=== PATIENT | male | born 1965 | race Caucasian/White ===

== ENCOUNTER → 2017-07-07 | Outpatient (CLI) | payer BC ==
--- NOTE | 2017-07-07 16:58 | US ---
EXAMINATION TYPE: US carotid duplex BILAT DATE OF EXAM: 07/07/2017 COMPARISON: NONE CLINICAL HISTORY: R42 Postural dizziness. EXAM MEASUREMENTS: RIGHT: Peak Systolic Velocity (PSV) cm/sec ----- Right CCA: 107.0 ----- Right ICA: 97.8 ----- Right ECA: 128.0 ICA/CCA ratio: RIGHT: End Diastole cm/sec ----- Right CCA: 21.7 ----- Right ICA: 27.9 ----- Right ECA: 10.9 LEFT: Peak Systolic Velocity (PSV) cm/sec ----- Left CCA: 126.0 ----- Left ICA: 112.0 ----- Left ECA: 161.0 ICA/CCA ratio: LEFT: End Diastole cm/sec ----- Left CCA: 27.4 ----- Left ICA: 23.4 ----- Left ECA: 17.1 VERTEBRALS (direction of flow): Right Vertebral: Antegrade Left Vertebral: Antegrade No significant stenosis seen IMPRESSION: No evidence for hemodynamically significant stenosis. Criteria for Assigning % of Stenosis / Diameter reduction (Estimation based on the indirect measurements of the internal carotid artery velocities (ICA PSV). 1. Normal (no stenosis)=ICA PSV < 125 cm/s: ratio < 2.0: ICA EDV<40 cm/s. 2. Less than 50% stenosis=ICA PSV < 125 cm/s: ratio < 2.0: ICA EDV<40 cm/s. 3. 50 to 69% stenosis=ICA PSV of 125 to 230 cm/s: ration 2.0 ? 4.0: ICA EDV 40-100 cm/s. 4. Greater than 70% stenosis to near occlusion= ICA PSV > 230 cm/s: ratio > 4.0: ICA EDV > 100 cm/s. 5. Near occlusion= ICA PSV velocities may be low or undetectable: variable ratio and ICA EDV. 6. Total occlusion=unable to detect flow.
== END | disposition home or self-care (01) ==
LOC: RADUSWWP 16:10
PROVIDERS: ATTEND Family Medicine
DX: R42 Dizziness and giddiness (principal); E11.9 Type 2 diabetes mellitus without complications
CPT/HCPCS: 93880

== ENCOUNTER → 2018-03-16 | Outpatient (CLI) | payer BC ==
--- NOTE | 2018-03-17 06:55 | US ---
EXAMINATION TYPE: US scrotum with doppler. Grayscale and color Doppler Duplex imaging performed of t chiqui scrotum. DATE OF EXAM: 03/16/2018 COMPARISON: NONE CLINICAL HISTORY: N50.812 Left Testicular Pain. left side swelling and pain, no injury EXAM MEASUREMENTS: TESTICLES: Right Testicle: 4.3 x 3.3 x 3.4 cm Left Testicle: 4.6 x 3.2 x 3.0 cm EPIDIDYMIS HEAD: Right Epididymis: 0.8 x 0.7 x 0.8 cm Left Epididymis: 1.5 x 1.7 x 1.1 cm Doppler performed to assess for testicular vascularity; good bilateral color flow and waveforms are s een. There is no evidence of testicular torsion. Presence of hydroceles: small left Presence of varicoceles: left, valsalva performed Two cystic appearing lesions seen within left lateral/lower testicle. 1= 0.5 x 0.6 x 0.6 cm. 2= sep tated, 0.4 x 0.6 x 0.5 cm Benign-appearing thin-walled cysts along periphery of left testicle are identified. No suspicious int ratesticular solid mass is present bilaterally. Color images show satisfactory blood flow to both sarah ticles. Comparison view shows symmetric blood flow to both testicles. IMPRESSION: Asymmetric small left-sided hydrocele and asymmetric vascular prominence borderline varic ocele on the left.
== END | disposition home or self-care (01) ==
LOC: RADUSWWP 16:18
PROVIDERS: ATTEND Family Medicine
DX: N43.3 Hydrocele, unspecified (principal)
CPT/HCPCS: 76870; 93975

== ENCOUNTER → 2018-07-11 | Outpatient (CLI) | payer BC ==
--- NOTE | 2018-07-11 10:41 | US ---
EXAMINATION TYPE: US scrotum with doppler. Grayscale and color Doppler Duplex imaging performed of t chiqui scrotum. DATE OF EXAM: 07/11/2018 COMPARISON: NONE CLINICAL HISTORY: N50.812 Left testicular pain. LLQ pain, no testicle swelling today EXAM MEASUREMENTS: TESTICLES: Right Testicle: 4.8 x 3.1 x 2.7 cm Left Testicle: 4.7 x 3.6 x 2.6 cm, 2 intratesticular cystic areas noted 0.6cm and 0.7cm EPIDIDYMIS HEAD: Right Epididymis: 1.2 cm Left Epididymis: 1.2 cm Doppler performed to assess for testicular vascularity; there are bilateral color flow and waveforms seen. There is no evidence of testicular torsion. Presence of hydroceles: mild on the left Presence of varicoceles: No sizable varicocele scanned area of patients concern under panis in LLQ - no abnormality noted IMPRESSION: Cystic foci left testis are indeterminate.
== END | disposition home or self-care (01) ==
LOC: RADUSMAIN 09:13
PROVIDERS: ATTEND Family Medicine
DX: N50.812 Left testicular pain (principal)
CPT/HCPCS: 76870; 93975

== ENCOUNTER → 2018-08-12 | Outpatient (CLI) | payer BC ==
[2018-08-12 19:14] LABS: Blood Urea Nitrogen 15 mg/dL (9-20)
--- NOTE | 2018-08-13 13:10 | CT ---
EXAMINATION TYPE: CT chest w con DATE OF EXAM: 08/12/2018 COMPARISON: CTA chest June 24, 2016 6. HISTORY: lung nodules, recent outside abnormal CT. CT DLP: 981.2 mGycm. Automated Exposure Control for Dose Reduction was Utilized. TECHNIQUE: CT scan of the thorax is performed following with IV Contrast, patient injected with 100 mL of Isovue 300. FINDINGS: LUNGS: In the superior aspect right lower lobe there is a 8 by 7 mm nodule axial image 26 that is inc reased in size from 2016 CT where measured 5 mm . Inferior and medial to this in the right lower lobe there is 10 x 10 mm groundglass nodule axial image 25 not significantly changed from prior CT. There is linear scarring in the inferior lingula near diaphragm axial image 32 that is stable. No pleural effusion or pneumothorax is noted bilaterally. Tracheobronchial tree is patent. MEDIASTINUM: There are no greater than 1 cm hilar or mediastinal lymph nodes. No pericardial effusi on is seen. Interval thyroid surgery suspected as large thyroid with substernal extension is not petrona epifanio seen on current study since. Coronary artery calcification is redemonstrated which is noted kirit er for coronary artery disease. Mild cardiomegaly remains present. OTHER: Liver is diffusely hypodense consistent with diffuse fatty infiltration. Few scattered splenul es are seen. Spleen remains enlarged at 15.6 cm long axis axial image 45 but not significantly change d from prior. There is moderate to severe multilevel spurring in the thoracic spine redemonstrated. IMPRESSION: Right-sided nodules as detailed above, larger groundglass nodule not significant change from 2016 CT favoring benign or postinflammatory. Smaller slightly larger from 2016 CT. Recommend cor relation with recent abnormal CT to help determine appropriate imaging follow-up.
== END | disposition home or self-care (01) ==
LOC: RADCTMAIN 18:26
PROVIDERS: ATTEND Family Medicine
DX: R91.8 Other nonspecific abnormal finding of lung field (principal)
CPT/HCPCS: 82565; 84520; 71260; 36415; Q9967

== ENCOUNTER → 2018-10-08 | Outpatient (CLI) | payer BC ==
--- NOTE | 2018-10-11 16:11 | PE ---
Nuclear medicine PET/CT HISTORY: Solitary pulmonary nodule, initial Patient received 13.9 mCi F-18 FDG intravenously in delayed scanning was performed from the skull bas e to the mid thighs. An attenuation correction CT, localization CT was also performed. Correlation to CT chest 12 August 2018, CT chest 06/24/2016 Neck and chest: There is no evident cervical, axillary, mediastinal, or hilar adenopathy. Pulmonary n odule in the medial aspect of the right lower lobe measures approximately 13 mm in size, no suspiciou s hypermetabolic uptake. 13 mm nodule in the subpleural location is stable compared to prior chest CT , no suspicious hypermetabolic uptake. Liver shows low attenuation likely due to hepatic steatosis. No evident adrenal mass. No retroperiton eal adenopathy. Aorta shows normal caliber. No pelvic adenopathy or free fluid. The urinary bladder s hows a thickened wall which may be due to chronic outlet obstruction, lack of distention or cystitis, correlate. No suspicious hypermetabolic uptake. Osseous structures show no significant abnormality. Facet arthropathy changes, degenerative disc carroll ge in the visualized spine. IMPRESSION: Findings felt likely to be benign.
== END | disposition home or self-care (01) ==
LOC: RADPETMAIN 11:23
PROVIDERS: ATTEND Internal Medicine Pulmonary Disease
DX: R91.1 Solitary pulmonary nodule (principal)
CPT/HCPCS: 78815; A9552

== ENCOUNTER 2021-04-07 07:51 | Day surgery (SDC) | payer BC ==
[2021-04-04 09:21] VITALS: BMI 46.2
[~2021-04-07 07:51] MED LIST: LACTATED RINGERS 1,000 ML IV SCH; LIDOCAINE 1% (10MG/ML) FOR IV START INTRADERMA PRN
[2021-04-07 08:31] VITALS: RESP 16; TEMP 97
[2021-04-07 08:33] LABS: Glucose,Whole Blood 121 mg/dL (75-99)
[2021-04-07] MEDS ORDERED: PROPOFOL 10 MG/ML 20 ML VIAL IV ONE (09:09)
--- NOTE | 2021-04-07 09:44 | P.PCN ---
Date of Procedure: 04/07/21 Description of Procedure: BRIEF HISTORY: Patient is a 55-year-old male presenting for outpatient colonoscopy for change in bowel habits and hemorrhage of the anus and rectum. The patient reports last colonoscopy approximately 5 years ago. He reports a history of hemorrhoids but has had increased rectal bleeding which is been going on for the past few months. No family history of colon cancer or IBD. PROCEDURE PERFORMED: Colonoscopy with polypectomy and biopsy. PREOPERATIVE DIAGNOSIS: Change in bowel habits, hemorrhage of the anus and rectum, patient reports last colonoscopy 5 years ago. ESTIMATED BLOOD LOSS: Minimal. IV sedation per Anesthesia. PROCEDURE: After informed consent was obtained, the patient, was brought into the endoscopy unit. IV sedation was administered by Anesthesia under continuous monitoring. Digital rectal examination was normal. Initially the Olympus CF-190 flexible video colonoscope was then inserted in the rectum, gradually advanced into the cecum without any difficulty. Careful examination was performed as the scope was gradually being withdrawn. Ileocecal valve and the appendiceal orifice were visualized and appeared normal. Prep was excellent. Mucosa of the cecum, ascending colon, transverse colon, descending colon, sigmoid colon, and rectum appeared normal. The patient had 4 diminutive polyps measuring 1-2 mm in size removed with cold forcep polypectomy the cecum, ascending colon, transverse colon and rectum. Random biopsies were taken of the normal-appearing right and left colon. Retroflexion was performed in the rectum and no lesions were seen, low-grade internal hemorrhoids were seen. The patient tolerated the procedure well. IMPRESSION: 4 diminutive polyps removed with cold forcep polypectomy from the cecum, ascending colon, transverse colon and rectum. Random biopsies taken of the normal-appearing right and left colon. Internal hemorrhoids. RECOMMENDATIONS: Findings of this examination were discussed with the patient and his family. Okay to resume diet. Okay to resume medications. Await pathology from biopsies and polypectomy. Recommend repeat colonoscopy in 5 years for colon polyps pending pathology from polypectomy. Extensive discussion with the patient regarding local hemorrhoidal care including dietary modifications, fiber supplementation, Tucks pads, topical hemorrhoidal creams and sitz baths if no improvement would recommend referral to surgical service for further evaluation.
[2021-04-07 10:02] VITALS: BP 111/75; PULSE 71
== END 2021-04-07 10:32 | disposition home or self-care (01) ==
LOC: ORWHC2ENDO 07:51
PROVIDERS: ATTEND Internal Medicine
DX: R19.4 Change in bowel habit (principal); K62.5 Hemorrhage of anus and rectum; K64.8 Other hemorrhoids; Z79.899 Other long term (current) drug therapy; D12.2 Benign neoplasm of ascending colon; D12.3 Benign neoplasm of transverse colon
CPT/HCPCS: 88305; 45380; J2704

== ENCOUNTER → 2022-11-30 | Outpatient (CLI) | payer BC ==
[2022-11-30 10:55] LABS: African American GFR (CKD) >90 (>60 ml/min/1.73 sqM); Blood Urea Nitrogen 15 mg/dL (9-20); Non-African American GFR(CKD) >90 (>60 ml/min/1.73 sqM)
--- NOTE | 2022-11-30 12:31 | CT ---
EXAMINATION TYPE: CT chest w con DATE OF EXAM: 11/30/2022 COMPARISON: Prior chest CT August 12, 2018 and same year PET/CT HISTORY: FOLLOW UP RT LUNG CANCER CT DLP: 1208 mGycm. Automated Exposure Control for Dose Reduction was Utilized. TECHNIQUE: CT scan of the thorax is performed following with IV Contrast, patient injected with 70 m L of Isovue 300. FINDINGS: LUNGS: New small right pleural effusion. Surgical changes right hilar region scarring is present. Lef t lung remains clear. Linear scarring posteriorly and superiorly from the right hilum is noted. MEDIASTINUM: Suboptimal contrast bolus. No greater than 1 cm hilar or mediastinal lymph nodes. Alejandro nary artery calcification is redemonstrated. No cardiomegaly or pericardial effusion is seen. OTHER: Right-sided gynecomastia is noted. Liver remains heterogeneously hypodense consistent with dif fuse fatty infiltration. Multilevel spurring and bridging osteophytes in the thoracic spine are redem onstrated. IMPRESSION: Posttreatment changes to the right lung. No suspicious new nodules or adenopathy identifi ed.
== END | disposition home or self-care (01) ==
LOC: RADCTMAIN 10:04
PROVIDERS: ATTEND Internal Medicine Hematology & Oncology
DX: C34.31 Malignant neoplasm of lower lobe, right bronchus or lung (principal); Z03.89 Encounter for observation for other suspected diseases and conditions ruled out; Z98.890 Other specified postprocedural states
CPT/HCPCS: 82565; 84520; 71260; 36415; Q9967

== ENCOUNTER → 2023-06-09 | Outpatient (CLI) | payer BC ==
--- NOTE | 2023-06-09 16:19 | MR ---
EXAMINATION TYPE: MR brain wo/w con DATE OF EXAM: 06/09/2023 COMPARISON: None HISTORY: Lung cancer. TECHNIQUE: Multiplanar, multisequence images of the brain and brainstem is performed without and with IV contras t, utilizing 15 mL intravenous Gadavist . FINDINGS: Diffusion weighted images demonstrate no evidence of a recent infarct or other diffusion ab normality. There is no extra-axial fluid collection or significant white matter signal abnormality. The ventricular system and cisternal spaces are normal in size and appearance. The brain volume is age appropriate. Midline structures demonstrate normal morphology. The craniocervical junction appears within normal limits. Post contrast images demonstrate no abnormal enhancement. The dural venous sinuses appear pa tent. Arachnoid granulation within the left transverse sinus. The globes are unremarkable. Likely muc ous retention cyst within the left maxillary sinus measuring up to 2.5 cm. This does not enhance. IMPRESSION: No evidence for acute/subacute ischemia or abnormal contrast enhancement to suggest intracranial meta stasis
== END | disposition home or self-care (01) ==
LOC: RADMRIMAIN 15:08
PROVIDERS: ATTEND Internal Medicine Hematology & Oncology
DX: C34.31 Malignant neoplasm of lower lobe, right bronchus or lung (principal)
CPT/HCPCS: 70553; A9585

== ENCOUNTER → 2024-01-27 | Outpatient (CLI) | payer BC ==
--- NOTE | 2024-01-27 14:26 | PE ---
EXAMINATION TYPE: PET CT fusion skull to thigh DATE OF EXAM: 01/27/2024 CLINICAL INDICATION:Male, 58 years old with history of C34.31 MALIGNANT NEOPLASM OF LOWER LOBE, RIGHT BRO; TECHNIQUE: Following the intravenous administration of 9.7 mCi of F-18 FDG, whole body images are p erformed from the skull base to the midthigh. Images are reviewed on the computer in the coronal, ax ial, and sagittal planes. Reconstructed rotating images are created on independent workstation and r eviewed on the computer. A non-contrast CT is performed in conjunction with the PET scan. Glucose l evel 116 mg/dL CT DLP: 1565 mGycm, Automated exposure control for dose reduction was used. COMPARISON: CT None, PET/CT 10/27/2023, FINDINGS: Mediastinal SUV mean is 2.7. Hepatic parenchyma SUV mean is 3.0. SKULL BASE AND NECK: Uptake within the right mandible possibly no metastatic focus versus periodontal disease max SUV 10.7 previously not well appreciated. CHEST, MEDIASTINUM, AND HILAR REGION: Consolidation changes in the left pulmonary hilum max SUV 4.5, previously 4.3. No metabolically activ e lymph nodes identified in the mediastinum. ABDOMEN AND PELVIS: Intense radiotracer uptake within the prostate gland posteriorly on the right max 10.0. Previously no t as well appreciated. MUSCULOSKELETAL STRUCTURES: Scattered sclerotic areas are seen throughout the osseous structures. Include * left rib 5 anteriorly max SUV 3.5, previously 2.6 * Left rib to max SUV 2.5 previously 2.7. * Left rib 7 Max SUV 3.9 previously 3.9. * Left iliac bone max SUV 9.6, previously 5.1. * Left proximal femur max SUV 2.6, previously 5.4. * L3 vertebral body max SUV 14.4 previously 10.6. * L2 spinous process max SUV 10.6, previously 4.2. OTHER CT: Mild mucosal thickening with retention cyst in the left maxillary sinus. Mild to moderate c oronary artery atherosclerosis. Scattered colonic diverticula. Prostate gland is mildly enlarged cole uring up to 47 mm in transverse dimension. Mild atherosclerosis of the arterial vasculature. Trace ri ght pleural effusion. Consolidation changes around the right pulmonary hilum involving the right lowe r lobe. IMPRESSION: 1. Scattered osseous metastatic disease some of which is increase in metabolic activity suggesting p rogression of disease. There is at least one new area in the L2 spinous process also present. 2. Focal uptake within the right posterior prostate gland consider further evaluation of correlation with PSA and MRI prostate gland if PSA is elevated. 3. No cysts abnormal uptake within the right pulmonary hilum or evidence of FDG avid enlarged lymph nodes.
== END | disposition home or self-care (01) ==
LOC: RADPETMAIN 10:01
PROVIDERS: ATTEND Internal Medicine Hematology & Oncology
DX: C79.51 Secondary malignant neoplasm of bone (principal); C34.31 Malignant neoplasm of lower lobe, right bronchus or lung
CPT/HCPCS: 78815; A9552

== ENCOUNTER → 2024-03-14 | Outpatient (CLI) | payer BC ==
[2024-03-14 10:11] LABS: African American GFR (CKD) >90 (>60 ml/min/1.73 sqM); Blood Urea Nitrogen 17 mg/dL (9-20); Non-African American GFR(CKD) >90 (>60 ml/min/1.73 sqM)
--- NOTE | 2024-03-14 12:40 | CT ---
EXAMINATION TYPE: CT ChestAbdPelvis w con DATE OF EXAM: 03/14/2024 COMPARISON: CT chest dated 11/30/2022 and recent PET/CT 01/27/2024. HISTORY: f/u lung ca CT DLP: 1982 mGycm CONTRAST: CT scan of the chest, abdomen and pelvis is performed with Oral Contrast and with IV Contrast, patien t injected with 100 mL of Isovue 300. CT Chest: LUNGS: Right infrahilar consolidative changes are redemonstrated measuring 1.5 cm in greatest dimensi on versus 1.[address] chest. PET CT done recently reveals no abnormal uptake in this region an d the findings are likely related to posttreatment change. No new masses or nodules present. Small ri ght-sided pleural effusion present which is smaller in size on prior study. No pleural effusion or CT evidence of interstitial lung disease. MEDIASTINUM: Thoracic aorta is of normal caliber. The heart is not enlarged. No evidence for media stinal mass or adenopathy. HILAR STRUCTURES: No evidence for mass. No hilar adenopathy is appreciated. OTHER: No significant abnormality. CONTRAST CT ABDOMEN AND PELVIS FINDINGS: LIVER/GB: No calcified gallstones. No space occupying hepatic lesion. Biliary tree is of normal ca liber. PANCREAS: No inflammation. No distinct mass. SPLEEN: No splenic enlargement. No lesion seen. ADRENALS: No nodule. No thickening. KIDNEYS/BLADDER: No hydronephrosis. No nephrolithiasis. No disctinct renal mass. BOWEL: Normal appendix. Normal bowel caliber. No inflammation. GENITAL ORGANS: No gross abnormality. LYMPH NODES: No greater than 1cm abdominal or pelvic lymph nodes are appreciated. AORTA: No significant abnormality. OSSEOUS STRUCTURES: Scattered sclerotic metastatic lesions redemonstrated. There is involvement of th e ribs, thoracic and lumbar spines as well as the pelvis and sacrum in addition to the proximal bilat eral femora. OTHER: No significant additional abnormality is seen. IMPRESSION: 1. Suspect posttreatment changes right hilum. No definite recurrent mass or new mass. 2. Bony metastatic disease
== END | disposition home or self-care (01) ==
LOC: RADCTMAIN 09:17
PROVIDERS: ATTEND Internal Medicine Hematology & Oncology
DX: C79.51 Secondary malignant neoplasm of bone (principal); C34.31 Malignant neoplasm of lower lobe, right bronchus or lung
CPT/HCPCS: 82565; 84520; 71260; 74177; 36415; Q9967

== ENCOUNTER → 2024-03-17 | Outpatient (CLI) | payer BC ==
--- NOTE | 2024-03-18 04:34 | CT ---
EXAMINATION TYPE: CT facial bones wo con CT DLP: 605.9 mGycm, Automated exposure control for dose reduction was used. DATE OF EXAM: 03/17/2024 6:39 AM COMPARISON: PET/CT 01/27/2024. CLINICAL INDICATION:Male, 58 years old with history of D49.2 NEOPLASM OF UNSP BEHAVIOR OF BONE, SOFT TISS; PHH, r/o cancer TECHNIQUE: Multiple unenhanced axial CT images were obtained of the facial bones soft tissue and bone windows. Coronal, axial and sagittal reformatted images were also provided in soft tissue and bone windows and submitted for interpretation. Additional 3-D reformatted images were obtained on a [employer] workstation. FINDINGS: Dental amalgam creates streak artifact which limits evaluation. There is no evidence of subluxation, dislocation, or significant soft tissue swelling. There is focal osseous erosion involving the right mandible surrounding the molar measuring 2.0 x 1.7 cm (series 3, 23). This corresponds to FDG activity on prior PET/CT. There is associated pathologic fracture in th is region along the medial aspect (series 6, image 26). No organized fluid collection demonstrated. Degenerative changes of the visualized cervical spine. The orbital contents are unremarkable. Mild na amrita septal deviation to the left. The temporal-mandibular joints appear symmetric. 2.9 cm polypoid le saima within the inferior left maxillary sinus. There is some associated thinning of the posterior wal l of the maxillary sinus. No corresponding FDG activity on prior PET/CT. The remaining visualized por tion of the paranasal sinuses appear clear. Nonspecific 1.9 cm soft tissue lesion within the left in ferior parotid gland. Not FDG avid on prior PET/CT. No pathologically enlarged lymph nodes identified . IMPRESSION: 1. Focal osseous erosion involving the right mandible surrounding the molar. There is associated path ologic fracture along the medial aspect. Corresponding FDG activity on prior PET/CT. The remaining os seous metastatic lesions in the body are sclerotic and nonerosive. This is favored to represent osteo myelitis from dental infection however metastasis is not entirely excluded. 2. Nonspecific polypoid lesion within the left maxillary sinus without FDG avidity on prior PET/CT. M ay represent a benign benign polyp versus mucocele. 3. Nonspecific 1.9 cm soft tissue lesion within the left parotid gland. No corresponding FDG on prior PET/CT. Further evaluation with ultrasound is recommended.
== END | disposition home or self-care (01) ==
LOC: RADCTMAIN 06:20
PROVIDERS: ATTEND Dentist
DX: K11.8 Other diseases of salivary glands (principal); C79.51 Secondary malignant neoplasm of bone; J34.89 Other specified disorders of nose and nasal sinuses
CPT/HCPCS: 70486

== ENCOUNTER → 2024-04-20 | Outpatient (CLI) | payer BC ==
--- NOTE | 2024-04-23 15:30 | PE ---
EXAMINATION TYPE: PET CT fusion skull to thigh DATE OF EXAM: 04/20/2024 COMPARISON: 03/14/2024 CT chest abdomen pelvis Prior PET/CT: 01/27/2024 HISTORY: Right lower lobe lung cancer TECHNIQUE: Following the intravenous administration of 9.2 mCi of F-18 FDG, whole body images are pe rformed from the skull base to the midthigh. Images are reviewed on the computer in the coronal, axi al, and sagittal planes. Reconstructed rotating images are created on independent workstation and re viewed on the computer. A localization and attenuation correction CT is performed in conjunction wi th the PET scan. DLP: 1296.06 mGycm SCAN: Subsequent Blood glucose: 145 mg/dL Average Mediastinum SUV: 1.75 Average Liver SUV: 1.9 FINDINGS: NECK: There is a focus of radiotracer in the parapharyngeal space on the left, image 24, SUV 4.05. THORAX: No suspicious uptake. Patient's primary not identified with elevated tracer. ABDOMEN: There is a small focus of radiotracer within the superior right lobe liver, image 120, SUV 4 .17 suspicious for metastasis. Couple of additional punctate hyperintensities slightly greater than b ackground are present, example images 131 left lobe liver, image 136 right lobe liver, image 142 medi al liver adjacent to the ligamentum teres there are several punctate areas within the lower right lob e liver. PELVIS: There is a subcutaneous hyperintensity in the right medial buttocks, image 283, SUV 5.76 OSSEOUS STRUCTURES: There is a focus of radiotracer within humeral medullary region, image 24, SUV 3. 84. There is radiotracer within the C4 level with an SUV of 4.25. There is radiotracer within the med ial right wing of the ilium, image 218, SUV 4.61. Uptake is within the lumbar vertebral bodies, examp le image L3, SUV 7.[address]: There is a small right pleural effusion and right infrahilar soft tissue increased d ensity is present without elevated radiotracer COMPARISON: Uptake within the left neck is new. Uptake within the liver is new. There are multiple pr ior osseous metastasis, this may be increasing IMPRESSION: 1. No local recurrence within the chest evident. 2. Osseous metastasis appears increasing in SUV from comparison. 3. New punctate areas of increased radiotracer may be within the liver suggesting early hepatic metas tasis. MRI could be performed with contrast for closer evaluation. 4. There may be a subcutaneous lesion posterior right inferior buttocks, present previously. 5. Stable small right pleural effusion.
== END | disposition home or self-care (01) ==
LOC: RADPETMAIN 06:24
PROVIDERS: ATTEND Internal Medicine Hematology & Oncology
DX: C79.51 Secondary malignant neoplasm of bone (principal); C34.31 Malignant neoplasm of lower lobe, right bronchus or lung; J90 Pleural effusion, not elsewhere classified
CPT/HCPCS: 78815; A9552

== ENCOUNTER → 2024-04-29 | Outpatient (CLI) | payer BC ==
--- NOTE | 2024-05-01 11:12 | MR ---
EXAMINATION TYPE: MR abdomen wo/w con DATE OF EXAM: 04/29/2024 10:44 AM CLINICAL INDICATION:Male, 58 years old with history of C34.31 lung ca; COMPARISON: CT scan abdomen from 03/14/2024. 04/20/2024. TECHNIQUE: Multiplanar multi-sequence imaging was performed without contrast. Post contrast imaging was performed. Post IV contrast subtraction images were also submitted for review. IV Contrast: cc 15 cc Gadavist FINDINGS: LOWER CHEST: Trace right pleural effusion. ABDOMEN Liver: No suspicious lesions identified on postcontrast subtraction postcontrast imaging. Diffusion-w eighted imaging is limited due to patient's body habitus No evidence for hepatic steatosis or cirrhos is. Gallbladder and Bile ducts: No evidence for ductal dilation, or biliary stricture or evidence of chol edocholithiasis. The gallbladder is within normal limits. Pancreas: No ductal dilation. No evidence for solid mass. Spleen: Normal for size. Adrenal glands: Left adrenal nodule measuring 9 mm. unchanged from 2018 likely representing adrenal a denoma. No left adrenal nodules. Kidneys: No evidence for obstructive uropathy. No suspicious renal masses. Stomach and Bowel: No evidence for bowel wall thickening or evidence for obstruction. Retroperitoneum/Peritoneum: No evidence of pneumoperitoneum or free fluid. Vasculature: No aortic aneurysm. Musculoskeletal: The osseous structures appear intact. Lymph Nodes: No gross evidence for lymphadenopathy. Abdominal wall: Unremarkable. IMPRESSION: 1. No enhancing lesions within the liver. Findings on prior PET/CT thought to represent heterogenous FDG metabolism. Attention on follow-up PET imaging recommended. 2. Trace right pleural effusion. 3. Stable suspected left adrenal adenoma.
== END | disposition home or self-care (01) ==
LOC: RADMRIMAIN 09:05
PROVIDERS: ATTEND Internal Medicine Hematology & Oncology
DX: C34.31 Malignant neoplasm of lower lobe, right bronchus or lung (principal); C79.51 Secondary malignant neoplasm of bone; J90 Pleural effusion, not elsewhere classified; I10 Essential (primary) hypertension; Z71.3 Dietary counseling and surveillance
CPT/HCPCS: 74183; A9585

== ENCOUNTER 2024-06-12 12:30 | Day surgery (SDC) | payer BC ==
[~2024-06-12 12:30] MED LIST changes: +ACETAMINOPHEN TAB 500 MG TAB ONE; +HEPARIN SODIUM,PORCINE 5,000 UNIT/ML 1 ML VIAL ONE; -LACTATED RINGERS 1,000 ML IV SCH; -LIDOCAINE 1% (10MG/ML) FOR IV START INTRADERMA PRN; +ONDANSETRON 4 MG/2 ML VIAL ONE
[2024-06-12] MEDS ORDERED: LACTATED RINGERS 1,000 ML BAG ONE (13:00)
[2024-06-12] MEDS ORDERED: SODIUM CHLORIDE 0.9% IRRIG 1,000 ML BTL IRRIGATION ONE (13:00)
[2024-06-12] MEDS ORDERED: LIDOCAINE 1%-EPI 1:100,000 20 ML VIAL ONE (13:00)
[2024-06-12] MEDS ORDERED: MIDAZOLAM 2 MG/2 ML VIAL ONE (13:39)
[2024-06-12] MEDS ORDERED: KETAMINE HCL IN 0.9 % NACL 50 MG/5 ML SYRINGE ONE (13:39)
[2024-06-12] MEDS ORDERED: PROPOFOL 10 MG/ML 20 ML VIAL IV ONE (13:39)
--- NOTE | 2024-07-11 11:44 | XR ---
Patient Bing, Ganga ID [id number] Order # EXAMINATION TYPE: XR chest 2V DATE OF EXAM: 06/12/2024 COMPARISON: No comparisons available with PACS downtime. INDICATION: Port-A-Cath insertion TECHNIQUE: Frontal and lateral views of the chest are obtained. FINDINGS: The heart size is normal. The pulmonary vasculature is normal. No suspicious infiltrates. No pneumothorax is evident. Catheter is placed on the right with the tip in the region of the superior vena cava. IMPRESSION: 1. No acute pulmonary process. 2. No pneumothorax post right-sided catheter placement, tip in the distal superior vena cava region.
--- NOTE | 2024-07-17 10:07 | OP ---
OPERATIVE REPORT DATE OF SERVICE : PREOPERATIVE DIAGNOSIS: Lung cancer. POSTOPERATIVE DIAGNOSIS: Lung cancer. PROCEDURES: Port-A-Cath insertion with ultrasound and fluoroscopic guidance. ANESTHESIA: Local and sedation. COMPLICATIONS: None. DESCRIPTION OF PROCEDURE: The patient was brought and placed on the OR table in the supine position. The patient was sedated per Anesthesia. The chest and neck were prepped and draped sterilely. The right internal jugular vein was identified using ultrasound guidance. Under ultrasound guidance, the Seldinger needle was passed into the lumen of the right IJ. The wire was then advanced under fluoroscopic guidance to the superior vena cava. A port pocket was then created in the right infraclavicular location after localizing with Marcaine and a horizontal incision was made. The subcutaneous tissues and port pocket were made using electrocautery. The catheter was then tunneled from the wire insertion site to the port pocket. The catheter was cut and connected to the low-profile port which was then sutured to the underlying tissues using interrupted 3-0 silk sutures. The dilator introducer was then threaded over the guidewire. The guidewire and dilator were removed. The catheter was advanced through the introducer and the introducer was then removed. The tip of the catheter was noted to be in the SVC and this was monitored during the placement with fluoroscopy. Pressure was held. No bleeding was seen. The port was flushed with both saline and Hep-Lock solution. There was excellent flow in all the port. The subcutaneous tissues were closed using 3-0 Vicryl sutures and the skin using 4-0 Monocryl sutures. Skin glue and sterile dressings were then applied. MMHUSEYIN / IJN: [id number] /
--- NOTE | 2024-08-03 10:35 | FL ---
EXAMINATION TYPE: FL guided central line placemt DATE OF EXAM: 07/07/2024 6:32 AM COMPARISON: Pre Operative Images if available both CT/MRI or plain film CLINICAL INDICATION: Male, 59 years old with history of PORTACATH INSERT; TECHNIQUE: FL guided central line placemt, multiple fluoroscopic images provided for procedure. Total fluoroscopy time: 7 seconds Total submitted images to PACS: 1 DAP: 1.1079 mGym2 Gycm2 uGym2 cGycm2 or equivalent. FINDINGS: Fluoroscopic imaging for Port-A-Cath insertion no evidence for pneumothorax. Multilevel degeneration changes of the spine. IMPRESSION: 1. No evidence for intraoperative complication. 2. Please see the operative/procedural note for further details. [facility], , 08/03/2024 10:33 AM
== END 2024-06-12 16:16 ==
LOC: OR 12:30
PROVIDERS: ATTEND Surgery
DX: C34.90 Malignant neoplasm of unspecified part of unspecified bronchus or lung (principal); G47.33 Obstructive sleep apnea (adult) (pediatric); I10 Essential (primary) hypertension; E11.69 Type 2 diabetes mellitus with other specified complication; E78.5 Hyperlipidemia, unspecified; E11.9 Type 2 diabetes mellitus without complications; M54.50 Low back pain, unspecified; Z79.899 Other long term (current) drug therapy; Z79.84 Long term (current) use of oral hypoglycemic drugs
CPT/HCPCS: 71045; 77001

== ENCOUNTER → 2024-07-27 | Outpatient (CLI) | payer BC ==
--- NOTE | 2024-07-29 12:04 | PE ---
EXAMINATION TYPE: PET CT fusion skull to thigh DATE OF EXAM: 07/27/2024 CLINICAL INDICATION:Male, 59 years old with history of C34.31 LUNG CANCER; TECHNIQUE: Following the intravenous administration of 13.19 mCi of F-18 FDG, whole body images are performed from the skull base to the midthigh. Images are reviewed on the computer in the coronal, axial, and sagittal planes. Reconstructed rotating images are created on independent workstation and reviewed on the computer. A non-contrast CT is performed in conjunction with the PET scan. Glucose level 185 mg/dL CT DLP: 1578 mGycm, Automated exposure control for dose reduction was used. COMPARISON: CT None, PET/CT 04/20/2024, MRI: 04/29/2024 FINDINGS: Mediastinal SUV mean is 2.2. Hepatic parenchyma SUV mean is 3.0. SKULL BASE AND NECK: No suspicious radiotracer activity. CHEST, MEDIASTINUM, AND HILAR REGION: No suspicious radiotracer activity. ABDOMEN AND PELVIS: No abnormal uptake within the liver. Heterogenous uptake throughout the liver at background levels. MUSCULOSKELETAL STRUCTURES: Focus of uptake within the medial aspect of the left first rib max SUV 6.3 sclerotic lesion in this r egion. Increased in size now measuring 13 mm previously poorly visualized without FDG activity. Other scattered areas of abnormal uptake throughout the osseous structures with increasing sclerotic areas, small sample of examples include: * spinous process of L2 max SUV 10.3, previously 9.6 * vertebral body of L5 max SUV 10.4 previously 7.5. * Right sacrum iliac bone max SUV 8.3 previously 7.5. * Right femoral head max SUV 7.[address]: Trace right pleural effusion. The heart is mildly enlarged for size. Mild centrilobular emp hysema changes. IMPRESSION: Progression of disease with scattered osseous metastatic disease with increasing metabolic activity. [facility], , 07/29/2024 12:02 PM
== END | disposition home or self-care (01) ==
LOC: RADPETMAIN 08:06
PROVIDERS: ATTEND Internal Medicine Hematology & Oncology
DX: C34.31 Malignant neoplasm of lower lobe, right bronchus or lung
CPT/HCPCS: 78815

== ENCOUNTER 2024-10-19 11:07 | Inpatient (IN) | payer BC ==
--- NOTE | 2024-10-19 12:25 | ED ---
General Adult HPI - General Chief complaint: Recheck/Abnormal Lab/Rx Stated complaint: Abn Labs Time Seen by Provider: 10/19/24 11:17 Source: patient, family, RN notes reviewed, old records reviewed Mode of arrival: wheelchair Limitations: no limitations - History of Present Illness Initial comments: 59-year-old male history of stage IV lung cancer presenting from the oncologist office for weakness, anemia, fever. Patient states he was noted to have hemoglobin right around 7 and was sent for transfusion. He denies bleeding. He has had low-grade fever as well. Last chemotherapy was approximately 1 week ago. No cough or cold symptoms. No abdominal pain. No dysuria or urinary frequency. - Related Data Home Medications Medication Instructions Recorded Confirmed Gabapentin 600 mg PO QID 01/04/15 10/19/24 Losartan Potassium [Cozaar] 100 mg PO DAILY 01/04/15 10/19/24 Omeprazole 40 mg PO DAILY 01/04/15 10/19/24 metFORMIN HCL [Glucophage] 1,000 mg PO BID 01/04/15 10/19/24 Ascorbic Acid [Vitamin C] 1,000 mg PO DAILY 04/04/21 10/19/24 Cyanocobalamin (Vitamin B-12) 1,000 mcg PO DAILY 04/04/21 10/19/24 [Vitamin B-12] Empagliflozin [Jardiance] 25 mg PO DAILY 04/04/21 10/19/24 Ergocalciferol [Vitamin D2 (1250 1,250 mcg PO CONTI 04/04/21 10/19/24 Mcg = 79021 Iu)] Fenofibrate,Micronized 200 mg PO DAILY 04/04/21 10/19/24 [Fenofibrate] Latanoprost/Pf [Latanoprost 0.005% 1 drop BOTH EYES HS 04/04/21 10/19/24 Eye Drop] Levothyroxine Sodium [Synthroid] 200 mcg PO DAILY 04/04/21 10/19/24 Olmesartan Medoxomil [Benicar] 40 mg PO DAILY 04/04/21 10/19/24 [place]-3 Fatty Acids/Fish Oil [Fish 1 cap PO DAILY 04/04/21 10/19/24 Oil 1,000 mg Softgel] Rosuvastatin [Crestor] 20 mg PO DAILY 04/04/21 10/19/24 Ubidecarenone [Co Q-10] 200 mg PO DAILY 04/04/21 10/19/24 Zinc 50 mg PO DAILY 04/04/21 10/19/24 carvediloL [Coreg] 25 mg PO BID 04/04/21 10/19/24 Aspirin EC [Ecotrin Low Dose] 81 mg PO DIRECTED 10/19/24 10/19/24 Cholecalciferol [Vitamin D3 (25 25 mcg PO DAILY 10/19/24 10/19/24 Mcg = 1000 Iu)] Cyclobenzaprine [Flexeril] 10 mg PO Q8H PRN 10/19/24 10/19/24 EPINEPHrine (Auto Inject) [Epipen] 0.3 mg IM ONCE PRN 10/19/24 10/19/24 Folic Acid 1 mg PO DAILY 10/19/24 10/19/24 Ibuprofen [Motrin] 800 mg PO Q8H PRN 10/19/24 10/19/24 Levothyroxine Sodium [Synthroid] 50 mcg PO DAILY 10/19/24 10/19/24 Magnesium Oxide [Magnesium] 500 mg PO DAILY 10/19/24 10/19/24 Ondansetron Odt [Zofran Odt] 4 mg PO Q4H PRN 10/19/24 10/19/24 Spironolactone [Aldactone] 25 mg PO DAILY 10/19/24 10/19/24 oxyCODONE HCL [Oxycodone HCl] 10 mg PO Q4H 10/19/24 10/19/24 Allergies Allergy/AdvReac Type Severity Reaction Status Date / Time peas Allergy Anaphylaxis Verified 10/19/24 13:51 Review of Systems ROS Statement: Those systems with pertinent positive or pertinent negative responses have been documented in the HPI. ROS Other: All systems not noted in ROS Statement are negative. Past Medical History Past Medical History: Cancer, Diabetes Mellitus, GERD/Reflux, Hyperlipidemia, Hypertension, Sleep Apnea/CPAP/BIPAP, Thyroid Disorder Additional Past Medical History / Comment(s): C PAP MACHINE , RECTAL BLEEDING. neuropathy History of Any Multi-Drug Resistant Organisms: None Reported Past Surgical History: No Surgical Hx Reported Additional Past Surgical History / Comment(s): colonoscopy 2015, THYROIDECTOMY Past Anesthesia/Blood Transfusion Reactions: No Reported Reaction Past Psychological History: No Psychological Hx Reported Smoking Status: Never smoker - Past Family History Father Family Medical History: Cancer General Exam Limitations: no limitations General appearance: alert, in no apparent distress Head exam: Present: atraumatic, normocephalic Eye exam: Present: normal appearance, PERRL ENT exam: Present: mucous membranes dry Neck exam: Present: normal inspection. Absent: tenderness, meningismus Respiratory exam: Present: normal lung sounds bilaterally. Absent: respiratory distress, wheezes Cardiovascular Exam: Present: regular rate, normal rhythm GI/Abdominal exam: Present: soft. Absent: distended, tenderness, guarding Neurological exam: Present: alert, oriented X3 Psychiatric exam: Present: normal affect, normal mood Skin exam: Present: pallor Course Vital Signs 10/19/24 10/19/24 10/19/24 11:12 11:37 12:56 Temperature 100.3 F H 100.5 F H Pulse Rate 90 89 92 Respiratory 20 16 16 Rate Blood Pressure 122/67 117/58 100/54 O2 Sat by Pulse 99 98 96 Oximetry Medical Decision Making - Medical Decision Making Was pt. sent in by a medical professional or institution (Dr. PA, SHOT BLAST EQUIPMENT OPERATOR, urgent care, hospital, or [facility]...) When possible be specific @ -No Did you speak to anyone other than the patient for history (EMS, parent, family, police, friend...)? What history was obtained from this source @ -No Did you review nursing and triage notes (agree or disagree)? Why? @ -I reviewed and agree with nursing and triage notes Were old charts reviewed (outside hosp., previous admission, EMS record, old EKG, old radiological studies, urgent care reports/EKG's, [facility] records)? Report findings @ -No old charts were reviewed Differential Weakness: Hypoglycemia, shock, sepsis, hyponatremia, anemia, infection, LA, ETOH, adverse medicine reaction, overdose, stroke, this is not meant to be an all-inclusive list. EKG interpreted by me (3pts min.). @ -As above X-rays interpreted by me (1pt min.). @ -Chest x-ray negative for consolidated pneumonia CT interpreted by me (1pt min.). @ -None done U/S interpreted by me (1pt. min.). @ -None done What testing was considered but not performed or refused? (CT, X-rays, U/S, labs)? Why? @ -None What meds were considered but not given or refused? Why? @ -None Did you discuss the management of the patient with other professionals (professionals i.e. , PA, SHOT BLAST EQUIPMENT OPERATOR, lab, RT, psych nurse, licensed clinical social worker, president & ceo, teacher, commissioned fire officer, case coordinator)? Give summary @ -Yes, Dr. Francois Was smoking cessation discussed for >3mins.? @ -No Was critical care preformed (if so, how long)? @ -Yes, anemia requiring transfusion, 35 minutes Were there social determinants of health that impacted care today? How? (Homelessness, low income, unemployed, alcoholism, drug addiction, transportation, low edu. Level, literacy, decrease access to med. care, fdc, re hab)? @ -No Was there de-escalation of care discussed even if they declined (Discuss DNR or withdrawal of care, Hospice)? DNR status @ -No What co-morbidities impacted this encounter? (DM, HTN, Smoking, COPD, CAD, Cancer, CVA, ARF, Chemo, Hep., AIDS, mental health diagnosis, sleep apnea, morbid obesity)? @ -Stage IV lung cancer on chemotherapy] Was patient admitted / discharged? Hospital course, mention meds given and route, prescriptions, significant lab abnormalities, going to OR and other pertinent info. @ -59-year-old male presenting with weakness, anemia, sent in by oncology. Patient laboratory studies are obtained, he has a normal white blood cell count, hemoglobin 5.6 requiring 2 units of transfused blood. Patient also has a low- grade fever. Blood culture, urine culture obtained, results pending. Patient has a negative viral swab. Chest x-ray does not show consolidated pneumonia. Patient admitted to Dr. Francois who is aware with oncology on consult. Undiagnosed new problem with uncertain prognosis? @ -No Drug Therapy requiring intensive monitoring for toxicity (Heparin, Nitro, Insulin, Cardizem)? @ -No Were any procedures done? @ -No Diagnosis/symptom? @Anemia, fever, lung CA Acute, or Chronic, or Acute on Chronic? @Acute Uncomplicated (without systemic symptoms) or Complicated (systemic symptoms)? @ -Complicated Side effects of treatment? @ -No Exacerbation, Progression, or Severe Exacerbation? @ -No Poses a threat to life or bodily function? How? (Chest pain, USA, LA, pneumonia, PE, COPD, DKA, ARF, appy, cholecystitis, CVA, Diverticulitis, Homicidal, Suicidal, threat to staff... and all critical care pts) @ -Yes, anemia, sepsis - Lab Data Result diagrams: 10/19/24 12:37 10/19/24 12:37 Lab Results 10/19/24 10/19/24 10/19/24 Range/Units 11:53 12:37 12:37 WBC 4.0 (3.8-10.6) k/uL RBC 1.81 L (4.30-5.90) m/uL Hgb 5.6 L* (13.0-17.5) gm/dL Hct 16.6 L* (39.0-53.0) % MCV 91.7 (80.0-100.0) fL MCH 31.0 (25.0-35.0) pg MCHC 33.8 (31.0-37.0) g/dL RDW 20.4 H (11.5-15.5) % Plt Count 53 L (150-450) k/uL MPV 8.2 Neutrophils % (Manual) 62 % Band Neuts % (Manual) 6 % Lymphocytes % (Manual) 12 % Monocytes % (Manual) 6 % Metamyelocytes % 8 % Myelocytes % 7 % Neutrophils # (Manual) 2.70 (1.3-7.7) k/uL Lymphocytes # (Manual) 0.48 L (1.0-4.8) k/uL Monocytes # (Manual) 0.24 (0-1.0) k/uL Metamyelocytes # (Man) 0.32 H (0) k/uL Myelocytes # (Manual) 0.28 H (0) k/uL Nucleated RBCs 2 H (0-0) /100 WBC Manual Slide Review Performed Polychromasia Present Hypochromasia Slight Poikilocytosis Slight Anisocytosis Moderate Anisocytosis (manual) Present Macrocytosis Slight Sodium 129 L (137-145) mmol/L Potassium 4.2 (3.5-5.1) mmol/L Chloride 98 (98-107) mmol/L Carbon Dioxide 24 (22-30) mmol/L Anion Gap 7 mmol/L BUN 19 (9-20) mg/dL Creatinine 1.20 (0.66-1.25) mg/dL Est GFR (CKD-EPI)AfAm 76 (>60 ml/min/1.73 sqM) Est GFR (CKD-EPI)NonAf 66 (>60 ml/min/1.73 sqM) Glucose 162 H (74-99) mg/dL POC Glucose (mg/dL) (70-110) mg/dL POC Glu Headstart Teacher ID Plasma Lactic Acid David (0.7-2.0) mmol/L Calcium 8.5 (8.4-10.2) mg/dL Total Bilirubin 1.0 (0.2-1.3) mg/dL AST 39 (17-59) U/L ALT 31 (4-49) U/L Alkaline Phosphatase 157 H (38-126) U/L Total Protein 6.2 L (6.3-8.2) g/dL Albumin 3.8 (3.5-5.0) g/dL Influenza Type A (PCR) Not Detected (Not Detectd) Influenza Type B (PCR) Not Detected (Not Detectd) RSV (PCR) Not Detected (Not Detectd) SARS-CoV-2 (PCR) Not Detected (Not Detectd) 10/19/24 10/19/24 Range/Units 12:37 14:12 WBC (3.8-10.6) k/uL RBC (4.30-5.90) m/uL Hgb (13.0-17.5) gm/dL Hct (39.0-53.0) % MCV (80.0-100.0) fL MCH (25.0-35.0) pg MCHC (31.0-37.0) g/dL RDW (11.5-15.5) % Plt Count (150-450) k/uL MPV Neutrophils % (Manual) % Band Neuts % (Manual) % Lymphocytes % (Manual) % Monocytes % (Manual) % Metamyelocytes % % Myelocytes % % Neutrophils # (Manual) (1.3-7.7) k/uL Lymphocytes # (Manual) (1.0-4.8) k/uL Monocytes # (Manual) (0-1.0) k/uL Metamyelocytes # (Man) (0) k/uL Myelocytes # (Manual) (0) k/uL Nucleated RBCs (0-0) /100 WBC Manual Slide Review Polychromasia Hypochromasia Poikilocytosis Anisocytosis Anisocytosis (manual) Macrocytosis Sodium (137-145) mmol/L Potassium (3.5-5.1) mmol/L Chloride (98-107) mmol/L Carbon Dioxide (22-30) mmol/L Anion Gap mmol/L BUN (9-20) mg/dL Creatinine (0.66-1.25) mg/dL Est GFR (CKD-EPI)AfAm (>60 ml/min/1.73 sqM) Est GFR (CKD-EPI)NonAf (>60 ml/min/1.73 sqM) Glucose (74-99) mg/dL POC Glucose (mg/dL) 191 H (70-110) mg/dL POC Glu Head[employer] Teacher ID Paul Pantoja Plasma Lactic Acid David 2.8 H* (0.7-2.0) mmol/L Calcium (8.4-10.2) mg/dL Total Bilirubin (0.2-1.3) mg/dL AST (17-59) U/L ALT (4-49) U/L Alkaline Phosphatase (38-126) U/L Total Protein (6.3-8.2) g/dL Albumin (3.5-5.0) g/dL Influenza Type A (PCR) (Not Detectd) Influenza Type B (PCR) (Not Detectd) RSV (PCR) (Not Detectd) SARS-CoV-2 (PCR) (Not Detectd) Critical Care Time Critical Care Time: Yes Total Critical Care Time: 35 Disposition Clinical Impression: Anemia, Lung cancer, Fever Disposition: ADMITTED IP TO THIS HOSP Condition: Stable Is patient prescribed a controlled substance at d/c from ED?: No Referrals: Jennyfer Garsia MD [Primary Care Provider] - 1-2 days Time of Disposition: 14:29
[2024-10-19 12:50] LABS: Anisocytosis Moderate; Hypochromasia Slight; MCHC 33.8 g/dL (31.0-37.0); MCV 91.7 fL (80.0-100.0); Macrocytosis Slight; Mean Platelet Volume 8.2; Poikilocytosis Slight; RBC 1.81 m/uL (4.30-5.90); RDW 20.4 % (11.5-15.5)
[2024-10-19] MEDS: ACETAMINOPHEN TAB 500 MG TAB PO STA (12:50)
[2024-10-19] MEDS: SODIUM CHLORIDE 0.9% 500 ML 500 ML IV STA (12:54)
[2024-10-19 13:02] LABS: ALT 31 U/L (4-49); AST 39 U/L (17-59); African American GFR (CKD) 76 (>60 ml/min/1.73 sqM); Albumin 3.8 g/dL (3.5-5.0); Alkaline Phosphatase 157 U/L (38-126); Anion Gap 7 mmol/L; Blood Urea Nitrogen 19 mg/dL (9-20); Calcium 8.5 mg/dL (8.4-10.2); Carbon Dioxide 24 mmol/L (22-30); Chloride 98 mmol/L (98-107); Glucose 162 mg/dL (74-99); Non-African American GFR(CKD) 66 (>60 ml/min/1.73 sqM); Potassium 4.2 mmol/L (3.5-5.1); Sodium 129 mmol/L (137-145); Total Protein 6.2 g/dL (6.3-8.2)
[2024-10-19 13:09] LABS: HCT 16.6 % (39.0-53.0); HGB 5.6 gm/dL (13.0-17.5); Platelet Count 53 k/uL (150-450)
[2024-10-19 14:03] LABS: Band Neutrophils % 6 %; Lymphocytes # (M) 0.48 k/uL (1.0-4.8); Metamyelocytes # (M) 0.32 k/uL (0); Metamyelocytes % 8 %; Monocytes # (M) 0.24 k/uL (0-1.0); Myelocytes # (M) 0.28 k/uL (0); Myelocytes % 7 %; Neutrophils % (M) 62 %; Nucleated Red Blood Cells 2 /100 WBC (0-0); Total Cells Counted 200
[2024-10-19 14:04] LABS: Anisocytosis (M) Present; Polychromasia Present
[2024-10-19 14:17] LABS: Glucose,Whole Blood 191 mg/dL (70-110)
[2024-10-19] MEDS ORDERED: NALOXONE 0.4 MG/ML 1 ML VIAL IV PRN (14:24)
--- NOTE | 2024-10-19 14:26 | XR ---
EXAMINATION TYPE: XR chest 2V DATE OF EXAM: 10/19/2024 1:35 PM COMPARISON: Chest radiographs from 06/12/2024 CLINICAL INDICATION: Male, 59 years old with history of fever; TECHNIQUE: XR chest 2V Frontal and lateral views of the chest. FINDINGS: Lungs/Pleura: There is no evidence of pleural effusion, focal consolidation, or pneumothorax. Pulmonary vascularity: Unremarkable. Heart/mediastinum: Cardiomediastinal silhouette is unremarkable. Musculoskeletal: No acute osseous pathology. Right chest wall [id number] tip in the superior vena cava. IMPRESSION: Low lung volumes with a generalized hazy appearance which could represent atelectasis. Findings simil ar to prior. [facility], Workstation: [facility], 10/19/2024 2:24 PM
[2024-10-19] MEDS ORDERED: DEXTROSE 50% SYRINGE 50 ML IVP PRN ×2 (14:36)
--- NOTE | 2024-10-19 14:46 | P.HPIM ---
History of Present Illness H&P Date: 10/19/24 Ganga Smart, is a 59-year-old male patient of Dr. Garsia who presented to the ER after his oncologist discovered his hemoglobin low at 5.9. Patient has a history of metastatic lung cancer and has been receiving chemotherapy last cycle 1 week ago. Patient reports he's been on chemotherapy for approximately 2 years.patient has past medical history of diabetes, GERD, hyperlipidemia, hypertension, sleep apnea, thyroid disorder. Patient denies any nicotine use history.lab work completed showing hemoglobin 5.6. White blood cell 4.0. Sodium 129, creatinine 1.2, bun 19, lactic acid 2.8patient also noted to have a low-grade temp 100.5. Patient denies any recent sick contacts denies cough or shortness of breath. Patient denies nausea vomiting or diarrhea. Patient denies any burning with urination. At this time patient will be admitted oncology and infectious disease service is consulted. 2 units of PRBCs have been ordered. COVID-19 in influenza negative. Blood and urine and sputum cu ltures ordered. At this time patient is resting comfortably in bed. Patient denies any chest pain or shortness of breath. Patient denies nausea vomiting or diarrhea. Patient denies any urinary burning or frequency Review of Systems please refer to HPI otherwise unremarkable Past Medical History Past Medical History: Cancer, Diabetes Mellitus, GERD/Reflux, Hyperlipidemia, Hypertension, Sleep Apnea/CPAP/BIPAP, Thyroid Disorder Additional Past Medical History / Comment(s): C PAP MACHINE , RECTAL BLEEDING. neuropathy History of Any Multi-Drug Resistant Organisms: None Reported Past Surgical History: No Surgical Hx Reported Additional Past Surgical History / Comment(s): colonoscopy 2014, THYROIDECTOMY Past Anesthesia/Blood Transfusion Reactions: No Reported Reaction Past Psychological History: No Psychological Hx Reported Smoking Status: Never smoker - Past Family History Father Family Medical History: Cancer Medications and Allergies Home Medications Medication Instructions Recorded Confirmed Type Gabapentin 600 mg PO QID 01/04/15 10/19/24 History Losartan Potassium [Cozaar] 100 mg PO DAILY 01/04/15 10/19/24 History Omeprazole 40 mg PO DAILY 01/04/15 10/19/24 History metFORMIN HCL [Glucophage] 1,000 mg PO BID 01/04/15 10/19/24 History Ascorbic Acid [Vitamin C] 1,000 mg PO DAILY 04/04/21 10/19/24 History Cyanocobalamin (Vitamin B-12) 1,000 mcg PO DAILY 04/04/21 10/19/24 History [Vitamin B-12] Empagliflozin [Jardiance] 25 mg PO DAILY 04/04/21 10/19/24 History Ergocalciferol [Vitamin D2 (1250 1,250 mcg PO CONTI 04/04/21 10/19/24 History Mcg = 09562 Iu)] Fenofibrate,Micronized 200 mg PO DAILY 04/04/21 10/19/24 History [Fenofibrate] Latanoprost/Pf [Latanoprost 0.005% 1 drop BOTH EYES HS 04/04/21 10/19/24 History Eye Drop] Levothyroxine Sodium [Synthroid] 200 mcg PO DAILY 04/04/21 10/19/24 History Olmesartan Medoxomil [Benicar] 40 mg PO DAILY 04/04/21 10/19/24 History [place]-3 Fatty Acids/Fish Oil [Fish 1 cap PO DAILY 04/04/21 10/19/24 History Oil 1,000 mg Softgel] Rosuvastatin [Crestor] 20 mg PO DAILY 04/04/21 10/19/24 History Ubidecarenone [Co Q-10] 200 mg PO DAILY 04/04/21 10/19/24 History Zinc 50 mg PO DAILY 04/04/21 10/19/24 History carvediloL [Coreg] 25 mg PO BID 04/04/21 10/19/24 History Aspirin EC [Ecotrin Low Dose] 81 mg PO DIRECTED 10/19/24 10/19/24 History Cholecalciferol [Vitamin D3 (25 25 mcg PO DAILY 10/19/24 10/19/24 History Mcg = 1000 Iu)] Cyclobenzaprine [Flexeril] 10 mg PO Q8H PRN 10/19/24 10/19/24 History EPINEPHrine (Auto Inject) [Epipen] 0.3 mg IM ONCE PRN 10/19/24 10/19/24 History Folic Acid 1 mg PO DAILY 10/19/24 10/19/24 History Ibuprofen [Motrin] 800 mg PO Q8H PRN 10/19/24 10/19/24 History Levothyroxine Sodium [Synthroid] 50 mcg PO DAILY 10/19/24 10/19/24 History Magnesium Oxide [Magnesium] 500 mg PO DAILY 10/19/24 10/19/24 History Ondansetron Odt [Zofran Odt] 4 mg PO Q4H PRN 10/19/24 10/19/24 History Spironolactone [Aldactone] 25 mg PO DAILY 10/19/24 10/19/24 History oxyCODONE HCL [Oxycodone HCl] 10 mg PO Q4H 10/19/24 10/19/24 History Allergies Allergy/AdvReac Type Severity Reaction Status Date / Time peas Allergy Anaphylaxis Verified 10/19/24 13:51 Physical Exam Vitals: Vital Signs Temp Pulse Resp BP Pulse Ox 10/19/24 12:56 100.5 F H 92 16 100/54 96 10/19/24 11:37 89 16 117/58 98 10/19/24 11:12 100.3 F H 90 20 122/67 99 Intake and Output 10/18/24 10/19/24 10/19/24 22:59 06:59 14:59 Other: Weight 163.293 kg Head normocephalic Neck supple Lungs clear to auscultation bilaterally no wheezing or crackles Heart regular rate and rhythm S1-S2, no rub or gallop Abdomen is soft nontender nondistended positive bowel sounds no hepatos plenomegaly Extremities no edema Neuro alert and orientated to 3 Results CBC & Chem 7: 10/19/24 12:37 10/19/24 12:37 Labs: Abnormal Lab Results - Last 24 Hours (Table) 10/19/24 10/19/24 10/19/24 Range/Units 12:37 12:37 12:37 RBC 1.81 L (4.30-5.90) m/uL Hgb 5.6 L* (13.0-17.5) gm/dL Hct 16.6 L* (39.0-53.0) % RDW 20.4 H (11.5-15.5) % Plt Count 53 L (150-450) k/uL Lymphocytes # (Manual) 0.48 L (1.0-4.8) k/uL Metamyelocytes # (Man) 0.32 H (0) k/uL Myelocytes # (Manual) 0.28 H (0) k/uL Nucleated RBCs 2 H (0-0) /100 WBC Sodium 129 L (137-145) mmol/L Glucose 162 H (74-99) mg/dL POC Glucose (mg/dL) (70-110) mg/dL Plasma Lactic Acid David 2.8 H* (0.7-2.0) mmol/L Alkaline Phosphatase 157 H (38-126) U/L Total Protein 6.2 L (6.3-8.2) g/dL 10/19/24 Range/Units 14:12 RBC (4.30-5.90) m/uL Hgb (13.0-17.5) gm/dL Hct (39.0-53.0) % RDW (11.5-15.5) % Plt Count (150-450) k/uL Lymphocytes # (Manual) (1.0-4.8) k/uL Metamyelocytes # (Man) (0) k/uL Myelocytes # (Manual) (0) k/uL Nucleated RBCs (0-0) /100 WBC Sodium (137-145) mmol/L Glucose (74-99) mg/dL POC Glucose (mg/dL) 191 H (70-110) mg/dL Plasma Lactic Acid David (0.7-2.0) mmol/L Alkaline Phosphatase (38-126) U/L Total Protein (6.3-8.2) g/dL Assessment and Plan Assessment: 1. Anemia likely secondary from chemotherapy 2. History of metastatic lung cancer patient follows with oncology services last chemotherapy one week ago 3. Febrile. Temp 100.3. 4. hyponatremia 5.history of diabetes mellitus 6. History of hyperlipidemia 7. History of essential hypertension 8. History of hypothyroidism 9. History of sleep apnea DVT prophylaxis SCDs secondary to anemia. GI prophylaxis Protonix Oncology and infectious disease service is consulted 2 units of PRBCs have been ordered Blood urine and sputum cultures ordered Continue gentle hydration 0.9 at 75 Time with Patient: Greater than 30 (Greater than 60% of the total time spent in counseling and coordination of care)
[2024-10-19] MEDS: SODIUM CHLORIDE 0.9% 1,000 ML IV SCH (14:50)
[2024-10-19] MEDS ORDERED: VANCOMYCIN IV PER PHARMACY 1 EACH MISC MISCELLANE PRN (15:11)
--- NOTE | 2024-10-19 15:56 | US ---
EXAMINATION TYPE: US venous doppler duplex LE DATE OF EXAM: 10/19/2024 3:50 PM COMPARISON: NONE CLINICAL INDICATION: Male, 59 years old with history of Swelling; , Pain TECHNIQUE: The lower extremity deep venous system is examined utilizing real time linear array sonog arnol with graded compression, color doppler sonography, and spectral doppler. SIDE PERFORMED: Bilateral FINDINGS: VESSELS IMAGED: Common Femoral Vein Deep Femoral Vein Greater Saphenous Vein * Femoral Vein Popliteal Vein Small Saphenous Vein * Proximal Calf Veins (* superficial vessels) Right Leg: Negative for DVT, Color Doppler imaging shows patency of the vessels. Spectral waveforms are within normal limits. Left Leg: Negative for DVT, Color Doppler imaging shows patency of the vessels. Spectral waveforms a re within normal limits. IMPRESSION: No ultrasound evidence for deep venous thrombosis. [facility], Workstation: [facility], 10/19/2024 3:53 PM
[2024-10-19] MEDS: CEFEPIME 2 GM in SODIUM CHLORIDE 0.9% 100 ML IVPB SCH (16:35)
[2024-10-19] MEDS: VANCOMYCIN 2,500 MG in SODIUM CHLORIDE 0.9% 500 ML 500 ML IVPB STA (16:36)
[2024-10-19 18:59] LABS: Glucose,Whole Blood 161 mg/dL (70-110)
[2024-10-19] MEDS: ACETAMINOPHEN TAB 325 MG TAB PO PRN (19:04)
[2024-10-19] MEDS: carvediloL 12.5 MG TAB PO SCH (19:04)
[2024-10-19] MEDS: INSULIN ASPART (NovoLOG) 100 UNIT/ML VIAL SQ SCH (19:05)
[2024-10-19] MEDS: GABAPENTIN 300 MG CAP PO SCH (19:05)
[2024-10-19 21:08] LABS: Glucose,Whole Blood 174 mg/dL (70-110)
[2024-10-19] MEDS: LATANOPROST 0.005% OPHTH DROPS 2.5 ML BTL BOTH EYES SCH (21:31)
[2024-10-19 22:53] LABS: Appearance,Urine Clear (Clear); Bilirubin,Urine Negative (Negative); Blood,Urine Negative (Negative); Color,Urine Light Yellow; Glucose,Urine (UA) 4+ (Negative); Ketones,Urine Negative (Negative); Leukocyte Esterase,Urine Negative (Negative); Nitrite,Urine Negative (Negative); Protein,Urine Negative (Negative); Specific Gravity,Urine 1.026 (1.001-1.035); Urobilinogen,Urine <2.0 mg/dL (<2.0)
[2024-10-20 06:27] LABS: Glucose,Whole Blood 149 mg/dL (70-110)
[2024-10-20] MEDS: LEVOTHYROXINE 100 MCG TAB PO SCH (06:39)
[2024-10-20] MEDS: LEVOTHYROXINE 50 MCG TAB PO SCH (06:39)
[2024-10-20] MEDS: PANTOPRAZOLE 40 MG TABLET PO SCH (06:39)
[2024-10-20] MEDS: MAGNESIUM OXIDE 400 MG TAB PO SCH (08:01)
[2024-10-20] MEDS: ZINC SULFATE 220 MG CAP PO SCH (08:01)
[2024-10-20] MEDS: FOLIC ACID 1 MG TAB PO SCH (08:02)
[2024-10-20] MEDS: CYANOCOBALAMIN 500 MCG TAB PO SCH (08:02)
[2024-10-20] MEDS: LOSARTAN 50 MG TAB PO SCH (08:02)
[2024-10-20] MEDS: DAPAGLIFLOZIN PROPANEDIOL 10 MG TABLET PO SCH (08:03)
[2024-10-20] MEDS: ATORVASTATIN 40 MG TAB PO SCH (08:03)
[2024-10-20] MEDS: ASCORBIC ACID 500 MG TAB PO SCH (08:03)
[2024-10-20] MEDS: CHOLECALCIFEROL 25 MCG (1000 IU) TABLET PO SCH (08:04)
[2024-10-20 08:37] LABS: ALT 33 U/L (4-49); AST 41 U/L (17-59); African American GFR (CKD) 71 (>60 ml/min/1.73 sqM); Albumin 3.9 g/dL (3.5-5.0); Alkaline Phosphatase 156 U/L (38-126); Anion Gap 8 mmol/L; Blood Urea Nitrogen 19 mg/dL (9-20); Calcium 8.3 mg/dL (8.4-10.2); Carbon Dioxide 26 mmol/L (22-30); Chloride 96 mmol/L (98-107); Glucose 145 mg/dL (74-99); Non-African American GFR(CKD) 61 (>60 ml/min/1.73 sqM); Potassium 4.4 mmol/L (3.5-5.1); Sodium 130 mmol/L (137-145); Total Bilirubin 1.5 mg/dL (0.2-1.3); Total Protein 6.4 g/dL (6.3-8.2)
[2024-10-20 08:40] LABS: Anisocytosis Slight; HCT 25.7 % (39.0-53.0); HGB 8.5 gm/dL (13.0-17.5); Hypochromasia Slight; MCH 30.4 pg (25.0-35.0); MCHC 33.1 g/dL (31.0-37.0); MCV 91.9 fL (80.0-100.0); Macrocytosis Slight; Mean Platelet Volume 8.7; Poikilocytosis Moderate
[2024-10-20] MEDS ORDERED: SPIRONOLACTONE 25 MG TAB PO SCH (09:00)
[2024-10-20] MEDS ORDERED: PANTOPRAZOLE 40 MG TABLET PO SCH (09:00)
[2024-10-20 09:31] LABS: Platelet Count 51 k/uL (150-450)
--- NOTE | 2024-10-20 09:41 | P.CONS ---
History of Present Illness - Reason for Consult Consult date: 10/19/24 Febrile, chemo Requesting physician: Ok Francois - Chief Complaint Fever x few days - History of Present Illness Patient is a 59-year-old male with a past medical history significant for diabetes mellitus hypertension hyperlipidemia reflux sleep apnea, patient p resenting to the hospital from oncology office concerning for weakness anemia and fever apparently patient was noticed to have a hemoglobin of 7 at the patient has been complaining of low-grade fever over the last 2 to 3 days patient last chemotherapy was about a week ago through the right chest wall Mediport patient denies having any headache or URI symptoms patient denies having any chest pain patient did have a mild cough but no sputum production denies having any nausea vomiting abdominal pain diarrhea or constipation no urinary symptoms on presentation to the hospital the patient did have a fever of 100.5 F patient was not tachycardic hypotensive or hypoxic and no need for supplemental oxygen patient did have a white count of 4.0 hemoglobin was 5.8 kidney function was normal liver enzymes are normal patient did have a negative UA influenza RSV COVID testing was negative patient did have a chest x-ray low lung volumes with generalized hazy appearance could represent atelectasis fi ndings similar to the prior patient has been admitted to hospital infectious disease was consulted febrile/chemo Review of Systems Positive point and negatives has been mentioned in the HPI, complete review of systems was performed and all other systems are negative Past Medical History Past Medical History: Cancer, Diabetes Mellitus, GERD/Reflux, Hyperlipidemia, Hypertension, Sleep Apnea/CPAP/BIPAP, Thyroid Disorder Additional Past Medical History / Comment(s): C PAP MACHINE , RECTAL BLEEDING. neuropathy History of Any Multi-Drug Resistant Organisms: None Reported Past Surgical History: No Surgical Hx Reported Additional Past Surgical History / Comment(s): colonoscopy 2014, THYROIDECTOMY Past Anesthesia/Blood Transfusion Reactions: No Reported Reaction Past Psychological History: No Psychological Hx Reported Smoking Status: Never smoker - Past Family History Father Family Medical History: Cancer Medications and Allergies Home Medications Medication Instructions Recorded Confirmed Type Gabapentin 600 mg PO QID 01/04/15 10/19/24 History Losartan Potassium [Cozaar] 100 mg PO DAILY 01/04/15 10/19/24 History Omeprazole 40 mg PO DAILY 01/04/15 10/19/24 History metFORMIN HCL [Glucophage] 1,000 mg PO BID 01/04/15 10/19/24 History Ascorbic Acid [Vitamin C] 1,000 mg PO DAILY 04/04/21 10/19/24 History Cyanocobalamin (Vitamin B-12) 1,000 mcg PO DAILY 04/04/21 10/19/24 History [Vitamin B-12] Empagliflozin [Jardiance] 25 mg PO DAILY 04/04/21 10/19/24 History Ergocalciferol [Vitamin D2 (1250 1,250 mcg PO CONTI 04/04/21 10/19/24 History Mcg = 12695 Iu)] Fenofibrate,Micronized 200 mg PO DAILY 04/04/21 10/19/24 History [Fenofibrate] Latanoprost/Pf [Latanoprost 0.005% 1 drop BOTH EYES HS 04/04/21 10/19/24 History Eye Drop] Levothyroxine Sodium [Synthroid] 200 mcg PO DAILY 04/04/21 10/19/24 History Olmesartan Medoxomil [Benicar] 40 mg PO DAILY 04/04/21 10/19/24 History [place]-3 Fatty Acids/Fish Oil [Fish 1 cap PO DAILY 04/04/21 10/19/24 History Oil 1,000 mg Softgel] Rosuvastatin [Crestor] 20 mg PO DAILY 04/04/21 10/19/24 History Ubidecarenone [Co Q-10] 200 mg PO DAILY 04/04/21 10/19/24 History Zinc 50 mg PO DAILY 04/04/21 10/19/24 History carvediloL [Coreg] 25 mg PO BID 04/04/21 10/19/24 History Aspirin EC [Ecotrin Low Dose] 81 mg PO DIRECTED 10/19/24 10/19/24 History Cholecalciferol [Vitamin D3 (25 25 mcg PO DAILY 10/19/24 10/19/24 History Mcg = 1000 Iu)] Cyclobenzaprine [Flexeril] 10 mg PO Q8H PRN 10/19/24 10/19/24 History EPINEPHrine (Auto Inject) [Epipen] 0.3 mg IM ONCE PRN 10/19/24 10/19/24 History Folic Acid 1 mg PO DAILY 10/19/24 10/19/24 History Ibuprofen [Motrin] 800 mg PO Q8H PRN 10/19/24 10/19/24 History Levothyroxine Sodium [Synthroid] 50 mcg PO DAILY 10/19/24 10/19/24 History Magnesium Oxide [Magnesium] 500 mg PO DAILY 10/19/24 10/19/24 History Ondansetron Odt [Zofran Odt] 4 mg PO Q4H PRN 10/19/24 10/19/24 History Spironolactone [Aldactone] 25 mg PO DAILY 10/19/24 10/19/24 History oxyCODONE HCL [Oxycodone HCl] 10 mg PO Q4H 10/19/24 10/19/24 History Allergies Allergy/AdvReac Type Severity Reaction Status Date / Time peas Allergy Anaphylaxis Verified 10/19/24 13:51 Physical Exam Vitals: Vital Signs Temp Pulse Resp BP Pulse Ox 10/19/24 12:56 100.5 F H 92 16 100/54 96 10/19/24 11:37 89 16 117/58 98 10/19/24 11:12 100.3 F H 90 20 122/67 99 Intake and Output 10/18/24 10/19/24 10/19/24 22:59 06:59 14:59 Other: Weight 163.293 kg GENERAL DESCRIPTION: Middle-aged male lying in bed, no distress. No tachypnea or accessory muscle of respiration use. HEENT: Shows Pallor , no scleral icterus. Oral mucous membrane is dry. No pharyngeal erythema or thrush NECK: Trachea central, no thyromegaly. LUNGS: Unlabored breathing. Decreased breath sound at the base HEART: S1, S2, regular rate and rhythm. No loud murmur ABDOMEN: Soft, no tenderness , guarding or rigidity, no organomegaly EXTREMITIES: Diffuse swelling to bilateral lower extremity SKIN: No rash, no masses palpable. NEUROLOGICAL: The patient is awake, alert, oriented x3, mood and affect normal. Results CBC & Chem 7: 10/20/24 07:38 10/20/24 07:38 Labs: Abnormal Lab Results - Last 24 Hours (Table) 10/19/24 10/19/24 10/19/24 Range/Units 12:37 12:37 12:37 RBC 1.81 L (4.30-5.90) m/uL Hgb 5.6 L* (13.0-17.5) gm/dL Hct 16.6 L* (39.0-53.0) % RDW 20.4 H (11.5-15.5) % Plt Count 53 L (150-450) k/uL Lymphocytes # (Manual) 0.48 L (1.0-4.8) k/uL Metamyelocytes # (Man) 0.32 H (0) k/uL Myelocytes # (Manual) 0.28 H (0) k/uL Nucleated RBCs 2 H (0-0) /100 WBC Sodium 129 L (137-145) mmol/L Glucose 162 H (74-99) mg/dL POC Glucose (mg/dL) (70-110) mg/dL Plasma Lactic Acid David 2.8 H* (0.7-2.0) mmol/L Alkaline Phosphatase 157 H (38-126) U/L Total Protein 6.2 L (6.3-8.2) g/dL 10/19/24 Range/Units 14:12 RBC (4.30-5.90) m/uL Hgb (13.0-17.5) gm/dL Hct (39.0-53.0) % RDW (11.5-15.5) % Plt Count (150-450) k/uL Lymphocytes # (Manual) (1.0-4.8) k/uL Metamyelocytes # (Man) (0) k/uL Myelocytes # (Manual) (0) k/uL Nucleated RBCs (0-0) /100 WBC Sodium (137-145) mmol/L Glucose (74-99) mg/dL POC Glucose (mg/dL) 191 H (70-110) mg/dL Plasma Lactic Acid David (0.7-2.0) mmol/L Alkaline Phosphatase (38-126) U/L Total Protein (6.3-8.2) g/dL Assessment and Plan (1) Fever Current Visit: Yes Status: Acute Code(s): R50.9 - FEVER, UNSPECIFIED SNOMED Code(s): 573268911 Plan: 1patient presented to the hospital with low hemoglobin patient to have a history of metastatic lung cancer and is currently getting chemotherapy last chemo has been about a week ago patient is about neutropenic, initial workup so far negative with a question of possibly related to the port versus DVT has been to have significant swelling to bilateral lower extremity 2we will check a Doppler ultrasound to bilateral lower extremity 3blood cultures peripherally as well as from the Mediport 4we will empirically treat with vancomycin and cefepime while waiting for the workup to be completed. We will follow on clinical condition and cultures to further adjust medication if needed Thank you for this consultation we will follow the patient along with you Dictation was produced using [employer] dictation software. please excuse any grammatical, word or spelling errors. Time with Patient: Greater than 30
--- NOTE | 2024-10-20 09:46 | P.PN ---
Subjective Progress Note Date: 10/20/24 Ganga Smart, is a 59-year-old male patient of Dr. Garsia who presented to the ER after his oncologist discovered his hemoglobin low at 5.9. Patient has a history of metastatic lung cancer and has been receiving chemotherapy last cycle 1 week ago. Patient reports he's been on chemotherapy for approximately 2 years.patient has past medical history of diabetes, GERD, hyperlipidemia, hypertension, sleep apnea, thyroid disorder. Patient denies any nicotine use history.lab work completed showing hemoglobin 5.6. White blood cell 4.0. Sodium 129, creatinine 1.2, bun 19, lactic acid 2.8patient also noted to have a low-grade temp 100.5. Patient denies any recent sick contacts denies cough or shortness of breath. Patient denies nausea vomiting or diarrhea. Patient denies any burning with urination. At this time patient will be admitted oncology and infectious disease service is consulted. 2 units of PRBCs have been ordered. COVID-19 in influenza negative. Blood and urine and sputum cultures ordered. At this time patient is resting comfortably in bed. Patient denies any chest pain or shortness of breath. Patient denies nausea vomiting or diarrhea. Patient denies any urinary burning or frequency On 10/20/2024 patient is alert and oriented x 3. Patient was continuing to have fevers throughout the night. Patient was started on vancomycin and Maxipime per infectious disease. Patient received 2 units of PRBCs repeat hemoglobin 8.5. Patient denies chest pain or shortness of breath. Patient denies nausea vomiting or diarrhea. Patient denies any urinary burning or frequency Objective - Vital Signs Vital signs: Vital Signs Temp 102.2 F H 10/20/24 04:00 Pulse 93 10/20/24 04:00 Resp 16 10/20/24 04:00 BP 107/61 10/20/24 04:00 Pulse Ox 95 10/20/24 04:00 FiO2 Intake & Output 10/19/24 10/20/24 10/20/24 18:59 06:59 18:59 Intake Total 0 620 Balance 0 620 Weight 163.293 kg 161.2 kg Intake: Blood Product 0 620 Rc As-1 Unit 0 310 [id number] Rc As-1 Unit 310 [id number] Other: Voiding Method Toilet # Voids 3 - Exam Head normocephalic Neck supple Lungs clear to auscultation bilaterally no wheezing or crackles Heart regular rate and rhythm S1-S2, no rub or gallop Abdomen is soft nontender nondistended positive bowel sounds no hepatosplenomegaly Extremities no edema Neuro alert and orientated to 3 - Labs CBC & Chem 7: 10/20/24 07:38 10/20/24 07:38 Labs: Abnormal Lab Results - Last 24 Hours (Table) 10/19/24 10/19/24 10/19/24 Range/Units 12:37 12:37 12:37 RBC 1.81 L (4.30-5.90) m/uL Hgb 5.6 L* (13.0-17.5) gm/dL Hct 16.6 L* (39.0-53.0) % RDW 20.4 H (11.5-15.5) % Plt Count 53 L (150-450) k/uL Lymphocytes # (Manual) 0.48 L (1.0-4.8) k/uL Metamyelocytes # (Man) 0.32 H (0) k/uL Myelocytes # (Manual) 0.28 H (0) k/uL Nucleated RBCs 2 H (0-0) /100 WBC Sodium 129 L (137-145) mmol/L Glucose 162 H (74-99) mg/dL POC Glucose (mg/dL) (70-110) mg/dL Hemoglobin A1c (<=6.0) % Plasma Lactic Acid David 2.8 H* (0.7-2.0) mmol/L Alkaline Phosphatase 157 H (38-126) U/L C-Reactive Protein (<1.0) mg/dL Total Protein 6.2 L (6.3-8.2) g/dL Urine Glucose (UA) (Negative) Crossmatch 10/19/24 10/19/24 10/19/24 Range/Units 14:12 14:28 15:47 RBC (4.30-5.90) m/uL Hgb (13.0-17.5) gm/dL Hct (39.0-53.0) % RDW (11.5-15.5) % Plt Count (150-450) k/uL Lymphocytes # (Manual) (1.0-4.8) k/uL Metamyelocytes # (Man) (0) k/uL Myelocytes # (Manual) (0) k/uL Nucleated RBCs (0-0) /100 WBC Sodium (137-145) mmol/L Glucose (74-99) mg/dL POC Glucose (mg/dL) 191 H (70-110) mg/dL Hemoglobin A1c 7.5 H (<=6.0) % Plasma Lactic Acid David (0.7-2.0) mmol/L Alkaline Phosphatase (38-126) U/L C-Reactive Protein (<1.0) mg/dL Total Protein (6.3-8.2) g/dL Urine Glucose (UA) (Negative) Crossmatch See Detail 10/19/24 10/19/24 10/19/24 Range/Units 15:47 18:58 21:07 RBC (4.30-5.90) m/uL Hgb (13.0-17.5) gm/dL Hct (39.0-53.0) % RDW (11.5-15.5) % Plt Count (150-450) k/uL Lymphocytes # (Manual) (1.0-4.8) k/uL Metamyelocytes # (Man) (0) k/uL Myelocytes # (Manual) (0) k/uL Nucleated RBCs (0-0) /100 WBC Sodium (137-145) mmol/L Glucose (74-99) mg/dL POC Glucose (mg/dL) 161 H 174 H (70-110) mg/dL Hemoglobin A1c (<=6.0) % Plasma Lactic Acid David (0.7-2.0) mmol/L Alkaline Phosphatase (38-126) U/L C-Reactive Protein 3.9 H (<1.0) mg/dL Total Protein (6.3-8.2) g/dL Urine Glucose (UA) (Negative) Crossmatch 10/19/24 10/20/24 Range/Units 22:34 06:26 RBC (4.30-5.90) m/uL Hgb (13.0-17.5) gm/dL Hct (39.0-53.0) % RDW (11.5-15.5) % Plt Count (150-450) k/uL Lymphocytes # (Manual) (1.0-4.8) k/uL Metamyelocytes # (Man) (0) k/uL Myelocytes # (Manual) (0) k/uL Nucleated RBCs (0-0) /100 WBC Sodium (137-145) mmol/L Glucose (74-99) mg/dL POC Glucose (mg/dL) 149 H (70-110) mg/dL Hemoglobin A1c (<=6.0) % Plasma Lactic Acid David (0.7-2.0) mmol/L Alkaline Phosphatase (38-126) U/L C-Reactive Protein (<1.0) mg/dL Total Protein (6.3-8.2) g/dL Urine Glucose (UA) 4+ H (Negative) Crossmatch Assessment and Plan Assessment: 1. Anemia likely secondary from chemotherapy 2. History of metastatic lung cancer patient follows with oncology services last chemotherapy one week ago 3. Febrile. Temp 100.3. 4. hyponatremia 5.history of diabetes mellitus 6. History of hyperlipidemia 7. History of essential hypertension 8. History of hypothyroidism 9. History of sleep apnea DVT prophylaxis SCDs secondary to anemia. GI prophylaxis Protonix Oncology and infectious disease service is consulted 2 units of PRBCs have been ordered Blood urine and sputum cultures ordered Continue gentle hydration 0.9 at 75 Patient started on IV antibiotics
[2024-10-20 09:52] LABS: Band Neutrophils % 5 %; Basophils # (M) 0.03 k/uL (0-0.2); Eosinophils # (M) 0.03 k/uL (0-0.7); Lymphocytes # (M) 0.65 k/uL (1.0-4.8); Metamyelocytes # (M) 0.17 k/uL (0); Metamyelocytes % 5 %; Monocytes # (M) 0.31 k/uL (0-1.0); Myelocytes % 3 %; Neutrophils % (M) 59 %; Nucleated Red Blood Cells 2 /100 WBC (0-0); Total Cells Counted 200; WBC 3.4 k/uL (3.8-10.6)
[2024-10-20 09:54] LABS: Mixed Population RBC Present; Polychromasia Present
[2024-10-20 11:19] LABS: Glucose,Whole Blood 169 mg/dL (70-110)
[2024-10-20] MEDS: VANCOMYCIN 2,250 MG in SODIUM CHLORIDE 0.9% 500 ML 500 ML IVPB SCH (11:32)
[2024-10-20 16:19] LABS: Glucose,Whole Blood 171 mg/dL (70-110)
[2024-10-20] MEDS: IBUPROFEN 800 MG TAB PO PRN (18:14)
[2024-10-20 20:46] LABS: Glucose,Whole Blood 201 mg/dL (70-110)
[2024-10-21 02:01] LABS: % Iron Saturation 13.24 (15.00-50.00)
[2024-10-21] MEDS: VANCOMYCIN 2,500 MG in SODIUM CHLORIDE 0.9% 500 ML 500 ML IVPB SCH (03:12)
[2024-10-21] MEDS: ONDANSETRON 4 MG/2 ML VIAL IVP PRN (03:13)
[2024-10-21 06:26] LABS: Glucose,Whole Blood 193 mg/dL (70-110)
[2024-10-21 08:49] LABS: ALT 31 U/L (4-49); AST 45 U/L (17-59); African American GFR (CKD) 68 (>60 ml/min/1.73 sqM); Albumin 3.6 g/dL (3.5-5.0); Alkaline Phosphatase 144 U/L (38-126); Anion Gap 9 mmol/L; Blood Urea Nitrogen 25 mg/dL (9-20); Calcium 8.1 mg/dL (8.4-10.2); Carbon Dioxide 20 mmol/L (22-30); Chloride 98 mmol/L (98-107); Glucose 200 mg/dL (74-99); Non-African American GFR(CKD) 58 (>60 ml/min/1.73 sqM); Potassium 4.1 mmol/L (3.5-5.1); Sodium 127 mmol/L (137-145); Total Bilirubin 1.1 mg/dL (0.2-1.3); Total Protein 6.1 g/dL (6.3-8.2)
[2024-10-21 09:36] LABS: Anisocytosis Slight; HCT 25.9 % (39.0-53.0); HGB 8.3 gm/dL (13.0-17.5); Hypochromasia Moderate; MCV 93.8 fL (80.0-100.0); Macrocytosis Slight; Mean Platelet Volume 9.3; Platelet Count 67 k/uL (150-450); Poikilocytosis Slight; RBC 2.77 m/uL (4.30-5.90); RDW 19.4 % (11.5-15.5)
[2024-10-21 09:59] LABS: Band Neutrophils % 7 %; Eosinophils # (M) 0.08 k/uL (0-0.7); Lymphocytes # (M) 1.16 k/uL (1.0-4.8); Metamyelocytes # (M) 0.04 k/uL (0); Metamyelocytes % 1 %; Monocytes # (M) 0.12 k/uL (0-1.0); Myelocytes # (M) 0.04 k/uL (0); Myelocytes % 1 %; Neutrophils % (M) 58 %; Nucleated Red Blood Cells 2 /100 WBC (0-0); Total Cells Counted 200
[2024-10-21 10:04] LABS: Polychromasia Present
--- NOTE | 2024-10-21 10:16 | P.PN ---
Subjective Progress Note Date: 10/21/24 Ganga Smart, is a 59-year-old male patient of Dr. Garsia who presented to the ER after his oncologist discovered his hemoglobin low at 5.9. Patient has a history of metastatic lung cancer and has been receiving chemotherapy last cycle 1 week ago. Patient reports he's been on chemotherapy for approximately 2 years.patient has past medical history of diabetes, GERD, hyperlipidemia, hypertension, sleep apnea, thyroid disorder. Patient denies any nicotine use history.lab work completed showing hemoglobin 5.6. White blood cell 4.0. Sodium 129, creatinine 1.2, bun 19, lactic acid 2.8patient also noted to have a low-grade temp 100.5. Patient denies any recent sick contacts denies cough or shortness of breath. Patient denies nausea vomiting or diarrhea. Patient denies any burning with urination. At this time patient will be admitted oncology and infectious disease service is consulted. 2 units of PRBCs have been ordered. COVID-19 in influenza negative. Blood and urine and sputum cultures ordered. At this time patient is resting comfortably in bed. Patient denies any chest pain or shortness of breath. Patient denies nausea vomiting or diarrhea. Patient denies any urinary burning or frequency On 10/20/2024 patient is alert and oriented x 3. Patient was continuing to have fevers throughout the night. Patient was started on vancomycin and Maxipime per infectious disease. Patient received 2 units of PRBCs repeat hemoglobin 8.5. Patient denies chest pain or shortness of breath. Patient denies nausea vomiting or diarrhea. Patient denies any urinary burning or frequency On 10/21/2024 patient is alert and oriented x 3. Patient having some increased back discomfort. Patient still having elevated temps slightly improved. Patient remains on IV antibiotic. Hemoglobin remained stable at 8.3. Patient denies chest pain or shortness of breath. Patient denies nausea vomiting or diarrhea. Patient denies any urinary burning or frequency Objective - Vital Signs Vital signs: Vital Signs Temp 99.8 F H 10/21/24 08:00 Pulse 92 10/21/24 08:00 Resp 16 10/21/24 08:00 BP 94/45 10/21/24 08:39 Pulse Ox 94 L 10/21/24 08:00 FiO2 Intake & Output 10/20/24 10/21/24 10/21/24 18:59 06:59 18:59 Intake Total 840 120 Output Total 0 0 0 Balance 840 0 120 Weight 164 kg Intake: Oral 840 120 Output: Gastric Drainage 0 0 Urine 0 0 Stool 0 0 0 Urine/Stool Mix 0 0 Emesis 0 0 Oral Regurgitation 0 0 Other 0 0 Other: Voiding Method Toilet Toilet Toilet # Voids 1 0 0 # Bowel Movements 0 0 - Exam Head normocephalic Neck supple Lungs clear to auscultation bilaterally no wheezing or crackles Heart regular rate and rhythm S1-S2, no rub or gallop Abdomen is soft nontender nondistended positive bowel sounds no hepatosplenomegaly Extremities no edema Neuro alert and orientated to 3 - Labs CBC & Chem 7: 10/21/24 07:41 10/21/24 07:41 Labs: Abnormal Lab Results - Last 24 Hours (Table) 10/19/24 10/19/24 10/19/24 Range/Units 12:37 15:47 15:47 RBC (4.30-5.90) m/uL Hgb (13.0-17.5) gm/dL Hct (39.0-53.0) % RDW (11.5-15.5) % Plt Count (150-450) k/uL Metamyelocytes # (Man) (0) k/uL Myelocytes # (Manual) (0) k/uL Nucleated RBCs (0-0) /100 WBC Retic Count 3.0 H (0.5-2.0) % Sodium (137-145) mmol/L Carbon Dioxide (22-30) mmol/L BUN (9-20) mg/dL Creatinine (0.66-1.25) mg/dL Glucose (74-99) mg/dL POC Glucose (mg/dL) (70-110) mg/dL Calcium (8.4-10.2) mg/dL Iron 49 L (65-175) UG/DL % Saturation 13.24 L (15.00-50.00) Ferritin 411.0 H (22.0-322.0) ng/mL Alkaline Phosphatase (38-126) U/L Lactate Dehydrogenase 348 H (120-246) U/L Total Protein (6.3-8.2) g/dL 10/20/24 10/20/24 10/20/24 Range/Units 11:18 16:17 20:44 RBC (4.30-5.90) m/uL Hgb (13.0-17.5) gm/dL Hct (39.0-53.0) % RDW (11.5-15.5) % Plt Count (150-450) k/uL Metamyelocytes # (Man) (0) k/uL Myelocytes # (Manual) (0) k/uL Nucleated RBCs (0-0) /100 WBC Retic Count (0.5-2.0) % Sodium (137-145) mmol/L Carbon Dioxide (22-30) mmol/L BUN (9-20) mg/dL Creatinine (0.66-1.25) mg/dL Glucose (74-99) mg/dL POC Glucose (mg/dL) 169 H 171 H 201 H (70-110) mg/dL Calcium (8.4-10.2) mg/dL Iron (65-175) UG/DL % Saturation (15.00-50.00) Ferritin (22.0-322.0) ng/mL Alkaline Phosphatase (38-126) U/L Lactate Dehydrogenase (120-246) U/L Total Protein (6.3-8.2) g/dL 10/21/24 10/21/24 10/21/24 Range/Units 06:24 07:41 07:41 RBC 2.77 L (4.30-5.90) m/uL Hgb 8.3 L (13.0-17.5) gm/dL Hct 25.9 L (39.0-53.0) % RDW 19.4 H (11.5-15.5) % Plt Count 67 L (150-450) k/uL Metamyelocytes # (Man) 0.04 H (0) k/uL Myelocytes # (Manual) 0.04 H (0) k/uL Nucleated RBCs 2 H (0-0) /100 WBC Retic Count (0.5-2.0) % Sodium 127 L (137-145) mmol/L Carbon Dioxide 20 L (22-30) mmol/L BUN 25 H (9-20) mg/dL Creatinine 1.33 H (0.66-1.25) mg/dL Glucose 200 H (74-99) mg/dL POC Glucose (mg/dL) 193 H (70-110) mg/dL Calcium 8.1 L (8.4-10.2) mg/dL Iron (65-175) UG/DL % Saturation (15.00-50.00) Ferritin (22.0-322.0) ng/mL Alkaline Phosphatase 144 H (38-126) U/L Lactate Dehydrogenase (120-246) U/L Total Protein 6.1 L (6.3-8.2) g/dL Microbiology - Last 24 Hours (Table) 10/19/24 15:53 Blood Culture - Preliminary Blood 10/19/24 14:26 Blood Culture - Preliminary Blood 10/19/24 12:37 Blood Culture - Preliminary Blood 10/19/24 22:34 Urine Culture - Final Urine,Clean Catch Assessment and Plan Assessment: 1. Anemia likely secondary from chemotherapy 2. History of metastatic lung cancer patient follows with oncology services last chemotherapy one week ago 3. Febrile. Temp 100.3. 4. hyponatremia 5.history of diabetes mellitus 6. History of hyperlipidemia 7. History of essential hypertension 8. History of hypothyroidism 9. History of sleep apnea DVT prophylaxis SCDs secondary to anemia. GI prophylaxis Protonix Oncology and infectious disease service is consulted 2 units of PRBCs have been ordered Blood urine and sputum cultures ordered Continue gentle hydration 0.9 at 75 Patient started on IV antibiotics
[2024-10-21] MEDS: HYDROmorphone 0.5 MG/0.5 ML SYRINGE IVP PRN (10:23)
[2024-10-21 11:22] LABS: Glucose,Whole Blood 192 mg/dL (70-110)
[2024-10-21] MEDS ORDERED: IOPAMIDOL CONTRAST (ORAL USE) VIAL PO PRN (13:26)
[2024-10-21] MEDS: IOPAMIDOL CONTRAST (ORAL USE) VIAL PO PRN (14:28)
--- NOTE | 2024-10-21 15:42 | P.CONS ---
History of Present Illness - Reason for Consult Consult date: 10/20/24 anemia, fever, lung cancer Requesting physician: Joe Jack - Chief Complaint fever, SOB - History of Present Illness Patient is a 59 year old male with a significant history of metastatic lung adenocarcinoma, who follows with Dr. Cat. He initially presented with 3 cm RLL lung mass,he had a PET scan on 06/16/2022 which revealed suspicious uptake in in central right lung lesion,measured 2.1 x 2.2 cm,he initially had navigational bronchoscopy which was not diagnostic,he ws referred to DR Hernandez at [facility],he had repeat CT scan of chest on 07/07/2022 which revealed 3 cm lesion in superior segment of RLL and several other small nodules in right lung which are new compared to prior CT scan done at [facility] in 06/2016. On 07/24/2022,he underwent RLL resection and biopsies of mediastinal nodes,pathology revealed adenocarcinoma spreading through alveolar spaces and invading lymphovascular channels (BERENICE),multifocal,right level 8,level 7,4R nodes were positive. Brain MRI on 08/08/2022 was negative. Caris did not reveal any targetable mutation. On 08/18/2022,PET scan revealed uptake in right hilar region,there was uptake in left second rib,had an MRI which revealed subtle area in rib without enhancement. On 08/26/2022,he started carbo/alimta with radiation,completed 4 cycles of chemo on 10/29/2022. Due to disease progression, patient has been on multiple treatment regimens. He started imfinzi on 12/25/2022. Taxotere/cyramza/zometa were held in December 2023, as patient developed ONJ. He started gemzar on 05/10/2024, most recently completing cycle 8 on 10/12/24, overall patient has been tolerating regimen well. Patient presented to clinc on 10/19 for f/u and was reporting persisting fatigue and increasing shortness of breath and dizziness over the last 1 week. He stated he was very weak and can only walk short distances without having to sit down. Temperature was noted at 100.7. Patient denies URI and urinary symptoms, and abdominal pain. Also reporting diminished appetite but states he has been able to tolerate hydration. Has had approximate 8 pound weight loss over the last 1 week. CBC showing hgb 7.3, plt 48,000, WBC 4.1. Due to symptomatic anemia and fever patient was sent to the ER for further evaluation and management. Patient had CTA chest at [facility] on 10/05 which was negative for PE Upon admit hemoglobin noted at 5.6, platelets 53. Patient was transfused 2 units PRBCs with appropriate response, hemoglobin 8.5 today. Platelets 51,000. Creatinine 1.27, GFR 61. Bilirubin 1.5, LFTs stable. Tmax 102.2. Urinalysis and viral panel negative. Blood and urine cultures pending. Chest x-ray showing low lung volumes with a generalized hazy appearance, which could represent atelectasis. Findings similar to prior study. Patient has been started on empiric antibiotics with cefepime and vancomycin. Infectious disease consulted. Bilateral lower extremities negative for DVT. At today's visit patient does report improvement in symptoms but is still feeling fatigued. Denies episodes of acute bleeding. Denies abdominal pain, nausea vomiting and dysphagia. Review of Systems 10 point ROS is negative except as stated in the HPI Past Medical History Past Medical History: Cancer, Diabetes Mellitus, GERD/Reflux, Hyperlipidemia, Hypertension, Sleep Apnea/CPAP/BIPAP, Thyroid Disorder Additional Past Medical History / Comment(s): C PAP MACHINE , RECTAL BLEEDING. neuropathy History of Any Multi-Drug Resistant Organisms: None Reported Past Surgical History: No Surgical Hx Reported Additional Past Surgical History / Comment(s): colonoscopy 2014, THYROIDECTOMY Past Anesthesia/Blood Transfusion Reactions: No Reported Reaction Past Psychological History: No Psychological Hx Reported Smoking Status: Never smoker - Past Family History Father Family Medical History: Cancer Medications and Allergies Home Medications Medication Instructions Recorded Confirmed Type Gabapentin 600 mg PO QID 01/04/15 10/19/24 History Losartan Potassium [Cozaar] 100 mg PO DAILY 01/04/15 10/19/24 History Omeprazole 40 mg PO DAILY 01/04/15 10/19/24 History metFORMIN HCL [Glucophage] 1,000 mg PO BID 01/04/15 10/19/24 History Ascorbic Acid [Vitamin C] 1,000 mg PO DAILY 04/04/21 10/19/24 History Cyanocobalamin (Vitamin B-12) 1,000 mcg PO DAILY 04/04/21 10/19/24 History [Vitamin B-12] Empagliflozin [Jardiance] 25 mg PO DAILY 04/04/21 10/19/24 History Ergocalciferol [Vitamin D2 (1250 1,250 mcg PO CONTI 04/04/21 10/19/24 History Mcg = 80945 Iu)] Fenofibrate,Micronized 200 mg PO DAILY 04/04/21 10/19/24 History [Fenofibrate] Latanoprost/Pf [Latanoprost 0.005% 1 drop BOTH EYES HS 04/04/21 10/19/24 History Eye Drop] Levothyroxine Sodium [Synthroid] 200 mcg PO DAILY 04/04/21 10/19/24 History Olmesartan Medoxomil [Benicar] 40 mg PO DAILY 04/04/21 10/19/24 History Ringgold-3 Fatty Acids/Fish Oil [Fish 1 cap PO DAILY 04/04/21 10/19/24 History Oil 1,000 mg Softgel] Rosuvastatin [Crestor] 20 mg PO DAILY 04/04/21 10/19/24 History Ubidecarenone [Co Q-10] 200 mg PO DAILY 04/04/21 10/19/24 History Zinc 50 mg PO DAILY 04/04/21 10/19/24 History carvediloL [Coreg] 25 mg PO BID 04/04/21 10/19/24 History Aspirin EC [Ecotrin Low Dose] 81 mg PO DIRECTED 10/19/24 10/19/24 History Cholecalciferol [Vitamin D3 (25 25 mcg PO DAILY 10/19/24 10/19/24 History Mcg = 1000 Iu)] Cyclobenzaprine [Flexeril] 10 mg PO Q8H PRN 10/19/24 10/19/24 History EPINEPHrine (Auto Inject) [Epipen] 0.3 mg IM ONCE PRN 10/19/24 10/19/24 History Folic Acid 1 mg PO DAILY 10/19/24 10/19/24 History Ibuprofen [Motrin] 800 mg PO Q8H PRN 10/19/24 10/19/24 History Levothyroxine Sodium [Synthroid] 50 mcg PO DAILY 10/19/24 10/19/24 History Magnesium Oxide [Magnesium] 500 mg PO DAILY 10/19/24 10/19/24 History Ondansetron Odt [Zofran Odt] 4 mg PO Q4H PRN 10/19/24 10/19/24 History Spironolactone [Aldactone] 25 mg PO DAILY 10/19/24 10/19/24 History oxyCODONE HCL [Oxycodone HCl] 10 mg PO Q4H 10/19/24 10/19/24 History Allergies Allergy/AdvReac Type Severity Reaction Status Date / Time peas Allergy Anaphylaxis Verified 10/19/24 13:51 Physical Exam Vitals: Vital Signs Temp Pulse Pulse Resp BP BP Pulse Ox 10/20/24 15:32 99.9 F H 90 14 118/55 93 L 10/20/24 11:27 100.5 F H 89 14 136/52 98 10/20/24 07:50 99.2 F 89 14 114/55 96 10/20/24 04:00 102.2 F H 93 16 107/61 95 10/20/24 01:02 99.6 F 96 18 90/59 95 10/19/24 22:49 99.4 F 83 20 115/68 95 10/19/24 22:29 100.0 F H 82 20 115/70 95 10/19/24 22:20 99.8 F H 88 20 102/51 98 10/19/24 21:51 99.6 F 83 18 104/66 96 10/19/24 18:50 102.4 F H 94 17 112/66 97 10/19/24 18:38 100.4 F H 92 16 118/45 96 10/19/24 18:18 100.2 F H 89 16 116/44 94 L 10/19/24 18:09 100.5 F H 90 16 126/49 Intake and Output 10/20/24 10/20/24 10/20/24 06:59 14:59 22:59 Intake Total 310 600 Output Total 0 Balance 310 600 Intake: Oral 600 Blood Product 310 Rc As-1 Unit 310 [id number] Output: Gastric Drainage 0 Urine 0 Stool 0 Urine/Stool Mix 0 Emesis 0 Oral Regurgitation 0 Other 0 Other: Voiding Method Toilet Toilet # Voids 3 0 1 # Bowel Movements 0 Weight 161.2 kg - Constitutional General appearance: no acute distress, obese - EENT Eyes: anicteric sclerae, EOMI ENT: hearing grossly normal - Respiratory Respiratory: bilateral: CTA - Cardiovascular Rhythm: regular - Gastrointestinal General gastrointestinal: soft, no tenderness - Integumentary Integumentary: no cyanotic, no jaundiced, pale - Musculoskeletal Musculoskeletal: generalized weakness - Psychiatric Psychiatric: A&O x's 3 Results CBC & Chem 7: 10/21/24 07:41 10/21/24 07:41 Labs: Abnormal Lab Results - Last 24 Hours (Table) 10/19/24 10/19/24 10/19/24 Range/Units 14:28 15:47 18:58 WBC (3.8-10.6) k/uL RBC (4.30-5.90) m/uL Hgb (13.0-17.5) gm/dL Hct (39.0-53.0) % RDW (11.5-15.5) % Plt Count (150-450) k/uL Lymphocytes # (Manual) (1.0-4.8) k/uL Metamyelocytes # (Man) (0) k/uL Myelocytes # (Manual) (0) k/uL Nucleated RBCs (0-0) /100 WBC Sodium (137-145) mmol/L Chloride (98-107) mmol/L Creatinine (0.66-1.25) mg/dL Glucose (74-99) mg/dL POC Glucose (mg/dL) 161 H (70-110) mg/dL Hemoglobin A1c 7.5 H (<=6.0) % Calcium (8.4-10.2) mg/dL Total Bilirubin (0.2-1.3) mg/dL Alkaline Phosphatase (38-126) U/L Urine Glucose (UA) (Negative) Crossmatch See Detail 10/19/24 10/19/24 10/20/24 Range/Units 21:07 22:34 06:26 WBC (3.8-10.6) k/uL RBC (4.30-5.90) m/uL Hgb (13.0-17.5) gm/dL Hct (39.0-53.0) % RDW (11.5-15.5) % Plt Count (150-450) k/uL Lymphocytes # (Manual) (1.0-4.8) k/uL Metamyelocytes # (Man) (0) k/uL Myelocytes # (Manual) (0) k/uL Nucleated RBCs (0-0) /100 WBC Sodium (137-145) mmol/L Chloride (98-107) mmol/L Creatinine (0.66-1.25) mg/dL Glucose (74-99) mg/dL POC Glucose (mg/dL) 174 H 149 H (70-110) mg/dL Hemoglobin A1c (<=6.0) % Calcium (8.4-10.2) mg/dL Total Bilirubin (0.2-1.3) mg/dL Alkaline Phosphatase (38-126) U/L Urine Glucose (UA) 4+ H (Negative) Crossmatch 10/20/24 10/20/24 10/20/24 Range/Units 07:38 07:38 11:18 WBC 3.4 L (3.8-10.6) k/uL RBC 2.80 L (4.30-5.90) m/uL Hgb 8.5 L D (13.0-17.5) gm/dL Hct 25.7 L (39.0-53.0) % RDW 20.0 H (11.5-15.5) % Plt Count 51 L (150-450) k/uL Lymphocytes # (Manual) 0.65 L (1.0-4.8) k/uL Metamyelocytes # (Man) 0.17 H (0) k/uL Myelocytes # (Manual) 0.10 H (0) k/uL Nucleated RBCs 2 H (0-0) /100 WBC Sodium 130 L (137-145) mmol/L Chloride 96 L (98-107) mmol/L Creatinine 1.27 H (0.66-1.25) mg/dL Glucose 145 H (74-99) mg/dL POC Glucose (mg/dL) 169 H (70-110) mg/dL Hemoglobin A1c (<=6.0) % Calcium 8.3 L (8.4-10.2) mg/dL Total Bilirubin 1.5 H (0.2-1.3) mg/dL Alkaline Phosphatase 156 H (38-126) U/L Urine Glucose (UA) (Negative) Crossmatch 10/20/24 Range/Units 16:17 WBC (3.8-10.6) k/uL RBC (4.30-5.90) m/uL Hgb (13.0-17.5) gm/dL Hct (39.0-53.0) % RDW (11.5-15.5) % Plt Count (150-450) k/uL Lymphocytes # (Manual) (1.0-4.8) k/uL Metamyelocytes # (Man) (0) k/uL Myelocytes # (Manual) (0) k/uL Nucleated RBCs (0-0) /100 WBC Sodium (137-145) mmol/L Chloride (98-107) mmol/L Creatinine (0.66-1.25) mg/dL Glucose (74-99) mg/dL POC Glucose (mg/dL) 171 H (70-110) mg/dL Hemoglobin A1c (<=6.0) % Calcium (8.4-10.2) mg/dL Total Bilirubin (0.2-1.3) mg/dL Alkaline Phosphatase (38-126) U/L Urine Glucose (UA) (Negative) Crossmatch Chest x-ray: report reviewed Venous US: report reviewed Assessment and Plan (1) Anemia Current Visit: Yes Status: Acute Priority: High Code(s): D64.9 - ANEMIA, UNSPECIFIED SNOMED Code(s): 752476144 (2) Fever Current Visit: Yes Status: Acute Priority: High Code(s): R50.9 - FEVER, UNSPECIFIED SNOMED Code(s): 178147986 (3) Lung cancer Current Visit: Yes Status: Acute Priority: High Code(s): C34.90 - MALIGNANT NEOPLASM OF UNSP PART OF UNSP BRONCHUS OR LUNG SNOMED Code(s): 201261397 Plan: Fever: Patient presented to clinic on 10/19 for f/u s/p chemo, and was reporting persisting fatigue and increasing shortness of breath and dizziness over the last 1 week, and significant weakness and could only walk short distances without having to sit down. Temperature was noted at 100.7. Denied URI sx, urinary symptoms, n/v/d, and abdominal pain. Of note, patient had CTA chest at [facility] on 10/05 which was negative for PE -Tmax 102.2. Urinalysis and viral panel negative. Chest x-ray showing low lung volumes with a generalized hazy appearance, which could represent atelectasis, similar to prior study. -Blood and urine cultures pending -Empiric antibiotics, cefepime and vancomycin started. White counts adequate, WBC 3.4, ANC 2.1 -Infectious disease following Anemia, thrombocytopenia: -In clinic on 10/19, CBC showing hgb 7.3, plt 48,000. Upon admit hemoglobin noted at 5.6, platelets 53. -S/p 2 units PRBCs with appropriate response, hemoglobin 8.5 today. Platelets 51,000. Bilirubin 1.5, AST/ALT WNL, mild elevation in ALP -Hgb has been in the 9-10 range, but was noted at 7.9 on 10/12 (previously at 9.0). Platelets 178,000 on 10/12 -Denies hematuria, hematochezia, and melena. Previously on baby aspirin, this has been held -Will obtain iron studies and hemolysis labs to r/o other etiologies. Cytopenias likely secondary to chemo, superimposed by bone marrow fatigue from multiple chemo regimens and possible acute infection. However, acute GI bleed would still remain in the differential -Continue to closely monitor CBC and for s/s of bleeding, if Hgb continues to drop, will consult GI for endoscopic evaluation -Transfuse for hgb less than 7 or if symptomatic. Hold anticoagulation for plts < 50,000 Metastatic lung adenocarcinoma: -Oncology history as dictated in the HPI -He started gemzar on 05/10/2024, most recently completing cycle 8 on 10/12/24, overall patient has been tolerating regimen well. -Will ensure acute condition/blood counts have improved prior to proceeding with next cycle of treatment -Clinic f/u scheduled on 11/03/24 Doctor attests: I performed a history and physical examination of this patient, developed impression and plan of care. Discussed with dictator. I agree with dictators note, documented as a scribe.
[2024-10-21 16:28] LABS: Glucose,Whole Blood 175 mg/dL (70-110)
--- NOTE | 2024-10-21 16:36 | CT ---
EXAMINATION TYPE: CT abdomen pelvis wo con DATE OF EXAM: 10/21/2024 4:23 PM COMPARISON: Previous PET CT study dated 07/27/2024. CLINICAL INDICATION: Male, 59 years old with history of febrile from unknown orgin; Currently on Chem o for lung Ca. Febrile from unknown orgin TECHNIQUE: Axial CT abdomen pelvis wo con;Sagittal and coronal reformats were created on a separate workstation. Oral contrast used: with Oral Contrast (none if empty) CT DLP: total 4787.2 mGycm, Automated exposure control for dose reduction was used. FINDINGS: LOWER CHEST: Moderate right and small left pleural effusions. ABDOMEN LIVER: Decreased parenchymal attenuation suggesting steatosis. Cirrhotic liver morphology. GALLBLADDER AND BILE DUCTS: Unremarkable. PANCREAS: Unremarkable. SPLEEN: Splenomegaly measuring 19.4 cm in AP dimension. ADRENAL GLANDS: Unremarkable. KIDNEYS AND URETERS: No evidence of hydronephrosis or renal calculus. The ureters are unremarkable. PELVIS BLADDER: No evidence for wall thickening or mass given limitations of exam. REPRODUCTIVE: Unremarkable. ABDOMEN & PELVIS STOMACH AND BOWEL: Stomach and duodenum are unremarkable No evidence of bowel obstruction. PERITONEUM/RETROPERITONEUM: No evidence of pneumoperitoneum or free fluid. VASCULATURE: No evidence of aortic aneurysm. MUSCULOSKELETAL: Extensive osseous metastatic disease again visualized throughout the visualized axia l and appendicular skeleton. No acute pathologic fracture. LYMPH NODES: No gross evidence for lymphadenopathy. SOFT TISSUE/ABDOMINAL WALL: Unremarkable IMPRESSION: 1. No acute abnormality in the abdomen/pelvis. 2. Moderate right and small left pleural effusions. 3. Extensive osseous metastatic disease throughout the visualized axial and appendicular skeleton. 4. Hepatosplenomegaly. [facility], , 10/21/2024 4:33 PM
[2024-10-21] MEDS: FUROSEMIDE 10 MG/ML 2 ML VIAL IV ONE (17:02)
[2024-10-21 20:14] LABS: Glucose,Whole Blood 202 mg/dL (70-110)
--- NOTE | 2024-10-22 05:17 | P.PN ---
Subjective Progress Note Date: 10/20/24 Principal diagnosis: Reason for follow-up is fever Patient is a 59-year-old male with a past medical history significant for diabetes mellitus hypertension hyperlipidemia reflux sleep apnea, patient presenting to the hospital from oncology office concerning for weakness anemia and fever with initial workup negative. On today's evaluation that is 10/20/2024, the patient did spike a fever of 102.2 F at 4 AM, the patient is on room air and breathing comfortably, the Pt denies having any chest pain or cough, the patient denies having any abdominal pain no vomiting or any diarrhea has been reported by the nursing staff Patient white count is 3.4, hemoglobin is 8.5 creatinine is 1.27 CRP of 3.9 procalcitonin 0.42 UA has been negative Objective - Vital Signs Vital signs: Vital Signs Temp 100.5 F H 10/20/24 11:27 Pulse 89 10/20/24 11:27 Resp 14 10/20/24 11:27 BP 136/52 10/20/24 11:27 Pulse Ox 98 10/20/24 11:27 FiO2 Intake & Output 10/19/24 10/20/24 10/20/24 18:59 06:59 18:59 Intake Total 0 620 360 Output Total 0 Balance 0 620 360 Weight 163.293 kg 161.2 kg Intake: Oral 360 Blood Product 0 620 Rc As-1 Unit 0 310 [id number] Rc As-1 Unit 310 [id number] Output: Gastric Drainage 0 Urine 0 Stool 0 Urine/Stool Mix 0 Emesis 0 Oral Regurgitation 0 Other 0 Other: Voiding Method Toilet # Voids 3 0 # Bowel Movements 0 - Exam GENERAL DESCRIPTION: Middle-age male up in the chair in no distress RESPIRATORY SYSTEM: Unlabored breathing , decreased breath sounds at bases HEART: S1 S2 regular rate and rhythm , ABDOMEN: Soft , no tenderness EXTREMITIES: No edema feet - Labs CBC & Chem 7: 10/21/24 07:41 10/21/24 07:41 Labs: Abnormal Lab Results - Last 24 Hours (Table) 10/19/24 10/19/24 10/19/24 Range/Units 12:37 12:37 12:37 WBC (3.8-10.6) k/uL RBC 1.81 L (4.30-5.90) m/uL Hgb 5.6 L* (13.0-17.5) gm/dL Hct 16.6 L* (39.0-53.0) % RDW 20.4 H (11.5-15.5) % Plt Count 53 L (150-450) k/uL Lymphocytes # (Manual) 0.48 L (1.0-4.8) k/uL Metamyelocytes # (Man) 0.32 H (0) k/uL Myelocytes # (Manual) 0.28 H (0) k/uL Nucleated RBCs 2 H (0-0) /100 WBC Sodium 129 L (137-145) mmol/L Chloride (98-107) mmol/L Creatinine (0.66-1.25) mg/dL Glucose 162 H (74-99) mg/dL POC Glucose (mg/dL) (70-110) mg/dL Hemoglobin A1c (<=6.0) % Plasma Lactic Acid David 2.8 H* (0.7-2.0) mmol/L Calcium (8.4-10.2) mg/dL Total Bilirubin (0.2-1.3) mg/dL Alkaline Phosphatase 157 H (38-126) U/L C-Reactive Protein (<1.0) mg/dL Total Protein 6.2 L (6.3-8.2) g/dL Urine Glucose (UA) (Negative) Crossmatch 10/19/24 10/19/24 10/19/24 Range/Units 14:12 14:28 15:47 WBC (3.8-10.6) k/uL RBC (4.30-5.90) m/uL Hgb (13.0-17.5) gm/dL Hct (39.0-53.0) % RDW (11.5-15.5) % Plt Count (150-450) k/uL Lymphocytes # (Manual) (1.0-4.8) k/uL Metamyelocytes # (Man) (0) k/uL Myelocytes # (Manual) (0) k/uL Nucleated RBCs (0-0) /100 WBC Sodium (137-145) mmol/L Chloride (98-107) mmol/L Creatinine (0.66-1.25) mg/dL Glucose (74-99) mg/dL POC Glucose (mg/dL) 191 H (70-110) mg/dL Hemoglobin A1c 7.5 H (<=6.0) % Plasma Lactic Acid David (0.7-2.0) mmol/L Calcium (8.4-10.2) mg/dL Total Bilirubin (0.2-1.3) mg/dL Alkaline Phosphatase (38-126) U/L C-Reactive Protein (<1.0) mg/dL Total Protein (6.3-8.2) g/dL Urine Glucose (UA) (Negative) Crossmatch See Detail 10/19/24 10/19/24 10/19/24 Range/Units 15:47 18:58 21:07 WBC (3.8-10.6) k/uL RBC (4.30-5.90) m/uL Hgb (13.0-17.5) gm/dL Hct (39.0-53.0) % RDW (11.5-15.5) % Plt Count (150-450) k/uL Lymphocytes # (Manual) (1.0-4.8) k/uL Metamyelocytes # (Man) (0) k/uL Myelocytes # (Manual) (0) k/uL Nucleated RBCs (0-0) /100 WBC Sodium (137-145) mmol/L Chloride (98-107) mmol/L Creatinine (0.66-1.25) mg/dL Glucose (74-99) mg/dL POC Glucose (mg/dL) 161 H 174 H (70-110) mg/dL Hemoglobin A1c (<=6.0) % Plasma Lactic Acid David (0.7-2.0) mmol/L Calcium (8.4-10.2) mg/dL Total Bilirubin (0.2-1.3) mg/dL Alkaline Phosphatase (38-126) U/L C-Reactive Protein 3.9 H (<1.0) mg/dL Total Protein (6.3-8.2) g/dL Urine Glucose (UA) (Negative) Crossmatch 10/19/24 10/20/24 10/20/24 Range/Units 22:34 06:26 07:38 WBC 3.4 L (3.8-10.6) k/uL RBC 2.80 L (4.30-5.90) m/uL Hgb 8.5 L D (13.0-17.5) gm/dL Hct 25.7 L (39.0-53.0) % RDW 20.0 H (11.5-15.5) % Plt Count 51 L (150-450) k/uL Lymphocytes # (Manual) 0.65 L (1.0-4.8) k/uL Metamyelocytes # (Man) 0.17 H (0) k/uL Myelocytes # (Manual) 0.10 H (0) k/uL Nucleated RBCs 2 H (0-0) /100 WBC Sodium (137-145) mmol/L Chloride (98-107) mmol/L Creatinine (0.66-1.25) mg/dL Glucose (74-99) mg/dL POC Glucose (mg/dL) 149 H (70-110) mg/dL Hemoglobin A1c (<=6.0) % Plasma Lactic Acid David (0.7-2.0) mmol/L Calcium (8.4-10.2) mg/dL Total Bilirubin (0.2-1.3) mg/dL Alkaline Phosphatase (38-126) U/L C-Reactive Protein (<1.0) mg/dL Total Protein (6.3-8.2) g/dL Urine Glucose (UA) 4+ H (Negative) Crossmatch 10/20/24 10/20/24 Range/Units 07:38 11:18 WBC (3.8-10.6) k/uL RBC (4.30-5.90) m/uL Hgb (13.0-17.5) gm/dL Hct (39.0-53.0) % RDW (11.5-15.5) % Plt Count (150-450) k/uL Lymphocytes # (Manual) (1.0-4.8) k/uL Metamyelocytes # (Man) (0) k/uL Myelocytes # (Manual) (0) k/uL Nucleated RBCs (0-0) /100 WBC Sodium 130 L (137-145) mmol/L Chloride 96 L (98-107) mmol/L Creatinine 1.27 H (0.66-1.25) mg/dL Glucose 145 H (74-99) mg/dL POC Glucose (mg/dL) 169 H (70-110) mg/dL Hemoglobin A1c (<=6.0) % Plasma Lactic Acid David (0.7-2.0) mmol/L Calcium 8.3 L (8.4-10.2) mg/dL Total Bilirubin 1.5 H (0.2-1.3) mg/dL Alkaline Phosphatase 156 H (38-126) U/L C-Reactive Protein (<1.0) mg/dL Total Protein (6.3-8.2) g/dL Urine Glucose (UA) (Negative) Crossmatch Assessment and Plan (1) Fever Current Visit: Yes Status: Acute Priority: High Code(s): R50.9 - FEVER, UNSPECIFIED SNOMED Code(s): 762324694 Plan: 1patient presented to the hospital with low hemoglobin patient to have a h istory of metastatic lung cancer and is currently getting chemotherapy last chemo has been about a week ago before presentation to the hospital, patient is not neutropenic, initial workup so far negative with a question of possibly related to the port patient did have a negative lower extremity Doppler and blood cultures are currently pending 2we will continue with vancomycin and cefepime while waiting for the workup to be completed. Family at the bedside multiple question answered Dictation was produced using [employer] dictation software. please excuse any grammatical, word or spelling errors. Time with Patient: Less than 30
--- NOTE | 2024-10-22 05:18 | P.PN ---
Subjective Progress Note Date: 10/21/24 Principal diagnosis: Reason for follow-up is fever Patient is a 59-year-old male with a past medical history significant for diabetes mellitus hypertension hyperlipidemia reflux sleep apnea, patient also have metastatic adenocarcinoma of the lung on chemotherapy presenting to the hospital from oncology office concerning for weakness anemia and fever with initial workup negative. On today's evaluation that is 10/21/2024, patient has been febrile however denies any chills, patient is breathing comfortably on room air, patient with no chest pain or cough patient did not have any abdominal pain nausea vomiting or any loose stools did have some mild URI symptoms. The patient white count is 4.0 hemoglobin is 8.3 creatinine is 1.33 culture has been negative so far Objective - Vital Signs Vital signs: Vital Signs Temp 99.9 F H 10/21/24 12:57 Pulse 93 10/21/24 12:00 Resp 16 10/21/24 12:00 BP 116/73 10/21/24 12:00 Pulse Ox 94 L 10/21/24 08:00 FiO2 Intake & Output 10/20/24 10/21/24 10/21/24 18:59 06:59 18:59 Intake Total 840 360 Output Total 0 0 0 Balance 840 0 360 Weight 164 kg Intake: Oral 840 360 Output: Gastric Drainage 0 0 Urine 0 0 Stool 0 0 0 Urine/Stool Mix 0 0 Emesis 0 0 Oral Regurgitation 0 0 Other 0 0 Other: Voiding Method Toilet Toilet Toilet # Voids 1 0 0 # Bowel Movements 0 0 - Exam GENERAL DESCRIPTION: Middle-age male up in the chair in no distress RESPIRATORY SYSTEM: Unlabored breathing , decreased breath sounds at bases HEART: S1 S2 regular rate and rhythm , ABDOMEN: Soft , no tenderness EXTREMITIES: No edema feet - Labs CBC & Chem 7: 10/21/24 07:41 10/21/24 07:41 Labs: Abnormal Lab Results - Last 24 Hours (Table) 10/19/24 10/19/24 10/19/24 Range/Units 12:37 15:47 15:47 RBC (4.30-5.90) m/uL Hgb (13.0-17.5) gm/dL Hct (39.0-53.0) % RDW (11.5-15.5) % Plt Count (150-450) k/uL Metamyelocytes # (Man) (0) k/uL Myelocytes # (Manual) (0) k/uL Nucleated RBCs (0-0) /100 WBC Retic Count 3.0 H (0.5-2.0) % Sodium (137-145) mmol/L Carbon Dioxide (22-30) mmol/L BUN (9-20) mg/dL Creatinine (0.66-1.25) mg/dL Glucose (74-99) mg/dL POC Glucose (mg/dL) (70-110) mg/dL Calcium (8.4-10.2) mg/dL Iron 49 L (65-175) UG/DL % Saturation 13.24 L (15.00-50.00) Ferritin 411.0 H (22.0-322.0) ng/mL Alkaline Phosphatase (38-126) U/L Lactate Dehydrogenase 348 H (120-246) U/L Total Protein (6.3-8.2) g/dL 10/20/24 10/20/24 10/21/24 Range/Units 16:17 20:44 06:24 RBC (4.30-5.90) m/uL Hgb (13.0-17.5) gm/dL Hct (39.0-53.0) % RDW (11.5-15.5) % Plt Count (150-450) k/uL Metamyelocytes # (Man) (0) k/uL Myelocytes # (Manual) (0) k/uL Nucleated RBCs (0-0) /100 WBC Retic Count (0.5-2.0) % Sodium (137-145) mmol/L Carbon Dioxide (22-30) mmol/L BUN (9-20) mg/dL Creatinine (0.66-1.25) mg/dL Glucose (74-99) mg/dL POC Glucose (mg/dL) 171 H 201 H 193 H (70-110) mg/dL Calcium (8.4-10.2) mg/dL Iron (65-175) UG/DL % Saturation (15.00-50.00) Ferritin (22.0-322.0) ng/mL Alkaline Phosphatase (38-126) U/L Lactate Dehydrogenase (120-246) U/L Total Protein (6.3-8.2) g/dL 12/10/21/24 10/21/24 Range/Units 07:41 07:41 11:21 RBC 2.77 L (4.30-5.90) m/uL Hgb 8.3 L (13.0-17.5) gm/dL Hct 25.9 L (39.0-53.0) % RDW 19.4 H (11.5-15.5) % Plt Count 67 L (150-450) k/uL Metamyelocytes # (Man) 0.04 H (0) k/uL Myelocytes # (Manual) 0.04 H (0) k/uL Nucleated RBCs 2 H (0-0) /100 WBC Retic Count (0.5-2.0) % Sodium 127 L (137-145) mmol/L Carbon Dioxide 20 L (22-30) mmol/L BUN 25 H (9-20) mg/dL Creatinine 1.33 H (0.66-1.25) mg/dL Glucose 200 H (74-99) mg/dL POC Glucose (mg/dL) 192 H (70-110) mg/dL Calcium 8.1 L (8.4-10.2) mg/dL Iron (65-175) UG/DL % Saturation (15.00-50.00) Ferritin (22.0-322.0) ng/mL Alkaline Phosphatase 144 H (38-126) U/L Lactate Dehydrogenase (120-246) U/L Total Protein 6.1 L (6.3-8.2) g/dL Microbiology - Last 24 Hours (Table) 10/19/24 15:53 Blood Culture - Preliminary Blood 10/19/24 14:26 Blood Culture - Preliminary Blood 10/19/24 12:37 Blood Culture - Preliminary Blood 10/19/24 22:34 Urine Culture - Final Urine,Clean Catch Assessment and Plan (1) Fever Current Visit: Yes Status: Acute Priority: High Code(s): R50.9 - FEVER, UNSPECIFIED SNOMED Code(s): 912934150 Plan: 1patient presented to the hospital with low hemoglobin patient to have a history of metastatic lung cancer and is currently getting chemotherapy last chemo has been about a week ago before presentation to the hospital, patient is not neutropenic, initial workup so far negative with a question of possibly related to the port patient did have a negative lower extremity Doppler and blood cultures are currently pending 2we will repeat his COVID-19 and influenza PCR, check a CT abdominal pelvis with oral contrast only and add Motrin for symptomatic relief of his fever 3-we will continue with vancomycin and cefepime while waiting for the workup to be completed. Family at the bedside multiple question answered Dictation was produced using [employer] dictation software. please excuse any grammatical, word or spelling errors. Time with Patient: Less than 30
[2024-10-22 08:25] LABS: Anisocytosis Slight; HCT 25.2 % (39.0-53.0); HGB 8.3 gm/dL (13.0-17.5); Hypochromasia Marked; MCH 31.4 pg (25.0-35.0); MCV 95.2 fL (80.0-100.0); Macrocytosis Slight; Mean Platelet Volume 8.7; Poikilocytosis Moderate; RBC 2.65 m/uL (4.30-5.90); RDW 19.1 % (11.5-15.5)
[2024-10-22 08:26] LABS: Platelet Count 96 k/uL (150-450)
[2024-10-22 08:50] LABS: ALT 32 U/L (4-49); AST 50 U/L (17-59); African American GFR (CKD) 89 (>60 ml/min/1.73 sqM); Albumin 3.3 g/dL (3.5-5.0); Alkaline Phosphatase 151 U/L (38-126); Anion Gap 9 mmol/L; Blood Urea Nitrogen 21 mg/dL (9-20); C Reactive Protein 8.9 mg/dL (<1.0); Carbon Dioxide 18 mmol/L (22-30); Chloride 100 mmol/L (98-107); Glucose 224 mg/dL (74-99); Non-African American GFR(CKD) 77 (>60 ml/min/1.73 sqM); Potassium 4.4 mmol/L (3.5-5.1); Sodium 127 mmol/L (137-145); Total Bilirubin 1.1 mg/dL (0.2-1.3); Total Protein 5.9 g/dL (6.3-8.2)
[2024-10-22 08:59] LABS: Band Neutrophils % 5 %; Eosinophils # (M) 0.04 k/uL (0-0.7); Metamyelocytes # (M) 0.04 k/uL (0); Metamyelocytes % 1 %; Monocytes # (M) 0.24 k/uL (0-1.0); Myelocytes # (M) 0.12 k/uL (0); Myelocytes % 3 %; Neutrophils % (M) 54 %; Nucleated Red Blood Cells 3 /100 WBC (0-0); Total Cells Counted 200
[2024-10-22] MEDS: ENOXAPARIN 40 MG/0.4 ML SYRINGE SQ SCH (09:03)
[2024-10-22] MEDS: MAGNESIUM HYDROXIDE 2,400 MG/30 ML CUP PO PRN (09:44)
--- NOTE | 2024-10-22 09:58 | P.PN ---
Subjective Progress Note Date: 10/22/24 Ganga Smart, is a 59-year-old male patient of Dr. Garsia who presented to the ER after his oncologist discovered his hemoglobin low at 5.9. Patient has a history of metastatic lung cancer and has been receiving chemotherapy last cycle 1 week ago. Patient reports he's been on chemotherapy for approximately 2 years.patient has past medical history of diabetes, GERD, hyperlipidemia, hypertension, sleep apnea, thyroid disorder. Patient denies any nicotine use history.lab work completed showing hemoglobin 5.6. White blood cell 4.0. Sodium 129, creatinine 1.2, bun 19, lactic acid 2.8patient also noted to have a low-grade temp 100.5. Patient denies any recent sick contacts denies cough or shortness of breath. Patient denies nausea vomiting or diarrhea. Patient denies any burning with urination. At this time patient will be admitted oncology and infectious disease service is consulted. 2 units of PRBCs have been ordered. COVID-19 in influenza negative. Blood and urine and sputum cultures ordered. At this time patient is resting comfortably in bed. Patient denies any chest pain or shortness of breath. Patient denies nausea vomiting or diarrhea. Patient denies any urinary burning or frequency On 10/20/2024 patient is alert and oriented x 3. Patient was continuing to have fevers throughout the night. Patient was started on vancomycin and Maxipime per infectious disease. Patient received 2 units of PRBCs repeat hemoglobin 8.5. Patient denies chest pain or shortness of breath. Patient denies nausea vomiting or diarrhea. Patient denies any urinary burning or frequency On 10/21/2024 patient is alert and oriented x 3. Patient having some increased back discomfort. Patient still having elevated temps slightly improved. Patient remains on IV antibiotic. Hemoglobin remained stable at 8.3. Patient denies chest pain or shortness of breath. Patient denies nausea vomiting or diarrhea. Patient denies any urinary burning or frequency On 10/22/2024 patient was seen and examined on the telemetry floor, he is alert and oriented x 3 in no apparent distress, he is still having elevated temperature up to 102.3, CT scan of the chest revealed bilateral pleural effusio n, pulmonary consultation was added and patient was seen by Dr. Menezes, because of elevated temperature is still not entirely clear, repeat blood cultures and sputum culture and echocardiogram was ordered, patient is followed by infectious disease and is maintained on IV antibiotics. Will continue to follow closely Objective - Vital Signs Vital signs: Vital Signs Temp 102.3 F H 10/22/24 07:52 Pulse 91 10/22/24 07:41 Resp 18 10/22/24 07:41 BP 103/52 10/22/24 07:41 Pulse Ox 96 10/22/24 08:01 FiO2 Intake & Output 10/21/24 10/22/24 10/22/24 18:59 06:59 18:59 Intake Total 480 600 Output Total 300 0 Balance 180 600 Weight 164.6 kg Intake: IV 600 Cefepime 2 gm In Sodium 100 Chloride 0.9% 100 ml @ 25 mls/hr IVPB Q8HR MICHELLE Rx# :[id number] Vancomycin 2,500 mg In 500 Sodium Chloride 0.9% 500 ml 500 ml @ 167 mls/hr IVPB Q16H MICHELLE Rx#: [id number] Oral 480 Output: Gastric Drainage 0 Urine 300 Stool 0 0 Urine/Stool Mix 0 Emesis 0 Oral Regurgitation 0 Other 0 Other: Voiding Method Toilet Toilet Toilet # Voids 1 # Bowel Movements 0 - Exam In general patient is alert and oriented in no apparent distress Head normocephalic and atraumatic Neck supple no JVD no goiter Lungs clear to auscultation bilaterally no wheezing or crackles Heart regular rate and rhythm S1-S2, no rub or gallop Abdomen is soft nontender nondistended positive bowel sounds no hepatosplenomegaly Extremities 2+ edema bilaterally Neuro no gross focal deficit - Labs CBC & Chem 7: 10/22/24 07:41 10/22/24 07:41 Labs: Abnormal Lab Results - Last 24 Hours (Table) 10/21/24 10/21/24 10/21/24 Range/Units 07:41 07:41 11:21 RBC 2.77 L (4.30-5.90) m/uL Hgb 8.3 L (13.0-17.5) gm/dL Hct 25.9 L (39.0-53.0) % RDW 19.4 H (11.5-15.5) % Plt Count 67 L (150-450) k/uL Metamyelocytes # (Man) 0.04 H (0) k/uL Myelocytes # (Manual) 0.04 H (0) k/uL Nucleated RBCs 2 H (0-0) /100 WBC Sodium 127 L (137-145) mmol/L Carbon Dioxide 20 L (22-30) mmol/L BUN 25 H (9-20) mg/dL Creatinine 1.33 H (0.66-1.25) mg/dL Glucose 200 H (74-99) mg/dL POC Glucose (mg/dL) 192 H (70-110) mg/dL Calcium 8.1 L (8.4-10.2) mg/dL Alkaline Phosphatase 144 H (38-126) U/L Total Protein 6.1 L (6.3-8.2) g/dL 10/21/24 10/21/24 10/22/24 Range/Units 16:26 20:13 07:41 RBC 2.65 L (4.30-5.90) m/uL Hgb 8.3 L (13.0-17.5) gm/dL Hct 25.2 L (39.0-53.0) % RDW 19.1 H (11.5-15.5) % Plt Count 96 L (150-450) k/uL Metamyelocytes # (Man) (0) k/uL Myelocytes # (Manual) (0) k/uL Nucleated RBCs (0-0) /100 WBC Sodium (137-145) mmol/L Carbon Dioxide (22-30) mmol/L BUN (9-20) mg/dL Creatinine (0.66-1.25) mg/dL Glucose (74-99) mg/dL POC Glucose (mg/dL) 175 H 202 H (70-110) mg/dL Calcium (8.4-10.2) mg/dL Alkaline Phosphatase (38-126) U/L Total Protein (6.3-8.2) g/dL Microbiology - Last 24 Hours (Table) 10/19/24 15:53 Blood Culture - Preliminary Blood 10/19/24 14:26 Blood Culture - Preliminary Blood 10/19/24 12:37 Blood Culture - Preliminary Blood Assessment and Plan Assessment: 1. Anemia likely secondary to chemotherapy 2. History of metastatic lung cancer patient follows with oncology services last chemotherapy one week ago 3. Febrile. Temp 100.3. 4. Hyponatremia, correcting with IV fluid 5. History of diabetes mellitus 6. History of hyperlipidemia 7. History of essential hypertension 8. History of hypothyroidism 9. History of sleep apnea DVT prophylaxis SCDs secondary to anemia. GI prophylaxis Protonix Oncology and infectious disease service is consulted 2 units of PRBCs have been ordered Blood urine and sputum cultures ordered Continue gentle hydration 0.9 at 75 Patient started on IV antibiotics
[2024-10-22 11:43] LABS: Glucose,Whole Blood 182 mg/dL (70-110)
--- NOTE | 2024-10-22 11:58 | P.CNPUL ---
History of Present Illness Consult date: 10/22/24 Chief complaint: Shortness of breath History of present illness: This is a 59-year-old male patient with metastatic pulmonary adenocarcinoma, who has been receiving systemic chemotherapy and the patient was not Gemzar and his last treatment was on 10/12/2024. The patient was tolerating the systemic chemotherapy reasonably well. He is morbidly obese and has history of obstructive sleep apnea along with diabetes mellitus and hyperlipidemia. He is currently in the hospital as the patient was initially sent over from oncologist office because of a low hemoglobin of 5.9. The patient was also febrile. He was given a total of 2 U PRBC During this current hospitalization the patient's hemoglobin is currently up to 8.3. Nevertheless, he continues to have episodes of fever. Currently afebrile. Tmax over the past 24 hours was 102.3. No clear source of infection. The patient remains on a combination of cefepime and vancomycin. Note that his white cell count is not elevated. His white cell count is at 4. He has no DVTs in his lower extremities. CAT scan of the abdomen and pelvis was done and shows a chronic small right-sided pleural effusion. There is bony metastases throughout and there was no significant lymphadenopathy. Blood cultures have been negative. The patient has a Mediport that looks to be quite clean. No altered mentation. No skin rashes. No wounds or ulcers. As such, the source of the fever is not clear. ID is on the case. He is also experiencing some shortness of breath with mobility. Nevertheless, he is on room air oxygen. No cough sputum production chest tightness or wheezing. In terms of his lung cancer, the patient was diagnosed having pulm adenocarcinoma back in 2021. He has been followed up by Dr. Cat. He initially presented with 3 cm RLL lung mass,he had a PET scan on 06/16/2022 which revealed suspicious uptake in in central right lung lesion,measured 2.1 x 2.2 cm,he initially had navigational bronchoscopy which was not diagnostic,he ws referred to DR Hernandez at [facility],he had repeat CT scan of chest on 07/07/2022 which revealed 3 cm lesion in superior segment of RLL and several other small nodules in right lung which are new compared to prior CT scan done at [facility] in 06/2016. On 07/24/2022,he underwent RLL resection and biopsies of mediastinal nodes ,pathology revealed adenocarcinoma spreading through alveolar spaces and invading lymphovascular channels (BERENICE),multifocal,right level 8,level 7,4R nodes were positive. Brain MRI on 08/08/2022 was negative. Caris did not reveal any targetable mutation. On 08/18/2022,PET scan revealed uptake in right hilar region,there was uptake in left second rib,had an MRI which revealed subtle area in rib without enhancement. On 08/26/2022,he started carbo/alimta with radiation,completed 4 cycles of chemo on 10/29/2022. Due to disease progression, patient has been on multiple treatment regimens. He started imfinzi on 12/25/2022. Taxotere/cyramza/zometa were held in December 2023, as patient developed ONJ. He started gemzar on 05/10/2024, most recently completing cycle 8 on 10/12/24, Review of Systems Constitutional: Reports fatigue, Reports poor appetite, Reports weakness, Reports weight gain Eyes: denies as per HPI, denies blurred vision, denies bulging eye, denies decreased vision, denies diplopia, denies discharge, denies dry eye, denies irritation, denies itching, denies pain, denies photophobia, denies loss of peripheral vision, denies loss of vision, denies tunnel vision/blind spots Ears: deny: decreased hearing, ear discharge, earache, tinnitus Ears, nose, mouth and throat: Reports as per HPI Breasts: absent: as per HPI, gynecomastia Cardiovascular: Reports decreased exercise tolerance, Reports dyspnea on exertion Respiratory: Reports dyspnea, Reports sleep apnea, Reports snoring Gastrointestinal: Reports as per HPI Genitourinary: Reports as per HPI Musculoskeletal: Reports as per HPI Musculoskeletal: bilateral: ankle swelling, absent: ankle pain, ankle stiffness Integumentary: Reports as per HPI Neurological: Reports as per HPI Psychiatric: Reports as per HPI Endocrine: Reports as per HPI Hematologic/Lymphatic: Reports as per HPI Allergic/Immunologic: Reports as per HPI Past Medical History Past Medical History: Cancer, Diabetes Mellitus, GERD/Reflux, Hyperlipidemia, Hypertension, Sleep Apnea/CPAP/BIPAP, Thyroid Disorder Additional Past Medical History / Comment(s): C PAP MACHINE , RECTAL BLEEDING. neuropathy History of Any Multi-Drug Resistant Organisms: None Reported Past Surgical History: No Surgical Hx Reported Additional Past Surgical History / Comment(s): colonoscopy 2015, THYROIDECTOMY Past Anesthesia/Blood Transfusion Reactions: No Reported Reaction Past Psychological History: No Psychological Hx Reported Smoking Status: Never smoker - Past Family History Father Family Medical History: Cancer Medications and Allergies Home Medications Medication Instructions Recorded Confirmed Type Gabapentin 600 mg PO QID 01/04/15 10/19/24 History Losartan Potassium [Cozaar] 100 mg PO DAILY 01/04/15 10/19/24 History Omeprazole 40 mg PO DAILY 01/04/15 10/19/24 History metFORMIN HCL [Glucophage] 1,000 mg PO BID 01/04/15 10/19/24 History Ascorbic Acid [Vitamin C] 1,000 mg PO DAILY 04/04/21 10/19/24 History Cyanocobalamin (Vitamin B-12) 1,000 mcg PO DAILY 04/04/21 10/19/24 History [Vitamin B-12] Empagliflozin [Jardiance] 25 mg PO DAILY 04/04/21 10/19/24 History Ergocalciferol [Vitamin D2 (1250 1,250 mcg PO CONTI 04/04/21 10/19/24 History Mcg = 60720 Iu)] Fenofibrate,Micronized 200 mg PO DAILY 04/04/21 10/19/24 History [Fenofibrate] Latanoprost/Pf [Latanoprost 0.005% 1 drop BOTH EYES HS 04/04/21 10/19/24 History Eye Drop] Levothyroxine Sodium [Synthroid] 200 mcg PO DAILY 04/04/21 10/19/24 History Olmesartan Medoxomil [Benicar] 40 mg PO DAILY 04/04/21 10/19/24 History Coolidge-3 Fatty Acids/Fish Oil [Fish 1 cap PO DAILY 04/04/21 10/19/24 History Oil 1,000 mg Softgel] Rosuvastatin [Crestor] 20 mg PO DAILY 04/04/21 10/19/24 History Ubidecarenone [Co Q-10] 200 mg PO DAILY 04/04/21 10/19/24 History Zinc 50 mg PO DAILY 04/04/21 10/19/24 History carvediloL [Coreg] 25 mg PO BID 04/04/21 10/19/24 History Aspirin EC [Ecotrin Low Dose] 81 mg PO DIRECTED 10/19/24 10/19/24 History Cholecalciferol [Vitamin D3 (25 25 mcg PO DAILY 10/19/24 10/19/24 History Mcg = 1000 Iu)] Cyclobenzaprine [Flexeril] 10 mg PO Q8H PRN 10/19/24 10/19/24 History EPINEPHrine (Auto Inject) [Epipen] 0.3 mg IM ONCE PRN 10/19/24 10/19/24 History Folic Acid 1 mg PO DAILY 10/19/24 10/19/24 History Ibuprofen [Motrin] 800 mg PO Q8H PRN 10/19/24 10/19/24 History Levothyroxine Sodium [Synthroid] 50 mcg PO DAILY 10/19/24 10/19/24 History Magnesium Oxide [Magnesium] 500 mg PO DAILY 10/19/24 10/19/24 History Ondansetron Odt [Zofran Odt] 4 mg PO Q4H PRN 10/19/24 10/19/24 History Spironolactone [Aldactone] 25 mg PO DAILY 10/19/24 10/19/24 History oxyCODONE HCL [Oxycodone HCl] 10 mg PO Q4H 10/19/24 10/19/24 History Allergies Allergy/AdvReac Type Severity Reaction Status Date / Time peas Allergy Anaphylaxis Verified 10/19/24 13:51 Physical Exam Vitals: Vital Signs Temp Pulse Resp BP Pulse Ox 10/22/24 08:01 96 10/22/24 07:52 102.3 F H 10/22/24 07:41 100.0 F H 91 18 103/52 93 L 10/22/24 04:00 98.5 F 87 16 113/71 96 10/22/24 00:00 98.3 F 68 18 114/63 95 10/21/24 21:30 98.4 F 10/21/24 20:00 100 F H 82 18 105/60 92 L 10/21/24 18:38 101.5 F H 10/21/24 17:13 103.1 F H 10/21/24 15:34 98.5 F 10/21/24 15:28 99.9 F H 74 16 117/66 95 10/21/24 12:57 99.9 F H 10/21/24 12:00 101.1 F H 93 16 116/73 10/21/24 10:21 100.6 F H 111/62 Intake and Output 10/21/24 10/22/24 10/22/24 22:59 06:59 14:59 Intake Total 120 600 Output Total 300 0 Balance -180 600 Intake: IV 600 Cefepime 2 gm In Sodium 100 Chloride 0.9% 100 ml @ 25 mls/hr IVPB Q8HR MICHELLE Rx# :[id number] Vancomycin 2,500 mg In 500 Sodium Chloride 0.9% 500 ml 500 ml @ 167 mls/hr IVPB Q16H MICHELLE Rx#: [id number] Oral 120 Output: Urine 300 Stool 0 0 Other: Voiding Method Toilet Toilet Toilet # Voids 1 Weight 164.6 kg The patient appeared well nourished and normally developed. Vital signs as documented. Patient is morbidly obese with a BMI of 46.6. No respiratory distress and the patient is currently on room air oxygen. Head exam is unremarkable. No scleral icterus or corneal arcus noted. Neck is without jugular venous distension, thyromegaly, or carotid bruits. Carotid upstrokes are brisk bilaterally. Mallampati class IV with significant crowding of posterior pharynx Lungs are clear to auscultation and percussion. Diminished breath sound right lung base Cardiac exam reveals the PMI to be normally sized and situated. Rhythm is regular. First and second heart sounds normal. No murmurs, rubs or gallops. Abdominal exam reveals normal bowel sounds, no masses, no organomegaly and no aortic enlargement. Extremities are edematous and both femoral and pedal pulses are normal. Examination of the skin revealed no evidence of significant rashes, suspicious appearing nevi or other concerning lesions. Neurologically, the patient is awake and alert and the patient does not have any focal neurological deficit. Cranial nerves are essentially intact. Results - Laboratory Findings CBC and BMP: 10/22/24 07:41 10/22/24 07:41 Abnormal lab findings: Abnormal Labs 10/19/24 10/19/24 10/19/24 12:37 12:37 12:37 WBC RBC 1.81 L Hgb 5.6 L* Hct 16.6 L* RDW 20.4 H Plt Count 53 L Lymphocytes # (Manual) 0.48 L Metamyelocytes # (Man) 0.32 H Myelocytes # (Manual) 0.28 H Nucleated RBCs 2 H Retic Count Sodium 129 L Chloride Carbon Dioxide BUN Creatinine Glucose 162 H POC Glucose (mg/dL) Hemoglobin A1c Plasma Lactic Acid David 2.8 H* Calcium Iron % Saturation Ferritin Total Bilirubin Alkaline Phosphatase 157 H Lactate Dehydrogenase C-Reactive Protein Total Protein 6.2 L Albumin Urine Glucose (UA) Crossmatch 10/19/24 10/19/24 10/19/24 12:37 14:12 14:28 WBC RBC Hgb Hct RDW Plt Count Lymphocytes # (Manual) Metamyelocytes # (Man) Myelocytes # (Manual) Nucleated RBCs Retic Count 3.0 H Sodium Chloride Carbon Dioxide BUN Creatinine Glucose POC Glucose (mg/dL) 191 H Hemoglobin A1c Plasma Lactic Acid David Calcium Iron % Saturation Ferritin Total Bilirubin Alkaline Phosphatase Lactate Dehydrogenase C-Reactive Protein Total Protein Albumin Urine Glucose (UA) Crossmatch See Detail 10/19/24 10/19/24 10/19/24 15:47 15:47 15:47 WBC RBC Hgb Hct RDW Plt Count Lymphocytes # (Manual) Metamyelocytes # (Man) Myelocytes # (Manual) Nucleated RBCs Retic Count Sodium Chloride Carbon Dioxide BUN Creatinine Glucose POC Glucose (mg/dL) Hemoglobin A1c 7.5 H Plasma Lactic Acid David Calcium Iron 49 L % Saturation 13.24 L Ferritin 411.0 H Total Bilirubin Alkaline Phosphatase Lactate Dehydrogenase C-Reactive Protein 3.9 H Total Protein Albumin Urine Glucose (UA) Crossmatch 10/19/24 10/19/24 10/19/24 15:47 18:58 21:07 WBC RBC Hgb Hct RDW Plt Count Lymphocytes # (Manual) Metamyelocytes # (Man) Myelocytes # (Manual) Nucleated RBCs Retic Count Sodium Chloride Carbon Dioxide BUN Creatinine Glucose POC Glucose (mg/dL) 161 H 174 H Hemoglobin A1c Plasma Lactic Acid David Calcium Iron % Saturation Ferritin Total Bilirubin Alkaline Phosphatase Lactate Dehydrogenase 348 H C-Reactive Protein Total Protein Albumin Urine Glucose (UA) Crossmatch 10/19/24 10/20/24 10/20/24 22:34 06:26 07:38 WBC 3.4 L RBC 2.80 L Hgb 8.5 L D Hct 25.7 L RDW 20.0 H Plt Count 51 L Lymphocytes # (Manual) 0.65 L Metamyelocytes # (Man) 0.17 H Myelocytes # (Manual) 0.10 H Nucleated RBCs 2 H Retic Count Sodium Chloride Carbon Dioxide BUN Creatinine Glucose POC Glucose (mg/dL) 149 H Hemoglobin A1c Plasma Lactic Acid David Calcium Iron % Saturation Ferritin Total Bilirubin Alkaline Phosphatase Lactate Dehydrogenase C-Reactive Protein Total Protein Albumin Urine Glucose (UA) 4+ H Crossmatch 10/20/24 10/20/24 10/20/24 07:38 11:18 16:17 WBC RBC Hgb Hct RDW Plt Count Lymphocytes # (Manual) Metamyelocytes # (Man) Myelocytes # (Manual) Nucleated RBCs Retic Count Sodium 130 L Chloride 96 L Carbon Dioxide BUN Creatinine 1.27 H Glucose 145 H POC Glucose (mg/dL) 169 H 171 H Hemoglobin A1c Plasma Lactic Acid David Calcium 8.3 L Iron % Saturation Ferritin Total Bilirubin 1.5 H Alkaline Phosphatase 156 H Lactate Dehydrogenase C-Reactive Protein Total Protein Albumin Urine Glucose (UA) Crossmatch 10/20/24 10/21/24 10/21/24 20:44 06:24 07:41 WBC RBC 2.77 L Hgb 8.3 L Hct 25.9 L RDW 19.4 H Plt Count 67 L Lymphocytes # (Manual) Metamyelocytes # (Man) 0.04 H Myelocytes # (Manual) 0.04 H Nucleated RBCs 2 H Retic Count Sodium Chloride Carbon Dioxide BUN Creatinine Glucose POC Glucose (mg/dL) 201 H 193 H Hemoglobin A1c Plasma Lactic Acid David Calcium Iron % Saturation Ferritin Total Bilirubin Alkaline Phosphatase Lactate Dehydrogenase C-Reactive Protein Total Protein Albumin Urine Glucose (UA) Crossmatch 10/21/24 10/21/24 10/21/24 07:41 11:21 16:26 WBC RBC Hgb Hct RDW Plt Count Lymphocytes # (Manual) Metamyelocytes # (Man) Myelocytes # (Manual) Nucleated RBCs Retic Count Sodium 127 L Chloride Carbon Dioxide 20 L BUN 25 H Creatinine 1.33 H Glucose 200 H POC Glucose (mg/dL) 192 H 175 H Hemoglobin A1c Plasma Lactic Acid David Calcium 8.1 L Iron % Saturation Ferritin Total Bilirubin Alkaline Phosphatase 144 H Lactate Dehydrogenase C-Reactive Protein Total Protein 6.1 L Albumin Urine Glucose (UA) Crossmatch 10/21/24 10/22/24 10/22/24 20:13 07:41 07:41 WBC RBC 2.65 L Hgb 8.3 L Hct 25.2 L RDW 19.1 H Plt Count 96 L Lymphocytes # (Manual) Metamyelocytes # (Man) 0.04 H Myelocytes # (Manual) 0.12 H Nucleated RBCs 3 H Retic Count Sodium 127 L Chloride Carbon Dioxide 18 L BUN 21 H Creatinine Glucose 224 H POC Glucose (mg/dL) 202 H Hemoglobin A1c Plasma Lactic Acid David Calcium 8.0 L Iron % Saturation Ferritin Total Bilirubin Alkaline Phosphatase 151 H Lactate Dehydrogenase C-Reactive Protein 8.9 H Total Protein 5.9 L Albumin 3.3 L Urine Glucose (UA) Crossmatch - Diagnostic Findings Chest x-ray: image reviewed Assessment and Plan Plan: Fever, source is unknown. No clear source of any infection at this point in time. The cultures have been negative. White cell count is not elevated. The patient was given 2 units of packed RBCs during this current hospitalization. Rule out delayed reaction and fever related to blood transfusion. No evidence of any DVT. Currently on cefepime and vancomycin. Hemodynamically stable. Does not look to be toxic. No significant tachycardia or tachypnea. Endocarditis is less likely. Shortness of breath, multifactorial, currently on room air oxygen. Fluid effusion on the right is small Pulm adenocarcinoma, stage IV, completed systemic chemotherapy with IV gemcitabine on 10/12/2024. The patient has been followed up by Dr. Cat. He initially presented with 3 cm RLL lung mass,he had a PET scan on 06/16/2022 which revealed suspicious uptake in in central right lung lesion,measured 2.1 x 2.2 cm,he initially had navigational bronchoscopy which was not diagnostic,he ws referred to DR Hernandez at [facility],he had repeat CT scan of chest on 07/07/2022 which revealed 3 cm lesion in superior segment of RLL and several other small nodules in right lung which are new compared to prior CT scan done at [facility] in 06/2016. On 07/24/2022,he underwent RLL resection and biopsies of mediastinal nodes,pathology revealed adenocarcinoma spreading through alveolar spaces and invading lymphovascular channels (BERENICE),multifocal,right level 8,level 7,4R nodes were positive. Brain MRI on 08/08/2022 was negative. Caris did not reveal any targetable mutation. On 08/18/2022,PET scan revealed uptake in right hilar region,there was uptake in left second rib,had an MRI which revealed subtle area in rib without enhancement. On 08/26/2022,he started carbo/alimta with radiation,completed 4 cycles of chemo on 10/29/2022. Due to disease progression, patient has been on multiple treatment regimens. He started imfinzi on . Taxotere/cyramza/zometa were held in December 2023, as patient developed ONJ. He started gemzar on 05/10/2024, most recently completing cycle 8 on 10/12/24, Chemotherapy-induced anemia the patient received a total of units of packed RBCs, hemoglobin stable for now. No leukocytosis. Morbid obesity with a BMI of 46.6 Obstructive sleep apnea Hypertension Hyperlipidemia Diabetes mellitus type 2 Peripheral neuropathy Hypothyroidism Plan The exact source of the infection is not clear to me at this point in time. Continue antibiotic coverage. Monitor fever pattern. ID follow-up. Check procalcitonin level. Check an echocardiogram to rule out endocarditis. Repeat cultures. Currently on room air oxygen. Continue to follow.
--- NOTE | 2024-10-22 15:58 | P.PN ---
Subjective Progress Note Date: 10/22/24 NO acute events. Reporting improvement in symptoms since admit. Denies SOB and CP. Denies episodes of acute bleeding. Fevers persisting, 102.3 this morning. Infectious workup negative thus far. Continues IV abx. Hgb stable at 8.3, plt improving, 96,000 today. Objective - Vital Signs Vital signs: Vital Signs Temp 100.9 F H 10/22/24 09:25 Pulse 91 10/22/24 07:41 Resp 18 10/22/24 07:41 BP 96/44 10/22/24 09:25 Pulse Ox 96 10/22/24 08:01 FiO2 Intake & Output 10/21/24 10/22/24 10/22/24 18:59 06:59 18:59 Intake Total 480 600 Output Total 300 0 Balance 180 600 Weight 164.6 kg Intake: IV 600 Cefepime 2 gm In Sodium 100 Chloride 0.9% 100 ml @ 25 mls/hr IVPB Q8HR MICHELLE Rx# :[id number] Vancomycin 2,500 mg In 500 Sodium Chloride 0.9% 500 ml 500 ml @ 167 mls/hr IVPB Q16H MICHELLE Rx#: [id number] Oral 480 Output: Gastric Drainage 0 Urine 300 Stool 0 0 Urine/Stool Mix 0 Emesis 0 Oral Regurgitation 0 Other 0 Other: Voiding Method Toilet Toilet Toilet # Voids 1 1 # Bowel Movements 0 - Constitutional General appearance: Present: no acute distress, obese - EENT Eyes: Present: anicteric sclerae, EOMI ENT: Present: hearing grossly normal - Respiratory Details: breathing is even and unlabored - Cardiovascular Details: skin warm and dry - Gastrointestinal General gastrointestinal: Present: soft. Absent: tenderness - Integumentary Integumentary: Absent: cyanotic - Neurologic Neurologic: Present: CNII-XII intact - Psychiatric Psychiatric: Present: A&O x's 3 - Labs CBC & Chem 7: 10/22/24 07:41 10/22/24 07:41 Labs: Abnormal Lab Results - Last 24 Hours (Table) 10/21/24 10/21/24 10/21/24 Range/Units 11:21 16:26 20:13 RBC (4.30-5.90) m/uL Hgb (13.0-17.5) gm/dL Hct (39.0-53.0) % RDW (11.5-15.5) % Plt Count (150-450) k/uL Metamyelocytes # (Man) (0) k/uL Myelocytes # (Manual) (0) k/uL Nucleated RBCs (0-0) /100 WBC Sodium (137-145) mmol/L Carbon Dioxide (22-30) mmol/L BUN (9-20) mg/dL Glucose (74-99) mg/dL POC Glucose (mg/dL) 192 H 175 H 202 H (70-110) mg/dL Calcium (8.4-10.2) mg/dL Alkaline Phosphatase (38-126) U/L C-Reactive Protein (<1.0) mg/dL Total Protein (6.3-8.2) g/dL Albumin (3.5-5.0) g/dL 10/22/24 10/22/24 Range/Units 07:41 07:41 RBC 2.65 L (4.30-5.90) m/uL Hgb 8.3 L (13.0-17.5) gm/dL Hct 25.2 L (39.0-53.0) % RDW 19.1 H (11.5-15.5) % Plt Count 96 L (150-450) k/uL Metamyelocytes # (Man) 0.04 H (0) k/uL Myelocytes # (Manual) 0.12 H (0) k/uL Nucleated RBCs 3 H (0-0) /100 WBC Sodium 127 L (137-145) mmol/L Carbon Dioxide 18 L (22-30) mmol/L BUN 21 H (9-20) mg/dL Glucose 224 H (74-99) mg/dL POC Glucose (mg/dL) (70-110) mg/dL Calcium 8.0 L (8.4-10.2) mg/dL Alkaline Phosphatase 151 H (38-126) U/L C-Reactive Protein 8.9 H (<1.0) mg/dL Total Protein 5.9 L (6.3-8.2) g/dL Albumin 3.3 L (3.5-5.0) g/dL Microbiology - Last 24 Hours (Table) 10/19/24 15:53 Blood Culture - Preliminary Blood 10/19/24 14:26 Blood Culture - Preliminary Blood 10/19/24 12:37 Blood Culture - Preliminary Blood - Imaging and Cardiology CT scan - abdomen: report reviewed CT scan - pelvis: report reviewed Assessment and Plan (1) Anemia Current Visit: Yes Status: Acute Priority: High Code(s): D64.9 - ANEMIA, UNSPECIFIED SNOMED Code(s): 593815793 (2) Fever Current Visit: Yes Status: Acute Priority: High Code(s): R50.9 - FEVER, UNSPECIFIED SNOMED Code(s): 313331083 (3) Lung cancer Current Visit: Yes Status: Acute Priority: High Code(s): C34.90 - MALIGNANT NEOPLASM OF UNSP PART OF UNSP BRONCHUS OR LUNG SNOMED Code(s): 126631950 Plan: Fever: Patient presented to clinic on 10/19 for f/u s/p chemo, and was reporting persisting fatigue and increasing shortness of breath and dizziness over the last 1 week, and significant weakness and could only walk short distances wi thout having to sit down. Temperature was noted at 100.7. Denied URI sx, urinary symptoms, n/v/d, and abdominal pain. Of note, patient had CTA chest at [facility] on 10/05 which was negative for PE -Infectious workup negative thus far -Continues empiric antibiotics. White counts adequate, WBC 4.0, ANC 2.3 -CT AP showing no acute processes within abd/pelvis. Moderate right and small left pleural effusions -Infectious disease and pulmonology following -Fevers persisting, however pt is reporting feeling improved. -Echo ordered to r/o endocarditis. Anemia, thrombocytopenia: -In clinic on 10/19, CBC showing hgb 7.3, plt 48,000. Upon admit hemoglobin noted at 5.6, platelets 53. -S/p 2 units PRBCs with appropriate response. -Hgb has been in the 9-10 range, but was noted at 7.9 on 10/12 (previously at 9.0). Platelets 178,000 on 10/12 -Denies hematuria, hematochezia, and melena. Previously on baby aspirin, this has been held -Iron studies and hemolysis labs obtained to r/o other etiologies. Iron studies consistent with anemia of inflammation, hemolysis workup negative -Cytopenias likely secondary to chemo, superimposed by bone marrow fatigue from multiple chemo regimens and possible acute infection. However, acute GI bleed would still remain in the differential -Hgb stable at 8.3 -Continue to closely monitor CBC and for s/s of bleeding, if Hgb continues to drop, will consult GI for endoscopic evaluation -Transfuse for hgb less than 7 or if symptomatic. Hold anticoagulation for plts < 50,000 Metastatic lung adenocarcinoma: -Oncology history as dictated in the HPI -He started gemzar on 05/10/2024, most recently completing cycle 8 on 10/12/24, overall patient has been tolerating regimen well. -Pending course of hospitalization, will likely need to delay treatment on 10/26 -Clinic f/u scheduled on 11/03/24
[2024-10-22 16:41] LABS: Glucose,Whole Blood 215 mg/dL (70-110)
[2024-10-22 17:08] LABS: Glucose,Whole Blood 158 mg/dL (70-110)
[2024-10-22 20:12] LABS: Glucose,Whole Blood 193 mg/dL (70-110)
[2024-10-22] MEDS: MELATONIN 3 MG TABLET PO SCH (20:34)
[2024-10-23] MEDS: IPRATROPIUM-ALBUTEROL 3 ML NEB INHALATION STA ×2 (04:25→16:34)
--- NOTE | 2024-10-23 05:59 | P.PN ---
Subjective Progress Note Date: 10/22/24 Principal diagnosis: Reason for follow-up is fever Patient is a 59-year-old male with a past medical history significant for diabetes mellitus hypertension hyperlipidemia reflux sleep apnea, patient also have metastatic adenocarcinoma of the lung on chemotherapy presenting to the hospital from oncology office concerning for weakness anemia and fever with initial workup negative. On today's evaluation that is 10/22/2024, Patient did have some improvement in his fever pattern however still spiking fever patient denies having any headache mild URI symptoms no chest pain or shortness of breath no significant cough no nausea vomiting no abdominal pain no diarrhea. Patient white count is 4.0 creatinine is 1.06 Objective - Vital Signs Vital signs: Vital Signs Temp 102.3 F H 10/22/24 07:52 Pulse 91 10/22/24 07:41 Resp 18 10/22/24 07:41 BP 103/52 10/22/24 07:41 Pulse Ox 96 10/22/24 08:01 FiO2 Intake & Output 10/21/24 10/22/24 10/22/24 18:59 06:59 18:59 Intake Total 480 600 Output Total 300 0 Balance 180 600 Weight 164.6 kg Intake: IV 600 Cefepime 2 gm In Sodium 100 Chloride 0.9% 100 ml @ 25 mls/hr IVPB Q8HR [facility] Rx# :[id number] Vancomycin 2,500 mg In 500 Sodium Chloride 0.9% 500 ml 500 ml @ 167 mls/hr IVPB Q16H [facility] Rx#: [id number] Oral 480 Output: Gastric Drainage 0 Urine 300 Stool 0 0 Urine/Stool Mix 0 Emesis 0 Oral Regurgitation 0 Other 0 Other: Voiding Method Toilet Toilet Toilet # Voids 1 # Bowel Movements 0 - Exam GENERAL DESCRIPTION: Middle-age male up in the chair in no distress RESPIRATORY SYSTEM: Unlabored breathing , decreased breath sounds at bases HEART: S1 S2 regular rate and rhythm , ABDOMEN: Soft , no tenderness EXTREMITIES: No edema feet - Labs CBC & Chem 7: 10/22/24 07:41 10/22/24 07:41 Labs: Abnormal Lab Results - Last 24 Hours (Table) 10/21/24 10/21/24 10/21/24 Range/Units 07:41 11:21 16:26 RBC 2.77 L (4.30-5.90) m/uL Hgb 8.3 L (13.0-17.5) gm/dL Hct 25.9 L (39.0-53.0) % RDW 19.4 H (11.5-15.5) % Plt Count 67 L (150-450) k/uL Metamyelocytes # (Man) 0.04 H (0) k/uL Myelocytes # (Manual) 0.04 H (0) k/uL Nucleated RBCs 2 H (0-0) /100 WBC Sodium (137-145) mmol/L Carbon Dioxide (22-30) mmol/L BUN (9-20) mg/dL Glucose (74-99) mg/dL POC Glucose (mg/dL) 192 H 175 H (70-110) mg/dL Calcium (8.4-10.2) mg/dL Alkaline Phosphatase (38-126) U/L C-Reactive Protein (<1.0) mg/dL Total Protein (6.3-8.2) g/dL Albumin (3.5-5.0) g/dL 10/21/24 10/22/24 10/22/24 Range/Units 20:13 07:41 07:41 RBC 2.65 L (4.30-5.90) m/uL Hgb 8.3 L (13.0-17.5) gm/dL Hct 25.2 L (39.0-53.0) % RDW 19.1 H (11.5-15.5) % Plt Count 96 L (150-450) k/uL Metamyelocytes # (Man) 0.04 H (0) k/uL Myelocytes # (Manual) 0.12 H (0) k/uL Nucleated RBCs 3 H (0-0) /100 WBC Sodium 127 L (137-145) mmol/L Carbon Dioxide 18 L (22-30) mmol/L BUN 21 H (9-20) mg/dL Glucose 224 H (74-99) mg/dL POC Glucose (mg/dL) 202 H (70-110) mg/dL Calcium 8.0 L (8.4-10.2) mg/dL Alkaline Phosphatase 151 H (38-126) U/L C-Reactive Protein 8.9 H (<1.0) mg/dL Total Protein 5.9 L (6.3-8.2) g/dL Albumin 3.3 L (3.5-5.0) g/dL Microbiology - Last 24 Hours (Table) 10/19/24 15:53 Blood Culture - Preliminary Blood 10/19/24 14:26 Blood Culture - Preliminary Blood 10/19/24 12:37 Blood Culture - Preliminary Blood Assessment and Plan (1) Fever Current Visit: Yes Status: Acute Priority: High Code(s): R50.9 - FEVER, UNSPECIFIED SNOMED Code(s): 779162542 Plan: 1patient presented to the hospital with low hemoglobin patient to have a history of metastatic lung cancer and is currently getting chemotherapy last chemo has been about a week ago before presentation to the hospital, patient is not neutropenic, initial workup so far negative with a question of possibly related to the port patient did have a negative lower extremity Doppler and blood cultures are currently pending 2 repeat COVID-19 and influenza PCR came back negative, CT abdominal pelvis with oral contrast only did not show any acute abnormality with a question of possible drug fever 3-we will discontinue vancomycin await procalcitonin if normal will discontinue cefepime as well Dictation was produced using [employer] dictation software. please excuse any grammatical, word or spelling errors. Time with Patient: Less than 30
[2024-10-23 06:08] LABS: Glucose,Whole Blood 176 mg/dL (70-110)
[2024-10-23 08:34] LABS: ALT 37 U/L (4-49); AST 64 U/L (17-59); African American GFR (CKD) 81 (>60 ml/min/1.73 sqM); Albumin 3.4 g/dL (3.5-5.0); Alkaline Phosphatase 173 U/L (38-126); Anion Gap 7 mmol/L; Blood Urea Nitrogen 19 mg/dL (9-20); Calcium 8.3 mg/dL (8.4-10.2); Carbon Dioxide 24 mmol/L (22-30); Chloride 96 mmol/L (98-107); Glucose 177 mg/dL (74-99); Non-African American GFR(CKD) 70 (>60 ml/min/1.73 sqM); Potassium 4.9 mmol/L (3.5-5.1); Sodium 127 mmol/L (137-145); Total Bilirubin 0.9 mg/dL (0.2-1.3); Total Protein 5.9 g/dL (6.3-8.2)
[2024-10-23 08:36] LABS: Anisocytosis Slight; Hypochromasia Moderate; MCH 30.4 pg (25.0-35.0); MCHC 33.2 g/dL (31.0-37.0); MCV 91.6 fL (80.0-100.0); Mean Platelet Volume 8.7; Poikilocytosis Moderate; RBC 2.62 m/uL (4.30-5.90); RDW 19.4 % (11.5-15.5); WBC 5.2 k/uL (3.8-10.6)
[2024-10-23 08:38] LABS: Platelet Count 146 k/uL (150-450)
[2024-10-23] MEDS: PIPERACILLIN-TAZOBACTAM 3.375 GM in SODIUM CHLORIDE 0.9% 100 ML IVPB SCH (08:51)
[2024-10-23 09:29] LABS: Band Neutrophils % 4 %; Basophils # (M) 0.05 k/uL (0-0.2); Eosinophils # (M) 0.05 k/uL (0-0.7); Lymphocytes # (M) 1.14 k/uL (1.0-4.8); Metamyelocytes % 2 %; Monocytes # (M) 0.68 k/uL (0-1.0); Myelocytes # (M) 0.05 k/uL (0); Myelocytes % 1 %; Neutrophils % (M) 57 %; Nucleated Red Blood Cells 0 /100 WBC (0-0); Total Cells Counted 200
[2024-10-23 09:30] LABS: Polychromasia Present
[2024-10-23 11:32] LABS: Glucose,Whole Blood 199 mg/dL (70-110)
[2024-10-23] MEDS ORDERED: RX INFO: IV CONTRAST WAS GIVEN 1 EACH MISC MISCELLANE PRN (12:34)
--- NOTE | 2024-10-23 13:55 | P.PN ---
Subjective Progress Note Date: 10/23/24 Principal diagnosis: Fever, unknown source This is a 59-year-old male patient with metastatic pulmonary adenocarcinoma, who has been receiving systemic chemotherapy and the patient was not Gemzar and his last treatment was on 10/12/2024. The patient was tolerating the systemic chemotherapy reasonably well. He is morbidly obese and has history of obstructive sleep apnea along with diabetes mellitus and hyperlipidemia. He is currently in the hospital as the patient was initially sent over from oncologist office because of a low hemoglobin of 5.9. The patient was also febrile. He was given a total of 2 U PRBC During this current hospitalization the patient's hemoglobin is currently up to 8.3. Nevertheless, he continues to have episodes of fever. Currently afebrile. Tmax over the past 24 hours was 102.3. No clear source of infection. The patient remains on a combination of cefepime and vancomycin. Note that his white cell count is not elevated. His white cell count is at 4. He has no DVTs in his lower extremities. CAT scan of the abdomen and pelvis was done and shows a chronic small right-sided pleural effusion. There is bony metastases throughout and there was no significant lymphadenopathy. Blood cultures have been negative. The patient has a Mediport that looks to be quite clean. No altered mentation. No skin rashes. No wounds or ulcers. As such, the source of the fever is not clear. ID is on the case. He is also experiencing some shortness of breath with mobility. Nevertheless, he is on room air oxygen. No cough sputum production chest tightness or wheezing. In terms of his lung cancer, the patient was diagnosed having pulm adenocarcinoma back in 2021. He has been followed up by Dr. Cat. He initially presented with 3 cm RLL lung mass,he had a PET scan on 06/16/2022 which revealed suspicious uptake in in central right lung lesion,measured 2.1 x 2.2 cm,he initially had navigational bronchoscopy which was not diagnostic,he ws referred to DR Hernandez at [facility],he had repeat CT scan of chest on 07/07/2022 which revealed 3 cm lesion in superior segment of RLL and several other small nodules in right lung which are new compared to prior CT scan done at [facility] in 06/2016. On 07/24/2022,he underwent RLL resection and biopsies of mediastinal nodes,pathology revealed adenocarcinoma spreading through alveolar spaces and invading lymphovascular channels (BERENICE),multifocal,right level 8,level 7,4R nodes were positive. Brain MRI on 08/08/2022 was negative. Caris did not reveal any targetable mutation. On 08/18/2022,PET scan revealed uptake in right hilar region,there was uptake in left second rib,had an MRI which revealed subtle area in rib without enhancement. On 08/26/2022,he started carbo/alimta with radiation,completed 4 cycles of chemo on 10/29/2022. Due to disease progression, patient has been on multiple treatment regimens. He started imfinzi on 12/25/2022. Taxotere/cyramza/zometa were held in December 2023, as patient developed ONJ. He started gemzar on 05/10/2024, most recently completing cycle 8 on 10/12/24, Patient was evaluated today on 10/23/2024, patient seems to be doing better today, continues to have low-grade fever his Tmax last night was 99.5. Hemodynamically stable on 2 L nasal cannula O2 sat is 98% patient seems to have less and less shortness of breath.WBC count is 5.2 hemoglobin is 8 sodium is 127 potassium 4.9 BUN is 19 creatinine 1.14 blood cultures and urine cultures remain negative so far. Objective - Vital Signs Vital signs: Vital Signs Temp 98.6 F 10/23/24 12:35 Pulse 77 10/23/24 13:14 Resp 20 10/23/24 12:35 BP 102/63 10/23/24 12:35 Pulse Ox 98 10/23/24 12:35 FiO2 Intake & Output 10/22/24 10/23/24 10/23/24 18:59 06:59 18:59 Intake Total 222 100 118 Output Total 0 Balance 222 100 118 Weight 166.3 kg Intake: IV 100 Cefepime 2 gm In Sodium 100 Chloride 0.9% 100 ml @ 25 mls/hr IVPB Q8HR [facility] Rx# :[id number] Oral 222 118 Output: Stool 0 Other: Voiding Method Toilet Toilet Toilet # Voids 2 2 2 # Bowel Movements 0 - Exam Physical exam: General: Reveals a 59-year-old white male in no distress extremely pleasant Head normocephalic and atraumatic Neck supple no JVD no goiter, no neck masses, no stridor. Lungs symmetrical expansion, clear bilaterally no crackles rhonchi or wheezes Heart distant S1-S2, no S3 gallop, no murmur. \ Abdomen: Obese soft nontender no megaly no rebound Extremities 2+ edema bilaterally Neuro no gross focal deficit Psychiatric: Normal mood affect and no mental status examination Skin: No rashes - Labs CBC & Chem 7: 10/23/24 07:34 10/23/24 07:34 Labs: Abnormal Lab Results - Last 24 Hours (Table) 10/22/24 10/22/24 10/22/24 Range/Units 06:22 07:41 16:39 RBC (4.30-5.90) m/uL Hgb (13.0-17.5) gm/dL Hct (39.0-53.0) % RDW (11.5-15.5) % Plt Count (150-450) k/uL Metamyelocytes # (Man) (0) k/uL Myelocytes # (Manual) (0) k/uL Sodium (137-145) mmol/L Chloride (98-107) mmol/L Glucose (74-99) mg/dL POC Glucose (mg/dL) 158 H 215 H (70-110) mg/dL Calcium (8.4-10.2) mg/dL AST (17-59) U/L Alkaline Phosphatase (38-126) U/L Total Protein (6.3-8.2) g/dL Albumin (3.5-5.0) g/dL Procalcitonin 0.68 H (0.02-0.50) ng/mL 10/22/24 10/23/24 10/23/24 Range/Units 20:10 06:07 07:34 RBC 2.62 L (4.30-5.90) m/uL Hgb 8.0 L (13.0-17.5) gm/dL Hct 24.0 L (39.0-53.0) % RDW 19.4 H (11.5-15.5) % Plt Count 146 L D (150-450) k/uL Metamyelocytes # (Man) 0.10 H (0) k/uL Myelocytes # (Manual) 0.05 H (0) k/uL Sodium (137-145) mmol/L Chloride (98-107) mmol/L Glucose (74-99) mg/dL POC Glucose (mg/dL) 193 H 176 H (70-110) mg/dL Calcium (8.4-10.2) mg/dL AST (17-59) U/L Alkaline Phosphatase (38-126) U/L Total Protein (6.3-8.2) g/dL Albumin (3.5-5.0) g/dL Procalcitonin (0.02-0.50) ng/mL 10/23/24 10/23/24 Range/Units 07:34 11:31 RBC (4.30-5.90) m/uL Hgb (13.0-17.5) gm/dL Hct (39.0-53.0) % RDW (11.5-15.5) % Plt Count (150-450) k/uL Metamyelocytes # (Man) (0) k/uL Myelocytes # (Manual) (0) k/uL Sodium 127 L (137-145) mmol/L Chloride 96 L (98-107) mmol/L Glucose 177 H (74-99) mg/dL POC Glucose (mg/dL) 199 H (70-110) mg/dL Calcium 8.3 L (8.4-10.2) mg/dL AST 64 H (17-59) U/L Alkaline Phosphatase 173 H (38-126) U/L Total Protein 5.9 L (6.3-8.2) g/dL Albumin 3.4 L (3.5-5.0) g/dL Procalcitonin (0.02-0.50) ng/mL Microbiology - Last 24 Hours (Table) 10/19/24 15:53 Blood Culture - Preliminary Blood 10/19/24 14:26 Blood Culture - Preliminary Blood 10/19/24 12:37 Blood Culture - Preliminary Blood Assessment and Plan Assessment: Pression: Fever,, etiology is not clear, could be related delayed reaction to blood transfusion, cultures are negative so far. Shortness of breath, multifactorial, currently on room air oxygen. Fluid effusion on the right is small Pulm adenocarcinoma, stage IV, Chemotherapy-induced anemia the patient received a total of units of packed RBCs, hemoglobin stable for now. No leukocytosis. Morbid obesity with a BMI of 46.6 Obstructive sleep apnea on BiPAP Hypertension Hyperlipidemia Diabetes mellitus type 2 Peripheral neuropathy Hypothyroidism Recommendation: Continue present supportive care measures continue Zosyn empirically Continue Lovenox for DVT prophylaxis Resume home meds will continue to Follow Time with Patient: Less than 30
--- NOTE | 2024-10-23 15:31 | P.PN ---
Subjective Progress Note Date: 10/23/24 Ganga Smart, is a 59-year-old male patient of Dr. Garsia who presented to the ER after his oncologist discovered his hemoglobin low at 5.9. Patient has a history of metastatic lung cancer and has been receiving chemotherapy last cycle 1 week ago. Patient reports he's been on chemotherapy for approximately 2 years.patient has past medical history of diabetes, GERD, hyperlipidemia, hypertension, sleep apnea, thyroid disorder. Patient denies any nicotine use history.lab work completed showing hemoglobin 5.6. White blood cell 4.0. Sodium 129, creatinine 1.2, bun 19, lactic acid 2.8patient also noted to have a low-grade temp 100.5. Patient denies any recent sick contacts denies cough or shortness of breath. Patient denies nausea vomiting or diarrhea. Patient denies any burning with urination. At this time patient will be admitted oncology and infectious disease service is consulted. 2 units of PRBCs have been ordered. COVID-19 in influenza negative. Blood and urine and sputum cultures ordered. At this time patient is resting comfortably in bed. Patient denies any chest pain or shortness of breath. Patient denies nausea vomiting or diarrhea. Patient denies any urinary burning or frequency On 10/20/2024 patient is alert and oriented x 3. Patient was continuing to have fevers throughout the night. Patient was started on vancomycin and Maxipime per infectious disease. Patient received 2 units of PRBCs repeat hemoglobin 8.5. Patient denies chest pain or shortness of breath. Patient denies nausea vomiting or diarrhea. Patient denies any urinary burning or frequency On 10/21/2024 patient is alert and oriented x 3. Patient having some increased back discomfort. Patient still having elevated temps slightly improved. Patient remains on IV antibiotic. Hemoglobin remained stable at 8.3. Patient denies chest pain or shortness of breath. Patient denies nausea vomiting or diarrhea. Patient denies any urinary burning or frequency On 10/22/2024 patient was seen and examined on the telemetry floor, he is alert and oriented x 3 in no apparent distress, he is still having elevated temperature up to 102.3, CT scan of the chest revealed bilateral pleural effusio n, pulmonary consultation was added and patient was seen by Dr. Menezes, because of elevated temperature is still not entirely clear, repeat blood cultures and sputum culture and echocardiogram was ordered, patient is followed by infectious disease and is maintained on IV antibiotics. Will continue to follow closely On 10/23/2024 patient is alert and oriented x 3. Patient continued to having e levated temps 2D echo and CT chest with contrast has been ordered. Infectious disease, pulmonary and oncology services are all following patient denies chest pain. Patient does report some shortness of breath. Patient denies nausea vomiting or diarrhea. Patient denies any urinary burning or frequency Objective - Vital Signs Vital signs: Vital Signs Temp 98.6 F 10/23/24 12:35 Pulse 77 10/23/24 13:14 Resp 20 10/23/24 12:35 BP 102/63 10/23/24 12:35 Pulse Ox 98 10/23/24 12:35 FiO2 Intake & Output 10/22/24 10/23/24 10/23/24 18:59 06:59 18:59 Intake Total 222 100 118 Output Total 0 Balance 222 100 118 Weight 166.3 kg Intake: IV 100 Cefepime 2 gm In Sodium 100 Chloride 0.9% 100 ml @ 25 mls/hr IVPB Q8HR [facility] Rx# :[id number] Oral 222 118 Output: Stool 0 Other: Voiding Method Toilet Toilet Toilet # Voids 2 2 2 # Bowel Movements 0 - Exam In general patient is alert and oriented in no apparent distress Head normocephalic and atraumatic Neck supple no JVD no goiter Lungs clear to auscultation bilaterally no wheezing or crackles Heart regular rate and rhythm S1-S2, no rub or gallop Abdomen is soft nontender nondistended positive bowel sounds no hepatosplenomegaly Extremities 2+ edema bilaterally Neuro no gross focal deficit - Labs CBC & Chem 7: 10/23/24 07:34 10/23/24 07:34 Labs: Abnormal Lab Results - Last 24 Hours (Table) 10/22/24 10/22/24 10/22/24 Range/Units 06:22 07:41 16:39 RBC (4.30-5.90) m/uL Hgb (13.0-17.5) gm/dL Hct (39.0-53.0) % RDW (11.5-15.5) % Plt Count (150-450) k/uL Metamyelocytes # (Man) (0) k/uL Myelocytes # (Manual) (0) k/uL Sodium (137-145) mmol/L Chloride (98-107) mmol/L Glucose (74-99) mg/dL POC Glucose (mg/dL) 158 H 215 H (70-110) mg/dL Calcium (8.4-10.2) mg/dL AST (17-59) U/L Alkaline Phosphatase (38-126) U/L Total Protein (6.3-8.2) g/dL Albumin (3.5-5.0) g/dL Procalcitonin 0.68 H (0.02-0.50) ng/mL 10/22/24 10/23/24 10/23/24 Range/Units 20:10 06:07 07:34 RBC 2.62 L (4.30-5.90) m/uL Hgb 8.0 L (13.0-17.5) gm/dL Hct 24.0 L (39.0-53.0) % RDW 19.4 H (11.5-15.5) % Plt Count 146 L D (150-450) k/uL Metamyelocytes # (Man) 0.10 H (0) k/uL Myelocytes # (Manual) 0.05 H (0) k/uL Sodium (137-145) mmol/L Chloride (98-107) mmol/L Glucose (74-99) mg/dL POC Glucose (mg/dL) 193 H 176 H (70-110) mg/dL Calcium (8.4-10.2) mg/dL AST (17-59) U/L Alkaline Phosphatase (38-126) U/L Total Protein (6.3-8.2) g/dL Albumin (3.5-5.0) g/dL Procalcitonin (0.02-0.50) ng/mL 10/23/24 10/23/24 Range/Units 07:34 11:31 RBC (4.30-5.90) m/uL Hgb (13.0-17.5) gm/dL Hct (39.0-53.0) % RDW (11.5-15.5) % Plt Count (150-450) k/uL Metamyelocytes # (Man) (0) k/uL Myelocytes # (Manual) (0) k/uL Sodium 127 L (137-145) mmol/L Chloride 96 L (98-107) mmol/L Glucose 177 H (74-99) mg/dL POC Glucose (mg/dL) 199 H (70-110) mg/dL Calcium 8.3 L (8.4-10.2) mg/dL AST 64 H (17-59) U/L Alkaline Phosphatase 173 H (38-126) U/L Total Protein 5.9 L (6.3-8.2) g/dL Albumin 3.4 L (3.5-5.0) g/dL Procalcitonin (0.02-0.50) ng/mL Microbiology - Last 24 Hours (Table) 10/19/24 15:53 Blood Culture - Preliminary Blood 10/19/24 14:26 Blood Culture - Preliminary Blood 10/19/24 12:37 Blood Culture - Preliminary Blood Assessment and Plan Assessment: 1. Anemia likely secondary to chemotherapy 2. History of metastatic lung cancer patient follows with oncology services last chemotherapy one week ago 3. Febrile. Temp 100.3. 4. Hyponatremia, correcting with IV fluid 5. History of diabetes mellitus 6. History of hyperlipidemia 7. History of essential hypertension 8. History of hypothyroidism 9. History of sleep apnea DVT prophylaxis SCDs secondary to anemia. GI prophylaxis Protonix Oncology and infectious disease service is consulted 2 units of PRBCs have been ordered Blood urine and sputum cultures ordered Continue gentle hydration 0.9 at 75 Patient started on IV antibiotics
--- NOTE | 2024-10-23 16:15 | CT ---
EXAMINATION TYPE: CT chest w con DATE OF EXAM: 10/23/2024 3:47 PM COMPARISON: 03/14/2024, 07/27/2024 CLINICAL INDICATION: Male, 59 years old with history of SOB, Hx met NSCLC; PHH, SOB, Hx met NSCLC. Cu rrently on Chemo. TECHNIQUE: Multiple axial images were obtained through the chest. Sagittal and coronal reformats were created for review. MIP was performed on a separate workstation. Contrast used:100 mL of Isovue 300 with IV Contrast (None if empty) Oral contrast used: (None if empty) CT DLP: 1164 mGycm, Automated exposure control for dose reduction was used. FINDINGS: LUNGS/ PLEURA: Trace left small right pleural effusion. Left upper lobe airspace opacity that extends to the periphery series 2 image 16 as well as the right perihilar consolidation changes with broncho grams. The bronchograms right perihilar consolidation changes are similar pulmonary vascular congesti on left lower lung. AIRWAY: Patent and unremarkable. HEART: The heart is mildly increased in size..Atherosclerosis of the arterial vasculature. MEDIASTINUM: No gross evidence of adenopathy. VASCULATURE: No aortic aneurysm. Right chest wall [id number] tip in the superior vena cava. MUSCULOSKELETAL: Scattered sclerotic metastatic lesions throughout the spine. There is a fracture thr ough the T8 vertebral body series 204 image 71. SOFT TISSUES/LYMPH NODES: Unremarkable. LOWER NECK: No significant findings. UPPER ABDOMEN: Diffuse low-attenuation to the liver parenchyma. IMPRESSION: 1. Fracture through the T8 vertebral body new from prior. No significant retropulsion. Correlate wit h back pain history of trauma. 2. Left upper lung airspace opacity not definitively seen on 03/14/2024. There is new pleural effusio ns and left lower lung pulmonary vascular congestion correlate for congestive heart failure versus in fection infection. Metastatic lesion not excluded. 3. Scattered metastatic lesions throughout the osseous structures. Sclerosis has increased from prio r imaging suggesting progression of disease. 4. Mild cardiomegaly with Small right and trace left pleural effusion. [facility], , 10/23/2024 4:12 PM
[2024-10-23] MEDS ORDERED: IPRATROPIUM-ALBUTEROL 3 ML NEB INHALATION PRN (16:37)
[2024-10-23 16:51] LABS: Glucose,Whole Blood 264 mg/dL (70-110)
[2024-10-23] MEDS: FUROSEMIDE 10 MG/ML 2 ML VIAL IV ONE (16:59)
--- NOTE | 2024-10-23 18:18 | P.PN ---
Subjective Progress Note Date: 10/23/24 Principal diagnosis: Fever, NOS, on gemzar for met NSCLC Objective - Vital Signs Vital signs: Vital Signs Temp 99.5 F 10/23/24 08:37 Pulse 74 10/23/24 08:37 Resp 24 10/23/24 08:37 BP 97/53 10/23/24 08:37 Pulse Ox 96 10/23/24 08:37 FiO2 Intake & Output 10/22/24 10/23/24 10/23/24 18:59 06:59 18:59 Intake Total 222 100 118 Output Total 0 Balance 222 100 118 Weight 166.3 kg Intake: IV 100 Cefepime 2 gm In Sodium 100 Chloride 0.9% 100 ml @ 25 mls/hr IVPB Q8HR [facility] Rx# :[id number] Oral 222 118 Output: Stool 0 Other: Voiding Method Toilet Toilet # Voids 2 2 # Bowel Movements 0 - Constitutional General appearance: Present: cooperative, no acute distress, obese - EENT Eyes: Present: anicteric sclerae, EOMI ENT: Present: hearing grossly normal - Respiratory Respiratory: bilateral: CTA - Cardiovascular Details: skin warm, well perfused - Peripheral edema leg Peripheral Edema: bilateral: Trace (BLE wrapped in OZIEL bandages) - Integumentary Integumentary: Present: normal - Neurologic Neurologic: Present: CNII-XII intact - Musculoskeletal Musculoskeletal: Present: strength equal bilaterally - Psychiatric Psychiatric: Present: A&O x's 3, appropriate affect, intact judgment & insight - Labs CBC & Chem 7: 10/23/24 07:34 10/23/24 07:34 Labs: Abnormal Lab Results - Last 24 Hours (Table) 10/22/24 10/22/24 10/22/24 Range/Units 06:22 07:41 16:39 RBC (4.30-5.90) m/uL Hgb (13.0-17.5) gm/dL Hct (39.0-53.0) % RDW (11.5-15.5) % Plt Count (150-450) k/uL Metamyelocytes # (Man) (0) k/uL Myelocytes # (Manual) (0) k/uL Sodium (137-145) mmol/L Chloride (98-107) mmol/L Glucose (74-99) mg/dL POC Glucose (mg/dL) 158 H 215 H (70-110) mg/dL Calcium (8.4-10.2) mg/dL AST (17-59) U/L Alkaline Phosphatase (38-126) U/L Total Protein (6.3-8.2) g/dL Albumin (3.5-5.0) g/dL Procalcitonin 0.68 H (0.02-0.50) ng/mL 10/22/24 10/23/24 10/23/24 Range/Units 20:10 06:07 07:34 RBC 2.62 L (4.30-5.90) m/uL Hgb 8.0 L (13.0-17.5) gm/dL Hct 24.0 L (39.0-53.0) % RDW 19.4 H (11.5-15.5) % Plt Count 146 L D (150-450) k/uL Metamyelocytes # (Man) 0.10 H (0) k/uL Myelocytes # (Manual) 0.05 H (0) k/uL Sodium (137-145) mmol/L Chloride (98-107) mmol/L Glucose (74-99) mg/dL POC Glucose (mg/dL) 193 H 176 H (70-110) mg/dL Calcium (8.4-10.2) mg/dL AST (17-59) U/L Alkaline Phosphatase (38-126) U/L Total Protein (6.3-8.2) g/dL Albumin (3.5-5.0) g/dL Procalcitonin (0.02-0.50) ng/mL 10/23/24 10/23/24 Range/Units 07:34 11:31 RBC (4.30-5.90) m/uL Hgb (13.0-17.5) gm/dL Hct (39.0-53.0) % RDW (11.5-15.5) % Plt Count (150-450) k/uL Metamyelocytes # (Man) (0) k/uL Myelocytes # (Manual) (0) k/uL Sodium 127 L (137-145) mmol/L Chloride 96 L (98-107) mmol/L Glucose 177 H (74-99) mg/dL POC Glucose (mg/dL) 199 H (70-110) mg/dL Calcium 8.3 L (8.4-10.2) mg/dL AST 64 H (17-59) U/L Alkaline Phosphatase 173 H (38-126) U/L Total Protein 5.9 L (6.3-8.2) g/dL Albumin 3.4 L (3.5-5.0) g/dL Procalcitonin (0.02-0.50) ng/mL Microbiology - Last 24 Hours (Table) 10/19/24 15:53 Blood Culture - Preliminary Blood 10/19/24 14:26 Blood Culture - Preliminary Blood 10/19/24 12:37 Blood Culture - Preliminary Blood Assessment and Plan (1) Fever Current Visit: Yes Status: Acute Priority: High Code(s): R50.9 - FEVER, UNSPECIFIED SNOMED Code(s): 859599626 (2) Anemia Current Visit: Yes Status: Acute Priority: Medium Code(s): D64.9 - ANEMIA, UNSPECIFIED SNOMED Code(s): 941318245 (3) Lung cancer Current Visit: Yes Status: Chronic Priority: Medium Code(s): C34.90 - MALIGNANT NEOPLASM OF UNSP PART OF UNSP BRONCHUS OR LUNG SNOMED Code(s): 968506748 Plan: Fever -Patient presented to clinic on 10/19 for f/u s/p chemo, and was reporting persisting fatigue and increasing shortness of breath and dizziness over the last 1 week, and significant weakness and could only walk short distances without having to sit down. Temperature was noted at 100.7. Denied URI sx, urinary symptoms, n/v/d, and abdominal pain. Of note, patient had CTA chest at [facility] on 10/05 which was negative for PE -Most recent fever today 100.4F. Urine cult neg 18 hours, blood cult neg 72 hours. Viral panel negative. -ID following. Pt on zosyn at this time WBC 5.2, ANC 3.1 Chemo induced anemia, thrombocytopenia -Hgb on admit 5.6, s/p 2 units, Hgb stable at 8 today -On admit platelets 53K, chemo effect. Plt are 146,000 today, not sure if lab anomaly, seems a little too quick recovery but, check CBC in AM. Ok to resume baby asa -Iron studies most consistent with anemia of inflammation, hemolysis work up neg. -Cytopenias 2/2 to chemo, prolonged/exacerbated by marrow fatigue in a heavily treated pt. -Continue to closely monitor CBC and for s/s of bleeding, if Hgb continues to drop, will consult GI for endoscopic evaluation -Transfuse for hgb less than 7 or if symptomatic. Hold anticoagulation for plts < 50,000 Metastatic lung adenocarcinoma -Oncology history as dictated in consult -Gemzar initiated 05/10/2024, last cycle, number 8, given on 10/12/24. Overall patient has been tolerating treatment well. -Fever can be a side effect of gemzar. Pending completion of all workup and monitoring fever pattern before making any final decision regarding treatment. Further recommendations will follow -Clinic f/u scheduled on 11/03/24 Doctor attests: I performed a history and physical examination of this patient, developed impression and plan of care. Discussed with dictator. I agree with dictators note, documented as a scribe.
[2024-10-23 20:25] LABS: Glucose,Whole Blood 195 mg/dL (70-110)
[2024-10-23] MEDS: IPRATROPIUM-ALBUTEROL 3 ML NEB INHALATION SCH (20:41)
[2024-10-24 06:21] LABS: Glucose,Whole Blood 140 mg/dL (70-110)
[2024-10-24 07:06] LABS: Anisocytosis Slight; HCT 22.8 % (39.0-53.0); HGB 7.4 gm/dL (13.0-17.5); Hypochromasia Moderate; MCH 29.9 pg (25.0-35.0); MCHC 32.6 g/dL (31.0-37.0); MCV 91.8 fL (80.0-100.0); Mean Platelet Volume 8.4; Platelet Count 181 k/uL (150-450); Poikilocytosis Moderate; RBC 2.48 m/uL (4.30-5.90); RDW 19.4 % (11.5-15.5); WBC 6.1 k/uL (3.8-10.6)
[2024-10-24 07:18] LABS: ALT 51 U/L (4-49); AST 84 U/L (17-59); African American GFR (CKD) 82 (>60 ml/min/1.73 sqM); Albumin 3.2 g/dL (3.5-5.0); Alkaline Phosphatase 180 U/L (38-126); Anion Gap 2 mmol/L; Blood Urea Nitrogen 18 mg/dL (9-20); Carbon Dioxide 26 mmol/L (22-30); Chloride 97 mmol/L (98-107); Glucose 116 mg/dL (74-99); Non-African American GFR(CKD) 71 (>60 ml/min/1.73 sqM); Potassium 4.5 mmol/L (3.5-5.1); Sodium 125 mmol/L (137-145); Total Bilirubin 0.9 mg/dL (0.2-1.3); Total Protein 5.8 g/dL (6.3-8.2)
[2024-10-24 09:06] LABS: Band Neutrophils % 1 %; Eosinophils # (M) 0.12 k/uL (0-0.7); Lymphocytes # (M) 1.83 k/uL (1.0-4.8); Metamyelocytes # (M) 0.12 k/uL (0); Metamyelocytes % 2 %; Monocytes # (M) 0.67 k/uL (0-1.0); Myelocytes # (M) 0.06 k/uL (0); Myelocytes % 1 %; Neutrophils % (M) 54 %; Nucleated Red Blood Cells 0 /100 WBC (0-0); Total Cells Counted 200
[2024-10-24 09:08] LABS: Polychromasia Present
--- NOTE | 2024-10-24 09:10 | P.PN ---
Subjective Progress Note Date: 10/23/24 Principal diagnosis: Reason for follow-up is fever Patient is a 59-year-old male with a past medical history significant for diabetes mellitus hypertension hyperlipidemia reflux sleep apnea, patient also have metastatic adenocarcinoma of the lung on chemotherapy presenting to the hospital from oncology office concerning for weakness anemia and fever with initial workup negative. On today's evaluation that is 10/23/2024, patient did have improvement in his fever pattern has been afebrile this morning, patient is breathing comfortably and is currently on room air, patient denies having any significant cough no chest pain, patient denies nausea vomiting or diarrhea and no abdominal pain. Patient white count is 5.2 creatinine is 1.14 urine for Legionella antigen negative culture have been negative so far Objective - Vital Signs Vital signs: Vital Signs Temp 99.5 F 10/23/24 08:37 Pulse 74 10/23/24 08:37 Resp 24 10/23/24 08:37 BP 97/53 10/23/24 08:37 Pulse Ox 96 10/23/24 08:37 FiO2 Intake & Output 10/22/24 10/23/24 10/23/24 18:59 06:59 18:59 Intake Total 222 100 118 Output Total 0 Balance 222 100 118 Weight 166.3 kg Intake: IV 100 Cefepime 2 gm In Sodium 100 Chloride 0.9% 100 ml @ 25 mls/hr IVPB Q8HR [facility] Rx# :[id number] Oral 222 118 Output: Stool 0 Other: Voiding Method Toilet Toilet # Voids 2 2 # Bowel Movements 0 - Exam GENERAL DESCRIPTION: Middle-age male up in the chair in no distress RESPIRATORY SYSTEM: Unlabored breathing , decreased breath sounds at bases HEART: S1 S2 regular rate and rhythm , ABDOMEN: Soft , no tenderness EXTREMITIES: No edema feet - Labs CBC & Chem 7: 10/24/24 05:44 10/24/24 05:44 Labs: Abnormal Lab Results - Last 24 Hours (Table) 10/22/24 10/22/24 10/22/24 Range/Units 06:22 07:41 16:39 RBC (4.30-5.90) m/uL Hgb (13.0-17.5) gm/dL Hct (39.0-53.0) % RDW (11.5-15.5) % Plt Count (150-450) k/uL Metamyelocytes # (Man) (0) k/uL Myelocytes # (Manual) (0) k/uL Sodium (137-145) mmol/L Chloride (98-107) mmol/L Glucose (74-99) mg/dL POC Glucose (mg/dL) 158 H 215 H (70-110) mg/dL Calcium (8.4-10.2) mg/dL AST (17-59) U/L Alkaline Phosphatase (38-126) U/L Total Protein (6.3-8.2) g/dL Albumin (3.5-5.0) g/dL Procalcitonin 0.68 H (0.02-0.50) ng/mL 10/22/24 10/23/24 10/23/24 Range/Units 20:10 06:07 07:34 RBC 2.62 L (4.30-5.90) m/uL Hgb 8.0 L (13.0-17.5) gm/dL Hct 24.0 L (39.0-53.0) % RDW 19.4 H (11.5-15.5) % Plt Count 146 L D (150-450) k/uL Metamyelocytes # (Man) 0.10 H (0) k/uL Myelocytes # (Manual) 0.05 H (0) k/uL Sodium (137-145) mmol/L Chloride (98-107) mmol/L Glucose (74-99) mg/dL POC Glucose (mg/dL) 193 H 176 H (70-110) mg/dL Calcium (8.4-10.2) mg/dL AST (17-59) U/L Alkaline Phosphatase (38-126) U/L Total Protein (6.3-8.2) g/dL Albumin (3.5-5.0) g/dL Procalcitonin (0.02-0.50) ng/mL 10/23/24 10/23/24 Range/Units 07:34 11:31 RBC (4.30-5.90) m/uL Hgb (13.0-17.5) gm/dL Hct (39.0-53.0) % RDW (11.5-15.5) % Plt Count (150-450) k/uL Metamyelocytes # (Man) (0) k/uL Myelocytes # (Manual) (0) k/uL Sodium 127 L (137-145) mmol/L Chloride 96 L (98-107) mmol/L Glucose 177 H (74-99) mg/dL POC Glucose (mg/dL) 199 H (70-110) mg/dL Calcium 8.3 L (8.4-10.2) mg/dL AST 64 H (17-59) U/L Alkaline Phosphatase 173 H (38-126) U/L Total Protein 5.9 L (6.3-8.2) g/dL Albumin 3.4 L (3.5-5.0) g/dL Procalcitonin (0.02-0.50) ng/mL Microbiology - Last 24 Hours (Table) 10/19/24 15:53 Blood Culture - Preliminary Blood 10/19/24 14:26 Blood Culture - Preliminary Blood 10/19/24 12:37 Blood Culture - Preliminary Blood Assessment and Plan (1) Fever Current Visit: Yes Status: Acute Priority: High Code(s): R50.9 - FEVER, UNSPECIFIED SNOMED Code(s): 002099459 Plan: 1patient presented to the hospital with low hemoglobin patient to have a history of metastatic lung cancer and is currently getting chemotherapy last chemo has been about a week ago before presentation to the hospital, patient is not neutropenic, initial workup so far negative with a question of possibly related to the port patient did have a negative lower extremity Doppler and blood cultures are currently pending 2 repeat COVID-19 and influenza PCR came back negative, CT abdominal pelvis with oral contrast only did not show any acute abnormality, patient did have a mildly elevated procalcitonin concern for possible pneumonia CT has been ordered results will be followed 3-patient antibiotic has been adjusted to Zosyn this morning to continue while waiting for the workup to be completed Dictation was produced using [employer] dictation software. please excuse any grammatical, word or spelling errors. Time with Patient: Less than 30
[2024-10-24 09:11] LABS: Spherocytes Present
--- NOTE | 2024-10-24 09:25 | P.PN ---
Subjective Progress Note Date: 10/24/24 Ganga Smart, is a 59-year-old male patient of Dr. Garsia who presented to the ER after his oncologist discovered his hemoglobin low at 5.9. Patient has a history of metastatic lung cancer and has been receiving chemotherapy last cycle 1 week ago. Patient reports he's been on chemotherapy for approximately 2 years.patient has past medical history of diabetes, GERD, hyperlipidemia, hypertension, sleep apnea, thyroid disorder. Patient denies any nicotine use history.lab work completed showing hemoglobin 5.6. White blood cell 4.0. Sodium 129, creatinine 1.2, bun 19, lactic acid 2.8patient also noted to have a low-grade temp 100.5. Patient denies any recent sick contacts denies cough or shortness of breath. Patient denies nausea vomiting or diarrhea. Patient denies any burning with urination. At this time patient will be admitted oncology and infectious disease service is consulted. 2 units of PRBCs have been ordered. COVID-19 in influenza negative. Blood and urine and sputum cultures ordered. At this time patient is resting comfortably in bed. Patient denies any chest pain or shortness of breath. Patient denies nausea vomiting or diarrhea. Patient denies any urinary burning or frequency On 10/20/2024 patient is alert and oriented x 3. Patient was continuing to have fevers throughout the night. Patient was started on vancomycin and Maxipime per infectious disease. Patient received 2 units of PRBCs repeat hemoglobin 8.5. Patient denies chest pain or shortness of breath. Patient denies nausea vomiting or diarrhea. Patient denies any urinary burning or frequency On 10/21/2024 patient is alert and oriented x 3. Patient having some increased back discomfort. Patient still having elevated temps slightly improved. Patient remains on IV antibiotic. Hemoglobin remained stable at 8.3. Patient denies chest pain or shortness of breath. Patient denies nausea vomiting or diarrhea. Patient denies any urinary burning or frequency On 10/22/2024 patient was seen and examined on the telemetry floor, he is alert and oriented x 3 in no apparent distress, he is still having elevated temperature up to 102.3, CT scan of the chest revealed bilateral pleural effusio n, pulmonary consultation was added and patient was seen by Dr. Menezes, because of elevated temperature is still not entirely clear, repeat blood cultures and sputum culture and echocardiogram was ordered, patient is followed by infectious disease and is maintained on IV antibiotics. Will continue to follow closely On 10/23/2024 patient is alert and oriented x 3. Patient continued to having e levated temps 2D echo and CT chest with contrast has been ordered. Infectious disease, pulmonary and oncology services are all following patient denies chest pain. Patient does report some shortness of breath. Patient denies nausea vomiting or diarrhea. Patient denies any urinary burning or frequency on 10/24/2024 patient is alert and oriented x 3. Patient still having elevated temps. CT of chest has been completed. awaiting 2 decho. at this time patient is still complaining of some shortnes of breath. Denies chest pain. denies nausea vomiting or diarrhea. Denies any urinary burning or frequency. oncology, infectious disease, and pulmonary services following. remains on Iv zosyn Dr. Puente's group will be covering from 10/25/2024 to 11/02/2024 Objective - Vital Signs Vital signs: Vital Signs Temp 99.4 F 10/24/24 08:39 Pulse 80 10/24/24 08:39 Resp 17 10/24/24 08:39 BP 111/65 10/24/24 08:39 Pulse Ox 98 10/24/24 08:39 FiO2 Intake & Output 10/23/24 10/24/24 10/24/24 18:59 06:59 18:59 Intake Total 118 540 Output Total 575 550 Balance -457 -10 Weight 168.6 kg Intake: Oral 118 540 Output: Urine 575 550 Other: Voiding Method Toilet Toilet Toilet # Voids 2 2 1 # Bowel Movements 1 - Exam In general patient is alert and oriented in no apparent distress Head normocephalic and atraumatic Neck supple no JVD no goiter Lungs clear to auscultation bilaterally no wheezing or crackles Heart regular rate and rhythm S1-S2, no rub or gallop Abdomen is soft nontender nondistended positive bowel sounds no hepatosplenomegaly Extremities 2+ edema bilaterally Neuro no gross focal deficit - Labs CBC & Chem 7: 10/24/24 05:44 10/24/24 05:44 Labs: Abnormal Lab Results - Last 24 Hours (Table) 10/23/24 10/23/24 10/23/24 Range/Units 07:34 11:31 16:49 RBC (4.30-5.90) m/uL Hgb (13.0-17.5) gm/dL Hct (39.0-53.0) % RDW (11.5-15.5) % Metamyelocytes # (Man) 0.10 H (0) k/uL Myelocytes # (Manual) 0.05 H (0) k/uL Sodium (137-145) mmol/L Chloride (98-107) mmol/L Glucose (74-99) mg/dL POC Glucose (mg/dL) 199 H 264 H (70-110) mg/dL Calcium (8.4-10.2) mg/dL AST (17-59) U/L ALT (4-49) U/L Alkaline Phosphatase (38-126) U/L Total Protein (6.3-8.2) g/dL Albumin (3.5-5.0) g/dL 10/23/24 10/24/24 10/24/24 Range/Units 20:23 05:44 05:44 RBC 2.48 L (4.30-5.90) m/uL Hgb 7.4 L (13.0-17.5) gm/dL Hct 22.8 L (39.0-53.0) % RDW 19.4 H (11.5-15.5) % Metamyelocytes # (Man) 0.12 H (0) k/uL Myelocytes # (Manual) 0.06 H (0) k/uL Sodium 125 L (137-145) mmol/L Chloride 97 L (98-107) mmol/L Glucose 116 H (74-99) mg/dL POC Glucose (mg/dL) 195 H (70-110) mg/dL Calcium 8.0 L (8.4-10.2) mg/dL AST 84 H (17-59) U/L ALT 51 H (4-49) U/L Alkaline Phosphatase 180 H (38-126) U/L Total Protein 5.8 L (6.3-8.2) g/dL Albumin 3.2 L (3.5-5.0) g/dL 10/24/24 Range/Units 06:19 RBC (4.30-5.90) m/uL Hgb (13.0-17.5) gm/dL Hct (39.0-53.0) % RDW (11.5-15.5) % Metamyelocytes # (Man) (0) k/uL Myelocytes # (Manual) (0) k/uL Sodium (137-145) mmol/L Chloride (98-107) mmol/L Glucose (74-99) mg/dL POC Glucose (mg/dL) 140 H (70-110) mg/dL Calcium (8.4-10.2) mg/dL AST (17-59) U/L ALT (4-49) U/L Alkaline Phosphatase (38-126) U/L Total Protein (6.3-8.2) g/dL Albumin (3.5-5.0) g/dL Microbiology - Last 24 Hours (Table) 10/22/24 10:48 Blood Culture - Preliminary Blood 10/19/24 15:53 Blood Culture - Preliminary Blood Assessment and Plan Assessment: 1. Anemia likely secondary to chemotherapy 2. History of metastatic lung cancer patient follows with oncology services last chemotherapy one week ago 3. Febrile. Temp 100.3. 4. Hyponatremia, correcting with IV fluid 5. History of diabetes mellitus 6. History of hyperlipidemia 7. History of essential hypertension 8. History of hypothyroidism 9. History of sleep apnea DVT prophylaxis SCDs secondary to anemia. GI prophylaxis Protonix Oncology and infectious disease service is consulted 2 units of PRBCs have been ordered Blood urine and sputum cultures ordered Continue gentle hydration 0.9 at 75 Patient started on IV antibiotics
--- NOTE | 2024-10-24 10:30 | P.NPCON ---
History of Present Illness - Reason for Consult hyponatremia - History of Present Illness Reason for consultation: Hyponatremia History of present illness: Patient is a 59-year-old male seen in renal consultation for hyponatremia. Patient sodium level has mostly been in the range of 1 27-1 30 this admission since October 19, 2024. Today it was down to 125. Patient came to the hospital on October 19, 2024 due to weakness and anemia. He was sent to the hospital for blood transfusion. Hemoglobin was 5.6 on admission and he did receive 2 units of blood. Hemoglobin now 7.4. Patient has history of lung cancer and is maintained on chemotherapy outpatient. Oral intake has been fair. He does admit to drinking 4 16 ounce glasses of water daily. Also drinking over nurse and juice. Denies chest pain or shortness of breath. Currently wearing a CPAP. Has been voiding. No gross hematuria or dysuria. Currently receiving Motrin 800 mg. Also received a dose of IV Lasix yesterday. He does admit to history of diabetes. Denies history of coronary artery disease. Vital signs are stable. General: No acute distress. HEENT: Head exam is unremarkable. Wearing CPAP. LUNGS: No audible rhonchi or wheezes. HEART: Rate and Rhythm are regular. ABDOMEN: Obese, nontender. EXTREMITITES: No edema. Past Medical History Past Medical History: Cancer, Diabetes Mellitus, GERD/Reflux, Hyperlipidemia, Hypertension, Sleep Apnea/CPAP/BIPAP, Thyroid Disorder Additional Past Medical History / Comment(s): C PAP MACHINE , RECTAL BLEEDING. neuropathy History of Any Multi-Drug Resistant Organisms: None Reported Past Surgical History: No Surgical Hx Reported Additional Past Surgical History / Comment(s): colonoscopy 2014, THYROIDECTOMY Past Anesthesia/Blood Transfusion Reactions: No Reported Reaction Past Psychological History: No Psychological Hx Reported Smoking Status: Never smoker - Past Family History Father Family Medical History: Cancer Medications and Allergies Home Medications Medication Instructions Recorded Confirmed Type Gabapentin 600 mg PO QID 01/04/15 10/19/24 History Losartan Potassium [Cozaar] 100 mg PO DAILY 01/04/15 10/19/24 History Omeprazole 40 mg PO DAILY 01/04/15 10/19/24 History metFORMIN HCL [Glucophage] 1,000 mg PO BID 01/04/15 10/19/24 History Ascorbic Acid [Vitamin C] 1,000 mg PO DAILY 04/04/21 10/19/24 History Cyanocobalamin (Vitamin B-12) 1,000 mcg PO DAILY 04/04/21 10/19/24 History [Vitamin B-12] Empagliflozin [Jardiance] 25 mg PO DAILY 04/04/21 10/19/24 History Ergocalciferol [Vitamin D2 (1250 1,250 mcg PO CONTI 04/04/21 10/19/24 History Mcg = 10742 Iu)] Fenofibrate,Micronized 200 mg PO DAILY 04/04/21 10/19/24 History [Fenofibrate] Latanoprost/Pf [Latanoprost 0.005% 1 drop BOTH EYES HS 04/04/21 10/19/24 History Eye Drop] Levothyroxine Sodium [Synthroid] 200 mcg PO DAILY 04/04/21 10/19/24 History Olmesartan Medoxomil [Benicar] 40 mg PO DAILY 04/04/21 10/19/24 History [place]-3 Fatty Acids/Fish Oil [Fish 1 cap PO DAILY 04/04/21 10/19/24 History Oil 1,000 mg Softgel] Rosuvastatin [Crestor] 20 mg PO DAILY 04/04/21 10/19/24 History Ubidecarenone [Co Q-10] 200 mg PO DAILY 04/04/21 10/19/24 History Zinc 50 mg PO DAILY 04/04/21 10/19/24 History carvediloL [Coreg] 25 mg PO BID 04/04/21 10/19/24 History Aspirin EC [Ecotrin Low Dose] 81 mg PO DIRECTED 10/19/24 10/19/24 History Cholecalciferol [Vitamin D3 (25 25 mcg PO DAILY 10/19/24 10/19/24 History Mcg = 1000 Iu)] Cyclobenzaprine [Flexeril] 10 mg PO Q8H PRN 10/19/24 10/19/24 History EPINEPHrine (Auto Inject) [Epipen] 0.3 mg IM ONCE PRN 10/19/24 10/19/24 History Folic Acid 1 mg PO DAILY 10/19/24 10/19/24 History Ibuprofen [Motrin] 800 mg PO Q8H PRN 10/19/24 10/19/24 History Levothyroxine Sodium [Synthroid] 50 mcg PO DAILY 10/19/24 10/19/24 History Magnesium Oxide [Magnesium] 500 mg PO DAILY 10/19/24 10/19/24 History Ondansetron Odt [Zofran Odt] 4 mg PO Q4H PRN 10/19/24 10/19/24 History Spironolactone [Aldactone] 25 mg PO DAILY 10/19/24 10/19/24 History oxyCODONE HCL [Oxycodone HCl] 10 mg PO Q4H 10/19/24 10/19/24 History Allergies Allergy/AdvReac Type Severity Reaction Status Date / Time peas Allergy Anaphylaxis Verified 10/19/24 13:51 Physical Exam Vitals: Vital Signs Temp Pulse Pulse Resp BP BP Pulse Ox 10/24/24 09:44 76 10/24/24 09:35 80 10/24/24 08:39 99.4 F 80 17 111/65 98 10/24/24 03:55 101.2 F H 85 22 95/59 94 L 10/24/24 00:15 99.6 F 82 22 86/54 92 L 10/23/24 20:50 74 20 10/23/24 20:41 71 22 10/23/24 19:45 100.6 F H 83 22 108/52 97 10/23/24 16:45 78 10/23/24 16:36 76 10/23/24 15:49 100.4 F H 93 24 133/71 98 10/23/24 13:14 77 10/23/24 12:35 98.6 F 77 20 102/63 98 Intake and Output 10/23/24 10/24/24 10/24/24 22:59 06:59 14:59 Intake Total 540 Output Total 1125 Balance -585 Intake: Oral 540 Output: Urine 1125 Other: Voiding Method Toilet Toilet Toilet # Voids 2 1 # Bowel Movements 1 Weight 168.6 kg Results - Lab Results Most recent lab results Calcium 8.0 mg/dL (8.4-10.2) L 10/24/24 05:44 10/24/24 05:44 10/24/24 05:44 Assessment and Plan Plan: Assessment: 1. Hyponatremia. Slightly hypervolemic. Also on NSAIDs. Sodium level 125 today. 2. Chemo induced anemia status post blood transfusions this admission. 3. Metastatic lung adenocarcinoma. Oncology following. 4. Benign hypertension. Blood pressure on the lower side. Plan: Status post IV Lasix yesterday. Stop losartan. Stop NSAIDs. Add 1500 cc fluid restriction. Follow-up echocardiogram. Check serum and urine osmolality and urine sodium level. Check TSH Will give Samsca if no improvement in sodium level tomorrow. Thank you for the consultation. I will continue to follow the patient with you during his hospital stay.
[2024-10-24] MEDS: LEVOFLOXACIN 750 MG TAB PO SCH (11:05)
[2024-10-24 11:42] LABS: Glucose,Whole Blood 146 mg/dL (70-110)
--- NOTE | 2024-10-24 12:11 | P.PN ---
Subjective Progress Note Date: 10/24/24 Principal diagnosis: Fever, unknown source This is a 59-year-old male patient with metastatic pulmonary adenocarcinoma, who has been receiving systemic chemotherapy and the patient was not Gemzar and his last treatment was on 10/12/2024. The patient was tolerating the systemic chemotherapy reasonably well. He is morbidly obese and has history of obstructive sleep apnea along with diabetes mellitus and hyperlipidemia. He is currently in the hospital as the patient was initially sent over from oncologist office because of a low hemoglobin of 5.9. The patient was also febrile. He was given a total of 2 U PRBC During this current hospitalization the patient's hemoglobin is currently up to 8.3. Nevertheless, he continues to have episodes of fever. Currently afebrile. Tmax over the past 24 hours was 102.3. No clear source of infection. The patient remains on a combination of cefepime and vancomycin. Note that his white cell count is not elevated. His white cell count is at 4. He has no DVTs in his lower extremities. CAT scan of the abdomen and pelvis was done and shows a chronic small right-sided pleural effusion. There is bony metastases throughout and there was no significant lymphadenopathy. Blood cultures have been negative. The patient has a Mediport that looks to be quite clean. No altered mentation. No skin rashes. No wounds or ulcers. As such, the source of the fever is not clear. ID is on the case. He is also experiencing some shortness of breath with mobility. Nevertheless, he is on room air oxygen. No cough sputum production chest tightness or wheezing. In terms of his lung cancer, the patient was diagnosed having pulm adenocarcinoma back in 2021. He has been followed up by Dr. Cat. He initially presented with 3 cm RLL lung mass,he had a PET scan on 06/16/2022 which revealed suspicious uptake in in central right lung lesion,measured 2.1 x 2.2 cm,he initially had navigational bronchoscopy which was not diagnostic,he ws referred to DR Hernandez at [facility],he had repeat CT scan of chest on 07/07/2022 which revealed 3 cm lesion in superior segment of RLL and several other small nodules in right lung which are new compared to prior CT scan done at [facility] in 06/2016. On 07/24/2022,he underwent RLL resection and biopsies of mediastinal nodes,pathology revealed adenocarcinoma spreading through alveolar spaces and invading lymphovascular channels (BERENICE),multifocal,right level 8,level 7,4R nodes were positive. Brain MRI on 08/08/2022 was negative. Caris did not reveal any targetable mutation. On 08/18/2022,PET scan revealed uptake in right hilar region,there was uptake in left second rib,had an MRI which revealed subtle area in rib without enhancement. On 08/26/2022,he started carbo/alimta with radiation,completed 4 cycles of chemo on 10/29/2022. Due to disease progression, patient has been on multiple treatment regimens. He started imfinzi on 12/25/2022. Taxotere/cyramza/zometa were held in December 2023, as patient developed ONJ. He started gemzar on 05/10/2024, most recently completing cycle 8 on 10/12/24, Patient was evaluated today on 10/23/2024, patient seems to be doing better today, continues to have low-grade fever his Tmax last night was 99.5. Hemodynamically stable on 2 L nasal cannula O2 sat is 98% patient seems to have less and less shortness of breath.WBC count is 5.2 hemoglobin is 8 sodium is 127 potassium 4.9 BUN is 19 creatinine 1.14 blood cultures and urine cultures remain negative so far. Seen today on 10/24/2024, patient is doing well, feeling better, yesterday's CT of the chest showed evidence of bilateral pleural effusions and the patient received 1 dose of Lasix yesterday and he received DuoNeb updraft treatment for his acute onset of shortness of breath, patient felt much better shortly after. Today is down to 125 his BUN is 18 creatinine 1.13, patient is now being seen by nephrology on consultation. I believe his hyponatremia is most likely secondary to SIADH considering his underlying malignancy/bronchogenic carcinoma Objective - Vital Signs Vital signs: Vital Signs Temp 102.5 F H 10/24/24 11:04 Pulse 87 10/24/24 11:04 Resp 19 10/24/24 11:04 BP 100/58 10/24/24 11:04 Pulse Ox 89 L 10/24/24 11:04 FiO2 Intake & Output 10/23/24 10/24/24 10/24/24 18:59 06:59 18:59 Intake Total 118 540 222 Output Total 575 550 Balance -457 -10 222 Weight 168.6 kg Intake: Oral 118 540 222 Output: Urine 575 550 Other: Voiding Method Toilet Toilet Toilet # Voids 2 2 1 # Bowel Movements 1 - Exam Physical exam: General: Reveals a 59-year-old white male in no distress extremely pleasant Head normocephalic and atraumatic Neck supple no JVD no goiter, no neck masses, no stridor. Lungs symmetrical expansion, clear bilaterally no crackles rhonchi or wheezes Heart distant S1-S2, no S3 gallop, no murmur. \ Abdomen: Obese soft nontender no megaly no rebound Extremities 2+ edema bilaterally Neuro no gross focal deficit Psychiatric: Normal mood affect and no mental status examination Skin: No rashes - Labs CBC & Chem 7: 10/24/24 05:44 10/24/24 05:44 Labs: Abnormal Lab Results - Last 24 Hours (Table) 10/23/24 10/23/24 10/24/24 Range/Units 16:49 20:23 05:44 RBC 2.48 L (4.30-5.90) m/uL Hgb 7.4 L (13.0-17.5) gm/dL Hct 22.8 L (39.0-53.0) % RDW 19.4 H (11.5-15.5) % Metamyelocytes # (Man) 0.12 H (0) k/uL Myelocytes # (Manual) 0.06 H (0) k/uL Sodium (137-145) mmol/L Chloride (98-107) mmol/L Glucose (74-99) mg/dL POC Glucose (mg/dL) 264 H 195 H (70-110) mg/dL Calcium (8.4-10.2) mg/dL AST (17-59) U/L ALT (4-49) U/L Alkaline Phosphatase (38-126) U/L Total Protein (6.3-8.2) g/dL Albumin (3.5-5.0) g/dL 10/24/24 10/24/24 10/24/24 Range/Units 05:44 06:19 11:40 RBC (4.30-5.90) m/uL Hgb (13.0-17.5) gm/dL Hct (39.0-53.0) % RDW (11.5-15.5) % Metamyelocytes # (Man) (0) k/uL Myelocytes # (Manual) (0) k/uL Sodium 125 L (137-145) mmol/L Chloride 97 L (98-107) mmol/L Glucose 116 H (74-99) mg/dL POC Glucose (mg/dL) 140 H 146 H (70-110) mg/dL Calcium 8.0 L (8.4-10.2) mg/dL AST 84 H (17-59) U/L ALT 51 H (4-49) U/L Alkaline Phosphatase 180 H (38-126) U/L Total Protein 5.8 L (6.3-8.2) g/dL Albumin 3.2 L (3.5-5.0) g/dL Microbiology - Last 24 Hours (Table) 10/22/24 10:48 Blood Culture - Preliminary Blood Assessment and Plan Assessment: Pression: Fever,, etiology is not clear, could be related delayed reaction to blood transfusion, cultures are negative so far. Shortness of breath, multifactorial, currently on room air oxygen. Fluid effusion on the right is small Pulm adenocarcinoma, stage IV, Chemotherapy-induced anemia the patient received a total of units of packed R BCs, hemoglobin stable for now. No leukocytosis. Morbid obesity with a BMI of 46.6 Obstructive sleep apnea on BiPAP Hypertension Hyperlipidemia Diabetes mellitus type 2 Peripheral neuropathy Hypothyroidism hyponatremia secondary to SIADH Recommendation: Continue present supportive care measures continue Zosyn empirically Continue Lovenox for DVT prophylaxis Resume home meds will continue to Follow Time with Patient: Less than 30
--- NOTE | 2024-10-24 13:11 | P.CNOR ---
History of Present Illness - HPI Consult date: 10/24/24 Consult reason: back pain History of present illness: The patient is a 59-year-old male with a history of lung cancer and metastatic disease. He has had repeated hospitalizations and is currently admitted in [facility] to shortness of breath some difficulty breathing. He has been having further workup and a new CT scan showed evidence of a fracture line at T8 vertebral body. We are consulted in this regard. Patient denies any new injury. Denies any changes in his neurologic function in his lower extremities or his back. He denies any bowel or bladder change. He denies any falls. Patient has a long history of back pain and stiffness of his back. He has not had specific treatment regards to his spine in the past. Currently the patient says that he is able to move adequately he just gets short of breath. There is some pain in his back but it is not consistent. He denies any weakness in his upper or lower extremities. He says he has not been coughing. Review of Systems As stated per HPI. Denies any change in bowel bladder function. Denies any weakness in his lower extremities. Admits to chronic stiffness and occasional pain in his back. Denies any new injury or trauma at his back. Past Medical History Past Medical History: Cancer, Diabetes Mellitus, GERD/Reflux, Hyperlipidemia, Hypertension, Sleep Apnea/CPAP/BIPAP, Thyroid Disorder Additional Past Medical History / Comment(s): C PAP MACHINE , RECTAL BLEEDING. neuropathy History of Any Multi-Drug Resistant Organisms: None Reported Past Surgical History: No Surgical Hx Reported Additional Past Surgical History / Comment(s): colonoscopy 2014, THYROIDECTOMY Past Anesthesia/Blood Transfusion Reactions: No Reported Reaction Past Psychological History: No Psychological Hx Reported Smoking Status: Never smoker - Past Family History Father Family Medical History: Cancer Medications and Allergies Home Medications Medication Instructions Recorded Confirmed Type Gabapentin 600 mg PO QID 01/04/15 10/19/24 History Losartan Potassium [Cozaar] 100 mg PO DAILY 01/04/15 10/19/24 History Omeprazole 40 mg PO DAILY 01/04/15 10/19/24 History metFORMIN HCL [Glucophage] 1,000 mg PO BID 01/04/15 10/19/24 History Ascorbic Acid [Vitamin C] 1,000 mg PO DAILY 04/04/21 10/19/24 History Cyanocobalamin (Vitamin B-12) 1,000 mcg PO DAILY 04/04/21 10/19/24 History [Vitamin B-12] Empagliflozin [Jardiance] 25 mg PO DAILY 04/04/21 10/19/24 History Ergocalciferol [Vitamin D2 (1250 1,250 mcg PO CONTI 04/04/21 10/19/24 History Mcg = 58118 Iu)] Fenofibrate,Micronized 200 mg PO DAILY 04/04/21 10/19/24 History [Fenofibrate] Latanoprost/Pf [Latanoprost 0.005% 1 drop BOTH EYES HS 04/04/21 10/19/24 History Eye Drop] Levothyroxine Sodium [Synthroid] 200 mcg PO DAILY 04/04/21 10/19/24 History Olmesartan Medoxomil [Benicar] 40 mg PO DAILY 04/04/21 10/19/24 History [place]-3 Fatty Acids/Fish Oil [Fish 1 cap PO DAILY 04/04/21 10/19/24 History Oil 1,000 mg Softgel] Rosuvastatin [Crestor] 20 mg PO DAILY 04/04/21 10/19/24 History Ubidecarenone [Co Q-10] 200 mg PO DAILY 04/04/21 10/19/24 History Zinc 50 mg PO DAILY 04/04/21 10/19/24 History carvediloL [Coreg] 25 mg PO BID 04/04/21 10/19/24 History Aspirin EC [Ecotrin Low Dose] 81 mg PO DIRECTED 10/19/24 10/19/24 History Cholecalciferol [Vitamin D3 (25 25 mcg PO DAILY 10/19/24 10/19/24 History Mcg = 1000 Iu)] Cyclobenzaprine [Flexeril] 10 mg PO Q8H PRN 10/19/24 10/19/24 History EPINEPHrine (Auto Inject) [Epipen] 0.3 mg IM ONCE PRN 10/19/24 10/19/24 History Folic Acid 1 mg PO DAILY 10/19/24 10/19/24 History Ibuprofen [Motrin] 800 mg PO Q8H PRN 10/19/24 10/19/24 History Levothyroxine Sodium [Synthroid] 50 mcg PO DAILY 10/19/24 10/19/24 History Magnesium Oxide [Magnesium] 500 mg PO DAILY 10/19/24 10/19/24 History Ondansetron Odt [Zofran Odt] 4 mg PO Q4H PRN 10/19/24 10/19/24 History Spironolactone [Aldactone] 25 mg PO DAILY 10/19/24 10/19/24 History oxyCODONE HCL [Oxycodone HCl] 10 mg PO Q4H 10/19/24 10/19/24 History Allergies Allergy/AdvReac Type Severity Reaction Status Date / Time peas Allergy Anaphylaxis Verified 10/19/24 13:51 Physical Examination Osteopathic Statement: *. No significant issues noted on an osteopathic structural exam other than those noted in the History and Physical/Consult. - L Spine: dermatomal strength & reflexes bilateral Strength: hip flexion: 5/5 (The patient is morbidly obese. He has sustained dorsiflexion plantarflexion EHL in his legs. He is able to sit up and lay down in bed without significant pain in his back. He is nontender to palpation at the midline his back.) Strength: hip extension: 5/5 (No focal neurologic deficits at his upper extremities or lower extremities. No significant increase in pain with motion in his back.) Results - Labs Labs: Abnormal Lab Results - Last 24 Hours (Table) 10/23/24 10/23/24 10/24/24 Range/Units 16:49 20:23 05:44 RBC 2.48 L (4.30-5.90) m/uL Hgb 7.4 L (13.0-17.5) gm/dL Hct 22.8 L (39.0-53.0) % RDW 19.4 H (11.5-15.5) % Metamyelocytes # (Man) 0.12 H (0) k/uL Myelocytes # (Manual) 0.06 H (0) k/uL Sodium (137-145) mmol/L Chloride (98-107) mmol/L Glucose (74-99) mg/dL POC Glucose (mg/dL) 264 H 195 H (70-110) mg/dL Calcium (8.4-10.2) mg/dL AST (17-59) U/L ALT (4-49) U/L Alkaline Phosphatase (38-126) U/L Total Protein (6.3-8.2) g/dL Albumin (3.5-5.0) g/dL 10/24/24 10/24/24 10/24/24 Range/Units 05:44 06:19 11:40 RBC (4.30-5.90) m/uL Hgb (13.0-17.5) gm/dL Hct (39.0-53.0) % RDW (11.5-15.5) % Metamyelocytes # (Man) (0) k/uL Myelocytes # (Manual) (0) k/uL Sodium 125 L (137-145) mmol/L Chloride 97 L (98-107) mmol/L Glucose 116 H (74-99) mg/dL POC Glucose (mg/dL) 140 H 146 H (70-110) mg/dL Calcium 8.0 L (8.4-10.2) mg/dL AST 84 H (17-59) U/L ALT 51 H (4-49) U/L Alkaline Phosphatase 180 H (38-126) U/L Total Protein 5.8 L (6.3-8.2) g/dL Albumin 3.2 L (3.5-5.0) g/dL Microbiology - Last 24 Hours (Table) 10/22/24 10:48 Blood Culture - Preliminary Blood H & H 10/19/24 10/20/24 10/21/24 Range/Units 12:37 07:38 07:41 Hgb 5.6 L* 8.5 L D 8.3 L (13.0-17.5) gm/dL Hct 16.6 L* 25.7 L 25.9 L (39.0-53.0) % 10/22/24 10/23/24 10/24/24 Range/Units 07:41 07:34 05:44 Hgb 8.3 L 8.0 L 7.4 L (13.0-17.5) gm/dL Hct 25.2 L 24.0 L 22.8 L (39.0-53.0) % Result Diagrams: 10/24/24 05:44 10/24/24 05:44 - Diagnostic results CT Scan - lumbar: report reviewed (CT scan of his chest is reviewed in regards to his spine. There is some lucency and fracture line at the T8 vertebral body. He has ankylosis throughout his thoracic spine. There is no step-off or significant vertebral compression. There is no listhesis.), image reviewed Assessment and Plan Assessment: Metastatic lung cancer with diffuse mets to the spine Vertebral ankylosing spondylitis T8 vertebral body fracture without compression or listhesis No apparent neurologic deficit Morbid obesity Shortness of breath Plan: Metastatic lung cancer with diffuse mets to the spine Vertebral ankylosing spondylitis T8 vertebral body fracture without compression or listhesis No apparent neurologic deficit Morbid obesity Shortness of breath CT scan was done in regards to evaluating his lung [place] and his shortness of breath. There is a finding of a fracture line at T8. The changes at T8 appear to be metastatic in nature more than infectious. There does not appear to be significant compression or obvious instability. This is of concern of the fracture line particularly with his history of metastatic cancer and the ankylosing spondylitis diffusely. He is not symptomatic in his spine specifically on exam. It is difficult to determine if this is an actual fracture line clinically. He is not having any neurologic deficit acutely and he has not had any trauma. I think we can monitor this for now and have him wear a brace when he is up. He is obese and it will be difficult for bracing and I will order him a [place] brace from right and for lipids to see if they are able to fit him for when he is ambulatory or sitting up greater than 45 degrees. He does not need to use brace while in bed. If his symptoms and his spine are worsening then I think he would need a MRI of his thoracic spine. This could show if there is new fracture versus the possibility of metastatic change at the area and it would show the status of the neurologic structures. At this point we will initiate conservative treatment with bracing. We discussed the possibility of kyphoplasty and the possibility of other surgery. If he were to be in need of more significant surgery or stabilization with fusion then I think he would be best served at a tertiary facility and I mention this to the patient's and to the family. For now he will continue conservative care and continue to monitor his breathing status as well as his cancer and potential infection issues.
--- NOTE | 2024-10-24 14:03 | CA ---
Transthoracic Echo Report Name: Ganga Smart Age: 59 Gender: M : 1965 Exam Date: 10/24/2024 11:02 Exam Location: [place] [facility] Ht (in): 74 Wt (lb): 362 Ordering Physician: Ok Francois MD Attending/Referring Phys: Knowledge Architect Angelika Hill RDCS Procedure CPT: Indications: fever Cardiac Hx: pt on chemo Technical Quality: Fair Contrast 1: Total Dose (mL): Contrast 2: Total Dose (mL): MEASUREMENTS (Male / Female) Normal Values 2D ECHO LV Diastolic Diameter PLAX 5.5 cm 4.2 - 5.9 / 3.9 - 5.3 cm LV Systolic Diameter PLAX 4.1 cm IVS Diastolic Thickness 1.0 cm 0.6 - 1.0 / 0.6 - 0.9 cm LVPW Diastolic Thickness 1.1 cm 0.6 - 1.0 / 0.6 - 0.9 cm LV Relative Wall Thickness 0.4 RV Internal Dim ED PLAX 3.8 cm LA Systolic Diameter LX 4.3 cm 3.0 - 4.0 / 2.7 - 3.8 cm LV Diastolic Volume MOD BP 144.4 cm??? 67 - 155 / 56 - 104 cm??? LV Systolic Volume MOD BP 62.0 cm??? 22 - 58 / 19 - 49 cm??? LV Ejection Fraction MOD BP 57.1 % >= 55 % LV Cardiac Index MOD BP 2276.0 cm???/min???m??? LV Diastolic Volume MOD 4C 140.8 cm??? LV Systolic Volume MOD 4C 66.0 cm??? LV Ejection Fraction MOD 4C 53.1 % LV Cardiac Index MOD 4C 2064.3 cm???/min???m??? LV Diastolic Length 4C 9.4 cm LV Systolic Length 4C 7.6 cm LV Diastolic Volume MOD 2C 147.0 cm??? LV Systolic Volume MOD 2C 72.0 cm??? LV Ejection Fraction MOD 2C 51.1 % LV Cardiac Index MOD 2C 2073.7 cm???/min???m??? LV Diastolic Length 2C 8.8 cm LV Systolic Length 2C 7.2 cm LA Volume 94.9 cm??? 18 - 58 / 22 - 52 cm??? LA Volume Index 31.6 cm???/m??? 16 - 28 cm???/m??? M-MODE Aortic Root Diameter MM 3.7 cm DOPPLER AV Peak Velocity 151.0 cm/s AV Peak Gradient 9.1 mmHg MV Area PHT 4.0 cm??? Mitral E Point Velocity 118.6 cm/s Mitral A Point Velocity 82.8 cm/s Mitral E to A Ratio 1.4 MV Deceleration Time 190.7 ms TR Peak Velocity 329.0 cm/s TR Peak Gradient 43.3 mmHg Right Ventricular Systolic Press 58.3 mmHg FINDINGS Left Ventricle Left ventricular ejection fraction is estimated at 50-55 %. Mildly increased left ventricular systolic volume. No obvious regional wall motion abnormalities. Right Ventricle Moderate right ventricular dilatation. Severe pulmonary hypertension. Right ventricular systolic pressure estimated at 58 mm hg. Right Atrium Normal right atrial size. No right atrial thrombus or mass seen. Left Atrium Mildly increased left atrial diameter. Mildly increased left atrial volume. Mildly increased left atrial area. Mitral Valve Structurally normal mitral valve. No mitral stenosis, regurgitation or prolapse. No vegetation noted Aortic Valve Trileaflet aortic valve. No aortic valve stenosis or regurgitation. No vegetation noted Tricuspid Valve Structurally normal tricuspid valve. Mild tricuspid regurgitation. No vegetation noted Pulmonic Valve Pulmonic valve not well visualized. Pericardium No pericardial effusion. Aorta Normal size aortic root and proximal ascending aorta. CONCLUSIONS Mildly enlarged LV with normal LV systolic function Moderate RV enlargement with severe pulmonary hypertension Previewed by: Dr. Ronny Campa MD (Electronically Signed) Final Date: 24 October 2024 14:02
--- NOTE | 2024-10-24 14:27 | P.PN ---
Subjective Progress Note Date: 10/24/24 Principal diagnosis: Metastatic NSCLC -Continues to be intermittently febrile with Tmax of 102.5 F -Noted to have increased fatigue on today's visit - at bedside notes more labored breathing and intermittent episodes of confusion, particularly when he is having fever Objective - Vital Signs Vital signs: Vital Signs Temp 100.6 F H 10/24/24 12:27 Pulse 80 10/24/24 12:48 Resp 19 10/24/24 11:04 BP 100/58 10/24/24 11:04 Pulse Ox 87 L 10/24/24 12:27 FiO2 Intake & Output 10/23/24 10/24/24 10/24/24 18:59 06:59 18:59 Intake Total 118 540 222 Output Total 575 550 Balance -457 -10 222 Weight 168.6 kg Intake: Oral 118 540 222 Output: Urine 575 550 Other: Voiding Method Toilet Toilet Toilet # Voids 2 2 1 # Bowel Movements 1 - Constitutional Constitutional Comment(s): More fatigued appearing General appearance: Present: cooperative, no acute distress - Respiratory Respiratory: bilateral: CTA - Cardiovascular Details: Warm and well-perfused - Gastrointestinal General gastrointestinal: Present: soft. Absent: distended - Integumentary Integumentary: Present: pale - Neurologic Neurologic: Present: CNII-XII intact. Absent: focal deficits - Labs CBC & Chem 7: 10/24/24 05:44 10/24/24 05:44 Labs: Abnormal Lab Results - Last 24 Hours (Table) 10/23/24 10/23/24 10/24/24 Range/Units 16:49 20:23 05:44 RBC 2.48 L (4.30-5.90) m/uL Hgb 7.4 L (13.0-17.5) gm/dL Hct 22.8 L (39.0-53.0) % RDW 19.4 H (11.5-15.5) % Metamyelocytes # (Man) 0.12 H (0) k/uL Myelocytes # (Manual) 0.06 H (0) k/uL Sodium (137-145) mmol/L Chloride (98-107) mmol/L Glucose (74-99) mg/dL POC Glucose (mg/dL) 264 H 195 H (70-110) mg/dL Calcium (8.4-10.2) mg/dL AST (17-59) U/L ALT (4-49) U/L Alkaline Phosphatase (38-126) U/L Total Protein (6.3-8.2) g/dL Albumin (3.5-5.0) g/dL 10/24/24 10/24/24 10/24/24 Range/Units 05:44 06:19 11:40 RBC (4.30-5.90) m/uL Hgb (13.0-17.5) gm/dL Hct (39.0-53.0) % RDW (11.5-15.5) % Metamyelocytes # (Man) (0) k/uL Myelocytes # (Manual) (0) k/uL Sodium 125 L (137-145) mmol/L Chloride 97 L (98-107) mmol/L Glucose 116 H (74-99) mg/dL POC Glucose (mg/dL) 140 H 146 H (70-110) mg/dL Calcium 8.0 L (8.4-10.2) mg/dL AST 84 H (17-59) U/L ALT 51 H (4-49) U/L Alkaline Phosphatase 180 H (38-126) U/L Total Protein 5.8 L (6.3-8.2) g/dL Albumin 3.2 L (3.5-5.0) g/dL Microbiology - Last 24 Hours (Table) 10/22/24 10:48 Blood Culture - Preliminary Blood - Imaging and Cardiology CT scan - chest: report reviewed, image reviewed Assessment and Plan (1) Fever of unknown origin (FUO) Current Visit: Yes Status: Acute Code(s): R50.9 - FEVER, UNSPECIFIED SNOMED Code(s): 3157415 (2) Anemia Current Visit: Yes Status: Acute Priority: Medium Code(s): D64.9 - ANEMIA, UNSPECIFIED SNOMED Code(s): 421615401 (3) Lung cancer Current Visit: Yes Status: Chronic Priority: Medium Code(s): C34.90 - MALIGNANT NEOPLASM OF UNSP PART OF UNSP BRONCHUS OR LUNG SNOMED Code(s): 677361437 Plan: Fever -Patient presented to clinic on 10/19 for f/u s/p chemo, and was reporting persisting fatigue and increasing shortness of breath and dizziness over the last 1 week, and significant weakness and could only walk short distances without having to sit down. Temperature was noted at 100.7. Denied URI sx, urinary symptoms, n/v/d, and abdominal pain. Of note, patient had CTA chest at [facility] on 10/05 which was negative for PE -He continues to have intermittent fevers with Tmax of 102.5 F today with neg ative blood and urine cultures and negative viral panel -CT chest on 10/23/2024 noted left upper lobe airspace opacity along with pulmonary vascular congestion concerning for possible infectious etiology -Levofloxacin added to Zosyn per infectious disease, appreciate their assistance -If he continues to have intermittent fevers over the next 24 hours despite levofloxacin, empiric antifungal could be considered as well -In addition, gemcitabine is known to cause fever and could be a drug-induced etiology, but should continue to pursue aggressively treating infectious etiologies, especially in light of his CT chest findings Chemo induced anemia, thrombocytopenia -Hgb on admit 5.6, s/p 2 units, Hgb stable 7.4 today -On admit platelets 53K, chemo effect. Plt are 181,000 -Iron studies most consistent with anemia of inflammation, hemolysis work up neg. -Cytopenias 2/2 to chemo, prolonged/exacerbated by marrow fatigue in a heavily treated pt. superimposed on inflammation from possible infection -Transfuse for hgb less than 7 or if symptomatic and/or platelets less than 10,000 or bleeding Metastatic lung adenocarcinoma -Oncology history as dictated in consult -Gemzar initiated 05/10/2024, last cycle, number 8, given on 10/12/24. Overall patient has been tolerating treatment well. -Fever can be a side effect of gemzar. Pending completion of all workup and monitoring fever pattern before making any final decision regarding treatment. Further recommendations will follow -CT of the chest did note possible pathologic fracture with orthopedic surgery recommending conservative management at this time -Clinic f/u scheduled on 11/03/24 Hospital course was discussed in detail with Ganga and his at bedside on today's visit Elijah Root MD
[2024-10-24 16:35] LABS: Glucose,Whole Blood 169 mg/dL (70-110)
[2024-10-24 20:29] LABS: Glucose,Whole Blood 257 mg/dL (70-110)
[2024-10-25 06:15] LABS: Glucose,Whole Blood 174 mg/dL (70-110)
[2024-10-25 08:05] LABS: African American GFR (CKD) 86 (>60 ml/min/1.73 sqM); Anion Gap 5 mmol/L; Blood Urea Nitrogen 15 mg/dL (9-20); Calcium 7.9 mg/dL (8.4-10.2); Carbon Dioxide 27 mmol/L (22-30); Chloride 94 mmol/L (98-107); Glucose 140 mg/dL (74-99); Magnesium 2.4 mg/dL (1.6-2.3); Non-African American GFR(CKD) 74 (>60 ml/min/1.73 sqM); Potassium 4.7 mmol/L (3.5-5.1); Sodium 126 mmol/L (137-145)
--- NOTE | 2024-10-25 09:49 | P.PN ---
Subjective Patient is seen in follow-up for hyponatremia. Oral intake fair. No vomiting or diarrhea. Sodium level 126. Vital signs are stable. General: No acute distress. HEENT: Head exam is unremarkable. On nasal cannula. LUNGS: No audible rhonchi or wheezes. HEART: Rate and Rhythm are regular. ABDOMEN: Obese, nontender. EXTREMITITES: Lower extremities wrapped. 1+ edema. Objective - Vital Signs Vital signs: Vital Signs Temp 100.3 F H 10/25/24 08:38 Pulse 94 10/25/24 08:38 Resp 14 10/25/24 08:38 BP 102/59 10/25/24 08:38 Pulse Ox 91 L 10/25/24 08:38 FiO2 Intake & Output 10/24/24 10/25/24 10/25/24 18:59 06:59 18:59 Intake Total 222 702 240 Balance 222 702 240 Weight 168.5 kg Intake: Oral 222 702 240 Other: Voiding Method Toilet Toilet # Voids 1 # Bowel Movements 1 - Labs CBC & Chem 7: 10/24/24 05:44 10/25/24 07:31 Labs: Abnormal Lab Results - Last 24 Hours (Table) 10/24/24 10/24/24 10/24/24 Range/Units 05:44 11:40 12:25 Sodium (137-145) mmol/L Chloride (98-107) mmol/L Glucose (74-99) mg/dL POC Glucose (mg/dL) 146 H (70-110) mg/dL Osmolality 270 L (275-295) mOsm/kg Calcium (8.4-10.2) mg/dL Magnesium (1.6-2.3) mg/dL Ur Random Sodium 38 L (40-220) mmol/L 10/24/24 10/24/24 10/25/24 Range/Units 16:33 20:26 06:14 Sodium (137-145) mmol/L Chloride (98-107) mmol/L Glucose (74-99) mg/dL POC Glucose (mg/dL) 169 H 257 H 174 H (70-110) mg/dL Osmolality (275-295) mOsm/kg Calcium (8.4-10.2) mg/dL Magnesium (1.6-2.3) mg/dL Ur Random Sodium (40-220) mmol/L 10/25/24 Range/Units 07:31 Sodium 126 L (137-145) mmol/L Chloride 94 L (98-107) mmol/L Glucose 140 H (74-99) mg/dL POC Glucose (mg/dL) (70-110) mg/dL Osmolality (275-295) mOsm/kg Calcium 7.9 L (8.4-10.2) mg/dL Magnesium 2.4 H (1.6-2.3) mg/dL Ur Random Sodium (40-220) mmol/L Microbiology - Last 24 Hours (Table) 10/24/24 21:00 Gram Stain - Preliminary Buttock 10/19/24 15:53 Blood Culture - Final Blood 10/22/24 10:48 Blood Culture - Preliminary Blood 10/24/24 09:05 Gram Stain - Preliminary Buttock 10/19/24 14:26 Blood Culture - Final Blood 10/19/24 12:37 Blood Culture - Final Blood Assessment and Plan Plan: Assessment: 1. Hyponatremia. Slightly hypervolemic. Also on NSAIDs. Sodium level 126 today. TSH normal. Urine sodium 38 and urine osmolality 546. 2. Chemo induced anemia status post blood transfusions this admission. 3. Metastatic lung adenocarcinoma. Oncology following. 4. Benign hypertension. Blood pressure on the lower side. 5. Chronic diastolic CHF with severe pulmonary hypertension. Plan: Maintain fluid restriction. Encouraged oral intake, particularly protein. Avoid NSAIDs. Samsca 7.5 mg once today. Repeat labs in the morning.
[2024-10-25 11:15] LABS: Glucose,Whole Blood 189 mg/dL (70-110)
--- NOTE | 2024-10-25 11:16 | P.PN ---
Subjective Progress Note Date: 10/25/24 Principal diagnosis: Fever, unknown source This is a 59-year-old male patient with metastatic pulmonary adenocarcinoma, who has been receiving systemic chemotherapy and the patient was not Gemzar and his last treatment was on 10/12/2024. The patient was tolerating the systemic chemotherapy reasonably well. He is morbidly obese and has history of obstructive sleep apnea along with diabetes mellitus and hyperlipidemia. He is currently in the hospital as the patient was initially sent over from oncologist office because of a low hemoglobin of 5.9. The patient was also febrile. He was given a total of 2 U PRBC During this current hospitalization the patient's hemoglobin is currently up to 8.3. Nevertheless, he continues to have episodes of fever. Currently afebrile. Tmax over the past 24 hours was 102.3. No clear source of infection. The patient remains on a combination of cefepime and vancomycin. Note that his white cell count is not elevated. His white cell count is at 4. He has no DVTs in his lower extremities. CAT scan of the abdomen and pelvis was done and shows a chronic small right-sided pleural effusion. There is bony metastases throughout and there was no significant lymphadenopathy. Blood cultures have been negative. The patient has a Mediport that looks to be quite clean. No altered mentation. No skin rashes. No wounds or ulcers. As such, the source of the fever is not clear. ID is on the case. He is also experiencing some shortness of breath with mobility. Nevertheless, he is on room air oxygen. No cough sputum production chest tightness or wheezing. In terms of his lung cancer, the patient was diagnosed having pulm adenocarcinoma back in 2021. He has been followed up by Dr. Cat. He initially presented with 3 cm RLL lung mass,he had a PET scan on 06/16/2022 which revealed suspicious uptake in in central right lung lesion,measured 2.1 x 2.2 cm,he initially had navigational bronchoscopy which was not diagnostic,he ws referred to DR Hernandez at [facility],he had repeat CT scan of chest on 07/07/2022 which revealed 3 cm lesion in superior segment of RLL and several other small nodules in right lung which are new compared to prior CT scan done at [facility] in 06/2016. On 07/24/2022,he underwent RLL resection and biopsies of mediastinal nodes,pathology revealed adenocarcinoma spreading through alveolar spaces and invading lymphovascular channels (BERENICE),multifocal,right level 8,level 7,4R nodes were positive. Brain MRI on 08/08/2022 was negative. Caris did not reveal any targetable mutation. On 08/18/2022,PET scan revealed uptake in right hilar region,there was uptake in left second rib,had an MRI which revealed subtle area in rib without enhancement. On 08/26/2022,he started carbo/alimta with radiation,completed 4 cycles of chemo on 10/29/2022. Due to disease progression, patient has been on multiple treatment regimens. He started imfinzi on 12/25/2022. Taxotere/cyramza/zometa were held in December 2023, as patient developed ONJ. He started gemzar on 05/10/2024, most recently completing cycle 8 on 10/12/24, Patient was evaluated today on 10/23/2024, patient seems to be doing better today, continues to have low-grade fever his Tmax last night was 99.5. Hemodynamically stable on 2 L nasal cannula O2 sat is 98% patient seems to have less and less shortness of breath.WBC count is 5.2 hemoglobin is 8 sodium is 127 potassium 4.9 BUN is 19 creatinine 1.14 blood cultures and urine cultures remain negative so far. Seen today on 10/24/2024, patient is doing well, feeling better, yesterday's CT of the chest showed evidence of bilateral pleural effusions and the patient received 1 dose of Lasix yesterday and he received DuoNeb updraft treatment for his acute onset of shortness of breath, patient felt much better shortly after. Today is down to 125 his BUN is 18 creatinine 1.13, patient is now being seen by nephrology on consultation. I believe his hyponatremia is most likely secondary to SIADH considering his underlying malignancy/bronchogenic carcinoma Reevaluate today on 10/25/2024, patient is doing a bit better today however continues to have intermittent episodes of fevers, in spite of antibiotics patient continues to have febrile episodes. Patient had a Tmax of 102.6 yesterday, today's temp is 100.3 blood pressure 102/59 he is on 2 L nasal cannula with O2 saturation ranging between 91 up to 97% sodium is low at 126 CBC today is pending. Patient screening for viral infection was negative including influenza A influenza B RSV and COVID patient also had negative urinary Legionella antigen Objective - Vital Signs Vital signs: Vital Signs Temp 100.3 F H 10/25/24 08:38 Pulse 94 10/25/24 08:38 Resp 14 10/25/24 08:38 BP 102/59 10/25/24 08:38 Pulse Ox 91 L 10/25/24 08:38 FiO2 Intake & Output 10/24/24 10/25/24 10/25/24 18:59 06:59 18:59 Intake Total 222 702 240 Balance 222 702 240 Weight 168.5 kg Intake: Oral 222 702 240 Other: Voiding Method Toilet Toilet # Voids 1 # Bowel Movements 1 - Exam Physical exam: General: Reveals a 59-year-old white male in no distress extremely pleasant on 2 L nasal cannula Head normocephalic and atraumatic Neck supple no JVD no goiter, no neck masses, no stridor. Lungs symmetrical expansion, clear bilaterally no crackles rhonchi or wheezes Heart distant S1-S2, no S3 gallop, no murmur. \ Abdomen: Obese soft nontender no megaly no rebound Extremities 2+ edema bilaterally Neuro no gross focal deficit Psychiatric: Normal mood affect and no mental status examination Skin: No rashes - Labs CBC & Chem 7: 10/24/24 05:44 10/25/24 07:31 Labs: Abnormal Lab Results - Last 24 Hours (Table) 10/24/24 10/24/24 10/24/24 Range/Units 05:44 11:40 12:25 Sodium (137-145) mmol/L Chloride (98-107) mmol/L Glucose (74-99) mg/dL POC Glucose (mg/dL) 146 H (70-110) mg/dL Osmolality 270 L (275-295) mOsm/kg Calcium (8.4-10.2) mg/dL Magnesium (1.6-2.3) mg/dL Ur Random Sodium 38 L (40-220) mmol/L 10/24/24 10/24/24 10/25/24 Range/Units 16:33 20:26 06:14 Sodium (137-145) mmol/L Chloride (98-107) mmol/L Glucose (74-99) mg/dL POC Glucose (mg/dL) 169 H 257 H 174 H (70-110) mg/dL Osmolality (275-295) mOsm/kg Calcium (8.4-10.2) mg/dL Magnesium (1.6-2.3) mg/dL Ur Random Sodium (40-220) mmol/L 10/25/24 Range/Units 07:31 Sodium 126 L (137-145) mmol/L Chloride 94 L (98-107) mmol/L Glucose 140 H (74-99) mg/dL POC Glucose (mg/dL) (70-110) mg/dL Osmolality (275-295) mOsm/kg Calcium 7.9 L (8.4-10.2) mg/dL Magnesium 2.4 H (1.6-2.3) mg/dL Ur Random Sodium (40-220) mmol/L Microbiology - Last 24 Hours (Table) 10/24/24 09:05 Gram Stain - Preliminary Buttock Wound Culture - Preliminary 10/24/24 21:00 Gram Stain - Preliminary Buttock 10/19/24 15:53 Blood Culture - Final Blood 10/22/24 10:48 Blood Culture - Preliminary Blood 10/19/24 14:26 Blood Culture - Final Blood 10/19/24 12:37 Blood Culture - Final Blood Assessment and Plan Assessment: Pression: Fever,, etiology is not clear, being addressed by infectious disease on the case Shortness of breath, multifactorial, currently on room air oxygen. Fluid effusion on the right is small Pulm adenocarcinoma, stage IV, Chemotherapy-induced anemia the patient received a total of units of packed RBCs, hemoglobin stable for now. No leukocytosis. Morbid obesity with a BMI of 46.6 Obstructive sleep apnea on BiPAP Hypertension Hyperlipidemia Diabetes mellitus type 2 Peripheral neuropathy Hypothyroidism hyponatremia secondary to SIADH Recommendation: Continue present supportive care measures continue Zosyn empirically Continue Lovenox for DVT prophylaxis Continue present treatment plan. Not ready for discharge as long as the patient is spiking fevers. Urology is addressing his hyponatremia will continue to Follow Time with Patient: Less than 30
[2024-10-25] MEDS: TOLVAPTAN 15 MG TABLET PO ONE (11:39)
--- NOTE | 2024-10-25 14:56 | P.PN ---
Subjective Progress Note Date: 10/24/24 Principal diagnosis: Reason for follow-up is fever Patient is a 59-year-old male with a past medical history significant for diabetes mellitus hypertension hyperlipidemia reflux sleep apnea, patient also have metastatic adenocarcinoma of the lung on chemotherapy presenting to the hospital from oncology office concerning for weakness anemia and fever with initial workup negative. On today's evaluation that is 10/24/2024, Patient is febrile with a temperature of 102.5 F this morning, patient is breathing comfortably currently on 2 L current oxygen P denies having chest pain occasional cough not big of any sputum no vomiting or diarrhea has been reported. Patient white count 6.1, creat is 1.13 Objective - Vital Signs Vital signs: Vital Signs Temp 100.6 F H 10/24/24 12:27 Pulse 80 10/24/24 12:48 Resp 19 10/24/24 11:04 BP 100/58 10/24/24 11:04 Pulse Ox 87 L 10/24/24 12:27 FiO2 Intake & Output 10/23/24 10/24/24 10/24/24 18:59 06:59 18:59 Intake Total 118 540 222 Output Total 575 550 Balance -457 -10 222 Weight 168.6 kg Intake: Oral 118 540 222 Output: Urine 575 550 Other: Voiding Method Toilet Toilet Toilet # Voids 2 2 1 # Bowel Movements 1 - Exam GENERAL DESCRIPTION: Middle-age male up in the chair in no distress RESPIRATORY SYSTEM: Unlabored breathing , decreased breath sounds at bases HEART: S1 S2 regular rate and rhythm , ABDOMEN: Soft , no tenderness EXTREMITIES: No edema feet - Labs CBC & Chem 7: 10/24/24 05:44 10/25/24 07:31 Labs: Abnormal Lab Results - Last 24 Hours (Table) 10/23/24 10/23/24 10/24/24 Range/Units 16:49 20:23 05:44 RBC 2.48 L (4.30-5.90) m/uL Hgb 7.4 L (13.0-17.5) gm/dL Hct 22.8 L (39.0-53.0) % RDW 19.4 H (11.5-15.5) % Metamyelocytes # (Man) 0.12 H (0) k/uL Myelocytes # (Manual) 0.06 H (0) k/uL Sodium (137-145) mmol/L Chloride (98-107) mmol/L Glucose (74-99) mg/dL POC Glucose (mg/dL) 264 H 195 H (70-110) mg/dL Calcium (8.4-10.2) mg/dL AST (17-59) U/L ALT (4-49) U/L Alkaline Phosphatase (38-126) U/L Total Protein (6.3-8.2) g/dL Albumin (3.5-5.0) g/dL 10/24/24 10/24/24 10/24/24 Range/Units 05:44 06:19 11:40 RBC (4.30-5.90) m/uL Hgb (13.0-17.5) gm/dL Hct (39.0-53.0) % RDW (11.5-15.5) % Metamyelocytes # (Man) (0) k/uL Myelocytes # (Manual) (0) k/uL Sodium 125 L (137-145) mmol/L Chloride 97 L (98-107) mmol/L Glucose 116 H (74-99) mg/dL POC Glucose (mg/dL) 140 H 146 H (70-110) mg/dL Calcium 8.0 L (8.4-10.2) mg/dL AST 84 H (17-59) U/L ALT 51 H (4-49) U/L Alkaline Phosphatase 180 H (38-126) U/L Total Protein 5.8 L (6.3-8.2) g/dL Albumin 3.2 L (3.5-5.0) g/dL Microbiology - Last 24 Hours (Table) 10/22/24 10:48 Blood Culture - Preliminary Blood Assessment and Plan (1) Fever Current Visit: Yes Status: Acute Priority: High Code(s): R50.9 - FEVER, UNSPECIFIED SNOMED Code(s): 286497625 Plan: 1patient presented to the hospital with low hemoglobin patient to have a history of metastatic lung cancer and is currently getting chemotherapy last chemo has been about a week ago before presentation to the hospital, patient is not neutropenic, initial workup so far negative with a question of possibly related to the port patient did have a negative lower extremity Doppler and blood cultures are currently pending 2 repeat COVID-19 and influenza PCR came back negative, CT abdominal pelvis with oral contrast only did not show any acute abnormality, patient did have a mildly elevated procalcitonin concern for possible pneumonia CT has been ordered results will be followed 3-patient currently on Zosyn we will add Levaquin check urine for Legionella antigen and monitor clinical course closely Dictation was produced using [employer] dictation software. please excuse any grammatical, word or spelling errors. Time with Patient: Less than 30
--- NOTE | 2024-10-25 14:57 | P.PN ---
Subjective Progress Note Date: 10/25/24 Principal diagnosis: Reason for follow-up is fever Patient is a 59-year-old male with a past medical history significant for diabetes mellitus hypertension hyperlipidemia reflux sleep apnea, patient also have metastatic adenocarcinoma of the lung on chemotherapy presenting to the hospital from oncology office concerning for weakness anemia and fever with initial workup negative. On today's evaluation that is 10/25/2024,the patient did have a persistent fever with a temperature of 103.1 F this morning patient denies having any chest pain did have occasional cough wake up any sputum no nausea vomiting no abdominal pain patient was noticed to have a wound to the left perirectal area yesterday by the nursing staff/ however to be denies having any pain to that area or any purulent drainage. Patient did have creatinine 1.09 Objective - Vital Signs Vital signs: Vital Signs Temp 101 F H 10/25/24 12:58 Pulse 80 10/25/24 11:53 Resp 14 10/25/24 11:37 BP 122/67 10/25/24 11:37 Pulse Ox 93 L 10/25/24 11:37 FiO2 Intake & Output 10/24/24 10/25/24 10/25/24 18:59 06:59 18:59 Intake Total 222 702 350 Balance 222 702 350 Weight 168.5 kg Intake: Oral 222 702 350 Other: Voiding Method Toilet Toilet # Voids 1 # Bowel Movements 1 - Exam GENERAL DESCRIPTION: Middle-age male up in the chair in no distress RESPIRATORY SYSTEM: Unlabored breathing , decreased breath sounds at bases HEART: S1 S2 regular rate and rhythm , ABDOMEN: Soft , no tenderness patient did have a wound to the right perirectal area but no purulent drainage no significant redness was noticed EXTREMITIES: No edema feet - Labs CBC & Chem 7: 10/24/24 05:44 10/25/24 07:31 Labs: Abnormal Lab Results - Last 24 Hours (Table) 10/24/24 10/24/24 10/24/24 Range/Units 05:44 12: 16:33 Sodium (137-145) mmol/L Chloride (98-107) mmol/L Glucose (74-99) mg/dL POC Glucose (mg/dL) 169 H (70-110) mg/dL Osmolality 270 L (275-295) mOsm/kg Calcium (8.4-10.2) mg/dL Magnesium (1.6-2.3) mg/dL Ur Random Sodium 38 L (40-220) mmol/L 10/24/24 10/25/24 10/25/24 Range/Units 20:26 06:14 07:31 Sodium 126 L (137-145) mmol/L Chloride 94 L (98-107) mmol/L Glucose 140 H (74-99) mg/dL POC Glucose (mg/dL) 257 H 174 H (70-110) mg/dL Osmolality (275-295) mOsm/kg Calcium 7.9 L (8.4-10.2) mg/dL Magnesium 2.4 H (1.6-2.3) mg/dL Ur Random Sodium (40-220) mmol/L 10/25/24 Range/Units 11:13 Sodium (137-145) mmol/L Chloride (98-107) mmol/L Glucose (74-99) mg/dL POC Glucose (mg/dL) 189 H (70-110) mg/dL Osmolality (275-295) mOsm/kg Calcium (8.4-10.2) mg/dL Magnesium (1.6-2.3) mg/dL Ur Random Sodium (40-220) mmol/L Microbiology - Last 24 Hours (Table) 10/24/24 09:05 Gram Stain - Preliminary Buttock Wound Culture - Preliminary 10/24/24 21:00 Gram Stain - Preliminary Buttock 10/19/24 15:53 Blood Culture - Final Blood 10/22/24 10:48 Blood Culture - Preliminary Blood 10/19/24 14:26 Blood Culture - Final Blood 10/19/24 12:37 Blood Culture - Final Blood Assessment and Plan (1) Fever Current Visit: Yes Status: Acute Priority: High Code(s): R50.9 - FEVER, UNSPECIFIED SNOMED Code(s): 205378501 Plan: 1patient presented to the hospital with low hemoglobin patient to have a history of metastatic lung cancer and is currently getting chemotherapy last chemo has been about a week ago before presentation to the hospital, patient is not neutropenic, initial workup so far negative with a question of possibly related to the port patient did have a negative lower extremity Doppler and blood cultures are currently pending 2 repeat COVID-19 and influenza PCR came back negative, CT abdominal pelvis with oral contrast only did not show any acute abnormality, patient did have a mildly elevated procalcitonin concern for possible pneumonia CT has been ordered results will be followed 3-patient did have persistent fever which is slightly concerning noticed to have a wound to the perirectal area culture have been obtained from yesterday CT will be reviewed with radiologist patient is covered with Zosyn urine for Legionella antigen negative will discontinue Levaquin check an ultrasound of the right upper extremity to make sure no evidence of any DVT, Diflucan has been added by hematology oncology Dictation was produced using [employer] dictation software. please excuse any grammatical, word or spelling errors. Time with Patient: Less than 30
--- NOTE | 2024-10-25 15:33 | P.PN ---
Subjective Progress Note Date: 10/25/24 Principal diagnosis: Metastatic NSCLC -Persistently febrile overnight with Tmax 103.1 F -Notes having intermittent confusion along with decreased appetite -He does note intermittent discomfort in the right lower jaw at the area of osteonecrosis Objective - Vital Signs Vital signs: Vital Signs Temp 101 F H 10/25/24 12:58 Pulse 80 10/25/24 11:53 Resp 14 10/25/24 11:37 BP 122/67 10/25/24 11:37 Pulse Ox 93 L 10/25/24 11:37 FiO2 Intake & Output 10/24/24 10/25/24 10/25/24 18:59 06:59 18:59 Intake Total 222 702 350 Balance 222 702 350 Weight 168.5 kg Intake: Oral 222 702 350 Other: Voiding Method Toilet Toilet # Voids 1 # Bowel Movements 1 - Constitutional Constitutional Comment(s): Fatigued appearing General appearance: Present: cooperative - Respiratory Respiratory: bilateral: CTA - Cardiovascular Rhythm: regular - Gastrointestinal General gastrointestinal: Present: soft. Absent: distended, tenderness - Neurologic Neurologic: Present: CNII-XII intact. Absent: focal deficits - Psychiatric Psychiatric: Present: A&O x's 3, appropriate affect - Labs CBC & Chem 7: 10/24/24 05:44 10/25/24 07:31 Labs: Abnormal Lab Results - Last 24 Hours (Table) 10/24/24 10/24/24 10/24/24 Range/Units 05:44 12:25 16:33 Sodium (137-145) mmol/L Chloride (98-107) mmol/L Glucose (74-99) mg/dL POC Glucose (mg/dL) 169 H (70-110) mg/dL Osmolality 270 L (275-295) mOsm/kg Calcium (8.4-10.2) mg/dL Magnesium (1.6-2.3) mg/dL Ur Random Sodium 38 L (40-220) mmol/L 10/24/24 10/25/24 10/25/24 Range/Units 20:26 06:14 07:31 Sodium 126 L (137-145) mmol/L Chloride 94 L (98-107) mmol/L Glucose 140 H (74-99) mg/dL POC Glucose (mg/dL) 257 H 174 H (70-110) mg/dL Osmolality (275-295) mOsm/kg Calcium 7.9 L (8.4-10.2) mg/dL Magnesium 2.4 H (1.6-2.3) mg/dL Ur Random Sodium (40-220) mmol/L 10/25/24 Range/Units 11:13 Sodium (137-145) mmol/L Chloride (98-107) mmol/L Glucose (74-99) mg/dL POC Glucose (mg/dL) 189 H (70-110) mg/dL Osmolality (275-295) mOsm/kg Calcium (8.4-10.2) mg/dL Magnesium (1.6-2.3) mg/dL Ur Random Sodium (40-220) mmol/L Microbiology - Last 24 Hours (Table) 10/24/24 09:05 Gram Stain - Preliminary Buttock Wound Culture - Preliminary 10/24/24 21:00 Gram Stain - Preliminary Buttock 10/19/24 15:53 Blood Culture - Final Blood 10/22/24 10:48 Blood Culture - Preliminary Blood 10/19/24 14:26 Blood Culture - Final Blood 10/19/24 12:37 Blood Culture - Final Blood Assessment and Plan (1) Fever of unknown origin (FUO) Current Visit: Yes Status: Acute Code(s): R50.9 - FEVER, UNSPECIFIED SNOMED Code(s): 9969521 (2) Anemia Current Visit: Yes Status: Acute Priority: Medium Code(s): D64.9 - ANEMIA, UNSPECIFIED SNOMED Code(s): 225721203 (3) Lung cancer Current Visit: Yes Status: Chronic Priority: Medium Code(s): C34.90 - MALIGNANT NEOPLASM OF UNSP PART OF UNSP BRONCHUS OR LUNG SNOMED Code(s): 52530 8000 Plan: Fever -Patient presented to clinic on 10/19 for f/u s/p chemo, and was reporting persisting fatigue and increasing shortness of breath and dizziness over the l ast 1 week, and significant weakness and could only walk short distances without having to sit down. Temperature was noted at 100.7. Denied URI sx, urinary symptoms, n/v/d, and abdominal pain. Of note, patient had CTA chest at [facility] on 10/05 which was negative for PE -He continues to have intermittent fevers with Tmax of 102.5 F today with negative blood and urine cultures and negative viral panel -CT chest on 10/23/2024 noted left upper lobe airspace opacity along with pulmonary vascular congestion concerning for possible infectious etiology -Levofloxacin added to Zosyn per infectious disease on 10/24/2024, appreciate their assistance -Empiric fluconazole 400 mg IV daily for 6 days added today given the persistent fevers -If fevers persist despite empiric antimicrobial treatment, CT maxillofacial should be considered to rule out potential abscess given the reported discomfort in the right lower jaw -In addition, gemcitabine is known to cause fever and could be a drug-induced etiology, but should continue to pursue aggressively treating infectious etiologies, especially in light of his CT chest findings Chemo induced anemia, thrombocytopenia -Hgb on admit 5.6, s/p 2 units, no CBC ordered today -On admit platelets 53K, chemo effect -Iron studies most consistent with anemia of inflammation, hemolysis work up neg. -Cytopenias 2/2 to chemo, prolonged/exacerbated by marrow fatigue in a heavily treated pt. superimposed on inflammation from possible infection -Transfuse for hgb less than 7 or if symptomatic and/or platelets less than 10,000 or bleeding Metastatic lung adenocarcinoma -Oncology history as dictated in consult -Gemzar initiated 05/10/2024, last cycle, number 8, given on 10/12/24. Overall patient has been tolerating treatment well. -Fever can be a side effect of gemzar. Pending completion of all workup and monitoring fever pattern before making any final decision regarding treatment. Further recommendations will follow -CT of the chest did note possible pathologic fracture with orthopedic surgery recommending conservative management at this time -Clinic f/u scheduled on 11/03/24 -He will need PET scan scheduled for 10/26/2024 rescheduled Hospital course was discussed in detail with Ganga and his at bedside on today's visit Elijah Root MD
[2024-10-25] MEDS: FLUCONAZOLE IN NACL,ISO-OSM 400 MG in SALINE 1 200ML.BAG IVPB SCH (15:38)
--- NOTE | 2024-10-25 15:40 | US ---
EXAMINATION TYPE: US venous doppler duplex UE RT DATE OF EXAM: 10/25/2024 COMPARISON: NONE CLINICAL INDICATION: Male, 59 years old with history of swelling/fever; Patient states swelling of ar m and fever. Pain in left shoulder as well. No hx dvt. Patient takes baby aspirin TECHNIQUE: Grayscale, color Doppler and spectral Doppler imaging of the upper extremity. SIDE PERFORMED: right FINDINGS: Right Arm: appears negative for dvt. Unable to visualize the ulnar veins Grayscale, color doppler, spectral doppler imaging performed of the deep veins of the upper extremiti es. IMPRESSION: No evidence of DVT in the right upper extremity. [facility], , 10/25/2024 3:37 PM
[2024-10-25 16:18] LABS: Glucose,Whole Blood 156 mg/dL (70-110)
--- NOTE | 2024-10-25 16:24 | P.PN ---
Subjective Progress Note Date: 10/25/24 Ganga Smart, is a 59-year-old male patient of Dr. Garsia who presented to the ER after his oncologist discovered his hemoglobin low at 5.9. Patient has a history of metastatic lung cancer and has been receiving chemotherapy last cycle 1 week ago. Patient reports he's been on chemotherapy for approximately 2 years.patient has past medical history of diabetes, GERD, hyperlipidemia, hypertension, sleep apnea, thyroid disorder. Patient denies any nicotine use history.lab work completed showing hemoglobin 5.6. White blood cell 4.0. Sodium 129, creatinine 1.2, bun 19, lactic acid 2.8patient also noted to have a low-grade temp 100.5. Patient denies any recent sick contacts denies cough or shortness of breath. Patient denies nausea vomiting or diarrhea. Patient denies any burning with urination. At this time patient will be admitted oncology and infectious disease service is consulted. 2 units of PRBCs have been ordered. COVID-19 in influenza negative. Blood and urine and sputum cultures ordered. At this time patient is resting comfortably in bed. Patient denies any chest pain or shortness of breath. Patient denies nausea vomiting or diarrhea. Patient denies any urinary burning or frequency On 10/20/2024 patient is alert and oriented x 3. Patient was continuing to have fevers throughout the night. Patient was started on vancomycin and Maxipime per infectious disease. Patient received 2 units of PRBCs repeat hemoglobin 8.5. Patient denies chest pain or shortness of breath. Patient denies nausea vomiting or diarrhea. Patient denies any urinary burning or frequency On 10/21/2024 patient is alert and oriented x 3. Patient having some increased back discomfort. Patient still having elevated temps slightly improved. Patient remains on IV antibiotic. Hemoglobin remained stable at 8.3. Patient denies chest pain or shortness of breath. Patient denies nausea vomiting or diarrhea. Patient denies any urinary burning or frequency On 10/22/2024 patient was seen and examined on the telemetry floor, he is alert and oriented x 3 in no apparent distress, he is still having elevated temperature up to 102.3, CT scan of the chest revealed bilateral pleural effusio n, pulmonary consultation was added and patient was seen by Dr. Menezes, because of elevated temperature is still not entirely clear, repeat blood cultures and sputum culture and echocardiogram was ordered, patient is followed by infectious disease and is maintained on IV antibiotics. Will continue to follow closely On 10/23/2024 patient is alert and oriented x 3. Patient continued to having e levated temps 2D echo and CT chest with contrast has been ordered. Infectious disease, pulmonary and oncology services are all following patient denies chest pain. Patient does report some shortness of breath. Patient denies nausea vomiting or diarrhea. Patient denies any urinary burning or frequency on 10/24/2024 patient is alert and oriented x 3. Patient still having elevated temps. CT of chest has been completed. awaiting 2 decho. at this time patient is still complaining of some shortnes of breath. Denies chest pain. denies nausea vomiting or diarrhea. Denies any urinary burning or frequency. oncology, infectious disease, and pulmonary services following. remains on Iv zosyn 10/25. Patient seen and examined. States he feels very lethargic and weak. REVIEW OF SYSTEMS: CONSTITUTIONAL: No fever, no malaise,. CARDIOVASCULAR: No chest pain, no palpitations, no syncope. PULMONARY: No shortness of breath, no cough, GASTROINTESTINAL: No diarrhea, no nausea, no vomiting, no abdominal pain. NEUROLOGICAL: No headaches, no weakness, PHYSICAL EXAMINATION: GENERAL: The patient is alert and oriented x3, ill looking HEENT: Pupils are round and equally reacting to light. EOMI. No scleral icterus. No conjunctival pallor. Normocephalic, atraumatic. No pharyngeal erythema. No t hyromegaly. CARDIOVASCULAR: S1 and S2 present. No murmurs, rubs, or gallops. PULMONARY: Chest is clear to auscultation, no wheezing or crackles. ABDOMEN: Soft, nontender, nondistended, normoactive bowel sounds. No palpable organomegaly. MUSCULOSKELETAL: No joint swelling or deformity. EXTREMITIES: No cyanosis, clubbing, or pedal edema. NEUROLOGICAL: Gross neurological examination did not reveal any focal deficits. SKIN: No rashes. Assessment and plan Anemia likely secondary to chemotherapy History of metastatic lung cancer patient follows with oncology services last chemotherapy one week ago Fever of unknown origin Hyponatremia, correcting with IV fluid History of diabetes mellitus History of hyperlipidemia History of essential hypertension History of hypothyroidism History of sleep apnea Monitor vital signs Monitor CBC Monitor CMP Follow-up on blood cultures Aggressive bronchopulmonary hygiene encourage use of I-S Maintain fluid restriction. Avoid NSAIDs. Samsca 7.5 mg once today IV Zosyn, Diflucan Nephrology following ID following Drug oncology following Labs and medication were reviewed.. Continue same treatment. Continue with symptomatic treatment. Resume home medication. Monitor labs and vitals. DVT and GI prophylaxis. Further recommendations as per clinical course of the patient Dictation was produced using [employer] dictation software. please excuse any grammatical, word or spelling errors. Objective - Vital Signs Vital signs: Vital Signs Temp 99.7 F H 10/25/24 15:35 Pulse 87 10/25/24 15:35 Resp 14 10/25/24 15:35 BP 112/66 10/25/24 15:35 Pulse Ox 95 10/25/24 15:35 FiO2 Intake & Output 10/24/24 10/25/24 10/25/24 18:59 06:59 18:59 Intake Total 222 702 350 Balance 222 702 350 Weight 168.5 kg Intake: Oral 222 702 350 Other: Voiding Method Toilet Toilet # Voids 1 # Bowel Movements 1 - Labs CBC & Chem 7: 10/24/24 05:44 10/25/24 07:31 Labs: Abnormal Lab Results - Last 24 Hours (Table) 10/24/24 10/24/24 10/24/24 Range/Units 05:44 12:25 16:33 Sodium (137-145) mmol/L Chloride (98-107) mmol/L Glucose (74-99) mg/dL POC Glucose (mg/dL) 169 H (70-110) mg/dL Osmolality 270 L (275-295) mOsm/kg Calcium (8.4-10.2) mg/dL Magnesium (1.6-2.3) mg/dL Ur Random Sodium 38 L (40-220) mmol/L 10/24/24 10/25/24 10/25/24 Range/Units 20:26 06:14 07:31 Sodium 126 L (137-145) mmol/L Chloride 94 L (98-107) mmol/L Glucose 140 H (74-99) mg/dL POC Glucose (mg/dL) 257 H 174 H (70-110) mg/dL Osmolality (275-295) mOsm/kg Calcium 7.9 L (8.4-10.2) mg/dL Magnesium 2.4 H (1.6-2.3) mg/dL Ur Random Sodium (40-220) mmol/L 10/25/24 10/25/24 Range/Units 11:13 16:16 Sodium (137-145) mmol/L Chloride (98-107) mmol/L Glucose (74-99) mg/dL POC Glucose (mg/dL) 189 H 156 H (70-110) mg/dL Osmolality (275-295) mOsm/kg Calcium (8.4-10.2) mg/dL Magnesium (1.6-2.3) mg/dL Ur Random Sodium (40-220) mmol/L Microbiology - Last 24 Hours (Table) 10/24/24 09:05 Gram Stain - Preliminary Buttock Wound Culture - Preliminary 10/24/24 21:00 Gram Stain - Preliminary Buttock 10/19/24 15:53 Blood Culture - Final Blood 10/22/24 10:48 Blood Culture - Preliminary Blood 10/19/24 14:26 Blood Culture - Final Blood 10/19/24 12:37 Blood Culture - Final Blood
[2024-10-25 20:05] LABS: Glucose,Whole Blood 199 mg/dL (70-110)
[2024-10-26 06:13] LABS: Glucose,Whole Blood 151 mg/dL (70-110)
[2024-10-26 07:22] LABS: African American GFR (CKD) 84 (>60 ml/min/1.73 sqM); Anion Gap 5 mmol/L; Blood Urea Nitrogen 14 mg/dL (9-20); Calcium 7.9 mg/dL (8.4-10.2); Carbon Dioxide 30 mmol/L (22-30); Chloride 94 mmol/L (98-107); Glucose 138 mg/dL (74-99); Magnesium 2.6 mg/dL (1.6-2.3); Non-African American GFR(CKD) 73 (>60 ml/min/1.73 sqM); Potassium 5.1 mmol/L (3.5-5.1); Sodium 129 mmol/L (137-145)
--- NOTE | 2024-10-26 08:27 | CONS ---
CONSULTATION CHIEF COMPLAINT: Pain. HISTORY OF PRESENT ILLNESS: Ganga is a 59-year-old gentleman with complex and multiple medical problems including metastatic adenocarcinoma of the lung, who has been on chemotherapy, obstructive sleep apnea, diabetes, morbid obesity, and dyslipidemia, who is admitted to hospital with severe anemia with hemoglobin of 5.9. The patient has had fever with a T-max of . Cardiology had been consulted because of an episode of chest discomfort that he had yesterday. The patient's chest discomfort was short and mild in intensity and had resolved since. We do not have any EKGs from this morning. He had an echocardiogram that revealed an ejection fraction of 50% to 55%, dilated right ventricle with severe pulmonary hypertension. PAST MEDICAL HISTORY: Significant for COPD, metastatic adeno CA, [id number] diabetes, hypothyroidism. MEDICATIONS: Include: 1. Zofran. 2. Motrin. 3. Vitamin D. 4. Flexeril. 5. Omeprazole. 6. Aldactone. 7. Vitamin C. 8. Metformin. 9. Coreg. 10.Crestor. 11.Benicar. 12.Jardiance. 13.Synthroid. ALLERGIES: There are no known drug allergies. FAMILY HISTORY: Negative for premature coronary artery disease. SOCIAL HISTORY: Negative for current smoking, EtOH abuse, or drug abuse. REVIEW OF SYSTEMS: review of systems has been performed. Pertinents are as documented. PHYSICAL EXAMINATION: VITAL SIGNS: The patient has a T-max of , heart rate is 90 beats per minute, blood pressure is 102/62, respiratory rate is 14. NECK: There is no jugular venous distention. CHEST: Reveals diminished air entry at the bases. HEART: Reveals first and second heart sounds. No gallop. EXTREMITIES: Reveal bilateral moderate pitting edema. LABORATORY DATA: Shows a potassium of 4.7, creatinine is 1. Hemoglobin is 7.4. ASSESSMENT: 1. Atypical chest pain, probably musculoskeletal in a patient with metastatic adenocarcinoma. 2. Severe anemia. 3. Severe pulmonary hypertension. PLAN: I will check an EKG and a set of troponin this morning. No other cardiac workup on him. MMODL / IJN: [id number] /
[2024-10-26] MEDS: FUROSEMIDE 10 MG/ML 4 ML VIAL IV STA (09:08)
--- NOTE | 2024-10-26 09:30 | P.PN ---
Subjective Patient is seen in follow-up for hyponatremia. Oral intake fair. No vomiting or diarrhea. Sodium level improved to 129. Denies chest pain or shortness of breath. Vital signs are stable. General: No acute distress. HEENT: Head exam is unremarkable. On nasal cannula. LUNGS: No audible rhonchi or wheezes. HEART: Rate and Rhythm are regular. ABDOMEN: Obese, nontender. EXTREMITITES: Lower extremities wrapped. 1+ edema. Objective - Vital Signs Vital signs: Vital Signs Temp 102.4 F H 10/26/24 08:47 Pulse 82 10/26/24 08:47 Resp 14 10/26/24 08:47 BP 96/62 10/26/24 08:47 Pulse Ox 98 10/26/24 08:47 FiO2 Intake & Output 10/25/24 10/26/24 10/26/24 18:59 06:59 18:59 Intake Total 572 30 450 Balance 572 30 450 Intake: IV 30 Invasive Line 1 10 Invasive Line 3 20 Oral 572 450 Other: Voiding Method Toilet Toilet # Voids 1 - Labs CBC & Chem 7: 10/24/24 05:44 10/26/24 06:42 Labs: Abnormal Lab Results - Last 24 Hours (Table) 10/25/24 10/25/24 10/25/24 Range/Units 11:13 16:16 20:03 Sodium (137-145) mmol/L Chloride (98-107) mmol/L Glucose (74-99) mg/dL POC Glucose (mg/dL) 189 H 156 H 199 H (70-110) mg/dL Calcium (8.4-10.2) mg/dL Magnesium (1.6-2.3) mg/dL 10/26/24 10/26/24 Range/Units 06:12 06:42 Sodium 129 L (137-145) mmol/L Chloride 94 L (98-107) mmol/L Glucose 138 H (74-99) mg/dL POC Glucose (mg/dL) 151 H (70-110) mg/dL Calcium 7.9 L (8.4-10.2) mg/dL Magnesium 2.6 H (1.6-2.3) mg/dL Microbiology - Last 24 Hours (Table) 10/22/24 10:48 Blood Culture - Preliminary Blood 10/24/24 21:00 Gram Stain - Preliminary Buttock Wound Culture - Preliminary Enterococcus faecalis 10/24/24 09:05 Gram Stain - Preliminary Buttock Wound Culture - Preliminary 10/19/24 15:53 Blood Culture - Final Blood Assessment and Plan Plan: Assessment: 1. Hyponatremia. Slightly hypervolemic. Also on NSAIDs. Sodium level 129 today. TSH normal. Urine sodium 38 and urine osmolality 546. 2. Chemo induced anemia status post blood transfusions this admission. 3. Metastatic lung adenocarcinoma. Oncology following. 4. Benign hypertension. Blood pressure on the lower side. 5. Chronic diastolic CHF with severe pulmonary hypertension. 6. Volume overload. Plan: Maintain fluid restriction. Encouraged oral intake, particularly protein. Avoid NSAIDs. Status post Samsca given October 25, 2024. Lasix 40 mg IV once today. Repeat labs in the morning.
--- NOTE | 2024-10-26 10:38 | P.PN ---
Subjective Progress Note Date: 10/26/24 Principal diagnosis: Fever, NOS, on gemzar for met NSCLC In f/u today pt is reports no fever since just after midnight, he was started on new abx for bacteria grown from wound culture. He is eating and drinking, no N,V, cough, chest pain, he does have back/buttock pain that he has to position for. He is ambulating in room, took shower this AM. Wants to take a nap now. Objective - Vital Signs Vital signs: Vital Signs Temp 102.4 F H 10/26/24 08:47 Pulse 82 10/26/24 08:47 Resp 14 10/26/24 08:47 BP 96/62 10/26/24 08:47 Pulse Ox 98 10/26/24 08:47 FiO2 Intake & Output 10/25/24 10/26/24 10/26/24 18:59 06:59 18:59 Intake Total 572 30 450 Balance 572 30 450 Intake: IV 30 Invasive Line 1 10 Invasive Line 3 20 Oral 572 450 Other: Voiding Method Toilet Toilet # Voids 1 - Constitutional General appearance: Present: cooperative, no acute distress, obese - EENT Eyes: Present: anicteric sclerae, EOMI ENT: Present: hearing grossly normal - Respiratory Details: resp even and unlabored - Cardiovascular Details: skin warm, dry, well perfused - Peripheral edema leg Peripheral Edema: bilateral: None - Integumentary Integumentary: Present: normal - Neurologic Neurologic: Present: CNII-XII intact - Musculoskeletal Musculoskeletal: Present: strength equal bilaterally - Psychiatric Psychiatric: Present: A&O x's 3, appropriate affect, intact judgment & insight - Labs CBC & Chem 7: 10/24/24 05:44 10/26/24 06:42 Labs: Abnormal Lab Results - Last 24 Hours (Table) 10/25/24 10/25/24 10/25/24 Range/Units 11:13 16:16 20:03 Sodium (137-145) mmol/L Chloride (98-107) mmol/L Glucose (74-99) mg/dL POC Glucose (mg/dL) 189 H 156 H 199 H (70-110) mg/dL Calcium (8.4-10.2) mg/dL Magnesium (1.6-2.3) mg/dL 10/26/24 10/26/24 Range/Units 06:12 06:42 Sodium 129 L (137-145) mmol/L Chloride 94 L (98-107) mmol/L Glucose 138 H (74-99) mg/dL POC Glucose (mg/dL) 151 H (70-110) mg/dL Calcium 7.9 L (8.4-10.2) mg/dL Magnesium 2.6 H (1.6-2.3) mg/dL Microbiology - Last 24 Hours (Table) 10/24/24 09:05 Gram Stain - Preliminary Buttock Wound Culture - Preliminary Presumptive Staph aureus 10/22/24 10:48 Blood Culture - Preliminary Blood 10/24/24 21:00 Gram Stain - Preliminary Buttock Wound Culture - Preliminary Enterococcus faecalis Assessment and Plan (1) Fever Current Visit: Yes Status: Acute Priority: High Code(s): R50.9 - FEVER, UNSPECIFIED SNOMED Code(s): 063338244 (2) Anemia Current Visit: Yes Status: Acute Priority: Medium Code(s): D64.9 - ANEMIA, UNSPECIFIED SNOMED Code(s): 570427707 (3) Lung cancer Current Visit: Yes Status: Chronic Priority: Medium Code(s): C34.90 - MALIGNANT NEOPLASM OF UNSP PART OF UNSP BRONCHUS OR LUNG SNOMED Code(s): 970378604 Plan: Fever -Patient presented to clinic on 10/19 for f/u s/p chemo, and was reporting persisting fatigue and increasing shortness of breath and dizziness over the last 1 week, and significant weakness and could only walk short distances without having to sit down. Temperature was noted at 100.7. Denied URI sx, urinary symptoms, n/v/d, and abdominal pain. Of note, patient had CTA chest at [facility] on 10/05 which was negative for PE -Most recent fever today 102.4F about 830. Wound culture neg, abx modified late yesterday. Viral panel negative. -ID following. Chemo induced anemia, thrombocytopenia -Last CBC was , plt and WBC were normal, anemia persisted -Iron studies most consistent with anemia of inflammation, hemolysis work up neg. -Cytopenias 2/2 to chemo, prolonged/exacerbated by marrow fatigue in a heavily treated pt. -Stat CBC this am. If Hgb continues to drop, will consult GI for endoscopic evaluation -Transfuse for hgb less than 7 or if symptomatic. Metastatic lung adenocarcinoma -Oncology history as dictated in consult -Gemzar initiated 05/10/2024, last cycle, number 8, given on 10/12/24. Overall patient has been tolerating treatment well. -Fever can be a side effect of gemzar but would anticipate that side effect would have abated by now. Will follow hospital course. Treatment modifications not anticipated at this time but, final plans will be discussed once acute condition is treated adequately -Clinic f/u scheduled on 11/03/24 Doctor attests: I performed a history and physical examination of this patient, developed impression and plan of care. Discussed with dictator. I agree with dictators note, documented as a scribe.
[2024-10-26 11:28] LABS: Anisocytosis Slight; HCT 26.1 % (39.0-53.0); HGB 8.1 gm/dL (13.0-17.5); Hypochromasia Marked; MCH 29.1 pg (25.0-35.0); MCV 93.7 fL (80.0-100.0); Macrocytosis Slight; Platelet Count 267 k/uL (150-450); Poikilocytosis Moderate; RBC 2.79 m/uL (4.30-5.90); RDW 19.9 % (11.5-15.5)
[2024-10-26 11:56] LABS: Glucose,Whole Blood 152 mg/dL (70-110)
--- NOTE | 2024-10-26 12:12 | P.PN ---
Subjective Progress Note Date: 10/26/24 Principal diagnosis: Fever, unknown source This is a 59-year-old male patient with metastatic pulmonary adenocarcinoma, who has been receiving systemic chemotherapy and the patient was not Gemzar and his last treatment was on 10/12/2024. The patient was tolerating the systemic chemotherapy reasonably well. He is morbidly obese and has history of obstructive sleep apnea along with diabetes mellitus and hyperlipidemia. He is currently in the hospital as the patient was initially sent over from oncologist office because of a low hemoglobin of 5.9. The patient was also febrile. He was given a total of 2 U PRBC During this current hospitalization the patient's hemoglobin is currently up to 8.3. Nevertheless, he continues to have episodes of fever. Currently afebrile. Tmax over the past 24 hours was 102.3. No clear source of infection. The patient remains on a combination of cefepime and vancomycin. Note that his white cell count is not elevated. His white cell count is at 4. He has no DVTs in his lower extremities. CAT scan of the abdomen and pelvis was done and shows a chronic small right-sided pleural effusion. There is bony metastases throughout and there was no significant lymphadenopathy. Blood cultures have been negative. The patient has a Mediport that looks to be quite clean. No altered mentation. No skin rashes. No wounds or ulcers. As such, the source of the fever is not clear. ID is on the case. He is also experiencing some shortness of breath with mobility. Nevertheless, he is on room air oxygen. No cough sputum production chest tightness or wheezing. In terms of his lung cancer, the patient was diagnosed having pulm adenocarcinoma back in 2021. He has been followed up by Dr. Cat. He initially presented with 3 cm RLL lung mass,he had a PET scan on 06/16/2022 which revealed suspicious uptake in in central right lung lesion,measured 2.1 x 2.2 cm,he initially had navigational bronchoscopy which was not diagnostic,he ws referred to DR Hernandez at [facility],he had repeat CT scan of chest on 07/07/2022 which revealed 3 cm lesion in superior segment of RLL and several other small nodules in right lung which are new compared to prior CT scan done at [facility] in 06/2016. On 07/24/2022,he underwent RLL resection and biopsies of mediastinal nodes,pathology revealed adenocarcinoma spreading through alveolar spaces and invading lymphovascular channels (BERENICE),multifocal,right level 8,level 7,4R nodes were positive. Brain MRI on 08/08/2022 was negative. Caris did not reveal any targetable mutation. On 08/18/2022,PET scan revealed uptake in right hilar region,there was uptake in left second rib,had an MRI which revealed subtle area in rib without enhancement. On 08/26/2022,he started carbo/alimta with radiation,completed 4 cycles of chemo on 10/29/2022. Due to disease progression, patient has been on multiple treatment regimens. He started imfinzi on 12/25/2022. Taxotere/cyramza/zometa were held in December 2023, as patient developed ONJ. He started gemzar on 05/10/2024, most recently completing cycle 8 on 10/12/24, Patient was evaluated today on 10/23/2024, patient seems to be doing better today, continues to have low-grade fever his Tmax last night was 99.5. Hemodynamically stable on 2 L nasal cannula O2 sat is 98% patient seems to have less and less shortness of breath.WBC count is 5.2 hemoglobin is 8 sodium is 127 potassium 4.9 BUN is 19 creatinine 1.14 blood cultures and urine cultures remain negative so far. Seen today on 10/24/2024, patient is doing well, feeling better, yesterday's CT of the chest showed evidence of bilateral pleural effusions and the patient received 1 dose of Lasix yesterday and he received DuoNeb updraft treatment for his acute onset of shortness of breath, patient felt much better shortly after. Today is down to 125 his BUN is 18 creatinine 1.13, patient is now being seen by nephrology on consultation. I believe his hyponatremia is most likely secondary to SIADH considering his underlying malignancy/bronchogenic carcinoma Reevaluate today on 10/25/2024, patient is doing a bit better today however continues to have intermittent episodes of fevers, in spite of antibiotics patient continues to have febrile episodes. Patient had a Tmax of 102.6 yesterday, today's temp is 100.3 blood pressure 102/59 he is on 2 L nasal cannula with O2 saturation ranging between 91 up to 97% sodium is low at 126 CBC today is pending. Patient screening for viral infection was negative including influenza A influenza B RSV and COVID patient also had negative urinary Legionella antigen Patient was seen today on 10/26/2024, continues to have intermittent spiking of temperature, febrile, and I have a feeling that the patient may have an infected enterocutaneous fistula which was examined today, and I am recommending surgical evaluation for his fistula. Patient seems to have a deep open wound in the buttock area, this could very well be an enterocutaneous fistula.Pulmonary costa is feeling better breathing easier WBC count is 6.9 hemoglobin is 8.11 sodium 129 potassium 5.1 BUN is 14 creatinine 1.11 Objective - Vital Signs Vital signs: Vital Signs Temp 102.4 F H 10/26/24 08:47 Pulse 80 10/26/24 11:59 Resp 14 10/26/24 08:47 BP 96/62 10/26/24 08:47 Pulse Ox 98 10/26/24 08:47 FiO2 Intake & Output 10/25/24 10/26/24 10/26/24 18:59 06:59 18:59 Intake Total 572 30 450 Balance 572 30 450 Intake: IV 30 Invasive Line 1 10 Invasive Line 3 20 Oral 572 450 Other: Voiding Method Toilet Toilet # Voids 1 - Exam Physical exam: General: Reveals a 59-year-old white male in no distress extremely pleasant on 4 L nasal cannula with O2 sat of 98% Head normocephalic and atraumatic Neck supple no JVD no goiter, no neck masses, no stridor. Lungs symmetrical expansion, clear bilaterally no crackles rhonchi or wheezes Heart distant S1-S2, no S3 gallop, no murmur. \ Abdomen: Obese soft nontender no megaly no rebound Extremities 2+ edema bilaterally Neuro no gross focal deficit Psychiatric: Normal mood affect and no mental status examination Skin: No rashes however patient was noted to have a large deep wound noted in the right buttock area, suspicious for possible enterocutaneous fistula - Labs CBC & Chem 7: 10/26/24 06:42 10/26/24 06:42 Labs: Abnormal Lab Results - Last 24 Hours (Table) 10/25/24 10/25/24 10/26/24 Range/Units 16:16 20:03 06:12 RBC (4.30-5.90) m/uL Hgb (13.0-17.5) gm/dL Hct (39.0-53.0) % RDW (11.5-15.5) % Sodium (137-145) mmol/L Chloride (98-107) mmol/L Glucose (74-99) mg/dL POC Glucose (mg/dL) 156 H 199 H 151 H (70-110) mg/dL Calcium (8.4-10.2) mg/dL Magnesium (1.6-2.3) mg/dL 10/26/24 10/26/24 10/26/24 Range/Units 06:42 06:42 11:56 RBC 2.79 L (4.30-5.90) m/uL Hgb 8.1 L (13.0-17.5) gm/dL Hct 26.1 L (39.0-53.0) % RDW 19.9 H (11.5-15.5) % Sodium 129 L (137-145) mmol/L Chloride 94 L (98-107) mmol/L Glucose 138 H (74-99) mg/dL POC Glucose (mg/dL) 152 H (70-110) mg/dL Calcium 7.9 L (8.4-10.2) mg/dL Magnesium 2.6 H (1.6-2.3) mg/dL Microbiology - Last 24 Hours (Table) 10/24/24 09:05 Gram Stain - Preliminary Buttock Wound Culture - Preliminary Presumptive Staph aureus 10/22/24 10:48 Blood Culture - Preliminary Blood 10/24/24 21:00 Gram Stain - Preliminary Buttock Wound Culture - Preliminary Enterococcus faecalis Assessment and Plan Assessment: Pression: Fever,, etiology is not clear, being addressed by infectious disease on the case Shortness of breath, multifactorial, currently on room air oxygen. Fluid effusion on the right is small Pulm adenocarcinoma, stage IV, Chemotherapy-induced anemia the patient received a total of units of packed RBCs, hemoglobin stable for now. No leukocytosis. Morbid obesity with a BMI of 46.6 Obstructive sleep apnea on BiPAP Hypertension Hyperlipidemia Diabetes mellitus type 2 Peripheral neuropathy Hypothyroidism hyponatremia secondary to SIADH Buttocks wound possible enterocutaneous fistula will need surgical evaluation Recommendation: Continue present supportive care measures continue antibiotics as per ID on the case Continue Lovenox for DVT prophylaxis intermittently diurese the patient Surgical consultation for his buttock wound Continue present treatment plan. Not ready for discharge as long as the patient is spiking fevers. Nephrology is addressing his hyponatremia, and addressing his renal status will continue to Follow Time with Patient: Less than 30
[2024-10-26 12:16] LABS: Band Neutrophils % 7 %; Basophils # (M) 0.07 k/uL (0-0.2); Metamyelocytes # (M) 0.14 k/uL (0); Metamyelocytes % 2 %; Monocytes # (M) 0.82 k/uL (0-1.0); Myelocytes % 3 %; Neutrophils % (M) 52 %; Nucleated Red Blood Cells 2 /100 WBC (0-0); Total Cells Counted 200; WBC 6.8 k/uL (3.8-10.6)
[2024-10-26 12:19] LABS: Polychromasia Present
--- NOTE | 2024-10-26 13:05 | P.GSCN ---
History of Present Illness Consult date: 10/26/24 History of present illness: CHIEF COMPLAINT: Weakness HISTORY OF PRESENT ILLNESS: This is a 59-year-old male who presented the hospital October 19 with weakness. He was found to be anemic and required blood transfusion. The anemia was thought to be related to recent chemotherapy treatment. Patient on chemotherapy due to history of lung cancer. Last chemotherapy treatment was on . Patient has been having fever spikes Tmax of 102. Surgical service has been consulted for a possible enterocutaneous fistula. Patient does have a hole noted in the perineum area on the right side. Patient has tenderness in the area with palpation. He denies any drainage from that area he does not believe that any stool has come from that area. He does report some incontinence of stool. He denies any abdominal pain. And denies any rectal pain. He does have a history of diabetes. Patient reports his last colonoscopy was about 5 years ago and at that time was found to have hemorrhoids. Patient denies any prior abdominal surgeries. Denies any history of Crohn's disease. PAST MEDICAL HISTORY: See below PAST SURGICAL HISTORY: See below MEDICATIONS: See below ALLERGIES: See below SOCIAL HISTORY: No illicit drug use. REVIEW OF SYSTEMS: CONSTITUTIONAL: Denies fever or chills. HEENT: Denies blurred vision, vision changes, or eye pain. Denies hemoptysis CARDIOVASCULAR: Denies chest pain or pressure. RESPIRATORY: No shortness of breath. GASTROINTESTINAL: See HPI for pertinent findings HEMATOLOGIC: Denies bleeding disorders. GENITOURINARY: Denies any blood in urine or increased urinary frequency. SKIN: Denies pruitis. Denies rash. PHYSICAL EXAM: VITAL SIGNS: Reviewed GENERAL: Well-developed in no acute distress. HEENT: No sclera icterus. Extraocular movements grossly intact. Moist buccal mucosa. Head is atraumatic, normocephalic. No nasal drainage. ABDOMEN: Soft. Obese. Nondistended. Nontender Rectal exam: Distal to the anus in the perineal area on the right is a small hole with no drainage or erythema noted. Mild tenderness with palpation. NEUROLOGIC: Alert and oriented. Cranial nerves II through XII grossly intact. LABORATORY DATA: WBC 6.8 Hgb 8.1 platelets 267 Sodium 129 potassium 5.1 creatinine 1.11 Buttock wound culture Enterococcus faecalis and presumptive Staph aureus IMAGING: CT scan abdomen pelvis reports no acute abnormality in the abdomen/pelvis. Moderate right and small left pleural effusions. Extensive osseous metastatic disease throughout the axial and appendicular skeleton. Hepatosplenomegaly. ASSESSMENT: 1. Right perineal wound concerns for possible enterocutaneous fistula 2. History of lung cancer and recent chemotherapy 3. History of diabetes mellitus PLAN: -Further recommendations forthcoming per surgeon -Continue antibiotics Physician Job Training Specialist note has been reviewed by physician. Signing provider agrees with the documented findings, assessment, and plan of care. I have personally seen and examined the patient, reviewed the SYSTEMS PROGRAMMER /PAs history, exam and MDM and agree with the assessment and plan as written. Based on total visit time, I have performed more than 50% of the visit. As above: Patient with ongoing fevers despite his last chemotherapy being 2 to 3 weeks ago. Labs noted. His noticed a small wound on his right perianal location. On exam he has a wound there measuring about 8 x 7 mm in size with a depth of about 6 mm. Seems to track into the subcutaneous tissues about 1.5 cm and then is no longer palpable. There is minimal tenderness. There is no significant erythema. This does not necessarily seem to track towards the anal region. The perineum itself is free of abnormalities. CAT scan from the reviewed and shows no definite abnormalities there. Unfortunately patient is still having high fevers. Case was discussed with oncology. Will order CT pelvis with IV contrast to reassess that area. No definite surgical intervent ion planned at this time. Will follow. Continue antibiotics. Past Medical History Past Medical History: Cancer, Diabetes Mellitus, GERD/Reflux, Hyperlipidemia, Hypertension, Sleep Apnea/CPAP/BIPAP, Thyroid Disorder Additional Past Medical History / Comment(s): C PAP MACHINE , RECTAL BLEEDING. neuropathy History of Any Multi-Drug Resistant Organisms: None Reported Past Surgical History: No Surgical Hx Reported Additional Past Surgical History / Comment(s): colonoscopy 2014, THYROIDECTOMY Past Anesthesia/Blood Transfusion Reactions: No Reported Reaction Past Psychological History: No Psychological Hx Reported Smoking Status: Never smoker - Past Family History Father Family Medical History: Cancer Medications and Allergies Home Medications Medication Instructions Recorded Confirmed Type Gabapentin 600 mg PO QID 01/04/15 10/19/24 History Losartan Potassium [Cozaar] 100 mg PO DAILY 01/04/15 10/19/24 History Omeprazole 40 mg PO DAILY 01/04/15 10/19/24 History metFORMIN HCL [Glucophage] 1,000 mg PO BID 01/04/15 10/19/24 History Ascorbic Acid [Vitamin C] 1,000 mg PO DAILY 04/04/21 10/19/24 History Cyanocobalamin (Vitamin B-12) 1,000 mcg PO DAILY 04/04/21 10/19/24 History [Vitamin B-12] Empagliflozin [Jardiance] 25 mg PO DAILY 04/04/21 10/19/24 History Ergocalciferol [Vitamin D2 (1250 1,250 mcg PO CONTI 04/04/21 10/19/24 History Mcg = 61737 Iu)] Fenofibrate,Micronized 200 mg PO DAILY 04/04/21 10/19/24 History [Fenofibrate] Latanoprost/Pf [Latanoprost 0.005% 1 drop BOTH EYES HS 04/04/21 10/19/24 History Eye Drop] Levothyroxine Sodium [Synthroid] 200 mcg PO DAILY 04/04/21 10/19/24 History Olmesartan Medoxomil [Benicar] 40 mg PO DAILY 04/04/21 10/19/24 History Bethel-3 Fatty Acids/Fish Oil [Fish 1 cap PO DAILY 04/04/21 10/19/24 History Oil 1,000 mg Softgel] Rosuvastatin [Crestor] 20 mg PO DAILY 04/04/21 10/19/24 History Ubidecarenone [Co Q-10] 200 mg PO DAILY 04/04/21 10/19/24 History Zinc 50 mg PO DAILY 04/04/21 10/19/24 History carvediloL [Coreg] 25 mg PO BID 04/04/21 10/19/24 History Aspirin EC [Ecotrin Low Dose] 81 mg PO DIRECTED 10/19/24 10/19/24 History Cholecalciferol [Vitamin D3 (25 25 mcg PO DAILY 10/19/24 10/19/24 History Mcg = 1000 Iu)] Cyclobenzaprine [Flexeril] 10 mg PO Q8H PRN 10/19/24 10/19/24 History EPINEPHrine (Auto Inject) [Epipen] 0.3 mg IM ONCE PRN 10/19/24 10/19/24 History Folic Acid 1 mg PO DAILY 10/19/24 10/19/24 History Ibuprofen [Motrin] 800 mg PO Q8H PRN 10/19/24 10/19/24 History Levothyroxine Sodium [Synthroid] 50 mcg PO DAILY 10/19/24 10/19/24 History Magnesium Oxide [Magnesium] 500 mg PO DAILY 10/19/24 10/19/24 History Ondansetron Odt [Zofran Odt] 4 mg PO Q4H PRN 10/19/24 10/19/24 History Spironolactone [Aldactone] 25 mg PO DAILY 10/19/24 10/19/24 History oxyCODONE HCL [Oxycodone HCl] 10 mg PO Q4H 10/19/24 10/19/24 History Allergies Allergy/AdvReac Type Severity Reaction Status Date / Time peas Allergy Anaphylaxis Verified 10/19/24 13:51 Surgical - Exam Vital Signs Temp Pulse Resp BP Pulse Ox 100.3 F H 90 20 122/67 99 10/19/24 11:12 10/19/24 11:12 10/19/24 11:12 10/19/24 11:12 10/19/24 11:12 Results - Labs 10/26/24 06:42 10/26/24 06:42 Abnormal Lab Results - Last 24 Hours (Table) 10/25/24 10/25/24 10/26/24 Range/Units 16:16 20:03 06:12 RBC (4.30-5.90) m/uL Hgb (13.0-17.5) gm/dL Hct (39.0-53.0) % RDW (11.5-15.5) % Metamyelocytes # (Man) (0) k/uL Myelocytes # (Manual) (0) k/uL Nucleated RBCs (0-0) /100 WBC Sodium (137-145) mmol/L Chloride (98-107) mmol/L Glucose (74-99) mg/dL POC Glucose (mg/dL) 156 H 199 H 151 H (70-110) mg/dL Calcium (8.4-10.2) mg/dL Magnesium (1.6-2.3) mg/dL 10/26/24 10/26/24 10/26/24 Range/Units 06:42 06:42 11:56 RBC 2.79 L (4.30-5.90) m/uL Hgb 8.1 L (13.0-17.5) gm/dL Hct 26.1 L (39.0-53.0) % RDW 19.9 H (11.5-15.5) % Metamyelocytes # (Man) 0.14 H (0) k/uL Myelocytes # (Manual) 0.20 H (0) k/uL Nucleated RBCs 2 H (0-0) /100 WBC Sodium 129 L (137-145) mmol/L Chloride 94 L (98-107) mmol/L Glucose 138 H (74-99) mg/dL POC Glucose (mg/dL) 152 H (70-110) mg/dL Calcium 7.9 L (8.4-10.2) mg/dL Magnesium 2.6 H (1.6-2.3) mg/dL Microbiology - Last 24 Hours (Table) 10/24/24 09:05 Gram Stain - Preliminary Buttock Wound Culture - Preliminary Presumptive Staph aureus 10/22/24 10:48 Blood Culture - Preliminary Blood 10/24/24 21:00 Gram Stain - Preliminary Buttock Wound Culture - Preliminary Enterococcus faecalis Diabetes panel 10/26/24 Range/Units 06:42 Sodium 129 L (137-145) mmol/L Potassium 5.1 (3.5-5.1) mmol/L Chloride 94 L (98-107) mmol/L Carbon Dioxide 30 (22-30) mmol/L BUN 14 (9-20) mg/dL Creatinine 1.11 (0.66-1.25) mg/dL Glucose 138 H (74-99) mg/dL Calcium 7.9 L (8.4-10.2) mg/dL Calcium panel 10/26/24 Range/Units 06:42 Calcium 7.9 L (8.4-10.2) mg/dL Pituitary panel 10/26/24 Range/Units 06:42 Sodium 129 L (137-145) mmol/L Potassium 5.1 (3.5-5.1) mmol/L Chloride 94 L (98-107) mmol/L Carbon Dioxide 30 (22-30) mmol/L BUN 14 (9-20) mg/dL Creatinine 1.11 (0.66-1.25) mg/dL Glucose 138 H (74-99) mg/dL Calcium 7.9 L (8.4-10.2) mg/dL Adrenal panel 12/26/24 Range/Units 06:42 Sodium 129 L (137-145) mmol/L Potassium 5.1 (3.5-5.1) mmol/L Chloride 94 L (98-107) mmol/L Carbon Dioxide 30 (22-30) mmol/L BUN 14 (9-20) mg/dL Creatinine 1.11 (0.66-1.25) mg/dL Glucose 138 H (74-99) mg/dL Calcium 7.9 L (8.4-10.2) mg/dL
--- NOTE | 2024-10-26 14:47 | P.PN ---
Subjective Progress Note Date: 10/26/24 Ganga Smart, is a 59-year-old male patient of Dr. Garsia who presented to the ER after his oncologist discovered his hemoglobin low at 5.9. Patient has a history of metastatic lung cancer and has been receiving chemotherapy last cycle 1 week ago. Patient reports he's been on chemotherapy for approximately 2 years.patient has past medical history of diabetes, GERD, hyperlipidemia, hypertension, sleep apnea, thyroid disorder. Patient denies any nicotine use history.lab work completed showing hemoglobin 5.6. White blood cell 4.0. Sodium 129, creatinine 1.2, bun 19, lactic acid 2.8patient also noted to have a low-grade temp 100.5. Patient denies any recent sick contacts denies cough or shortness of breath. Patient denies nausea vomiting or diarrhea. Patient denies any burning with urination. At this time patient will be admitted oncology and infectious disease service is consulted. 2 units of PRBCs have been ordered. COVID-19 in influenza negative. Blood and urine and sputum cultures ordered. At this time patient is resting comfortably in bed. Patient denies any chest pain or shortness of breath. Patient denies nausea vomiting or diarrhea. Patient denies any urinary burning or frequency On 10/20/2024 patient is alert and oriented x 3. Patient was continuing to have fevers throughout the night. Patient was started on vancomycin and Maxipime per infectious disease. Patient received 2 units of PRBCs repeat hemoglobin 8.5. Patient denies chest pain or shortness of breath. Patient denies nausea vomiting or diarrhea. Patient denies any urinary burning or frequency On 10/21/2024 patient is alert and oriented x 3. Patient having some increased back discomfort. Patient still having elevated temps slightly improved. Patient remains on IV antibiotic. Hemoglobin remained stable at 8.3. Patient denies chest pain or shortness of breath. Patient denies nausea vomiting or diarrhea. Patient denies any urinary burning or frequency On 10/22/2024 patient was seen and examined on the telemetry floor, he is alert and oriented x 3 in no apparent distress, he is still having elevated temperature up to 102.3, CT scan of the chest revealed bilateral pleural effusio n, pulmonary consultation was added and patient was seen by Dr. Menezes, because of elevated temperature is still not entirely clear, repeat blood cultures and sputum culture and echocardiogram was ordered, patient is followed by infectious disease and is maintained on IV antibiotics. Will continue to follow closely On 10/23/2024 patient is alert and oriented x 3. Patient continued to having e levated temps 2D echo and CT chest with contrast has been ordered. Infectious disease, pulmonary and oncology services are all following patient denies chest pain. Patient does report some shortness of breath. Patient denies nausea vomiting or diarrhea. Patient denies any urinary burning or frequency on 10/24/2024 patient is alert and oriented x 3. Patient still having elevated temps. CT of chest has been completed. awaiting 2 decho. at this time patient is still complaining of some shortnes of breath. Denies chest pain. denies nausea vomiting or diarrhea. Denies any urinary burning or frequency. oncology, infectious disease, and pulmonary services following. remains on Iv zosyn 10/25. Patient seen and examined. States he feels very lethargic and weak. 10/26. Patient seen and examined. Blood work done showed sodium 129, potassium 5.1, CO2 30, anion gap 5, BUN 14, creatinine 1.11. Patient fever overnight of 102. 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 PULMONARY: No shortness of breath, no cough, GASTROINTESTINAL: No diarrhea, no nausea, no vomiting, no abdominal pain. NEUROLOGICAL: No headaches, no weakness, PHYSICAL EXAMINATION: GENERAL: The patient is alert and oriented x3, ill looking HEENT: Pupils are round and equally reacting to light. EOMI. No scleral icterus. No conjunctival pallor. Normocephalic, atraumatic. No pharyngeal erythema. No thyromegaly. CARDIOVASCULAR: S1 and S2 present. No murmurs, rubs, or gallops. PULMONARY: Chest is clear to auscultation, no wheezing or crackles. ABDOMEN: Soft, nontender, nondistended, normoactive bowel sounds. No palpable organomegaly. MUSCULOSKELETAL: No joint swelling or deformity. EXTREMITIES: No cyanosis, clubbing, or pedal edema. NEUROLOGICAL: Gross neurological examination did not reveal any focal deficits. SKIN: No rashes. Assessment and plan Anemia likely secondary to chemotherapy History of metastatic lung cancer patient follows with oncology services last chemotherapy one week ago Fever of unknown origin Hyponatremia, correcting with IV fluid History of diabetes mellitus History of hyperlipidemia History of essential hypertension History of hypothyroidism History of sleep apnea Monitor vital signs Monitor CBC Monitor CMP Follow-up on blood cultures Follow-up on wound cultures Aggressive bronchopulmonary hygiene encourage use of I-S Maintain fluid restriction. Avoid NSAIDs. Added daptomycin, continue IV Zosyn and Diflucan Nephrology following ID following oncology following Surgery consulted for enterocutaneous fistula Labs and medication were reviewed.. Continue same treatment. Continue with symptomatic treatment. Resume home medication. Monitor labs and vitals. DVT and GI prophylaxis. Further recommendations as per clinical course of the patient Dictation was produced using [employer] dictation software. please excuse any grammatical, word or spelling errors. Objective - Vital Signs Vital signs: Vital Signs Temp 102.4 F H 10/26/24 08:47 Pulse 82 10/26/24 08:47 Resp 14 10/26/24 08:47 BP 96/62 10/26/24 08:47 Pulse Ox 98 10/26/24 08:47 FiO2 Intake & Output 10/25/24 10/26/24 10/26/24 18:59 06:59 18:59 Intake Total 572 30 450 Balance 572 30 450 Intake: IV 30 Invasive Line 1 10 Invasive Line 3 20 Oral 572 450 Other: Voiding Method Toilet Toilet # Voids 1 - Labs CBC & Chem 7: 10/26/24 06:42 10/26/24 06:42 Labs: Abnormal Lab Results - Last 24 Hours (Table) 10/25/24 10/25/24 10/25/24 Range/Units 11:13 16:16 20:03 Sodium (137-145) mmol/L Chloride (98-107) mmol/L Glucose (74-99) mg/dL POC Glucose (mg/dL) 189 H 156 H 199 H (70-110) mg/dL Calcium (8.4-10.2) mg/dL Magnesium (1.6-2.3) mg/dL 10/26/24 10/26/24 Range/Units 06:12 06:42 Sodium 129 L (137-145) mmol/L Chloride 94 L (98-107) mmol/L Glucose 138 H (74-99) mg/dL POC Glucose (mg/dL) 151 H (70-110) mg/dL Calcium 7.9 L (8.4-10.2) mg/dL Magnesium 2.6 H (1.6-2.3) mg/dL Microbiology - Last 24 Hours (Table) 10/24/24 09:05 Gram Stain - Preliminary Buttock Wound Culture - Preliminary Presumptive Staph aureus 10/22/24 10:48 Blood Culture - Preliminary Blood 10/24/24 21:00 Gram Stain - Preliminary Buttock Wound Culture - Preliminary Enterococcus faecalis
--- NOTE | 2024-10-26 14:55 | P.PN ---
Subjective Progress Note Date: 10/26/24 Principal diagnosis: Reason for follow-up is fever Patient is a 59-year-old male with a past medical history significant for diabetes mellitus hypertension hyperlipidemia reflux sleep apnea, patient also have metastatic adenocarcinoma of the lung on chemotherapy presenting to the hospital from oncology office concerning for weakness anemia and fever with initial workup negative. On today's evaluation that is 10/26/2024,the patient did have a temperature of 102.4 F this morning however the patient mention feeling slightly better as for his fever pattern he denies having any chest pain did have a cough but not bringing any sputum no nausea vomiting abdominal pain or diarrhea. Patient white count 6.8 creatinine 1.11 culture from the perirectal wound area is growing Staph aureus and Enterococcus faecalis Objective - Vital Signs Vital signs: Vital Signs Temp 102.4 F H 10/26/24 08:47 Pulse 82 10/26/24 08:47 Resp 14 10/26/24 08:47 BP 96/62 10/26/24 08:47 Pulse Ox 98 10/26/24 08:47 FiO2 Intake & Output 10/25/24 10/26/24 10/26/24 18:59 06:59 18:59 Intake Total 572 30 450 Balance 572 30 450 Intake: IV 30 Invasive Line 1 10 Invasive Line 3 20 Oral 572 450 Other: Voiding Method Toilet Toilet # Voids 1 - Exam GENERAL DESCRIPTION: Middle-age male up in the chair in no distress RESPIRATORY SYSTEM: Unlabored breathing , decreased breath sounds at bases HEART: S1 S2 regular rate and rhythm , ABDOMEN: Soft , no tenderness patient did have a wound to the right perirectal area but no purulent drainage no significant redness was noticed EXTREMITIES: No edema feet - Labs CBC & Chem 7: 10/26/24 06:42 10/26/24 06:42 Labs: Abnormal Lab Results - Last 24 Hours (Table) 10/25/24 10/25/24 10/25/24 Range/Units 11:13 16:16 20:03 Sodium (137-145) mmol/L Chloride (98-107) mmol/L Glucose (74-99) mg/dL POC Glucose (mg/dL) 189 H 156 H 199 H (70-110) mg/dL Calcium (8.4-10.2) mg/dL Magnesium (1.6-2.3) mg/dL 10/26/24 10/26/24 Range/Units 06:12 06:42 Sodium 129 L (137-145) mmol/L Chloride 94 L (98-107) mmol/L Glucose 138 H (74-99) mg/dL POC Glucose (mg/dL) 151 H (70-110) mg/dL Calcium 7.9 L (8.4-10.2) mg/dL Magnesium 2.6 H (1.6-2.3) mg/dL Microbiology - Last 24 Hours (Table) 10/24/24 09:05 Gram Stain - Preliminary Buttock Wound Culture - Preliminary Presumptive Staph aureus 10/22/24 10:48 Blood Culture - Preliminary Blood 10/24/24 21:00 Gram Stain - Preliminary Buttock Wound Culture - Preliminary Enterococcus faecalis Assessment and Plan (1) Fever Current Visit: Yes Status: Acute Priority: High Code(s): R50.9 - FEVER, UNSPECIFIED SNOMED Code(s): 556511402 Plan: 1patient presented to the hospital with low hemoglobin patient to have a history of metastatic lung cancer and is currently getting chemotherapy last chemo has been about a week ago before presentation to the hospital, patient is not neutropenic, initial workup so far negative with a question of possibly related to the port patient did have a negative lower extremity Doppler and bloo d cultures are currently pending 2 repeat COVID-19 and influenza PCR came back negative, CT abdominal pelvis with oral contrast only did not show any acute abnormality, patient did have a mildly elevated procalcitonin concern for possible pneumonia CT has been ordered results will be followed 3-patient did have persistent fever which is slightly concerning, noticed to have a wound to the perirectal area culture CT was reviewed with radiologist Dr. Tran and there is no evidence of any abscess, patient is covered with Zosyn local culture now growing Enterococcus and Staph aureus daptomycin has been added to antibiotic regimen see response surgery has been consulted Dictation was produced using [employer] dictation software. please excuse any grammatical, word or spelling errors. Time with Patient: Less than 30
[2024-10-26 16:45] LABS: Glucose,Whole Blood 161 mg/dL (70-110)
--- NOTE | 2024-10-26 18:18 | CDI ---
Documentation Clarification Form Date: 10/23/2024 12:23:00 PM From: Keely Spangler RN, CCDS Phone: [phone] Admit Date: 10/19/2024 02:26:00 PM Patient Name: Ganga Smart Visit Number: [id number] Discharge Date: ATTENTION: The Clinical Documentation Specialists (CDI) and [facility] Coding Staff appreciate your assistance in clarifying documentation. Please respond to the clarification below the line at the bottom and electronically sign. The CDI & [facility] Coding staff will review the response and follow-up if needed. Please note: Queries are made part of the Legal Health Record. If you have any questions, please contact the author of this message via ITS. Doctor. Edgardo Jauregui The patient has documentation of anemia, weakness and fever on chemotherapy for metastatic adenocarcinoma of the lung Based on this information and the findings below, is there an additional diagnosis that is clinically appropriate for this patient? History/Risk Factors: Cancer, Diabetes Mellitus, GERD/Reflux, Hyperlipidemia, Hypertension, Thyroid Disorder Sleep Apnea/CPAP/BIPAP, Clinical Indicators: 59-year-old male with history of stage IV lung cancer present with weakness anemia, fever. Last chemo one week ago. WBC 4.0, 3.4, 4.0 Lactic acid: 1.6 C-reactive protein 3.9 10/19 Procalcitonin 0.42, (10/22) 0.68, 10/19 Blood cultures: Negative to date 10/19 Vital signs: 122/67 90 20 100.3, 112/66 94 17 102.4 Treatment: Cardiac Telemetry monitoring Vancomycin HCl 2,500 MG IVPB Once then Q 16 HRS (PTH) 10/19- 10/21 .9NS IV 500 ML Bolus Cefepime HCl 2 GM IVPB Q HRS 10/19-10/22 Zosyn 3375 GM IVPB Q 8 HRS Is there an additional diagnosis that is clinically appropriate for this patient? [ x ] Sepsis, present on admission, Etiology perirectal/right buttock wound; Wound culture Preliminary Enterococcus faecalis [ ] No additional diagnosis/not clinically significant [ ] Other, please specify [ ] Unable to determine SIRS Criteria: 2 or more of the following may indicate SIRS Temperature < 96.8F (36C) or > 101.0F (38.3C) Heart Rate > 90 bpm Respiratory Rate > 20 breaths/min or PaCO2 < 32 mmHg White Blood Cell Count > 12,000 or < 4,000 cells/mm3 or > 10% bands (Template Last Reviewed: November 2022) [facility]
[2024-10-26 20:18] LABS: Glucose,Whole Blood 152 mg/dL (70-110)
[2024-10-27] MEDS: CYCLOBENZAPRINE 10 MG TAB PO PRN (00:58)
[2024-10-27 06:23] LABS: Glucose,Whole Blood 159 mg/dL (70-110)
[2024-10-27 07:28] LABS: African American GFR (CKD) 80 (>60 ml/min/1.73 sqM); Anion Gap 6 mmol/L; Blood Urea Nitrogen 15 mg/dL (9-20); Calcium 7.9 mg/dL (8.4-10.2); Carbon Dioxide 30 mmol/L (22-30); Chloride 95 mmol/L (98-107); Glucose 139 mg/dL (74-99); Magnesium 2.8 mg/dL (1.6-2.3); Non-African American GFR(CKD) 69 (>60 ml/min/1.73 sqM); Sodium 131 mmol/L (137-145)
--- NOTE | 2024-10-27 09:50 | P.PN ---
Subjective Patient is seen in follow-up for hyponatremia. Oral intake fair. No vomiting or diarrhea. Sodium level improved to 131. Denies chest pain or shortness of breath. Vital signs are stable. General: No acute distress. HEENT: Head exam is unremarkable. On nasal cannula. LUNGS: No audible rhonchi or wheezes. HEART: Rate and Rhythm are regular. ABDOMEN: Obese, nontender. EXTREMITITES: 1+ edema. Objective - Vital Signs Vital signs: Vital Signs Temp 99.5 F 10/27/24 08:00 Pulse 86 10/27/24 08:31 Resp 14 10/27/24 08:00 BP 100/62 10/27/24 08:00 Pulse Ox 97 10/27/24 08:23 FiO2 Intake & Output 10/26/24 10/27/24 10/27/24 18:59 06:59 18:59 Intake Total 1610 737 236 Output Total 651 Balance 1610 86 236 Weight 168.5 kg 171.5 kg Intake: Oral 1610 737 236 Output: Urine 651 Stool 0 Other: Voiding Method Toilet Toilet # Bowel Movements 0 - Labs CBC & Chem 7: 10/26/24 06:42 10/27/24 06:27 Labs: Abnormal Lab Results - Last 24 Hours (Table) 10/26/24 10/26/24 10/26/24 Range/Units 06:42 11:56 16:43 RBC 2.79 L (4.30-5.90) m/uL Hgb 8.1 L (13.0-17.5) gm/dL Hct 26.1 L (39.0-53.0) % RDW 19.9 H (11.5-15.5) % Metamyelocytes # (Man) 0.14 H (0) k/uL Myelocytes # (Manual) 0.20 H (0) k/uL Nucleated RBCs 2 H (0-0) /100 WBC Sodium (137-145) mmol/L Chloride (98-107) mmol/L Glucose (74-99) mg/dL POC Glucose (mg/dL) 152 H 161 H (70-110) mg/dL Calcium (8.4-10.2) mg/dL Magnesium (1.6-2.3) mg/dL 12/26/24 12/27/24 12/27/24 Range/Units 20:11 06:22 06:27 RBC (4.30-5.90) m/uL Hgb (13.0-17.5) gm/dL Hct (39.0-53.0) % RDW (11.5-15.5) % Metamyelocytes # (Man) (0) k/uL Myelocytes # (Manual) (0) k/uL Nucleated RBCs (0-0) /100 WBC Sodium 131 L (137-145) mmol/L Chloride 95 L (98-107) mmol/L Glucose 139 H (74-99) mg/dL POC Glucose (mg/dL) 152 H 159 H (70-110) mg/dL Calcium 7.9 L (8.4-10.2) mg/dL Magnesium 2.8 H (1.6-2.3) mg/dL Microbiology - Last 24 Hours (Table) 10/24/24 21:00 Anaerobic Culture - Preliminary Buttock Anaerobic Gm Negative Bacilli Anaerobic Gm Negative Bacilli#2 10/24/24 21:00 Gram Stain - Preliminary Buttock Wound Culture - Preliminary Enterococcus faecalis Lynsey albicans Escherichia coli 10/24/24 09:05 Anaerobic Culture - Preliminary Buttock Prevotella species Prevotella disiens Parabacteroides distasonis 10/24/24 09:05 Gram Stain - Preliminary Buttock Wound Culture - Preliminary Presumptive Staph aureus Assessment and Plan Plan: Assessment: 1. Hyponatremia. Slightly hypervolemic. Also on NSAIDs. Sodium level 131 today. TSH normal. Urine sodium 38 and urine osmolality 546. 2. Chemo induced anemia status post blood transfusions this admission. 3. Metastatic lung adenocarcinoma. Oncology following. 4. Benign hypertension. Blood pressure on the lower side. 5. Chronic diastolic CHF with severe pulmonary hypertension. 6. Volume overload. 7. Perirectal wound on antibiotics. Infectious disease following. 8. Hypermagnesemia secondary to magnesium supplementation. Plan: Maintain fluid restriction. Encouraged oral intake, particularly protein. Avoid NSAIDs. Status post Samsca given October 25, 2024. Add IV Lasix 40 mg once daily. Repeat labs in the morning. Stop magnesium oxide and magnesium hydroxide for now.
--- NOTE | 2024-10-27 11:00 | CT ---
CT pelvis with contrast HISTORY: Right perianal wound in ongoing fevers. History of lung cancer. COMPARISON: CT chest, abdomen and pelvis dated 03/17/2024. TECHNIQUE: Multiple axial images were obtained to the pelvis following uneventful administration of n onionic IV contrast material. The visualized bowel loops are normal. Visualized kidneys are unremarkable. No pelvic mass, free fluid, abscess or adenopathy. There are multiple sclerotic densities throughout the lower lumbar spine, pelvis and hips consistent with metastatic osseous disease. There are no pathological fractures. IMPRESSION: 1.Diffuse metastatic lesions in the visualized osseous structures without pathologic fracture. 2. No other significant abnormality seen within the pelvis. There is no perianal abscess or pelvic ad enopathy. [facility], Workstation: DAVID 10/27/2024 10:58 AM
[2024-10-27] MEDS: FUROSEMIDE 10 MG/ML 4 ML VIAL IV SCH (11:06)
[2024-10-27] MEDS: DEXAMETHASONE SOD PHOSPHATE 10 MG/ML 1 ML VIAL IVP STA (11:18)
[2024-10-27 11:32] LABS: Glucose,Whole Blood 184 mg/dL (70-110)
--- NOTE | 2024-10-27 11:34 | P.PN ---
Subjective Progress Note Date: 10/27/24 SURGICAL PROGRESS NOTE CHIEF COMPLAINT: Weakness HISTORY OF PRESENT ILLNESS: Surgical service following regards to right peroneal wound. Patient reports no drainage from the wound. CT of the pelvis reports no significant abnormality seen in the pelvis. No perianal abscess or pelvic adenopathy. Patient with fever during the night. WBC 6.8 PHYSICAL EXAM: VITAL SIGNS: Reviewed. GENERAL: Well-developed in no acute distress. ABDOMEN: Soft. Nondistended. Nontender. NEUROLOGIC: Alert and oriented. Cranial nerves II through XII grossly intact. ASSESSMENT: 1. Right perineal wound. CT scan of pelvis showed no significant abnormality. Wound is likely more superficial. 2. History of lung cancer and recent chemotherapy 3. History of diabetes mellitus PLAN: -No surgical intervention planned -Continue antibiotics Physician Dining Service Supervisor note has been reviewed by physician. Signing provider agrees with the documented findings, assessment, and plan of care. I have personally seen and examined the patient, reviewed the DIE CASTING MACHINE OPERATOR /PAs history, exam and MDM and agree with the assessment and plan as written. Based on total visit time, I have performed more than 50% of the visit. As above: Patient had a repeat CAT scan performed of the pelvis. No visible wound or abscess seen on the study. Appears to be superficial in nature. Continue antibiotics. Will monitor perianal wound. Await finalization of cultures from blood. Objective - Vital Signs Vital signs: Vital Signs Temp 99 F 10/27/24 11:20 Pulse 87 10/27/24 11:20 Resp 16 10/27/24 11:20 BP 114/70 10/27/24 11:20 Pulse Ox 96 10/27/24 11:20 FiO2 Intake & Output 10/26/24 10/27/24 10/27/24 18:59 06:59 18:59 Intake Total 1610 737 236 Output Total 651 Balance 1610 86 236 Weight 168.5 kg 171.5 kg Intake: Oral 1610 737 236 Output: Urine 651 Stool 0 Other: Voiding Method Toilet Toilet # Bowel Movements 0 - Labs CBC & Chem 7: 10/26/24 06:42 10/27/24 06:27 Labs: Abnormal Lab Results - Last 24 Hours (Table) 10/26/24 10/26/24 10/26/24 Range/Units 06:42 11:56 16:43 RBC 2.79 L (4.30-5.90) m/uL Hgb 8.1 L (13.0-17.5) gm/dL Hct 26.1 L (39.0-53.0) % RDW 19.9 H (11.5-15.5) % Metamyelocytes # (Man) 0.14 H (0) k/uL Myelocytes # (Manual) 0.20 H (0) k/uL Nucleated RBCs 2 H (0-0) /100 WBC Sodium (137-145) mmol/L Chloride (98-107) mmol/L Glucose (74-99) mg/dL POC Glucose (mg/dL) 152 H 161 H (70-110) mg/dL Calcium (8.4-10.2) mg/dL Magnesium (1.6-2.3) mg/dL 10/26/24 10/27/24 10/27/24 Range/Units 20:11 06:22 06:27 RBC (4.30-5.90) m/uL Hgb (13.0-17.5) gm/dL Hct (39.0-53.0) % RDW (11.5-15.5) % Metamyelocytes # (Man) (0) k/uL Myelocytes # (Manual) (0) k/uL Nucleated RBCs (0-0) /100 WBC Sodium 131 L (137-145) mmol/L Chloride 95 L (98-107) mmol/L Glucose 139 H (74-99) mg/dL POC Glucose (mg/dL) 152 H 159 H (70-110) mg/dL Calcium 7.9 L (8.4-10.2) mg/dL Magnesium 2.8 H (1.6-2.3) mg/dL Microbiology - Last 24 Hours (Table) 10/24/24 09:05 Gram Stain - Final Buttock Wound Culture - Final Staphylococcus aureus 10/24/24 21:00 Anaerobic Culture - Preliminary Buttock Anaerobic Gm Negative Bacilli Anaerobic Gm Negative Bacilli#2 10/24/24 21:00 Gram Stain - Preliminary Buttock Wound Culture - Preliminary Enterococcus faecalis Lynsey albicans Escherichia coli 10/24/24 09:05 Anaerobic Culture - Preliminary Buttock Prevotella species Prevotella disiens Parabacteroides distasonis
--- NOTE | 2024-10-27 11:41 | XR ---
EXAMINATION TYPE: XR chest 1V DATE OF EXAM: 10/27/2024 COMPARISON: 10/19/2024 CLINICAL INDICATION: Male, 59 years old with history of Shortness of breath; , TECHNIQUE: XR chest 1V views of the chest. FINDINGS: A Mediport catheter stable. Heart size unchanged. There is left lower lobe infiltrate and interstitia l pattern. No sizable pneumothorax. A trace amount of pleural fluid not excluded. Osseous structures stable. IMPRESSION: 1. New left lower lobe infiltrate. Correlate for pneumonia. 2. Coarsening of interstitium could be superimposed pneumonitis relate clinically to exclude venous c ongestion. [facility], , 10/27/2024 11:39 AM
--- NOTE | 2024-10-27 12:53 | P.PN ---
Subjective Progress Note Date: 10/27/24 Principal diagnosis: Fever, unknown source This is a 59-year-old male patient with metastatic pulmonary adenocarcinoma, who has been receiving systemic chemotherapy and the patient was not Gemzar and his last treatment was on 10/12/2024. The patient was tolerating the systemic chemotherapy reasonably well. He is morbidly obese and has history of obstructive sleep apnea along with diabetes mellitus and hyperlipidemia. He is currently in the hospital as the patient was initially sent over from oncologist office because of a low hemoglobin of 5.9. The patient was also febrile. He was given a total of 2 U PRBC During this current hospitalization the patient's hemoglobin is currently up to 8.3. Nevertheless, he continues to have episodes of fever. Currently afebrile. Tmax over the past 24 hours was 102.3. No clear source of infection. The patient remains on a combination of cefepime and vancomycin. Note that his white cell count is not elevated. His white cell count is at 4. He has no DVTs in his lower extremities. CAT scan of the abdomen and pelvis was done and shows a chronic small right-sided pleural effusion. There is bony metastases throughout and there was no significant lymphadenopathy. Blood cultures have been negative. The patient has a Mediport that looks to be quite clean. No altered mentation. No skin rashes. No wounds or ulcers. As such, the source of the fever is not clear. ID is on the case. He is also experiencing some shortness of breath with mobility. Nevertheless, he is on room air oxygen. No cough sputum production chest tightness or wheezing. In terms of his lung cancer, the patient was diagnosed having pulm adenocarcinoma back in 2021. He has been followed up by Dr. Cat. He initially presented with 3 cm RLL lung mass,he had a PET scan on 06/16/2022 which revealed suspicious uptake in in central right lung lesion,measured 2.1 x 2.2 cm,he initially had navigational bronchoscopy which was not diagnostic,he ws referred to DR Hernandez at [facility],he had repeat CT scan of chest on 07/07/2022 which revealed 3 cm lesion in superior segment of RLL and several other small nodules in right lung which are new compared to prior CT scan done at [facility] in 06/2016. On 07/24/2022,he underwent RLL resection and biopsies of mediastinal nodes,pathology revealed adenocarcinoma spreading through alveolar spaces and invading lymphovascular channels (BERENICE),multifocal,right level 8,level 7,4R nodes were positive. Brain MRI on 08/08/2022 was negative. Caris did not reveal any targetable mutation. On 08/18/2022,PET scan revealed uptake in right hilar region,there was uptake in left second rib,had an MRI which revealed subtle area in rib without enhancement. On 08/26/2022,he started carbo/alimta with radiation,completed 4 cycles of chemo on 10/29/2022. Due to disease progression, patient has been on multiple treatment regimens. He started imfinzi on 12/25/2022. Taxotere/cyramza/zometa were held in December 2023, as patient developed ONJ. He started gemzar on 05/10/2024, most recently completing cycle 8 on 10/12/24, Patient was evaluated today on 10/23/2024, patient seems to be doing better today, continues to have low-grade fever his Tmax last night was 99.5. Hemodynamically stable on 2 L nasal cannula O2 sat is 98% patient seems to have less and less shortness of breath.WBC count is 5.2 hemoglobin is 8 sodium is 127 potassium 4.9 BUN is 19 creatinine 1.14 blood cultures and urine cultures remain negative so far. Seen today on 10/24/2024, patient is doing well, feeling better, yesterday's CT of the chest showed evidence of bilateral pleural effusions and the patient received 1 dose of Lasix yesterday and he received DuoNeb updraft treatment for his acute onset of shortness of breath, patient felt much better shortly after. Today is down to 125 his BUN is 18 creatinine 1.13, patient is now being seen by nephrology on consultation. I believe his hyponatremia is most likely secondary to SIADH considering his underlying malignancy/bronchogenic carcinoma Reevaluate today on 10/25/2024, patient is doing a bit better today however continues to have intermittent episodes of fevers, in spite of antibiotics patient continues to have febrile episodes. Patient had a Tmax of 102.6 yesterday, today's temp is 100.3 blood pressure 102/59 he is on 2 L nasal cannula with O2 saturation ranging between 91 up to 97% sodium is low at 126 CBC today is pending. Patient screening for viral infection was negative including influenza A influenza B RSV and COVID patient also had negative urinary Legionella antigen Patient was seen today on 10/26/2024, continues to have intermittent spiking of temperature, febrile, and I have a feeling that the patient may have an infected enterocutaneous fistula which was examined today, and I am recommending surgical evaluation for his fistula. Patient seems to have a deep open wound in the buttock area, this could very well be an enterocutaneous fistula.Pulmonary costa is feeling better breathing easier WBC count is 6.9 hemoglobin is 8.11 sodium 129 potassium 5.1 BUN is 14 creatinine 1.11 Seen today on 10/27/2024, patient continues to have low-grade fever, he had a Tmax of 99 last night, remains on antibiotics empirically, CT of the pelvis failed to show abscess or enterocutaneous fistula. Patient is feeling better today, breathing easier. CT of the chest and chest x-ray showed mostly atelectasis, strongly doubt pneumonia. Objective - Vital Signs Vital signs: Vital Signs Temp 99 F 10/27/24 11:20 Pulse 88 10/27/24 11:49 Resp 16 10/27/24 11:20 BP 114/70 10/27/24 11:20 Pulse Ox 96 10/27/24 11:20 FiO2 Intake & Output 10/26/24 10/27/24 10/27/24 18:59 06:59 18:59 Intake Total 1610 737 236 Output Total 651 400 Balance 1610 86 -164 Weight 168.5 kg 171.5 kg Intake: Oral 1610 737 236 Output: Urine 651 400 Stool 0 Other: Voiding Method Toilet Toilet # Bowel Movements 0 - Exam Physical exam: General: Reveals a 59-year-old white male in no distress extremely pleasant on 4 L nasal cannula with O2 sat 96% Head normocephalic and atraumatic Neck supple no JVD no goiter, no neck masses, no stridor. Lungs symmetrical expansion, clear bilaterally no crackles rhonchi or wheezes Heart distant S1-S2, no S3 gallop, no murmur. \ Abdomen: Obese soft nontender no megaly no rebound Extremities 2+ edema bilaterally Neuro no gross focal deficit Psychiatric: Normal mood affect and no mental status examination Skin: No rashes however patient was noted to have a large deep wound noted in the right buttock area, suspicious for possible enterocutaneous fistula - Labs CBC & Chem 7: 10/26/24 06:42 10/27/24 06:27 Labs: Abnormal Lab Results - Last 24 Hours (Table) 10/26/24 10/26/24 10/27/24 Range/Units 16:43 20:11 06:22 Sodium (137-145) mmol/L Chloride (98-107) mmol/L Glucose (74-99) mg/dL POC Glucose (mg/dL) 161 H 152 H 159 H (70-110) mg/dL Calcium (8.4-10.2) mg/dL Magnesium (1.6-2.3) mg/dL 10/27/24 10/27/24 Range/Units 06:27 11:30 Sodium 131 L (137-145) mmol/L Chloride 95 L (98-107) mmol/L Glucose 139 H (74-99) mg/dL POC Glucose (mg/dL) 184 H (70-110) mg/dL Calcium 7.9 L (8.4-10.2) mg/dL Magnesium 2.8 H (1.6-2.3) mg/dL Microbiology - Last 24 Hours (Table) 10/24/24 09:05 Gram Stain - Final Buttock Wound Culture - Final Staphylococcus aureus 10/24/24 21:00 Anaerobic Culture - Preliminary Buttock Anaerobic Gm Negative Bacilli Anaerobic Gm Negative Bacilli#2 10/24/24 21:00 Gram Stain - Preliminary Buttock Wound Culture - Preliminary Enterococcus faecalis Lynsey albicans Escherichia coli 10/24/24 09:05 Anaerobic Culture - Preliminary Buttock Prevotella species Prevotella disiens Parabacteroides distasonis Assessment and Plan Assessment: Pression: Fever,, etiology is not clear, being addressed by infectious disease on the case Shortness of breath, multifactorial, currently on room air oxygen. Fluid effusion on the right is small Pulm adenocarcinoma, stage IV, Chemotherapy-induced anemia the patient received a total of units of packed RBCs, hemoglobin stable for now. No leukocytosis. Morbid obesity with a BMI of 46.6 Obstructive sleep apnea on BiPAP Hypertension Hyperlipidemia Diabetes mellitus type 2 Peripheral neuropathy Hypothyroidism hyponatremia secondary to SIADH Buttocks wound possible enterocutaneous fistula will need surgical evaluation Recommendation: Continue present supportive care measures continue antibiotics as per ID on the case Continue Lovenox for DVT prophylaxis intermittently diurese the patient CT of the pelvis was reviewed, no evidence of abscess or enterocutaneous fistula Continue present treatment plan. Nephrology is addressing his electrolytes and renal status will continue to Follow Time with Patient: Less than 30
--- NOTE | 2024-10-27 14:31 | P.PN ---
Subjective Progress Note Date: 10/27/24 Ganga Smart, is a 59-year-old male patient of Dr. Garsia who presented to the ER after his oncologist discovered his hemoglobin low at 5.9. Patient has a history of metastatic lung cancer and has been receiving chemotherapy last cycle 1 week ago. Patient reports he's been on chemotherapy for approximately 2 years.patient has past medical history of diabetes, GERD, hyperlipidemia, hypertension, sleep apnea, thyroid disorder. Patient denies any nicotine use history.lab work completed showing hemoglobin 5.6. White blood cell 4.0. Sodium 129, creatinine 1.2, bun 19, lactic acid 2.8patient also noted to have a low-grade temp 100.5. Patient denies any recent sick contacts denies cough or shortness of breath. Patient denies nausea vomiting or diarrhea. Patient denies any burning with urination. At this time patient will be admitted oncology and infectious disease service is consulted. 2 units of PRBCs have been ordered. COVID-19 in influenza negative. Blood and urine and sputum cultures ordered. At this time patient is resting comfortably in bed. Patient denies any chest pain or shortness of breath. Patient denies nausea vomiting or diarrhea. Patient denies any urinary burning or frequency On 10/20/2024 patient is alert and oriented x 3. Patient was continuing to have fevers throughout the night. Patient was started on vancomycin and Maxipime per infectious disease. Patient received 2 units of PRBCs repeat hemoglobin 8.5. Patient denies chest pain or shortness of breath. Patient denies nausea vomiting or diarrhea. Patient denies any urinary burning or frequency On 10/21/2024 patient is alert and oriented x 3. Patient having some increased back discomfort. Patient still having elevated temps slightly improved. Patient remains on IV antibiotic. Hemoglobin remained stable at 8.3. Patient denies chest pain or shortness of breath. Patient denies nausea vomiting or diarrhea. Patient denies any urinary burning or frequency On 10/22/2024 patient was seen and examined on the telemetry floor, he is alert and oriented x 3 in no apparent distress, he is still having elevated temperature up to 102.3, CT scan of the chest revealed bilateral pleural effusio n, pulmonary consultation was added and patient was seen by Dr. Menezes, because of elevated temperature is still not entirely clear, repeat blood cultures and sputum culture and echocardiogram was ordered, patient is followed by infectious disease and is maintained on IV antibiotics. Will continue to follow closely On 10/23/2024 patient is alert and oriented x 3. Patient continued to having e levated temps 2D echo and CT chest with contrast has been ordered. Infectious disease, pulmonary and oncology services are all following patient denies chest pain. Patient does report some shortness of breath. Patient denies nausea vomiting or diarrhea. Patient denies any urinary burning or frequency on 10/24/2024 patient is alert and oriented x 3. Patient still having elevated temps. CT of chest has been completed. awaiting 2 decho. at this time patient is still complaining of some shortnes of breath. Denies chest pain. denies nausea vomiting or diarrhea. Denies any urinary burning or frequency. oncology, infectious disease, and pulmonary services following. remains on Iv zosyn 10/25. Patient seen and examined. States he feels very lethargic and weak. 10/26. Patient seen and examined. Blood work done showed sodium 129, potassium 5.1, CO2 30, anion gap 5, BUN 14, creatinine 1.11. Patient fever overnight of 102. 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 Patient seen and examined.complaining of shortness of breath. Currently on 4 L of oxygen, ordered chest x-ray encourage patient to use I-S REVIEW OF SYSTEMS: CONSTITUTIONAL: As mentioned above CARDIOVASCULAR: No chest pain, no palpitations, no syncope. PULMONARY: As mentioned above GASTROINTESTINAL: No diarrhea, no nausea, no vomiting, no abdominal pain. NEUROLOGICAL: No headaches, no weakness, PHYSICAL EXAMINATION: GENERAL: The patient is alert and oriented x3, ill looking HEENT: Pupils are round and equally reacting to light. EOMI. No scleral icterus. No conjunctival pallor. Normocephalic, atraumatic. No pharyngeal erythema. No thyromegaly. CARDIOVASCULAR: S1 and S2 present. No murmurs, rubs, or gallops. PULMONARY: Chest is clear to auscultation, no wheezing or crackles. ABDOMEN: Soft, nontender, nondistended, normoactive bowel sounds. No palpable organomegaly. MUSCULOSKELETAL: No joint swelling or deformity. EXTREMITIES: No cyanosis, clubbing, or pedal edema. NEUROLOGICAL: Gross neurological examination did not reveal any focal deficits. SKIN: No rashes. Assessment and plan Anemia likely secondary to chemotherapy History of metastatic lung cancer patient follows with oncology services last chemotherapy one week ago Right perineal wound, possible enterocutaneous fistula Fever of unknown origin Hyponatremia, correcting with IV fluid History of diabetes mellitus History of hyperlipidemia History of essential hypertension History of hypothyroidism History of sleep apnea Monitor vital signs Monitor CBC Monitor CMP Follow-up on blood cultures Follow-up on wound cultures Aggressive bronchopulmonary hygiene encourage use of I-S Maintain fluid restriction. Avoid NSAIDs. Continue daptomycin, continue IV Zosyn and Diflucan Nephrology following ID following oncology following Surgery consulted for enterocutaneous fistula, ordered CT pelvis with count Labs and medication were reviewed.. Continue same treatment. Continue with symptomatic treatment. Resume home medication. Monitor labs and vitals. DVT and GI prophylaxis. Further recommendations as per clinical course of the patient Dictation was produced using [employer] dictation software. please excuse any grammatical, word or spelling errors. Objective - Vital Signs Vital signs: Vital Signs Temp 99.5 F 10/27/24 08:00 Pulse 86 10/27/24 08:31 Resp 14 10/27/24 08:00 BP 100/62 10/27/24 08:00 Pulse Ox 97 10/27/24 08:23 FiO2 Intake & Output 10/26/24 10/27/24 10/27/24 18:59 06:59 18:59 Intake Total 1610 737 236 Output Total 651 Balance 1610 86 236 Weight 168.5 kg 171.5 kg Intake: Oral 1610 737 236 Output: Urine 651 Stool 0 Other: Voiding Method Toilet Toilet # Bowel Movements 0 - Labs CBC & Chem 7: 10/26/24 06:42 10/27/24 06:27 Labs: Abnormal Lab Results - Last 24 Hours (Table) 10/26/24 10/26/24 10/26/24 Range/Units 06:42 11:56 16:43 RBC 2.79 L (4.30-5.90) m/uL Hgb 8.1 L (13.0-17.5) gm/dL Hct 26.1 L (39.0-53.0) % RDW 19.9 H (11.5-15.5) % Metamyelocytes # (Man) 0.14 H (0) k/uL Myelocytes # (Manual) 0.20 H (0) k/uL Nucleated RBCs 2 H (0-0) /100 WBC Sodium (137-145) mmol/L Chloride (98-107) mmol/L Glucose (74-99) mg/dL POC Glucose (mg/dL) 152 H 161 H (70-110) mg/dL Calcium (8.4-10.2) mg/dL Magnesium (1.6-2.3) mg/dL 10/26/24 10/27/24 10/27/24 Range/Units 20:11 06:22 06:27 RBC (4.30-5.90) m/uL Hgb (13.0-17.5) gm/dL Hct (39.0-53.0) % RDW (11.5-15.5) % Metamyelocytes # (Man) (0) k/uL Myelocytes # (Manual) (0) k/uL Nucleated RBCs (0-0) /100 WBC Sodium 131 L (137-145) mmol/L Chloride 95 L (98-107) mmol/L Glucose 139 H (74-99) mg/dL POC Glucose (mg/dL) 152 H 159 H (70-110) mg/dL Calcium 7.9 L (8.4-10.2) mg/dL Magnesium 2.8 H (1.6-2.3) mg/dL Microbiology - Last 24 Hours (Table) 10/24/24 09:05 Gram Stain - Final Buttock Wound Culture - Final Staphylococcus aureus 10/24/24 21:00 Anaerobic Culture - Preliminary Buttock Anaerobic Gm Negative Bacilli Anaerobic Gm Negative Bacilli#2 10/24/24 21:00 Gram Stain - Preliminary Buttock Wound Culture - Preliminary Enterococcus faecalis Lynsey albicans Escherichia coli 10/24/24 09:05 Anaerobic Culture - Preliminary Buttock Prevotella species Prevotella disiens Parabacteroides distasonis
--- NOTE | 2024-10-27 14:51 | P.PN ---
Subjective Progress Note Date: 10/27/24 Reporting fatigue. Fever last night 101.9 Wound cultures showing multiple organisms. Abx have been adjusted, ID following. Hgb stable, 8.1, WBC 6.8 Objective - Vital Signs Vital signs: Vital Signs Temp 99 F 10/27/24 11:20 Pulse 88 10/27/24 11:49 Resp 16 10/27/24 11:20 BP 114/70 10/27/24 11:20 Pulse Ox 96 10/27/24 11:20 FiO2 Intake & Output 10/26/24 10/27/24 10/27/24 18:59 06:59 18:59 Intake Total 1610 737 236 Output Total 651 400 Balance 1610 86 -164 Weight 168.5 kg 171.5 kg Intake: Oral 1610 737 236 Output: Urine 651 400 Stool 0 Other: Voiding Method Toilet Toilet # Bowel Movements 0 - Constitutional General appearance: Present: average body habitus, no acute distress - EENT Eyes: Present: anicteric sclerae, EOMI ENT: Present: hearing grossly normal - Respiratory Respiratory: bilateral: CTA - Cardiovascular Rhythm: regular - Gastrointestinal General gastrointestinal: Present: soft. Absent: tenderness - Integumentary Integumentary: Present: pale. Absent: cyanotic - Musculoskeletal Musculoskeletal: Present: strength equal bilaterally - Psychiatric Psychiatric: Present: A&O x's 3 - Labs CBC & Chem 7: 10/26/24 06:42 10/27/24 06:27 Labs: Abnormal Lab Results - Last 24 Hours (Table) 10/26/24 10/26/24 10/27/24 Range/Units 16:43 20:11 06:22 Sodium (137-145) mmol/L Chloride (98-107) mmol/L Glucose (74-99) mg/dL POC Glucose (mg/dL) 161 H 152 H 159 H (70-110) mg/dL Calcium (8.4-10.2) mg/dL Magnesium (1.6-2.3) mg/dL 10/27/24 10/27/24 Range/Units 06:27 11:30 Sodium 131 L (137-145) mmol/L Chloride 95 L (98-107) mmol/L Glucose 139 H (74-99) mg/dL POC Glucose (mg/dL) 184 H (70-110) mg/dL Calcium 7.9 L (8.4-10.2) mg/dL Magnesium 2.8 H (1.6-2.3) mg/dL Microbiology - Last 24 Hours (Table) 10/24/24 09:05 Gram Stain - Final Buttock Wound Culture - Final Staphylococcus aureus 10/24/24 21:00 Anaerobic Culture - Preliminary Buttock Anaerobic Gm Negative Bacilli Anaerobic Gm Negative Bacilli#2 10/24/24 21:00 Gram Stain - Preliminary Buttock Wound Culture - Preliminary Enterococcus faecalis Lynsey albicans Escherichia coli 10/24/24 09:05 Anaerobic Culture - Preliminary Buttock Prevotella species Prevotella disiens Parabacteroides distasonis - Imaging and Cardiology Chest x-ray: report reviewed CT scan - abdomen: report reviewed CT scan - pelvis: report reviewed Assessment and Plan (1) Anemia Current Visit: Yes Status: Acute Priority: Medium Code(s): D64.9 - ANEMIA, UNSPECIFIED SNOMED Code(s): 582668120 (2) Fever Current Visit: Yes Status: Acute Priority: High Code(s): R50.9 - FEVER, UNSPECIFIED SNOMED Code(s): 246595324 (3) Lung cancer Current Visit: Yes Status: Chronic Priority: Medium Code(s): C34.90 - MALIGNANT NEOPLASM OF UNSP PART OF UNSP BRONCHUS OR LUNG SNOMED Code(s): 244021827 Plan: Fever -Patient presented to clinic on 10/19 for f/u s/p chemo, and was reporting persisting fatigue and increasing shortness of breath and dizziness over the last 1 week, and significant weakness and could only walk short distances without having to sit down. Temperature was noted at 100.7. Denied URI sx, urinary symptoms, n/v/d, and abdominal pain. Of note, patient had CTA chest at [facility] on 10/05 which was negative for PE -Most recent fever today 101.9 at midnight, appears to have improved since. Wound cultures positive for multiple organisms, antibiotics adjusted. Viral panel negative. -CT pelvis showing no significant abnormality, no evidence of perianal abscess or pelvic adenopathy -Repeat CXR now showing new developing LLL infiltrate -ID and pulm following. Chemo induced anemia, thrombocytopenia -Last CBC was 24, plt and WBC were normal, anemia persisted -Iron studies most consistent with anemia of inflammation, hemolysis work up neg. -Cytopenias 2/2 to chemo, prolonged/exacerbated by marrow fatigue in a heavily treated pt. -Continue to monitor CBC. If Hgb continues to drop, will consult GI for endoscopic evaluation -Transfuse for hgb less than 7 or if symptomatic. Metastatic lung adenocarcinoma -Oncology history as dictated in consult -Gemzar initiated 05/10/2024, last cycle, number 8, given on 10/12/24. Overall patient has been tolerating treatment well. -Fever can be a side effect of gemzar but would anticipate that side effect would have abated by now. Will follow hospital course. Treatment modifications not anticipated at this time but, final plans will be discussed once acute condition is treated adequately -Clinic f/u scheduled on 11/03/24
--- NOTE | 2024-10-27 15:09 | P.PN ---
Subjective Progress Note Date: 10/27/24 Principal diagnosis: Reason for follow-up is fever Patient is a 59-year-old male with a past medical history significant for diabetes mellitus hypertension hyperlipidemia reflux sleep apnea, patient also have metastatic adenocarcinoma of the lung on chemotherapy presenting to the hospital from oncology office concerning for weakness anemia and fever with initial workup negative. On today's evaluation that is 10/27/2024, the patient did have improvement his fever pattern this morning with a temperature of 99.5 F, patient mention feeling slightly better has been complaining of some shortness of breath especially when he lays down denies any worsening cough or sputum production no abdominal pain no diarrhea. Patient did have a creatinine 1.16 no CBC was done today he blood culture have been negative CT pelvis did not show any abscess culture from the wound an tibiotic clear is growing anaerobes Enterococcus faecalis Lynsey E. coli Prevotella and MSSA Objective - Vital Signs Vital signs: Vital Signs Temp 99 F 10/27/24 11:20 Pulse 88 10/27/24 11:49 Resp 16 10/27/24 11:20 BP 114/70 10/27/24 11:20 Pulse Ox 96 10/27/24 11:20 FiO2 Intake & Output 10/26/24 10/27/24 10/27/24 18:59 06:59 18:59 Intake Total 1610 737 236 Output Total 651 400 Balance 1610 86 -164 Weight 168.5 kg 171.5 kg Intake: Oral 1610 737 236 Output: Urine 651 400 Stool 0 Other: Voiding Method Toilet Toilet # Bowel Movements 0 - Exam GENERAL DESCRIPTION: Middle-age male up in the chair in no distress RESPIRATORY SYSTEM: Unlabored breathing , decreased breath sounds at bases HEART: S1 S2 regular rate and rhythm , ABDOMEN: Soft , no tenderness patient did have a wound to the right perirectal area but no purulent drainage no significant redness was noticed EXTREMITIES: No edema feet - Labs CBC & Chem 7: 10/26/24 06:42 10/27/24 06:27 Labs: Abnormal Lab Results - Last 24 Hours (Table) 10/26/24 10/26/24 10/26/24 Range/Units 06:42 11:56 16:43 Metamyelocytes # (Man) 0.14 H (0) k/uL Myelocytes # (Manual) 0.20 H (0) k/uL Nucleated RBCs 2 H (0-0) /100 WBC Sodium (137-145) mmol/L Chloride (98-107) mmol/L Glucose (74-99) mg/dL POC Glucose (mg/dL) 152 H 161 H (70-110) mg/dL Calcium (8.4-10.2) mg/dL Magnesium (1.6-2.3) mg/dL 10/26/24 10/27/24 10/27/24 Range/Units 20:11 06:22 06:27 Metamyelocytes # (Man) (0) k/uL Myelocytes # (Manual) (0) k/uL Nucleated RBCs (0-0) /100 WBC Sodium 131 L (137-145) mmol/L Chloride 95 L (98-107) mmol/L Glucose 139 H (74-99) mg/dL POC Glucose (mg/dL) 152 H 159 H (70-110) mg/dL Calcium 7.9 L (8.4-10.2) mg/dL Magnesium 2.8 H (1.6-2.3) mg/dL 10/27/24 Range/Units 11:30 Metamyelocytes # (Man) (0) k/uL Myelocytes # (Manual) (0) k/uL Nucleated RBCs (0-0) /100 WBC Sodium (137-145) mmol/L Chloride (98-107) mmol/L Glucose (74-99) mg/dL POC Glucose (mg/dL) 184 H (70-110) mg/dL Calcium (8.4-10.2) mg/dL Magnesium (1.6-2.3) mg/dL Microbiology - Last 24 Hours (Table) 10/24/24 09:05 Gram Stain - Final Buttock Wound Culture - Final Staphylococcus aureus 10/24/24 21:00 Anaerobic Culture - Preliminary Buttock Anaerobic Gm Negative Bacilli Anaerobic Gm Negative Bacilli#2 10/24/24 21:00 Gram Stain - Preliminary Buttock Wound Culture - Preliminary Enterococcus faecalis Lynsey albicans Escherichia coli 10/24/24 09:05 Anaerobic Culture - Preliminary Buttock Prevotella species Prevotella disiens Parabacteroides distasonis Assessment and Plan (1) Fever Current Visit: Yes Status: Acute Priority: High Code(s): R50.9 - FEVER, UNSPECIFIED SNOMED Code(s): 287887059 Plan: 1patient presented to the hospital with low hemoglobin patient to have a history of metastatic lung cancer and is currently getting chemotherapy last chemo has been about a week ago before presentation to the hospital, patient is not neutropenic, initial workup so far negative with a question of possibly related to the port patient did have a negative lower extremity Doppler and blood cultures are so far negative 2 repeat COVID-19 and influenza PCR came back negative, CT abdominal pelvis with oral contrast only did not show any acute abnormality, patient did have a mildly elevated procalcitonin concern for possible pneumonia 3-patient did have persistent fever which is slightly concerning, noticed to have a wound to the perirectal area culture CT was reviewed with radiologist Dr. Tran and there is no evidence of any abscess, patient subsequently did have a CT of the pelvis with contrast did not show any evidence of any abscess, local culture growing multiple pathogen including anaerobes Prevotella E. coli Enterococcus and MSSA 4patient seem to have some improvement in his fever pattern will continue daptomycin and Zosyn antibiotic clinical course closely, multiple question concern answered Dictation was produced using [employer] dictation software. please excuse any grammatical, word or spelling errors. Time with Patient: Less than 30
[2024-10-27 15:25] LABS: Glucose,Whole Blood 188 mg/dL (70-110)
[2024-10-27 20:21] LABS: Glucose,Whole Blood 266 mg/dL (70-110)
[2024-10-28 06:09] LABS: Glucose,Whole Blood 213 mg/dL (70-110)
[2024-10-28 11:16] LABS: African American GFR (CKD) >90 (>60 ml/min/1.73 sqM); Anion Gap 6 mmol/L; Blood Urea Nitrogen 20 mg/dL (9-20); Calcium 7.6 mg/dL (8.4-10.2); Carbon Dioxide 31 mmol/L (22-30); Chloride 96 mmol/L (98-107); Glucose 205 mg/dL (74-99); Magnesium 2.9 mg/dL (1.6-2.3); Non-African American GFR(CKD) 83 (>60 ml/min/1.73 sqM); Potassium 4.5 mmol/L (3.5-5.1); Sodium 133 mmol/L (137-145)
--- NOTE | 2024-10-28 11:42 | P.PN ---
Subjective Progress Note Date: 10/28/24 Principal diagnosis: Perianal wound Patient doing well today. He has been afebrile now for the last 36 hours. Tmax 99.7. Has no perirectal pain. Shortness of breath improving. Objective - Vital Signs Vital signs: Vital Signs Temp 97.6 F 10/28/24 08:00 Pulse 88 10/28/24 09:32 Resp 16 10/28/24 08:00 BP 142/78 10/28/24 08:00 Pulse Ox 98 10/28/24 08:00 FiO2 Intake & Output 10/27/24 10/28/24 10/28/24 18:59 06:59 18:59 Intake Total 236 480 Output Total 1590 1200 Balance -1354 -720 Weight 166 kg Intake: Oral 236 480 Output: Urine 1590 1200 Other: Voiding Method Toilet Toilet Toilet - Exam Right perianal wound without changes clinically. Measures about 8 mm in size. Minimal induration. No erythema or tenderness. No drainage. - Labs CBC & Chem 7: 10/26/24 06:42 10/28/24 09:54 Labs: Abnormal Lab Results - Last 24 Hours (Table) 10/27/24 10/27/24 10/28/24 Range/Units 15:24 20:20 06:07 Sodium (137-145) mmol/L Chloride (98-107) mmol/L Carbon Dioxide (22-30) mmol/L Glucose (74-99) mg/dL POC Glucose (mg/dL) 188 H 266 H 213 H (70-110) mg/dL Calcium (8.4-10.2) mg/dL Magnesium (1.6-2.3) mg/dL 10/28/24 Range/Units 09:54 Sodium 133 L (137-145) mmol/L Chloride 96 L (98-107) mmol/L Carbon Dioxide 31 H (22-30) mmol/L Glucose 205 H (74-99) mg/dL POC Glucose (mg/dL) (70-110) mg/dL Calcium 7.6 L (8.4-10.2) mg/dL Magnesium 2.9 H (1.6-2.3) mg/dL Microbiology - Last 24 Hours (Table) 10/22/24 10:48 Blood Culture - Final Blood 10/24/24 21:00 Anaerobic Culture - Final Buttock Anaerobic Gm Negative Bacilli Anaerobic Gm Negative Bacilli#2 10/24/24 21:00 Gram Stain - Final Buttock Wound Culture - Final Enterococcus faecalis Lynsey albicans Escherichia coli 10/24/24 09:05 Gram Stain - Final Buttock Wound Culture - Final Staphylococcus aureus Assessment and Plan (1) Perianal abscess Narrative/Plan: Patient doing better at this time. Continue observation of this perianal wound for now. Follow-up as outpatient to evaluate. Will sign off. Please reconsult if needed. Current Visit: Yes Status: Acute Code(s): K61.0 - ANAL ABSCESS SNOMED Code(s): 30314249
[2024-10-28 11:44] LABS: Glucose,Whole Blood 278 mg/dL (70-110)
--- NOTE | 2024-10-28 14:35 | P.PN ---
Subjective Progress Note Date: 10/28/24 Patient is seen in follow-up for hyponatremia. Oral intake fair. No vomiting or diarrhea. Sodium level improved to 131. Feeling better overall. Vital signs are stable. General: No acute distress. HEENT: Head exam is unremarkable. On nasal cannula. LUNGS: No audible rhonchi or wheezes. HEART: Rate and Rhythm are regular. ABDOMEN: Obese, nontender. EXTREMITITES: 1+ edema. Objective - Vital Signs Vital signs: Vital Signs Temp 97.6 F 10/28/24 08:00 Pulse 88 10/28/24 09:32 Resp 16 10/28/24 08:00 BP 142/78 10/28/24 08:00 Pulse Ox 98 10/28/24 08:00 FiO2 Intake & Output 10/27/24 10/28/24 10/28/24 18:59 06:59 18:59 Intake Total 236 480 Output Total 1590 1200 Balance -1354 -720 Weight 166 kg Intake: Oral 236 480 Output: Urine 1590 1200 Other: Voiding Method Toilet Toilet Toilet - Labs CBC & Chem 7: 10/26/24 06:42 10/28/24 09:54 Labs: Abnormal Lab Results - Last 24 Hours (Table) 10/27/24 10/27/24 10/28/24 Range/Units 15:24 20:20 06:07 Sodium (137-145) mmol/L Chloride (98-107) mmol/L Carbon Dioxide (22-30) mmol/L Glucose (74-99) mg/dL POC Glucose (mg/dL) 188 H 266 H 213 H (70-110) mg/dL Calcium (8.4-10.2) mg/dL Magnesium (1.6-2.3) mg/dL 10/28/24 10/28/24 Range/Units 09:54 11:42 Sodium 133 L (137-145) mmol/L Chloride 96 L (98-107) mmol/L Carbon Dioxide 31 H (22-30) mmol/L Glucose 205 H (74-99) mg/dL POC Glucose (mg/dL) 278 H (70-110) mg/dL Calcium 7.6 L (8.4-10.2) mg/dL Magnesium 2.9 H (1.6-2.3) mg/dL Microbiology - Last 24 Hours (Table) 10/22/24 10:48 Blood Culture - Final Blood 10/24/24 21:00 Anaerobic Culture - Final Buttock Anaerobic Gm Negative Bacilli Anaerobic Gm Negative Bacilli#2 10/24/24 21:00 Gram Stain - Final Buttock Wound Culture - Final Enterococcus faecalis Lynsey albicans Escherichia coli 10/24/24 09:05 Gram Stain - Final Buttock Wound Culture - Final Staphylococcus aureus Assessment and Plan Assessment: 1. Hyponatremia. Slightly hypervolemic. Also on NSAIDs. Sodium level 133 today. TSH normal. Urine sodium 38 and urine osmolality 546. 2. Chemo induced anemia status post blood transfusions this admission. 3. Metastatic lung adenocarcinoma. Oncology following. 4. Benign hypertension. Blood pressure on the lower side. 5. Chronic diastolic CHF with severe pulmonary hypertension. 6. Volume overload. 7. Perirectal wound on antibiotics. Infectious disease following. 8. Hypermagnesemia secondary to magnesium supplementation. Plan: Maintain fluid restriction. Encouraged protein intake Avoid NSAIDs. Lasix 40 mg once daily.
--- NOTE | 2024-10-28 15:23 | P.PN ---
Subjective Progress Note Date: 10/28/24 Ganga Smart, is a 59-year-old male patient of Dr. Garsia who presented to the ER after his oncologist discovered his hemoglobin low at 5.9. Patient has a history of metastatic lung cancer and has been receiving chemotherapy last cycle 1 week ago. Patient reports he's been on chemotherapy for approximately 2 years.patient has past medical history of diabetes, GERD, hyperlipidemia, hypertension, sleep apnea, thyroid disorder. Patient denies any nicotine use history.lab work completed showing hemoglobin 5.6. White blood cell 4.0. Sodium 129, creatinine 1.2, bun 19, lactic acid 2.8patient also noted to have a low-grade temp 100.5. Patient denies any recent sick contacts denies cough or shortness of breath. Patient denies nausea vomiting or diarrhea. Patient denies any burning with urination. At this time patient will be admitted oncology and infectious disease service is consulted. 2 units of PRBCs have been ordered. COVID-19 in influenza negative. Blood and urine and sputum cultures ordered. At this time patient is resting comfortably in bed. Patient denies any chest pain or shortness of breath. Patient denies nausea vomiting or diarrhea. Patient denies any urinary burning or frequency On 10/20/2024 patient is alert and oriented x 3. Patient was continuing to have fevers throughout the night. Patient was started on vancomycin and Maxipime per infectious disease. Patient received 2 units of PRBCs repeat hemoglobin 8.5. Patient denies chest pain or shortness of breath. Patient denies nausea vomiting or diarrhea. Patient denies any urinary burning or frequency On 10/21/2024 patient is alert and oriented x 3. Patient having some increased back discomfort. Patient still having elevated temps slightly improved. Patient remains on IV antibiotic. Hemoglobin remained stable at 8.3. Patient denies chest pain or shortness of breath. Patient denies nausea vomiting or diarrhea. Patient denies any urinary burning or frequency On 10/22/2024 patient was seen and examined on the telemetry floor, he is alert and oriented x 3 in no apparent distress, he is still having elevated temperature up to 102.3, CT scan of the chest revealed bilateral pleural effusio n, pulmonary consultation was added and patient was seen by Dr. Menezes, because of elevated temperature is still not entirely clear, repeat blood cultures and sputum culture and echocardiogram was ordered, patient is followed by infectious disease and is maintained on IV antibiotics. Will continue to follow closely On 10/23/2024 patient is alert and oriented x 3. Patient continued to having e levated temps 2D echo and CT chest with contrast has been ordered. Infectious disease, pulmonary and oncology services are all following patient denies chest pain. Patient does report some shortness of breath. Patient denies nausea vomiting or diarrhea. Patient denies any urinary burning or frequency on 10/24/2024 patient is alert and oriented x 3. Patient still having elevated temps. CT of chest has been completed. awaiting 2 decho. at this time patient is still complaining of some shortnes of breath. Denies chest pain. denies nausea vomiting or diarrhea. Denies any urinary burning or frequency. oncology, infectious disease, and pulmonary services following. remains on Iv zosyn 10/25. Patient seen and examined. States he feels very lethargic and weak. 10/26. Patient seen and examined. Blood work done showed sodium 129, potassium 5.1, CO2 30, anion gap 5, BUN 14, creatinine 1.11. Patient fever overnight of 102. 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 Patient seen and examined.complaining of shortness of breath. Currently on 4 L of oxygen, ordered chest x-ray encourage patient to use I-S 10/20. Patient seen and examined. Continues to be on 3 L of oxygen. States breathing is improved a lot compared to yesterday REVIEW OF SYSTEMS: CONSTITUTIONAL: As mentioned above CARDIOVASCULAR: No chest pain, no palpitations, no syncope. PULMONARY: As mentioned above GASTROINTESTINAL: No diarrhea, no nausea, no vomiting, no abdominal pain. NEUROLOGICAL: No headaches, no weakness, PHYSICAL EXAMINATION: GENERAL: The patient is alert and oriented x3, ill looking HEENT: Pupils are round and equally reacting to light. EOMI. No scleral icterus. No conjunctival pallor. Normocephalic, atraumatic. No pharyngeal erythema. No th yromegaly. CARDIOVASCULAR: S1 and S2 present. No murmurs, rubs, or gallops. PULMONARY: Diminished breath sounds at the bases bilaterally, bilateral crackles audible, no wheezing or crackles. ABDOMEN: Soft, nontender, nondistended, normoactive bowel sounds. No palpable organomegaly. MUSCULOSKELETAL: No joint swelling or deformity. EXTREMITIES 1+ pitting edema of lower extremities bilaterally NEUROLOGICAL: Gross neurological examination did not reveal any focal deficits. SKIN: No rashes. Assessment and plan Anemia likely secondary to chemotherapy History of metastatic lung cancer patient follows with oncology services last chemotherapy one week ago Right perineal wound, possible enterocutaneous fistula Fever of unknown origin Hyponatremia, correcting with IV fluid History of diabetes mellitus History of hyperlipidemia History of essential hypertension History of hypothyroidism History of sleep apnea Monitor vital signs Monitor CBC Monitor CMP Follow-up on blood cultures Follow-up on wound cultures Aggressive bronchopulmonary hygiene encourage use of I-S Maintain fluid restriction. Avoid NSAIDs. I's and O's, daily weights, continue IV Lasix daily Continue daptomycin, continue IV Zosyn and Diflucan Nephrology following ID following oncology following Surgery consulted for enterocutaneous fistula, ordered CT pelvis with count Labs and medication were reviewed.. Continue same treatment. Continue with symptomatic treatment. Resume home medication. Monitor labs and vitals. DVT and GI prophylaxis. Further recommendations as per clinical course of the pa tient Dictation was produced using [employer] dictation software. please excuse any grammatical, word or spelling errors. Objective - Vital Signs Vital signs: Vital Signs Temp 97.6 F 10/28/24 08:00 Pulse 88 10/28/24 09:32 Resp 16 10/28/24 12:00 BP 109/70 10/28/24 12:00 Pulse Ox 97 10/28/24 12:00 FiO2 Intake & Output 10/27/24 10/28/24 10/28/24 18:59 06:59 18:59 Intake Total 094 770 3539 Output Total 1590 1200 Balance -1354 -720 1184 Weight 166 kg Intake: Oral 574 557 0436 Output: Urine 1590 1200 Other: Voiding Method Toilet Toilet Toilet - Labs CBC & Chem 7: 10/26/24 06:42 10/28/24 09:54 Labs: Abnormal Lab Results - Last 24 Hours (Table) 10/27/24 10/27/24 10/28/24 Range/Units 15:24 20:20 06:07 Sodium (137-145) mmol/L Chloride (98-107) mmol/L Carbon Dioxide (22-30) mmol/L Glucose (74-99) mg/dL POC Glucose (mg/dL) 188 H 266 H 213 H (70-110) mg/dL Calcium (8.4-10.2) mg/dL Magnesium (1.6-2.3) mg/dL 10/28/24 10/28/24 Range/Units 09:54 11:42 Sodium 133 L (137-145) mmol/L Chloride 96 L (98-107) mmol/L Carbon Dioxide 31 H (22-30) mmol/L Glucose 205 H (74-99) mg/dL POC Glucose (mg/dL) 278 H (70-110) mg/dL Calcium 7.6 L (8.4-10.2) mg/dL Magnesium 2.9 H (1.6-2.3) mg/dL Microbiology - Last 24 Hours (Table) 10/24/24 09:05 Anaerobic Culture - Final Buttock Prevotella species Prevotella disiens Parabacteroides distasonis Anaerobic Gm Positive Bacill 10/22/24 10:48 Blood Culture - Final Blood 10/24/24 21:00 Anaerobic Culture - Final Buttock Anaerobic Gm Negative Bacilli Anaerobic Gm Negative Bacilli#2 10/24/24 21:00 Gram Stain - Final Buttock Wound Culture - Final Enterococcus faecalis Lynsey albicans Escherichia coli 10/24/24 09:05 Gram Stain - Final Buttock Wound Culture - Final Staphylococcus aureus
--- NOTE | 2024-10-28 15:40 | P.PN ---
Subjective Progress Note Date: 10/28/24 Principal diagnosis: Fever, unknown source This is a 59-year-old male patient with metastatic pulmonary adenocarcinoma, who has been receiving systemic chemotherapy and the patient was not Gemzar and his last treatment was on 10/12/2024. The patient was tolerating the systemic chemotherapy reasonably well. He is morbidly obese and has history of obstructive sleep apnea along with diabetes mellitus and hyperlipidemia. He is currently in the hospital as the patient was initially sent over from oncologist office because of a low hemoglobin of 5.9. The patient was also febrile. He was given a total of 2 U PRBC During this current hospitalization the patient's hemoglobin is currently up to 8.3. Nevertheless, he continues to have episodes of fever. Currently afebrile. Tmax over the past 24 hours was 102.3. No clear source of infection. The patient remains on a combination of cefepime and vancomycin. Note that his white cell count is not elevated. His white cell count is at 4. He has no DVTs in his lower extremities. CAT scan of the abdomen and pelvis was done and shows a chronic small right-sided pleural effusion. There is bony metastases throughout and there was no significant lymphadenopathy. Blood cultures have been negative. The patient has a Mediport that looks to be quite clean. No altered mentation. No skin rashes. No wounds or ulcers. As such, the source of the fever is not clear. ID is on the case. He is also experiencing some shortness of breath with mobility. Nevertheless, he is on room air oxygen. No cough sputum production chest tightness or wheezing. In terms of his lung cancer, the patient was diagnosed having pulm adenocarcinoma back in 2021. He has been followed up by Dr. Cat. He initially presented with 3 cm RLL lung mass,he had a PET scan on 06/16/2022 which revealed suspicious uptake in in central right lung lesion,measured 2.1 x 2.2 cm,he initially had navigational bronchoscopy which was not diagnostic,he ws referred to DR Hernandez at [facility],he had repeat CT scan of chest on 07/07/2022 which revealed 3 cm lesion in superior segment of RLL and several other small nodules in right lung which are new compared to prior CT scan done at [facility] in 06/2016. On 07/24/2022,he underwent RLL resection and biopsies of mediastinal nodes,pathology revealed adenocarcinoma spreading through alveolar spaces and invading lymphovascular channels (BERENICE),multifocal,right level 8,level 7,4R nodes were positive. Brain MRI on 08/08/2022 was negative. Caris did not reveal any targetable mutation. On 08/18/2022,PET scan revealed uptake in right hilar region,there was uptake in left second rib,had an MRI which revealed subtle area in rib without enhancement. On 08/26/2022,he started carbo/alimta with radiation,completed 4 cycles of chemo on 10/29/2022. Due to disease progression, patient has been on multiple treatment regimens. He started imfinzi on 12/25/2022. Taxotere/cyramza/zometa were held in December 2023, as patient developed ONJ. He started gemzar on 05/10/2024, most recently completing cycle 8 on 10/12/24, Patient was evaluated today on 10/23/2024, patient seems to be doing better today, continues to have low-grade fever his Tmax last night was 99.5. Hemodynamically stable on 2 L nasal cannula O2 sat is 98% patient seems to have less and less shortness of breath.WBC count is 5.2 hemoglobin is 8 sodium is 127 potassium 4.9 BUN is 19 creatinine 1.14 blood cultures and urine cultures remain negative so far. Seen today on 10/24/2024, patient is doing well, feeling better, yesterday's CT of the chest showed evidence of bilateral pleural effusions and the patient received 1 dose of Lasix yesterday and he received DuoNeb updraft treatment for his acute onset of shortness of breath, patient felt much better shortly after. Today is down to 125 his BUN is 18 creatinine 1.13, patient is now being seen by nephrology on consultation. I believe his hyponatremia is most likely secondary to SIADH considering his underlying malignancy/bronchogenic carcinoma Reevaluate today on 10/25/2024, patient is doing a bit better today however continues to have intermittent episodes of fevers, in spite of antibiotics patient continues to have febrile episodes. Patient had a Tmax of 102.6 yesterday, today's temp is 100.3 blood pressure 102/59 he is on 2 L nasal cannula with O2 saturation ranging between 91 up to 97% sodium is low at 126 CBC today is pending. Patient screening for viral infection was negative including influenza A influenza B RSV and COVID patient also had negative urinary Legionella antigen Patient was seen today on 10/26/2024, continues to have intermittent spiking of temperature, febrile, and I have a feeling that the patient may have an infected enterocutaneous fistula which was examined today, and I am recommending surgical evaluation for his fistula. Patient seems to have a deep open wound in the buttock area, this could very well be an enterocutaneous fistula.Pulmonary costa is feeling better breathing easier WBC count is 6.9 hemoglobin is 8.11 sodium 129 potassium 5.1 BUN is 14 creatinine 1.11 Seen today on 10/27/2024, patient continues to have low-grade fever, he had a Tmax of 99 last night, remains on antibiotics empirically, CT of the pelvis failed to show abscess or enterocutaneous fistula. Patient is feeling better today, breathing easier. CT of the chest and chest x-ray showed mostly atelectasis, strongly doubt pneumonia. Patient was seen today on 10/28/2024, his fever seems to be responding finally to antibiotics, patient has some positive cultures from his perianal wound, but no evidence of abscess. Pulmonary costa is doing well, no cough no wheezing no shortness of breathBasic metabolic profile is relatively normal. Overall the patient seems to be doing better Objective - Vital Signs Vital signs: Vital Signs Temp 97.6 F 10/28/24 08:00 Pulse 88 10/28/24 09:32 Resp 16 10/28/24 12:00 BP 109/70 10/28/24 12:00 Pulse Ox 97 10/28/24 12:00 FiO2 Intake & Output 10/27/24 10/28/24 10/28/24 18:59 06:59 18:59 Intake Total 355 632 9785 Output Total 1590 1200 Balance -1354 720 1184 Weight 166 kg Intake: Oral 203 836 8351 Output: Urine 1590 1200 Other: Voiding Method Toilet Toilet Toilet - Exam Physical exam: General: Reveals a 59-year-old white male in no distress extremely pleasant on 4 L nasal cannula with O2 sat 96% Head normocephalic and atraumatic Neck supple no JVD no goiter, no neck masses, no stridor. Lungs symmetrical expansion, clear bilaterally no crackles rhonchi or wheezes Heart distant S1-S2, no S3 gallop, no murmur. \ Abdomen: Obese soft nontender no megaly no rebound Extremities 2+ edema bilaterally Neuro no gross focal deficit Psychiatric: Normal mood affect and no mental status examination Skin: No rashes however patient was noted to have a large deep wound noted in the right buttock area, suspicious for possible enterocutaneous fistula - Labs CBC & Chem 7: 10/26/24 06:42 10/28/24 09:54 Labs: Abnormal Lab Results - Last 24 Hours (Table) 10/27/24 10/28/24 10/28/24 Range/Units 20:20 06:07 09:54 Sodium 133 L (137-145) mmol/L Chloride 96 L (98-107) mmol/L Carbon Dioxide 31 H (22-30) mmol/L Glucose 205 H (74-99) mg/dL POC Glucose (mg/dL) 266 H 213 H (70-110) mg/dL Calcium 7.6 L (8.4-10.2) mg/dL Magnesium 2.9 H (1.6-2.3) mg/dL 10/28/24 Range/Units 11:42 Sodium (137-145) mmol/L Chloride (98-107) mmol/L Carbon Dioxide (22-30) mmol/L Glucose (74-99) mg/dL POC Glucose (mg/dL) 278 H (70-110) mg/dL Calcium (8.4-10.2) mg/dL Magnesium (1.6-2.3) mg/dL Microbiology - Last 24 Hours (Table) 10/24/24 09:05 Anaerobic Culture - Final Buttock Prevotella species Prevotella disiens Parabacteroides distasonis Anaerobic Gm Positive Bacill 10/22/24 10:48 Blood Culture - Final Blood 10/24/24 21:00 Anaerobic Culture - Final Buttock Anaerobic Gm Negative Bacilli Anaerobic Gm Negative Bacilli#2 10/24/24 21:00 Gram Stain - Final Buttock Wound Culture - Final Enterococcus faecalis Lynsey albicans Escherichia coli Assessment and Plan Assessment: Pression: Fever,, exact cause of his fever is not clear, I still suspect may have something to do with the perineal wound Shortness of breath, multifactorial, currently on room air oxygen. Fluid effusion on the right is small Pulm adenocarcinoma, stage IV, Chemotherapy-induced anemia the patient received a total of units of packed RBCs, hemoglobin stable for now. No leukocytosis. Morbid obesity with a BMI of 46.6 Obstructive sleep apnea on BiPAP Hypertension Hyperlipidemia Diabetes mellitus type 2 Peripheral neuropathy Hypothyroidism hyponatremia secondary to SIADH Buttocks wound possible enterocutaneous fistula will need surgical evaluation Recommendation: Continue present supportive care measures continue antibiotics as per ID on the case Continue Lovenox for DVT prophylaxis intermittently diurese the patient CT of the pelvis was reviewed, no evidence of abscess or enterocutaneous fistula Continue present treatment plan. Nephrology is addressing his electrolytes and renal status will continue to Follow Time with Patient: Less than 30
--- NOTE | 2024-10-28 15:43 | CT ---
EXAMINATION TYPE: CT facial bones wo/w con DATE OF EXAM: 10/28/2024 2:52 PM COMPARISON: 07/27/2024. CLINICAL INDICATION: Male, 59 years old with history of Hx osteonecrosis of left jaw, r/o abscess w/f christina; PHH, Hx osteonecrosis of left jaw, r/o abscess w/fevers. TECHNIQUE: Multiple unenhanced axial CT images were obtained of the facial bones soft tissue and bone windows. Coronal, axial and sagittal reformatted images were also provided in soft tissue and bone windows and submitted for interpretation. Additional 3-D reformatted images were obtained on a [employer] workstation. . Contrast used:100 ml mL of Isovue 300 with IV Contrast, (none if empty) Oral contrast used: (none if empty) CT DLP: 2648.4 mGycm, Automated exposure control for dose reduction was used. FINDINGS: There is no evidence of fracture, subluxation, dislocation, or significant soft tissue swelling. The orbital contents are unremarkable. Paranasal sinus mucosal cyst cyst in the left maxillary sinus. Mul tilevel degeneration changes of the spine with osteophyte formation. Large osteophytes project anteri or to the spine. The temporal mandibular joints are relatively symmetric. No evidence for osseous erosion. No organizing fluid collection or abscess. Right central venous catheter extending out of the field-o f-view on the right internal jugular vein. IMPRESSION: 1. The temporal mandibular joints are rather symmetric. No evidence for osseous erosion. 2. No organizing fluid collection or abscess. 3. Large osteophytes anterior to the spine correlate for dysphagia. [facility], , 10/28/2024 3:41 PM
[2024-10-28 16:26] LABS: Glucose,Whole Blood 244 mg/dL (70-110)
[2024-10-28] MEDS: AMPICILLIN-SULBACTAM 3 GM in SODIUM CHLORIDE 0.9% 100 ML IVPB SCH (16:38)
[2024-10-28 20:20] LABS: Glucose,Whole Blood 271 mg/dL (70-110)
[2024-10-29 06:15] LABS: Glucose,Whole Blood 164 mg/dL (70-110)
--- NOTE | 2024-10-29 11:21 | P.PN ---
Subjective Progress Note Date: 10/29/24 Patient is seen in follow-up for hyponatremia. Oral intake fair. No vomiting or diarrhea. Sodium level improved to 131. Feeling better overall. Vital signs are stable. General: No acute distress. HEENT: Head exam is unremarkable. On nasal cannula. LUNGS: No audible rhonchi or wheezes. HEART: Rate and Rhythm are regular. ABDOMEN: Obese, nontender. EXTREMITITES: 1+ edema. Objective - Vital Signs Vital signs: Vital Signs Temp 100.3 F H 10/29/24 08:00 Pulse 88 10/29/24 08:02 Resp 16 10/29/24 08:00 BP 91/46 10/29/24 08:00 Pulse Ox 90 L 10/29/24 08:05 FiO2 Intake & Output 10/28/24 10/29/24 10/29/24 18:59 06:59 18:59 Intake Total 1894 200 Output Total 350 300 Balance 1894 -350 -100 Weight 162.7 kg Intake: Intake, IV Titration 200 Amount Fluconazole in NaCl,Iso- 200 Osm 400 mg In Saline 1 200ml.bag @ 100 mls/hr IVPB DAILY [facility] Rx#: [id number] Oral 1894 Output: Urine 350 300 Other: Voiding Method Toilet Toilet # Voids 1 - Labs CBC & Chem 7: 10/26/24 06:42 10/28/24 09:54 Labs: Abnormal Lab Results - Last 24 Hours (Table) 10/28/24 10/28/24 10/28/24 Range/Units 09:54 11:42 16:24 Sodium 133 L (137-145) mmol/L Chloride 96 L (98-107) mmol/L Carbon Dioxide 31 H (22-30) mmol/L Glucose 205 H (74-99) mg/dL POC Glucose (mg/dL) 278 H 244 H (70-110) mg/dL Calcium 7.6 L (8.4-10.2) mg/dL Magnesium 2.9 H (1.6-2.3) mg/dL 10/28/24 10/29/24 Range/Units 20:19 06:14 Sodium (137-145) mmol/L Chloride (98-107) mmol/L Carbon Dioxide (22-30) mmol/L Glucose (74-99) mg/dL POC Glucose (mg/dL) 271 H 164 H (70-110) mg/dL Calcium (8.4-10.2) mg/dL Magnesium (1.6-2.3) mg/dL Microbiology - Last 24 Hours (Table) 10/24/24 09:05 Anaerobic Culture - Final Buttock Prevotella species Prevotella disiens Parabacteroides distasonis Anaerobic Gm Positive Bacill Assessment and Plan Assessment: 1. Hyponatremia. Slightly hypervolemic. Also on NSAIDs. Sodium level 133 today. TSH normal. Urine sodium 38 and urine osmolality 546. 2. Chemo induced anemia status post blood transfusions this admission. 3. Metastatic lung adenocarcinoma. Oncology following. 4. Benign hypertension. Blood pressure on the lower side. 5. Chronic diastolic CHF with severe pulmonary hypertension. 6. Volume overload. 7. Perirectal wound on antibiotics. Infectious disease following. 8. Hypermagnesemia secondary to magnesium supplementation. Plan: Maintain fluid restriction. Encouraged protein intake Avoid NSAIDs. Lasix 40 mg once daily.
[2024-10-29 11:45] LABS: African American GFR (CKD) >90 (>60 ml/min/1.73 sqM); Anion Gap 8 mmol/L; Blood Urea Nitrogen 18 mg/dL (9-20); Calcium 7.8 mg/dL (8.4-10.2); Carbon Dioxide 31 mmol/L (22-30); Chloride 93 mmol/L (98-107); Glucose 173 mg/dL (74-99); Non-African American GFR(CKD) 88 (>60 ml/min/1.73 sqM); Potassium 4.4 mmol/L (3.5-5.1); Sodium 132 mmol/L (137-145)
[2024-10-29 12:09] LABS: Glucose,Whole Blood 189 mg/dL (70-110)
--- NOTE | 2024-10-29 12:37 | P.PN ---
Subjective Progress Note Date: 10/28/24 Principal diagnosis: Reason for follow-up is fever Patient is a 59-year-old male with a past medical history significant for diabetes mellitus hypertension hyperlipidemia reflux sleep apnea, patient also have metastatic adenocarcinoma of the lung on chemotherapy presenting to the hospital from oncology office concerning for weakness anemia and fever with initial workup negative. On today's evaluation that is 10/28/2024, patient did have resolution of his fever with a low-grade temperature of 99.7 last night afebrile this morning he is breathing comfortably currently on 4 L nasal cannula oxygen patient denies having any chest pain no worsening cough no nausea no vomiting no abdominal pain or diarrhea. Patient did have creatinine 0.9 and no CBC was done today blood culture have been negative Objective - Vital Signs Vital signs: Vital Signs Temp 97.6 F 10/28/24 08:00 Pulse 88 10/28/24 09:32 Resp 16 10/28/24 08:00 BP 142/78 10/28/24 08:00 Pulse Ox 98 10/28/24 08:00 FiO2 Intake & Output 10/27/24 10/28/24 10/28/24 18:59 06:59 18:59 Intake Total 236 480 Output Total 1590 1200 Balance -1354 -720 Weight 166 kg Intake: Oral 236 480 Output: Urine 1590 1200 Other: Voiding Method Toilet Toilet Toilet - Exam GENERAL DESCRIPTION: Middle-age male up in the chair in no distress RESPIRATORY SYSTEM: Unlabored breathing , decreased breath sounds at bases HEART: S1 S2 regular rate and rhythm , ABDOMEN: Soft , no tenderness patient did have a wound to the right perirectal area but no purulent drainage no significant redness was noticed EXTREMITIES: No edema feet - Labs CBC & Chem 7: 10/26/24 06:42 10/29/24 10:01 Labs: Abnormal Lab Results - Last 24 Hours (Table) 10/27/24 10/27/24 10/28/24 Range/Units 15:24 20:20 06:07 Sodium (137-145) mmol/L Chloride (98-107) mmol/L Carbon Dioxide (22-30) mmol/L Glucose (74-99) mg/dL POC Glucose (mg/dL) 188 H 266 H 213 H (70-110) mg/dL Calcium (8.4-10.2) mg/dL Magnesium (1.6-2.3) mg/dL 10/28/24 10/28/24 Range/Units 09:54 11:42 Sodium 133 L (137-145) mmol/L Chloride 96 L (98-107) mmol/L Carbon Dioxide 31 H (22-30) mmol/L Glucose 205 H (74-99) mg/dL POC Glucose (mg/dL) 278 H (70-110) mg/dL Calcium 7.6 L (8.4-10.2) mg/dL Magnesium 2.9 H (1.6-2.3) mg/dL Microbiology - Last 24 Hours (Table) 10/22/24 10:48 Blood Culture - Final Blood 10/24/24 21:00 Anaerobic Culture - Final Buttock Anaerobic Gm Negative Bacilli Anaerobic Gm Negative Bacilli#2 10/24/24 21:00 Gram Stain - Final Buttock Wound Culture - Final Enterococcus faecalis Lynsey albicans Escherichia coli 10/24/24 09:05 Gram Stain - Final Buttock Wound Culture - Final Staphylococcus aureus Assessment and Plan (1) Fever Current Visit: Yes Status: Acute Priority: High Code(s): R50.9 - FEVER, UNSPECIFIED SNOMED Code(s): 678067899 Plan: 1patient presented to the hospital with low hemoglobin patient to have a history of metastatic lung cancer and is currently getting chemotherapy last chemo has been about a week ago before presentation to the hospital, patient is not neutropenic, initial workup so far negative with a question of possibly related to the port patient did have a negative lower extremity Doppler and blo od cultures are so far negative 2 repeat COVID-19 and influenza PCR came back negative, CT abdominal pelvis with oral contrast only did not show any acute abnormality, patient did have a mildly elevated procalcitonin concern for possible pneumonia 3-patient CT was reviewed with radiologist Dr. Tran and there is no evidence of any abscess, patient subsequently did have a CT of the pelvis with contrast did not show any evidence of any abscess, local culture growing multiple pathogen including anaerobes Prevotella E. coli Enterococcus and MSSA 4patient did have resolution of his fever we will direct antibiotic towards a positive culture which are growing multiple pathogen we will discontinue Zosyn and start the patient Unasyn continue the daptomycin follow-up on the CT of the face Dictation was produced using [employer] dictation software. please excuse any grammatical, word or spelling errors. Time with Patient: Less than 30
--- NOTE | 2024-10-29 12:38 | P.PN ---
Subjective Progress Note Date: 10/29/24 Principal diagnosis: Reason for follow-up is fever Patient is a 59-year-old male with a past medical history significant for diabetes mellitus hypertension hyperlipidemia reflux sleep apnea, patient also have metastatic adenocarcinoma of the lung on chemotherapy presenting to the hospital from oncology office concerning for weakness anemia and fever with initial workup negative. On today's evaluation that is 10/29/2024, Patient did have a low-grade fever 100.3 F this morning patient is currently on 4 L nasal cannula oxygen but denies having any chest pain breathing is more comfortable no cough or sputum production no nausea vomiting no abdominal pain no diarrhea. Patient did have creatinine 0.95 Objective - Vital Signs Vital signs: Vital Signs Temp 100.3 F H 10/29/24 08:00 Pulse 88 10/29/24 08:02 Resp 16 10/29/24 08:00 BP 91/46 10/29/24 08:00 Pulse Ox 90 L 10/29/24 08:05 FiO2 Intake & Output 10/28/24 10/29/24 10/29/24 18:59 06:59 18:59 Intake Total 1894 200 Output Total 350 300 Balance 1894 -350 -100 Weight 162.7 kg Intake: Intake, IV Titration 200 Amount Fluconazole in NaCl,Iso- 200 Osm 400 mg In Saline 1 200ml.bag @ 100 mls/hr IVPB DAILY [facility] Rx#: [id number] Oral 1894 Output: Urine 350 300 Other: Voiding Method Toilet Toilet # Voids 1 - Exam GENERAL DESCRIPTION: Middle-age male up in the chair in no distress RESPIRATORY SYSTEM: Unlabored breathing , decreased breath sounds at bases HEART: S1 S2 regular rate and rhythm , ABDOMEN: Soft , no tenderness patient did have a wound to the right perirectal area but no purulent drainage no significant redness was noticed EXTREMITIES: No edema feet - Labs CBC & Chem 7: 10/26/24 06:42 10/29/24 10:01 Labs: Abnormal Lab Results - Last 24 Hours (Table) 10/28/24 10/28/24 10/28/24 Range/Units 09:54 11:42 16:24 Sodium 133 L (137-145) mmol/L Chloride 96 L (98-107) mmol/L Carbon Dioxide 31 H (22-30) mmol/L Glucose 205 H (74-99) mg/dL POC Glucose (mg/dL) 278 H 244 H (70-110) mg/dL Calcium 7.6 L (8.4-10.2) mg/dL Magnesium 2.9 H (1.6-2.3) mg/dL 10/28/24 10/29/24 Range/Units 20:19 06:14 Sodium (137-145) mmol/L Chloride (98-107) mmol/L Carbon Dioxide (22-30) mmol/L Glucose (74-99) mg/dL POC Glucose (mg/dL) 271 H 164 H (70-110) mg/dL Calcium (8.4-10.2) mg/dL Magnesium (1.6-2.3) mg/dL Microbiology - Last 24 Hours (Table) 10/24/24 09:05 Anaerobic Culture - Final Buttock Prevotella species Prevotella disiens Parabacteroides distasonis Anaerobic Gm Positive Bacill Assessment and Plan (1) Fever Current Visit: Yes Status: Acute Priority: High Code(s): R50.9 - FEVER, UNSPECIFIED SNOMED Code(s): 227361693 Plan: 1patient presented to the hospital with low hemoglobin patient to have a history of metastatic lung cancer and is currently getting chemotherapy last chemo has been about a week ago before presentation to the hospital, patient is not neutropenic, initial workup so far negative with a question of possibly related to the port patient did have a negative lower extremity Doppler and blood cultures are so far negative 2 repeat COVID-19 and influenza PCR came back negative, CT abdominal pelvis with oral contrast only did not show any acute abnormality, patient did have a mildly elevated procalcitonin concern for possible pneumonia 3-patient CT was reviewed with radiologist Dr. Tran and there is no evidence of any abscess, patient subsequently did have a CT of the pelvis with contrast did not show any evidence of any abscess, local culture growing multiple pathogen including anaerobes Prevotella E. coli Enterococcus and MSSA 4patient did have improvement in the fever pattern CT of the face did not show any osteonecrosis or osteomyelitis of the jaw I will continue the patient on Unasyn and daptomycin and if remains to be afebrile will transition to oral antibiotic on discharge at the bedside question answered Dictation was produced using [employer] dictation software. please excuse any grammatical, word or spelling errors. Time with Patient: Less than 30
--- NOTE | 2024-10-29 14:20 | P.PN ---
Subjective Progress Note Date: 10/29/24 Principal diagnosis: Fever, unknown source This is a 59-year-old male patient with metastatic pulmonary adenocarcinoma, who has been receiving systemic chemotherapy and the patient was not Gemzar and his last treatment was on 10/12/2024. The patient was tolerating the systemic chemotherapy reasonably well. He is morbidly obese and has history of obstructive sleep apnea along with diabetes mellitus and hyperlipidemia. He is currently in the hospital as the patient was initially sent over from oncologist office because of a low hemoglobin of 5.9. The patient was also febrile. He was given a total of 2 U PRBC During this current hospitalization the patient's hemoglobin is currently up to 8.3. Nevertheless, he continues to have episodes of fever. Currently afebrile. Tmax over the past 24 hours was 102.3. No clear source of infection. The patient remains on a combination of cefepime and vancomycin. Note that his white cell count is not elevated. His white cell count is at 4. He has no DVTs in his lower extremities. CAT scan of the abdomen and pelvis was done and shows a chronic small right-sided pleural effusion. There is bony metastases throughout and there was no significant lymphadenopathy. Blood cultures have been negative. The patient has a Mediport that looks to be quite clean. No altered mentation. No skin rashes. No wounds or ulcers. As such, the source of the fever is not clear. ID is on the case. He is also experiencing some shortness of breath with mobility. Nevertheless, he is on room air oxygen. No cough sputum production chest tightness or wheezing. In terms of his lung cancer, the patient was diagnosed having pulm adenocarcinoma back in 2021. He has been followed up by Dr. Cat. He initially presented with 3 cm RLL lung mass,he had a PET scan on 06/16/2022 which revealed suspicious uptake in in central right lung lesion,measured 2.1 x 2.2 cm,he initially had navigational bronchoscopy which was not diagnostic,he ws referred to DR Hernandez at [facility],he had repeat CT scan of chest on 07/07/2022 which revealed 3 cm lesion in superior segment of RLL and several other small nodules in right lung which are new compared to prior CT scan done at [facility] in 06/2016. On 07/24/2022,he underwent RLL resection and biopsies of mediastinal nodes,pathology revealed adenocarcinoma spreading through alveolar spaces and invading lymphovascular channels (BERENICE),multifocal,right level 8,level 7,4R nodes were positive. Brain MRI on 08/08/2022 was negative. Caris did not reveal any targetable mutation. On 08/18/2022,PET scan revealed uptake in right hilar region,there was uptake in left second rib,had an MRI which revealed subtle area in rib without enhancement. On 08/26/2022,he started carbo/alimta with radiation,completed 4 cycles of chemo on 10/29/2022. Due to disease progression, patient has been on multiple treatment regimens. He started imfinzi on 12/25/2022. Taxotere/cyramza/zometa were held in December 2023, as patient developed ONJ. He started gemzar on 05/10/2024, most recently completing cycle 8 on 10/12/24, Patient was evaluated today on 10/23/2024, patient seems to be doing better today, continues to have low-grade fever his Tmax last night was 99.5. Hemodynamically stable on 2 L nasal cannula O2 sat is 98% patient seems to have less and less shortness of breath.WBC count is 5.2 hemoglobin is 8 sodium is 127 potassium 4.9 BUN is 19 creatinine 1.14 blood cultures and urine cultures remain negative so far. Seen today on 10/24/2024, patient is doing well, feeling better, yesterday's CT of the chest showed evidence of bilateral pleural effusions and the patient received 1 dose of Lasix yesterday and he received DuoNeb updraft treatment for his acute onset of shortness of breath, patient felt much better shortly after. Today is down to 125 his BUN is 18 creatinine 1.13, patient is now being seen by nephrology on consultation. I believe his hyponatremia is most likely secondary to SIADH considering his underlying malignancy/bronchogenic carcinoma Reevaluate today on 10/25/2024, patient is doing a bit better today however continues to have intermittent episodes of fevers, in spite of antibiotics patient continues to have febrile episodes. Patient had a Tmax of 102.6 yesterday, today's temp is 100.3 blood pressure 102/59 he is on 2 L nasal cannula with O2 saturation ranging between 91 up to 97% sodium is low at 126 CBC today is pending. Patient screening for viral infection was negative including influenza A influenza B RSV and COVID patient also had negative urinary Legionella antigen Patient was seen today on 10/26/2024, continues to have intermittent spiking of temperature, febrile, and I have a feeling that the patient may have an infected enterocutaneous fistula which was examined today, and I am recommending surgical evaluation for his fistula. Patient seems to have a deep open wound in the buttock area, this could very well be an enterocutaneous fistula.Pulmonary costa is feeling better breathing easier WBC count is 6.9 hemoglobin is 8.11 sodium 129 potassium 5.1 BUN is 14 creatinine 1.11 Seen today on 10/27/2024, patient continues to have low-grade fever, he had a Tmax of 99 last night, remains on antibiotics empirically, CT of the pelvis failed to show abscess or enterocutaneous fistula. Patient is feeling better today, breathing easier. CT of the chest and chest x-ray showed mostly atelectasis, strongly doubt pneumonia. Patient was seen today on 10/28/2024, his fever seems to be responding finally to antibiotics, patient has some positive cultures from his perianal wound, but no evidence of abscess. Pulmonary costa is doing well, no cough no wheezing no shortness of breathBasic metabolic profile is relatively normal. Overall the patient seems to be doing better Patient was evaluated today on 10/29/2024, doing fairly well, relatively asymptomatic, does not seem to be in any distress, he did have a low temp last night he had a Tmax of 100.3, remains on 4 L nasal cannula, he has no active pulmonary symptoms no cough no wheezing no shortness of breath. Remains on daptomycin and Unasyn, the plan is to eventually transition the patient to oral antibiotics as per infectious disease. Pulmonary costa I believe the patient is doing quite wellLabs today showed relatively normal electrolytes and normal renal profile. Objective - Vital Signs Vital signs: Vital Signs Temp 99.1 F 10/29/24 12:00 Pulse 77 10/29/24 12:00 Resp 16 10/29/24 12:00 BP 116/69 10/29/24 12:00 Pulse Ox 91 L 10/29/24 12:00 FiO2 Intake & Output 10/28/24 10/29/24 10/29/24 18:59 06:59 18:59 Intake Total 1894 200 Output Total 350 300 Balance 1894 -350 -100 Weight 162.7 kg Intake: Intake, IV Titration 200 Amount Fluconazole in NaCl,Iso- 200 Osm 400 mg In Saline 1 200ml.bag @ 100 mls/hr IVPB DAILY [facility] Rx#: [id number] Oral 1893 Output: Urine 350 300 Other: Voiding Method Toilet Toilet Toilet # Voids 1 - Exam Physical exam: General: Reveals a 59-year-old white male in no distress extremely pleasant on room air and O2 sat is 93% Head normocephalic and atraumatic Neck supple no JVD no goiter, no neck masses, no stridor. Lungs symmetrical expansion, clear bilaterally no crackles rhonchi or wheezes Heart distant S1-S2, no S3 gallop, no murmur. \ Abdomen: Obese soft nontender no megaly no rebound Extremities 2+ edema bilaterally Neuro no gross focal deficit Psychiatric: Normal mood affect and no mental status examination Skin: No rashes however patient was noted to have a large deep wound in the perianal area - Labs CBC & Chem 7: 10/26/24 06:42 10/29/24 10:01 Labs: Abnormal Lab Results - Last 24 Hours (Table) 10/28/24 10/28/24 10/29/24 Range/Units 16:24 20:19 06:14 Sodium (137-145) mmol/L Chloride (98-107) mmol/L Carbon Dioxide (22-30) mmol/L Glucose (74-99) mg/dL POC Glucose (mg/dL) 244 H 271 H 164 H (70-110) mg/dL Calcium (8.4-10.2) mg/dL 10/29/24 10/29/24 Range/Units 10:01 12:08 Sodium 132 L (137-145) mmol/L Chloride 93 L (98-107) mmol/L Carbon Dioxide 31 H (22-30) mmol/L Glucose 173 H (74-99) mg/dL POC Glucose (mg/dL) 189 H (70-110) mg/dL Calcium 7.8 L (8.4-10.2) mg/dL Microbiology - Last 24 Hours (Table) 10/24/24 09:05 Anaerobic Culture - Final Buttock Prevotella species Prevotella disiens Parabacteroides distasonis Anaerobic Gm Positive Bacill Assessment and Plan Assessment: Pression: Fever,, exact cause of his fever is not clear, however responding to antibiotics as given by ID Shortness of breath, multifactorial, resolved Pulm adenocarcinoma, stage IV, Chemotherapy-induced anemia the patient received a total of units of packed RBCs, hemoglobin stable for now. No leukocytosis. Morbid obesity with a BMI of 46.6 Obstructive sleep apnea on BiPAP Hypertension Hyperlipidemia Diabetes mellitus type 2 Peripheral neuropathy Hypothyroidism hyponatremia secondary to SIADH Buttocks wound possible enterocutaneous fistula will need surgical evaluation Recommendation: Continue present supportive care measures continue antibiotics as per ID on the case Continue Lovenox for DVT prophylaxis Continue intermittent gentle diuresis CT of the pelvis was reviewed, no evidence of abscess or enterocutaneous fistula Continue present treatment plan. will continue to Follow Time with Patient: Less than 30
--- NOTE | 2024-10-29 14:23 | P.PN ---
Subjective Progress Note Date: 10/29/24 Ganga Smart, is a 59-year-old male patient of Dr. Garsia who presented to the ER after his oncologist discovered his hemoglobin low at 5.9. Patient has a history of metastatic lung cancer and has been receiving chemotherapy last cycle 1 week ago. Patient reports he's been on chemotherapy for approximately 2 years.patient has past medical history of diabetes, GERD, hyperlipidemia, hypertension, sleep apnea, thyroid disorder. Patient denies any nicotine use history.lab work completed showing hemoglobin 5.6. White blood cell 4.0. Sodium 129, creatinine 1.2, bun 19, lactic acid 2.8patient also noted to have a low-grade temp 100.5. Patient denies any recent sick contacts denies cough or shortness of breath. Patient denies nausea vomiting or diarrhea. Patient denies any burning with urination. At this time patient will be admitted oncology and infectious disease service is consulted. 2 units of PRBCs have been ordered. COVID-19 in influenza negative. Blood and urine and sputum cultures ordered. At this time patient is resting comfortably in bed. Patient denies any chest pain or shortness of breath. Patient denies nausea vomiting or diarrhea. Patient denies any urinary burning or frequency On 10/20/2024 patient is alert and oriented x 3. Patient was continuing to have fevers throughout the night. Patient was started on vancomycin and Maxipime per infectious disease. Patient received 2 units of PRBCs repeat hemoglobin 8.5. Patient denies chest pain or shortness of breath. Patient denies nausea vomiting or diarrhea. Patient denies any urinary burning or frequency On 10/21/2024 patient is alert and oriented x 3. Patient having some increased back discomfort. Patient still having elevated temps slightly improved. Patient remains on IV antibiotic. Hemoglobin remained stable at 8.3. Patient denies chest pain or shortness of breath. Patient denies nausea vomiting or diarrhea. Patient denies any urinary burning or frequency On 10/22/2024 patient was seen and examined on the telemetry floor, he is alert and oriented x 3 in no apparent distress, he is still having elevated temperature up to 102.3, CT scan of the chest revealed bilateral pleural effusio n, pulmonary consultation was added and patient was seen by Dr. Menezes, because of elevated temperature is still not entirely clear, repeat blood cultures and sputum culture and echocardiogram was ordered, patient is followed by infectious disease and is maintained on IV antibiotics. Will continue to follow closely On 10/23/2024 patient is alert and oriented x 3. Patient continued to having e levated temps 2D echo and CT chest with contrast has been ordered. Infectious disease, pulmonary and oncology services are all following patient denies chest pain. Patient does report some shortness of breath. Patient denies nausea vomiting or diarrhea. Patient denies any urinary burning or frequency on 10/24/2024 patient is alert and oriented x 3. Patient still having elevated temps. CT of chest has been completed. awaiting 2 decho. at this time patient is still complaining of some shortnes of breath. Denies chest pain. denies nausea vomiting or diarrhea. Denies any urinary burning or frequency. oncology, infectious disease, and pulmonary services following. remains on Iv zosyn 10/25. Patient seen and examined. States he feels very lethargic and weak. 10/26. Patient seen and examined. Blood work done showed sodium 129, potassium 5.1, CO2 30, anion gap 5, BUN 14, creatinine 1.11. Patient fever overnight of 102. 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 Patient seen and examined.complaining of shortness of breath. Currently on 4 L of oxygen, ordered chest x-ray encourage patient to use I-S 10/20. Patient seen and examined. Continues to be on 3 L of oxygen. States breathing is improved a lot compared to yesterday 10/29. Patient seen and examined. CT face done showed noticing fluid collection or abscess, no evidence of osseous erosion. Tmax of 100.3 REVIEW OF SYSTEMS: CONSTITUTIONAL: As mentioned above CARDIOVASCULAR: No chest pain, no palpitations, no syncope. PULMONARY: As mentioned above GASTROINTESTINAL: No diarrhea, no nausea, no vomiting, no abdominal pain. NEUROLOGICAL: No headaches, no weakness, PHYSICAL EXAMINATION: GENERAL: The patient is alert and oriented x3, ill looking HEENT: Pupils are round and equally reacting to light. EOMI. No scleral icterus. No conjunctival pallor. Normocephalic, atraumatic. No pharyngeal erythema. No thyromegaly. CARDIOVASCULAR: S1 and S2 present. No murmurs, rubs, or gallops. PULMONARY: Diminished breath sounds at the bases bilaterally, bilateral crackles audible, no wheezing or crackles. ABDOMEN: Soft, nontender, nondistended, normoactive bowel sounds. No palpable organomegaly. MUSCULOSKELETAL: No joint swelling or deformity. EXTREMITIES 1+ pitting edema of lower extremities bilaterally NEUROLOGICAL: Gross neurological examination did not reveal any focal deficits. SKIN: No rashes. Assessment and plan Anemia likely secondary to chemotherapy History of metastatic lung cancer patient follows with oncology services last chemotherapy one week ago Right perineal wound, Fever of unknown origin Hyponatremia, correcting with IV fluid History of diabetes mellitus History of hyperlipidemia History of essential hypertension History of hypothyroidism History of sleep apnea Monitor vital signs Monitor CBC Monitor CMP Follow-up on blood cultures Follow-up on wound cultures Aggressive bronchopulmonary hygiene encourage use of I-S Maintain fluid restriction. Avoid NSAIDs. I's and O's, daily weights, continue IV Lasix daily Continue Unasyn, daptomycin, Diflucan Nephrology following ID following oncology following Surgery consulted for enterocutaneous fistula, do not think there is any evidence of enterocutaneous fistula Labs and medication were reviewed.. Continue same treatment. Continue with symptomatic treatment. Resume home medication. Monitor labs and vitals. DVT and GI prophylaxis. Further recommendations as per clinical course of the patient Dictation was produced using [employer] dictation software. please excuse any grammatical, word or spelling errors. Objective - Vital Signs Vital signs: Vital Signs Temp 99.1 F 10/29/24 12:00 Pulse 77 10/29/24 12:00 Resp 16 10/29/24 12:00 BP 116/69 10/29/24 12:00 Pulse Ox 91 L 10/29/24 12:00 FiO2 Intake & Output 10/28/24 10/29/24 10/29/24 18:59 06:59 18:59 Intake Total 1894 200 Output Total 350 300 Balance 1894 -350 -100 Weight 162.7 kg Intake: Intake, IV Titration 200 Amount Fluconazole in NaCl,Iso- 200 Osm 400 mg In Saline 1 200ml.bag @ 100 mls/hr IVPB DAILY [facility] Rx#: [id number] Oral 1894 Output: Urine 350 300 Other: Voiding Method Toilet Toilet Toilet # Voids 1 - Labs CBC & Chem 7: 10/26/24 06:42 10/29/24 10:01 Labs: Abnormal Lab Results - Last 24 Hours (Table) 10/28/24 10/28/24 10/29/24 Range/Units 16:24 20:19 06:14 Sodium (137-145) mmol/L Chloride (98-107) mmol/L Carbon Dioxide (22-30) mmol/L Glucose (74-99) mg/dL POC Glucose (mg/dL) 244 H 271 H 164 H (70-110) mg/dL Calcium (8.4-10.2) mg/dL 10/29/24 10/29/24 Range/Units 10:01 12:08 Sodium 132 L (137-145) mmol/L Chloride 93 L (98-107) mmol/L Carbon Dioxide 31 H (22-30) mmol/L Glucose 173 H (74-99) mg/dL POC Glucose (mg/dL) 189 H (70-110) mg/dL Calcium 7.8 L (8.4-10.2) mg/dL Microbiology - Last 24 Hours (Table) 10/24/24 09:05 Anaerobic Culture - Final Buttock Prevotella species Prevotella disiens Parabacteroides distasonis Anaerobic Gm Positive Bacill
[2024-10-29 17:02] LABS: Glucose,Whole Blood 176 mg/dL (70-110)
[2024-10-29 19:53] LABS: Glucose,Whole Blood 209 mg/dL (70-110)
[2024-10-30 06:13] LABS: Glucose,Whole Blood 119 mg/dL (70-110)
[2024-10-30 07:40] LABS: Glucose,Whole Blood 202 mg/dL (70-110)
[2024-10-30 11:18] LABS: Anisocytosis Moderate; HCT 27.5 % (39.0-53.0); HGB 8.6 gm/dL (13.0-17.5); Hypochromasia Marked; MCHC 31.2 g/dL (31.0-37.0); MCV 92.8 fL (80.0-100.0); Macrocytosis Slight; Mean Platelet Volume 7.7; Platelet Count 212 k/uL (150-450); Poikilocytosis Moderate; RBC 2.97 m/uL (4.30-5.90); RDW 20.2 % (11.5-15.5)
[2024-10-30 11:27] LABS: Glucose,Whole Blood 140 mg/dL (70-110)
[2024-10-30 12:03] LABS: Anisocytosis (M) Present; Band Neutrophils % 7 %; Eosinophils # (M) 0.15 k/uL (0-0.7); Lymphocytes # (M) 2.85 k/uL (1.0-4.8); Metamyelocytes # (M) 0.22 k/uL (0); Metamyelocytes % 3 %; Monocytes # (M) 0.51 k/uL (0-1.0); Myelocytes # (M) 0.15 k/uL (0); Myelocytes % 2 %; Neutrophils % (M) 43 %; Nucleated Red Blood Cells 3 /100 WBC (0-0); Poikilocytosis (M) Present; Polychromasia Present; Total Cells Counted 200; WBC 7.3 k/uL (3.8-10.6)
--- NOTE | 2024-10-30 12:47 | P.PN ---
Subjective Progress Note Date: 10/30/24 Patient is seen in follow-up for hyponatremia. Oral intake fair. No vomiting or diarrhea. Sodium level stable at 132. Feeling better overall. Vital signs are stable. General: No acute distress. HEENT: Head exam is unremarkable. On nasal cannula. LUNGS: No audible rhonchi or wheezes. HEART: Rate and Rhythm are regular. ABDOMEN: Obese, nontender. EXTREMITITES: 1+ edema. Objective - Vital Signs Vital signs: Vital Signs Temp 100.7 F H 10/30/24 04:00 Pulse 80 10/30/24 11:21 Resp 16 10/30/24 08:00 BP 93/62 10/30/24 08:00 Pulse Ox 98 10/30/24 08:00 FiO2 Intake & Output 10/29/24 10/30/24 10/30/24 18:59 06:59 18:59 Intake Total 836 480 240 Output Total 300 200 Balance 536 280 240 Weight 163.3 kg Intake: Intake, IV Titration 300 Amount Ampicillin-Sulbactam 3 gm 100 In Sodium Chloride 0.9% 100 ml @ 200 mls/hr IVPB Q6HR [facility] Rx#:[id number] Fluconazole in NaCl,Iso- 200 Osm 400 mg In Saline 1 200ml.bag @ 100 mls/hr IVPB DAILY [facility] Rx#: [id number] Oral 536 480 240 Output: Urine 300 200 Stool 0 0 Other: Voiding Method Toilet Toilet - Labs CBC & Chem 7: 10/30/24 10:33 10/29/24 10:01 Labs: Abnormal Lab Results - Last 24 Hours (Table) 10/27/24 10/29/24 10/29/24 Range/Units 16:08 10:01 12:08 RBC (4.30-5.90) m/uL Hgb (13.0-17.5) gm/dL Hct (39.0-53.0) % RDW (11.5-15.5) % Sodium 132 L (137-145) mmol/L Chloride 93 L (98-107) mmol/L Carbon Dioxide 31 H (22-30) mmol/L Glucose 173 H (74-99) mg/dL POC Glucose (mg/dL) 202 H 189 H (70-110) mg/dL Calcium 7.8 L (8.4-10.2) mg/dL 10/29/24 10/29/24 10/30/24 Range/Units 17:01 19:51 06:10 RBC (4.30-5.90) m/uL Hgb (13.0-17.5) gm/dL Hct (39.0-53.0) % RDW (11.5-15.5) % Sodium (137-145) mmol/L Chloride (98-107) mmol/L Carbon Dioxide (22-30) mmol/L Glucose (74-99) mg/dL POC Glucose (mg/dL) 176 H 209 H 119 H (70-110) mg/dL Calcium (8.4-10.2) mg/dL 10/30/24 10/30/24 Range/Units 10:33 11:26 RBC 2.97 L (4.30-5.90) m/uL Hgb 8.6 L (13.0-17.5) gm/dL Hct 27.5 L (39.0-53.0) % RDW 20.2 H (11.5-15.5) % Sodium (137-145) mmol/L Chloride (98-107) mmol/L Carbon Dioxide (22-30) mmol/L Glucose (74-99) mg/dL POC Glucose (mg/dL) 140 H (70-110) mg/dL Calcium (8.4-10.2) mg/dL Assessment and Plan Assessment: 1. Hyponatremia. Slightly hypervolemic. Also on NSAIDs. Sodium level 132 yesterday. TSH normal. Urine sodium 38 and urine osmolality 546. 2. Chemo induced anemia status post blood transfusions this admission. 3. Metastatic lung adenocarcinoma. Oncology following. 4. Benign hypertension. Blood pressure on the lower side. 5. Chronic diastolic CHF with severe pulmonary hypertension. 6. Volume overload. 7. Perirectal wound on antibiotics. Infectious disease following. 8. Hypermagnesemia secondary to magnesium supplementation. Plan: Maintain fluid restriction. Encouraged protein intake Avoid NSAIDs. Change Lasix to PO given alkalosis
--- NOTE | 2024-10-30 13:41 | P.PN ---
Subjective Progress Note Date: 10/30/24 Ganga Smart, is a 59-year-old male patient of Dr. Garsia who presented to the ER after his oncologist discovered his hemoglobin low at 5.9. Patient has a history of metastatic lung cancer and has been receiving chemotherapy last cycle 1 week ago. Patient reports he's been on chemotherapy for approximately 2 years.patient has past medical history of diabetes, GERD, hyperlipidemia, hypertension, sleep apnea, thyroid disorder. Patient denies any nicotine use history.lab work completed showing hemoglobin 5.6. White blood cell 4.0. Sodium 129, creatinine 1.2, bun 19, lactic acid 2.8patient also noted to have a low-grade temp 100.5. Patient denies any recent sick contacts denies cough or shortness of breath. Patient denies nausea vomiting or diarrhea. Patient denies any burning with urination. At this time patient will be admitted oncology and infectious disease service is consulted. 2 units of PRBCs have been ordered. COVID-19 in influenza negative. Blood and urine and sputum cultures ordered. At this time patient is resting comfortably in bed. Patient denies any chest pain or shortness of breath. Patient denies nausea vomiting or diarrhea. Patient denies any urinary burning or frequency On 10/20/2024 patient is alert and oriented x 3. Patient was continuing to have fevers throughout the night. Patient was started on vancomycin and Maxipime per infectious disease. Patient received 2 units of PRBCs repeat hemoglobin 8.5. Patient denies chest pain or shortness of breath. Patient denies nausea vomiting or diarrhea. Patient denies any urinary burning or frequency On 10/21/2024 patient is alert and oriented x 3. Patient having some increased back discomfort. Patient still having elevated temps slightly improved. Patient remains on IV antibiotic. Hemoglobin remained stable at 8.3. Patient denies chest pain or shortness of breath. Patient denies nausea vomiting or diarrhea. Patient denies any urinary burning or frequency On 10/22/2024 patient was seen and examined on the telemetry floor, he is alert and oriented x 3 in no apparent distress, he is still having elevated temperature up to 102.3, CT scan of the chest revealed bilateral pleural effusio n, pulmonary consultation was added and patient was seen by Dr. Menezes, because of elevated temperature is still not entirely clear, repeat blood cultures and sputum culture and echocardiogram was ordered, patient is followed by infectious disease and is maintained on IV antibiotics. Will continue to follow closely On 10/23/2024 patient is alert and oriented x 3. Patient continued to having e levated temps 2D echo and CT chest with contrast has been ordered. Infectious disease, pulmonary and oncology services are all following patient denies chest pain. Patient does report some shortness of breath. Patient denies nausea vomiting or diarrhea. Patient denies any urinary burning or frequency on 10/24/2024 patient is alert and oriented x 3. Patient still having elevated temps. CT of chest has been completed. awaiting 2 decho. at this time patient is still complaining of some shortnes of breath. Denies chest pain. denies nausea vomiting or diarrhea. Denies any urinary burning or frequency. oncology, infectious disease, and pulmonary services following. remains on Iv zosyn 10/25. Patient seen and examined. States he feels very lethargic and weak. 10/26. Patient seen and examined. Blood work done showed sodium 129, potassium 5.1, CO2 30, anion gap 5, BUN 14, creatinine 1.11. Patient fever overnight of 102. 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 Patient seen and examined.complaining of shortness of breath. Currently on 4 L of oxygen, ordered chest x-ray encourage patient to use I-S 10/20. Patient seen and examined. Continues to be on 3 L of oxygen. States breathing is improved a lot compared to yesterday 10/29. Patient seen and examined. CT face done showed noticing fluid collection or abscess, no evidence of osseous erosion. Tmax of 100.3 10/30. Patient seen and examined. Doing well. Had low-grade fever of 100.7 br eathing is improved. Swelling of lower extremities also improving REVIEW OF SYSTEMS: CONSTITUTIONAL: As mentioned above CARDIOVASCULAR: No chest pain, no palpitations, no syncope. PULMONARY: As mentioned above GASTROINTESTINAL: No diarrhea, no nausea, no vomiting, no abdominal pain. NEUROLOGICAL: No headaches, no weakness, PHYSICAL EXAMINATION: GENERAL: The patient is alert and oriented x3, ill looking HEENT: Pupils are round and equally reacting to light. EOMI. No scleral icterus. No conjunctival pallor. Normocephalic, atraumatic. No pharyngeal erythema. No thyromegaly. CARDIOVASCULAR: S1 and S2 present. No murmurs, rubs, or gallops. PULMONARY: Diminished breath sounds at the bases bilaterally, bilateral crackles audible, no wheezing or crackles. ABDOMEN: Soft, nontender, nondistended, normoactive bowel sounds. No palpable organomegaly. MUSCULOSKELETAL: No joint swelling or deformity. EXTREMITIES 1+ pitting edema of lower extremities bilaterally NEUROLOGICAL: Gross neurological examination did not reveal any focal deficits. SKIN: No rashes. Assessment and plan Anemia likely secondary to chemotherapy History of metastatic lung cancer patient follows with oncology services last chemotherapy one week ago Right perineal wound, Fever of unknown origin Hyponatremia, correcting with IV fluid History of diabetes mellitus History of hyperlipidemia History of essential hypertension History of hypothyroidism History of sleep apnea Monitor vital signs Monitor CBC Monitor CMP Follow-up on blood cultures Follow-up on wound cultures Aggressive bronchopulmonary hygiene encourage use of I-S Maintain fluid restriction. Avoid NSAIDs. I's and O's, daily weights, switch to oral Lasix Continue Unasyn, daptomycin, Diflucan Nephrology following ID following oncology following Surgery consulted for enterocutaneous fistula, do not think there is any evidence of enterocutaneous fistula Labs and medication were reviewed.. Continue same treatment. Continue with symptomatic treatment. Resume home medication. Monitor labs and vitals. DVT and GI prophylaxis. Further recommendations as per clinical course of the patient Dictation was produced using [employer] dictation software. please excuse any grammatical, word or spelling errors. Objective - Vital Signs Vital signs: Vital Signs Temp 100.7 F H 10/30/24 04:00 Pulse 84 10/30/24 08:20 Resp 16 10/30/24 08:00 BP 93/62 10/30/24 08:00 Pulse Ox 98 10/30/24 08:00 FiO2 Intake & Output 10/29/24 10/30/24 10/30/24 18:59 06:59 18:59 Intake Total 836 480 240 Output Total 300 200 Balance 536 280 240 Weight 163.3 kg Intake: Intake, IV Titration 300 Amount Ampicillin-Sulbactam 3 gm 100 In Sodium Chloride 0.9% 100 ml @ 200 mls/hr IVPB Q6HR MICHELLE Rx#:[id number] Fluconazole in NaCl,Iso- 200 Osm 400 mg In Saline 1 200ml.bag @ 100 mls/hr IVPB DAILY MICHELLE Rx#: [id number] Oral 536 480 240 Output: Urine 300 200 Stool 0 0 Other: Voiding Method Toilet Toilet - Labs CBC & Chem 7: 10/30/24 10:33 10/29/24 10:01 Labs: Abnormal Lab Results - Last 24 Hours (Table) 10/27/24 10/29/24 10/29/24 Range/Units 16:08 10:01 12:08 Sodium 132 L (137-145) mmol/L Chloride 93 L (98-107) mmol/L Carbon Dioxide 31 H (22-30) mmol/L Glucose 173 H (74-99) mg/dL POC Glucose (mg/dL) 202 H 189 H (70-110) mg/dL Calcium 7.8 L (8.4-10.2) mg/dL 10/29/24 10/29/24 10/30/24 Range/Units 17:01 19:51 06:10 Sodium (137-145) mmol/L Chloride (98-107) mmol/L Carbon Dioxide (22-30) mmol/L Glucose (74-99) mg/dL POC Glucose (mg/dL) 176 H 209 H 119 H (70-110) mg/dL Calcium (8.4-10.2) mg/dL
--- NOTE | 2024-10-30 14:25 | P.PN ---
Subjective Progress Note Date: 10/30/24 Principal diagnosis: Anemia. This is a 59-year-old male patient with metastatic pulmonary adenocarcinoma, who has been receiving systemic chemotherapy and the patient was not Gemzar and his last treatment was on 10/12/2024. The patient was tolerating the systemic chemotherapy reasonably well. He is morbidly obese and has history of obstructive sleep apnea along with diabetes mellitus and hyperlipidemia. He is currently in the hospital as the patient was initially sent over from oncologist office because of a low hemoglobin of 5.9. The patient was also febrile. He was given a total of 2 U PRBC During this current hospitalization the patient's hemoglobin is currently up to 8.3. Nevertheless, he continues to have episodes of fever. Currently afebrile. Tmax over the past 24 hours was 102.3. No clear source of infection. The patient remains on a combination of cefepime and vancomycin. Note that his white cell count is not elevated. His white cell count is at 4. He has no DVTs in his lower extremities. CAT scan of the abdomen and pelvis was done and shows a chronic small right-sided pleural effusion. There is bony metastases throughout and there was no significant lymphadenopathy. Blood cultures have been negative. The patient has a Mediport that looks to be quite clean. No altered mentation. No skin rashes. No wounds or ulcers. As such, the source of the fever is not clear. ID is on the case. He is also experiencing some shortness of breath with mobility. Nevertheless, he is on room air oxygen. No cough sputum production chest tightness or wheezing. In terms of his lung cancer, the patient was diagnosed having pulm adenocarcinoma back in 2021. He has been followed up by Dr. Cat. He initially presented with 3 cm RLL lung mass,he had a PET scan on 06/16/2022 which revealed suspicious uptake in in central right lung lesion,measured 2.1 x 2.2 cm,he initially had navigational bronchoscopy which was not diagnostic,he ws referred to DR Hernandez at [facility],he had repeat CT scan of chest on 07/07/2022 which revealed 3 cm lesion in superior segment of RLL and several other small nodules in right lung which are new compared to prior CT scan done at [facility] in 06/2016. On 07/24/2022,he underwent RLL resection and biopsies of mediastinal nodes,pathology revealed adenocarcinoma spreading through alveolar spaces and invading lymphovascular channels (BERENICE),multifocal,right level 8,level 7,4R nodes were positive. Brain MRI on 08/08/2022 was negative. Caris did not reveal any targetable mutation. On 08/18/2022,PET scan revealed uptake in right hilar region,there was uptake in left second rib,had an MRI which revealed subtle area in rib without enhancement. On 08/26/2022,he started carbo/alimta with radiation,completed 4 cycles of chemo on 10/29/2022. Due to disease progression, patient has been on multiple treatment regimens. He started imfinzi on 12/25/2022. Taxotere/cyramza/zometa were held in December 2023, as patient developed ONJ. He started gemzar on 05/10/2024, most recently completing cycle 8 on 10/12/24, Patient was evaluated today on 10/23/2024, patient seems to be doing better today, continues to have low-grade fever his Tmax last night was 99.5. Hemodynamically stable on 2 L nasal cannula O2 sat is 98% patient seems to have less and less shortness of breath.WBC count is 5.2 hemoglobin is 8 sodium is 127 potassium 4.9 BUN is 19 creatinine 1.14 blood cultures and urine cultures remain negative so far. Seen today on 10/24/2024, patient is doing well, feeling better, yesterday's CT of the chest showed evidence of bilateral pleural effusions and the patient received 1 dose of Lasix yesterday and he received DuoNeb updraft treatment for his acute onset of shortness of breath, patient felt much better shortly after. Today is down to 125 his BUN is 18 creatinine 1.13, patient is now being seen by nephrology on consultation. I believe his hyponatremia is most likely secondary to SIADH considering his underlying malignancy/bronchogenic carcinoma Reevaluate today on 10/25/2024, patient is doing a bit better today however continues to have intermittent episodes of fevers, in spite of antibiotics patient continues to have febrile episodes. Patient had a Tmax of 102.6 yesterday, today's temp is 100.3 blood pressure 102/59 he is on 2 L nasal cannula with O2 saturation ranging between 91 up to 97% sodium is low at 126 CBC today is pending. Patient screening for viral infection was negative including influenza A influenza B RSV and COVID patient also had negative urinary Le gionella antigen Patient was seen today on 10/26/2024, continues to have intermittent spiking of temperature, febrile, and I have a feeling that the patient may have an infected enterocutaneous fistula which was examined today, and I am recommending surgical evaluation for his fistula. Patient seems to have a deep open wound in the buttock area, this could very well be an enterocutaneous fistula.Pulmonary costa is feeling better breathing easier WBC count is 6.9 hemoglobin is 8.11 sodium 129 potassium 5.1 BUN is 14 creatinine 1.11 Seen today on 10/27/2024, patient continues to have low-grade fever, he had a Tmax of 99 last night, remains on antibiotics empirically, CT of the pelvis failed to show abscess or enterocutaneous fistula. Patient is feeling better today, breathing easier. CT of the chest and chest x-ray showed mostly atelectasis, strongly doubt pneumonia. Patient was seen today on 10/28/2024, his fever seems to be responding finally to antibiotics, patient has some positive cultures from his perianal wound, but no evidence of abscess. Pulmonary costa is doing well, no cough no wheezing no shortness of breathBasic metabolic profile is relatively normal. Overall the p atient seems to be doing better Patient was evaluated today on 10/29/2024, doing fairly well, relatively asymptomatic, does not seem to be in any distress, he did have a low temp last night he had a Tmax of 100.3, remains on 4 L nasal cannula, he has no active pulmonary symptoms no cough no wheezing no shortness of breath. Remains on daptomycin and Unasyn, the plan is to eventually transition the patient to oral antibiotics as per infectious disease. Pulmonary costa I believe the patient is doing quite wellLabs today showed relatively normal electrolytes and normal renal profile. Progress note dated October 30, 2024. 59-year-old male seen today in room 360. The patient is resting comfortably in bed. He is on 4 L of oxygen, with saturations of 98%. He is getting saline at 10 cc an hour. The patient denies any respiratory difficulty, or distress. He denies any cough, wheezing, or phlegm production. Current laboratory data includes a white count 7.3, hemoglobin 8.6, hematocrit 27.5, and normal platelet count. Glucose is 140. Ulcers of the buttock area, show multiple bacteria. The patient is currently on Augmentin, and ciprofloxacin, as per infectious diseases. Objective - Vital Signs Vital signs: Vital Signs Temp 98.9 F 10/30/24 12:00 Pulse 86 10/30/24 12:00 Resp 16 10/30/24 12:00 BP 118/59 10/30/24 12:00 Pulse Ox 90 L 10/30/24 12:00 FiO2 Intake & Output 10/29/24 10/30/24 10/30/24 18:59 06:59 18:59 Intake Total 836 480 240 Output Total 300 200 900 Balance 536 280 -660 Weight 163.3 kg Intake: Intake, IV Titration 300 Amount Ampicillin-Sulbactam 3 gm 100 In Sodium Chloride 0.9% 100 ml @ 200 mls/hr IVPB Q6HR MICHELLE Rx#:[id number] Fluconazole in NaCl,Iso- 200 Osm 400 mg In Saline 1 200ml.bag @ 100 mls/hr IVPB DAILY MICHELLE Rx#: [id number] Oral 536 480 240 Output: Urine 300 200 900 Stool 0 0 0 Other: Voiding Method Toilet Toilet Toilet - Exam No acute distress, oriented 3. HEENT examination is grossly unremarkable. Mucous membranes are moist. No oral lesions. Neck supple. Full range of motion. No adenopathy thyromegaly or neck vein distention. Cardiovascular examination reveals regular rhythm rate. S1-S2 normal. No S3 or S4. No discernible murmur noted. Lungs reveal clear breath sounds. Breath sounds are equal bilaterally. No adventitious lung sounds including wheezes rhonchi or crackles. Abdomen soft bowel sounds are heard. No masses or tenderness. Extremities are intact. No cyanosis or clubbing. Lower extremity edema is noted. Skin reveals a large deep wound in the perianal area. Neurologic examination is brief but nonfocal. - Labs CBC & Chem 7: 10/30/24 10:33 10/29/24 10:01 Labs: Abnormal Lab Results - Last 24 Hours (Table) 10/27/24 10/29/24 10/29/24 Range/Units 16:08 17:01 19:51 RBC (4.30-5.90) m/uL Hgb (13.0-17.5) gm/dL Hct (39.0-53.0) % RDW (11.5-15.5) % Metamyelocytes # (Man) (0) k/uL Myelocytes # (Manual) (0) k/uL Nucleated RBCs (0-0) /100 WBC POC Glucose (mg/dL) 202 H 176 H 209 H (70-110) mg/dL 10/30/24 10/30/24 10/30/24 Range/Units 06:10 10:33 11:26 RBC 2.97 L (4.30-5.90) m/uL Hgb 8.6 L (13.0-17.5) gm/dL Hct 27.5 L (39.0-53.0) % RDW 20.2 H (11.5-15.5) % Metamyelocytes # (Man) 0.22 H (0) k/uL Myelocytes # (Manual) 0.15 H (0) k/uL Nucleated RBCs 3 H (0-0) /100 WBC POC Glucose (mg/dL) 119 H 140 H (70-110) mg/dL Assessment and Plan Assessment: Fever, of unclear cause, improved, and responding to the antibiotics. Shortness of breath, multifactorial, resolved. Stage IV pulmonary adenocarcinoma. Chemotherapy-induced anemia. Morbid obesity, with a BMI of 46.6 kg/m. Obstructive sleep apnea syndrome, maintained on BiPAP. History of hypertension. History of hyperlipidemia. History of the type 2 diabetes mellitus. History of peripheral neuropathy. Hypothyroidism. SIADH induced hyponatremia. 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 Plan: Plan dated October 30, 2024. The patient is seen today in room 360. The patient is currently on nasal O2 at 4 L. Saturations are 98%. The patient is getting saline at 10 cc an hour. Antibiotics include Augmentin, and ciprofloxacin. Labs, x-rays, and all medications are reviewed. The patient's not having any respiratory difficulty or distress. We will continue to follow make recommendations along the way. Prognosis is guarded. Time with Patient: Less than 30
--- NOTE | 2024-10-30 15:34 | P.PN ---
Subjective Progress Note Date: 10/30/24 Reporting feeling improved today. Temperature of 100.7 this morning, however fever pattern improved. Wound cultures showing multiple organisms. Abx have been transitioned to oral abx today. ID following. Hgb stable, 8.6, WBC 7.3 Objective - Vital Signs Vital signs: Vital Signs Temp 100.7 F H 10/30/24 04:00 Pulse 80 10/30/24 11:30 Resp 16 10/30/24 08:00 BP 93/62 10/30/24 08:00 Pulse Ox 98 10/30/24 08:00 FiO2 Intake & Output 10/29/24 10/30/24 10/30/24 18:59 06:59 18:59 Intake Total 836 480 240 Output Total 300 200 900 Balance 536 280 -660 Weight 163.3 kg Intake: Intake, IV Titration 300 Amount Ampicillin-Sulbactam 3 gm 100 In Sodium Chloride 0.9% 100 ml @ 200 mls/hr IVPB Q6HR MICHELLE Rx#:[id number] Fluconazole in NaCl,Iso- 200 Osm 400 mg In Saline 1 200ml.bag @ 100 mls/hr IVPB DAILY MICHELLE Rx#: [id number] Oral 536 480 240 Output: Urine 300 200 900 Stool 0 0 0 Other: Voiding Method Toilet Toilet Toilet - Constitutional General appearance: Present: no acute distress - EENT Eyes: Present: anicteric sclerae, EOMI ENT: Present: hearing grossly normal - Respiratory Details: breathing is even and unlabored - Cardiovascular Details: skin warm and dry - Integumentary Integumentary: Present: pale. Absent: cyanotic - Psychiatric Psychiatric: Present: A&O x's 3 - Labs CBC & Chem 7: 10/30/24 10:33 10/29/24 10:01 Labs: Abnormal Lab Results - Last 24 Hours (Table) 10/27/24 10/29/24 10/29/24 Range/Units 16:08 12:08 17:01 RBC (4.30-5.90) m/uL Hgb (13.0-17.5) gm/dL Hct (39.0-53.0) % RDW (11.5-15.5) % Metamyelocytes # (Man) (0) k/uL Myelocytes # (Manual) (0) k/uL Nucleated RBCs (0-0) /100 WBC POC Glucose (mg/dL) 202 H 189 H 176 H (70-110) mg/dL 10/29/24 10/30/24 10/30/24 Range/Units 19:51 06:10 10:33 RBC 2.97 L (4.30-5.90) m/uL Hgb 8.6 L (13.0-17.5) gm/dL Hct 27.5 L (39.0-53.0) % RDW 20.2 H (11.5-15.5) % Metamyelocytes # (Man) 0.22 H (0) k/uL Myelocytes # (Manual) 0.15 H (0) k/uL Nucleated RBCs 3 H (0-0) /100 WBC POC Glucose (mg/dL) 209 H 119 H (70-110) mg/dL 10/30/24 Range/Units 11:26 RBC (4.30-5.90) m/uL Hgb (13.0-17.5) gm/dL Hct (39.0-53.0) % RDW (11.5-15.5) % Metamyelocytes # (Man) (0) k/uL Myelocytes # (Manual) (0) k/uL Nucleated RBCs (0-0) /100 WBC POC Glucose (mg/dL) 140 H (70-110) mg/dL - Imaging and Cardiology CT facial reviewed Assessment and Plan (1) Anemia Current Visit: Yes Status: Acute Priority: Medium Code(s): D64.9 - ANEMIA, UNSPECIFIED SNOMED Code(s): 425924606 (2) Fever Current Visit: Yes Status: Acute Priority: High Code(s): R50.9 - FEVER, UNSPECIFIED SNOMED Code(s): 140954680 (3) Lung cancer Current Visit: Yes Status: Chronic Priority: Medium Code(s): C34.90 - MALIGNANT NEOPLASM OF UNSP PART OF UNSP BRONCHUS OR LUNG SNOMED Code(s): 448217693 Plan: Fever Patient presented to clinic on 10/19 for f/u s/p chemo, and was reporting persisting fatigue and increasing shortness of breath and dizziness over the last 1 week, and significant weakness and could only walk short distances withou t having to sit down. Temperature was noted at 100.7. Denied URI sx, urinary symptoms, n/v/d, and abdominal pain. Of note, patient had CTA chest at [facility] on 10/05 which was negative for PE -Blood cultures, Urine culture and viral panel negative -CT pelvis showing no significant abnormality, no evidence of perianal abscess or pelvic adenopathy -Due to history of ONJ, and persisting fever and right jaw discomfort, facial CT was obtained. Scan showed no evidence of organizing fluid collection or abscess, and no osseous erosion. -Wound cultures from buttocks positive for multiple organisms. Has continued on IV abx, transitioned to oral abx today -Temperature of 100.7 this morning, however fever trend has improved. -ID and pulm following. Chemo induced anemia, thrombocytopenia -Iron studies most consistent with anemia of inflammation, hemolysis work up neg. -Cytopenias 2/2 to chemo, prolonged/exacerbated by marrow fatigue in a heavily treated pt. -Hgb stable at 8.6. Thrombocytopenia resolved, plt 212 today -Continue to monitor CBC. -Transfuse for hgb less than 7 or if symptomatic. Metastatic lung adenocarcinoma -Oncology history as dictated in consult -Gemzar initiated 05/10/2024, last cycle, number 8, given on 10/12/24. Overall patient has been tolerating treatment well. -Fever can be a side effect of gemzar but would anticipate that side effect would have abated by now. Treatment modifications not anticipated at this time but, final plans will be discussed once acute condition is treated adequately -Clinic f/u scheduled on 11/03/24 Discussed case with admitting team today, as long as temperature is stable, will plan for discharge tomorrow on oral abx Will send referral from clinic to wound care center
[2024-10-30 16:51] LABS: Glucose,Whole Blood 154 mg/dL (70-110)
[2024-10-30] MEDS: CIPROFLOXACIN HCL 500 MG TAB PO SCH (18:17)
[2024-10-30] MEDS: AMOXIC-POT CLAV 875-125MG 1 EACH TAB PO SCH (18:18)
[2024-10-30 20:12] LABS: Glucose,Whole Blood 177 mg/dL (70-110)
[2024-10-31 05:50] LABS: Glucose,Whole Blood 139 mg/dL (70-110)
[2024-10-31] MEDS: FUROSEMIDE 40 MG TAB PO SCH (09:04)
[2024-10-31 09:10] LABS: ALT 49 U/L (4-49); AST 78 U/L (17-59); African American GFR (CKD) >90 (>60 ml/min/1.73 sqM); Alkaline Phosphatase 214 U/L (38-126); Anion Gap 1 mmol/L; Blood Urea Nitrogen 12 mg/dL (9-20); Calcium 7.6 mg/dL (8.4-10.2); Carbon Dioxide 36 mmol/L (22-30); Chloride 97 mmol/L (98-107); Glucose 138 mg/dL (74-99); Magnesium 2.5 mg/dL (1.6-2.3); Non-African American GFR(CKD) >90 (>60 ml/min/1.73 sqM); Potassium 4.9 mmol/L (3.5-5.1); Sodium 134 mmol/L (137-145); Total Bilirubin 0.9 mg/dL (0.2-1.3); Total Protein 6.2 g/dL (6.3-8.2)
[2024-10-31 10:55] VITALS: BMI 46.3
[2024-10-31 11:44] LABS: Glucose,Whole Blood 152 mg/dL (70-110)
--- NOTE | 2024-10-31 12:14 | P.PN ---
Subjective patient is seen for follow-up for hyponatremia. Currently being diuresed. Serum sodium was 134 today. No significant complaints. Objective - Vital Signs Vital signs: Vital Signs Temp 98.1 F 10/31/24 11:23 Pulse 80 10/31/24 12:02 Resp 17 10/31/24 11:23 BP 109/69 10/31/24 11:23 Pulse Ox 96 10/31/24 11:50 FiO2 Intake & Output 10/30/24 10/31/24 10/31/24 18:59 06:59 18:59 Intake Total 480 270 180 Output Total 900 0 300 Balance -420 270 -120 Weight 163.7 kg 163.7 kg Intake: Oral 480 270 180 Output: Urine 900 0 300 Stool 0 0 Other: Voiding Method Toilet Toilet Toilet # Voids 1 - Exam on examination patient is comfortable, awake, alert oriented 3. No acute distress Examination of the heart S1 and S2 Examination of the lungs bilateral breath sounds are heard Abdomen is soft nontender Examination of lower extremities shows edema 1+ bilaterally REPAIR SPECIALIST exam grossly intact - Labs CBC & Chem 7: 10/30/24 10:33 10/31/24 08:37 Labs: Abnormal Lab Results - Last 24 Hours (Table) 10/30/24 10/30/24 10/31/24 Range/Units 16:49 20:10 05:49 Sodium (137-145) mmol/L Chloride (98-107) mmol/L Carbon Dioxide (22-30) mmol/L Glucose (74-99) mg/dL POC Glucose (mg/dL) 154 H 177 H 139 H (70-110) mg/dL Calcium (8.4-10.2) mg/dL Magnesium (1.6-2.3) mg/dL AST (17-59) U/L Alkaline Phosphatase (38-126) U/L Total Protein (6.3-8.2) g/dL Albumin (3.5-5.0) g/dL 10/31/24 10/31/24 Range/Units 08:37 11:43 Sodium 134 L (137-145) mmol/L Chloride 97 L (98-107) mmol/L Carbon Dioxide 36 H (22-30) mmol/L Glucose 138 H (74-99) mg/dL POC Glucose (mg/dL) 152 H (70-110) mg/dL Calcium 7.6 L (8.4-10.2) mg/dL Magnesium 2.5 H (1.6-2.3) mg/dL AST 78 H (17-59) U/L Alkaline Phosphatase 214 H (38-126) U/L Total Protein 6.2 L (6.3-8.2) g/dL Albumin 3.0 L (3.5-5.0) g/dL Assessment and Plan Assessment: 1. Hyponatremia. Hypervolemic and currently being diuresed. Patient was also on NSAIDs, now discontinued. Sodium level 134 today. TSH normal. Urine sodium 38 and urine osmolality 546. 2. Chemo induced anemia status post blood transfusions this admission. 3. Metastatic lung adenocarcinoma. Oncology following. 4. Benign hypertension. Blood pressure on the lower side. 5. Chronic diastolic CHF with severe pulmonary hypertension. 6. Volume overload. 7. Perirectal wound on antibiotics. Infectious disease following. 8. Hypermagnesemia secondary to magnesium supplementation. Plan: continue with oral Lasix. Repeat labs in a.m.
--- NOTE | 2024-10-31 14:19 | P.PN ---
Subjective Progress Note Date: 10/31/24 Ganga Smart, is a 59-year-old male patient of Dr. Garsia who presented to the ER after his oncologist discovered his hemoglobin low at 5.9. Patient has a history of metastatic lung cancer and has been receiving chemotherapy last cycle 1 week ago. Patient reports he's been on chemotherapy for approximately 2 years.patient has past medical history of diabetes, GERD, hyperlipidemia, hypertension, sleep apnea, thyroid disorder. Patient denies any nicotine use history.lab work completed showing hemoglobin 5.6. White blood cell 4.0. Sodium 129, creatinine 1.2, bun 19, lactic acid 2.8patient also noted to have a low-grade temp 100.5. Patient denies any recent sick contacts denies cough or shortness of breath. Patient denies nausea vomiting or diarrhea. Patient denies any burning with urination. At this time patient will be admitted oncology and infectious disease service is consulted. 2 units of PRBCs have been ordered. COVID-19 in influenza negative. Blood and urine and sputum cultures ordered. At this time patient is resting comfortably in bed. Patient denies any chest pain or shortness of breath. Patient denies nausea vomiting or diarrhea. Patient denies any urinary burning or frequency On 10/20/2024 patient is alert and oriented x 3. Patient was continuing to have fevers throughout the night. Patient was started on vancomycin and Maxipime per infectious disease. Patient received 2 units of PRBCs repeat hemoglobin 8.5. Patient denies chest pain or shortness of breath. Patient denies nausea vomiting or diarrhea. Patient denies any urinary burning or frequency On 10/21/2024 patient is alert and oriented x 3. Patient having some increased back discomfort. Patient still having elevated temps slightly improved. Patient remains on IV antibiotic. Hemoglobin remained stable at 8.3. Patient denies chest pain or shortness of breath. Patient denies nausea vomiting or diarrhea. Patient denies any urinary burning or frequency On 10/22/2024 patient was seen and examined on the telemetry floor, he is alert and oriented x 3 in no apparent distress, he is still having elevated temperature up to 102.3, CT scan of the chest revealed bilateral pleural effusio n, pulmonary consultation was added and patient was seen by Dr. Menezes, because of elevated temperature is still not entirely clear, repeat blood cultures and sputum culture and echocardiogram was ordered, patient is followed by infectious disease and is maintained on IV antibiotics. Will continue to follow closely On 10/23/2024 patient is alert and oriented x 3. Patient continued to having e levated temps 2D echo and CT chest with contrast has been ordered. Infectious disease, pulmonary and oncology services are all following patient denies chest pain. Patient does report some shortness of breath. Patient denies nausea vomiting or diarrhea. Patient denies any urinary burning or frequency on 10/24/2024 patient is alert and oriented x 3. Patient still having elevated temps. CT of chest has been completed. awaiting 2 decho. at this time patient is still complaining of some shortnes of breath. Denies chest pain. denies nausea vomiting or diarrhea. Denies any urinary burning or frequency. oncology, infectious disease, and pulmonary services following. remains on Iv zosyn 10/25. Patient seen and examined. States he feels very lethargic and weak. 10/26. Patient seen and examined. Blood work done showed sodium 129, potassium 5.1, CO2 30, anion gap 5, BUN 14, creatinine 1.11. Patient fever overnight of 102. 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 Patient seen and examined.complaining of shortness of breath. Currently on 4 L of oxygen, ordered chest x-ray encourage patient to use I-S 10/20. Patient seen and examined. Continues to be on 3 L of oxygen. States breathing is improved a lot compared to yesterday 10/29. Patient seen and examined. CT face done showed noticing fluid collection or abscess, no evidence of osseous erosion. Tmax of 100.3 10/30. Patient seen and examined. Doing well. Had low-grade fever of 100.7 br eathing is improved. Swelling of lower extremities also improving 10/31. Patient seen and examined. Patient had a fever of 101.7. States he feels otherwise better. REVIEW OF SYSTEMS: CONSTITUTIONAL: As mentioned above CARDIOVASCULAR: No chest pain, no palpitations, no syncope. PULMONARY: As mentioned above GASTROINTESTINAL: No diarrhea, no nausea, no vomiting, no abdominal pain. NEUROLOGICAL: No headaches, no weakness, PHYSICAL EXAMINATION: GENERAL: The patient is alert and oriented x3, ill looking HEENT: Pupils are round and equally reacting to light. EOMI. No scleral icterus. No conjunctival pallor. Normocephalic, atraumatic. No pharyngeal erythema. No thyromegaly. CARDIOVASCULAR: S1 and S2 present. No murmurs, rubs, or gallops. PULMONARY: Diminished breath sounds at the bases bilaterally, bilateral crackles audible, no wheezing or crackles. ABDOMEN: Soft, nontender, nondistended, normoactive bowel sounds. No palpable organomegaly. MUSCULOSKELETAL: No joint swelling or deformity. EXTREMITIES 1+ pitting edema of lower extremities bilaterally NEUROLOGICAL: Gross neurological examination did not reveal any focal deficits. SKIN: No rashes. Assessment and plan Anemia likely secondary to chemotherapy History of metastatic lung cancer patient follows with oncology services last chemotherapy one week ago Right perineal wound, Fever of unknown origin Hyponatremia, correcting with IV fluid History of diabetes mellitus History of hyperlipidemia History of essential hypertension History of hypothyroidism History of sleep apnea Monitor vital signs Monitor CBC Monitor CMP Follow-up on blood cultures Follow-up on wound cultures Aggressive bronchopulmonary hygiene encourage use of I-S Maintain fluid restriction. Avoid NSAIDs. I's and O's, daily weights, Lasix Continue IV Zosyn Nephrology following ID following oncology following Surgery consulted for enterocutaneous fistula, do not think there is any evidence of enterocutaneous fistula Labs and medication were reviewed.. Continue same treatment. Continue with symptomatic treatment. Resume home medication. Monitor labs and vitals. DVT and GI prophylaxis. Further recommendations as per clinical course of the patient Dictation was produced using [employer] dictation software. please excuse any grammatical, word or spelling errors. Objective - Vital Signs Vital signs: Vital Signs Temp 98.4 F 10/31/24 09:03 Pulse 83 10/31/24 09:03 Resp 17 10/31/24 09:03 BP 109/69 10/31/24 09:03 Pulse Ox 93 L 10/31/24 09:03 FiO2 Intake & Output 10/30/24 10/31/24 10/31/24 18:59 06:59 18:59 Intake Total 480 270 180 Output Total 900 0 300 Balance -420 270 -120 Weight 163.7 kg 163.7 kg Intake: Oral 480 270 180 Output: Urine 900 0 300 Stool 0 0 Other: Voiding Method Toilet Toilet Toilet # Voids 1 - Labs CBC & Chem 7: 10/30/24 10:33 10/31/24 08:37 Labs: Abnormal Lab Results - Last 24 Hours (Table) 10/30/24 10/30/24 10/30/24 Range/Units 10:33 11:26 16:49 RBC 2.97 L (4.30-5.90) m/uL Hgb 8.6 L (13.0-17.5) gm/dL Hct 27.5 L (39.0-53.0) % RDW 20.2 H (11.5-15.5) % Metamyelocytes # (Man) 0.22 H (0) k/uL Myelocytes # (Manual) 0.15 H (0) k/uL Nucleated RBCs 3 H (0-0) /100 WBC Sodium (137-145) mmol/L Chloride (98-107) mmol/L Carbon Dioxide (22-30) mmol/L Glucose (74-99) mg/dL POC Glucose (mg/dL) 140 H 154 H (70-110) mg/dL Calcium (8.4-10.2) mg/dL Magnesium (1.6-2.3) mg/dL AST (17-59) U/L Alkaline Phosphatase (38-126) U/L Total Protein (6.3-8.2) g/dL Albumin (3.5-5.0) g/dL 10/30/24 10/31/24 10/31/24 Range/Units 20:10 05:49 08:37 RBC (4.30-5.90) m/uL Hgb (13.0-17.5) gm/dL Hct (39.0-53.0) % RDW (11.5-15.5) % Metamyelocytes # (Man) (0) k/uL Myelocytes # (Manual) (0) k/uL Nucleated RBCs (0-0) /100 WBC Sodium 134 L (137-145) mmol/L Chloride 97 L (98-107) mmol/L Carbon Dioxide 36 H (22-30) mmol/L Glucose 138 H (74-99) mg/dL POC Glucose (mg/dL) 177 H 139 H (70-110) mg/dL Calcium 7.6 L (8.4-10.2) mg/dL Magnesium 2.5 H (1.6-2.3) mg/dL AST 78 H (17-59) U/L Alkaline Phosphatase 214 H (38-126) U/L Total Protein 6.2 L (6.3-8.2) g/dL Albumin 3.0 L (3.5-5.0) g/dL
--- NOTE | 2024-10-31 14:37 | P.PN ---
Subjective Progress Note Date: 10/31/24 Principal diagnosis: Anemia. This is a 59-year-old male patient with metastatic pulmonary adenocarcinoma, who has been receiving systemic chemotherapy and the patient was not Gemzar and his last treatment was on 10/12/2024. The patient was tolerating the systemic chemotherapy reasonably well. He is morbidly obese and has history of obstructive sleep apnea along with diabetes mellitus and hyperlipidemia. He is currently in the hospital as the patient was initially sent over from oncologist office because of a low hemoglobin of 5.9. The patient was also febrile. He was given a total of 2 U PRBC During this current hospitalization the patient's hemoglobin is currently up to 8.3. Nevertheless, he continues to have episodes of fever. Currently afebrile. Tmax over the past 24 hours was 102.3. No clear source of infection. The patient remains on a combination of cefepime and vancomycin. Note that his white cell count is not elevated. His white cell count is at 4. He has no DVTs in his lower extremities. CAT scan of the abdomen and pelvis was done and shows a chronic small right-sided pleural effusion. There is bony metastases throughout and there was no significant lymphadenopathy. Blood cultures have been negative. The patient has a Mediport that looks to be quite clean. No altered mentation. No skin rashes. No wounds or ulcers. As such, the source of the fever is not clear. ID is on the case. He is also experiencing some shortness of breath with mobility. Nevertheless, he is on room air oxygen. No cough sputum production chest tightness or wheezing. In terms of his lung cancer, the patient was diagnosed having pulm adenocarcinoma back in 2021. He has been followed up by Dr. Cat. He initially presented with 3 cm RLL lung mass,he had a PET scan on 06/16/2022 which revealed suspicious uptake in in central right lung lesion,measured 2.1 x 2.2 cm,he initially had navigational bronchoscopy which was not diagnostic,he ws referred to DR Hernandez at [facility],he had repeat CT scan of chest on 07/07/2022 which revealed 3 cm lesion in superior segment of RLL and several other small nodules in right lung which are new compared to prior CT scan done at [facility] in 06/2016. On 07/24/2022,he underwent RLL resection and biopsies of mediastinal nodes,pathology revealed adenocarcinoma spreading through alveolar spaces and invading lymphovascular channels (BERENICE),multifocal,right level 8,level 7,4R nodes were positive. Brain MRI on 08/08/2022 was negative. Caris did not reveal any targetable mutation. On 08/18/2022,PET scan revealed uptake in right hilar region,there was uptake in left second rib,had an MRI which revealed subtle area in rib without enhancement. On 08/26/2022,he started carbo/alimta with radiation,completed 4 cycles of chemo on 10/29/2022. Due to disease progression, patient has been on multiple treatment regimens. He started imfinzi on 12/25/2022. Taxotere/cyramza/zometa were held in December 2023, as patient developed ONJ. He started gemzar on 05/10/2024, most recently completing cycle 8 on 10/12/24, Patient was evaluated today on 10/23/2024, patient seems to be doing better today, continues to have low-grade fever his Tmax last night was 99.5. Hemodynamically stable on 2 L nasal cannula O2 sat is 98% patient seems to have less and less shortness of breath.WBC count is 5.2 hemoglobin is 8 sodium is 127 potassium 4.9 BUN is 19 creatinine 1.14 blood cultures and urine cultures remain negative so far. Seen today on 10/24/2024, patient is doing well, feeling better, yesterday's CT of the chest showed evidence of bilateral pleural effusions and the patient received 1 dose of Lasix yesterday and he received DuoNeb updraft treatment for his acute onset of shortness of breath, patient felt much better shortly after. Today is down to 125 his BUN is 18 creatinine 1.13, patient is now being seen by nephrology on consultation. I believe his hyponatremia is most likely secondary to SIADH considering his underlying malignancy/bronchogenic carcinoma Reevaluate today on 10/25/2024, patient is doing a bit better today however continues to have intermittent episodes of fevers, in spite of antibiotics patient continues to have febrile episodes. Patient had a Tmax of 102.6 yesterday, today's temp is 100.3 blood pressure 102/59 he is on 2 L nasal cannula with O2 saturation ranging between 91 up to 97% sodium is low at 126 CBC today is pending. Patient screening for viral infection was negative including influenza A influenza B RSV and COVID patient also had negative urinary Le gionella antigen Patient was seen today on 10/26/2024, continues to have intermittent spiking of temperature, febrile, and I have a feeling that the patient may have an infected enterocutaneous fistula which was examined today, and I am recommending surgical evaluation for his fistula. Patient seems to have a deep open wound in the buttock area, this could very well be an enterocutaneous fistula.Pulmonary costa is feeling better breathing easier WBC count is 6.9 hemoglobin is 8.11 sodium 129 potassium 5.1 BUN is 14 creatinine 1.11 Seen today on 10/27/2024, patient continues to have low-grade fever, he had a Tmax of 99 last night, remains on antibiotics empirically, CT of the pelvis failed to show abscess or enterocutaneous fistula. Patient is feeling better today, breathing easier. CT of the chest and chest x-ray showed mostly atelectasis, strongly doubt pneumonia. Patient was seen today on 10/28/2024, his fever seems to be responding finally to antibiotics, patient has some positive cultures from his perianal wound, but no evidence of abscess. Pulmonary costa is doing well, no cough no wheezing no shortness of breathBasic metabolic profile is relatively normal. Overall the p atient seems to be doing better Patient was evaluated today on 10/29/2024, doing fairly well, relatively asymptomatic, does not seem to be in any distress, he did have a low temp last night he had a Tmax of 100.3, remains on 4 L nasal cannula, he has no active pulmonary symptoms no cough no wheezing no shortness of breath. Remains on daptomycin and Unasyn, the plan is to eventually transition the patient to oral antibiotics as per infectious disease. Pulmonary costa I believe the patient is doing quite wellLabs today showed relatively normal electrolytes and normal renal profile. Progress note dated October 30, 2024. 59-year-old male seen today in room 360. The patient is resting comfortably in bed. He is on 4 L of oxygen, with saturations of 98%. He is getting saline at 10 cc an hour. The patient denies any respiratory difficulty, or distress. He denies any cough, wheezing, or phlegm production. Current laboratory data includes a white count 7.3, hemoglobin 8.6, hematocrit 27.5, and normal platelet count. Glucose is 140. Ulcers of the buttock area, show multiple bacteria. The patient is currently on Augmentin, and ciprofloxacin, as per infectious diseases. Progress note dated October 31, 2024. 59-year-old male seen today in room 360. He is sitting in a chair next to his hospital bed. He appears in no acute distress. He continues on O2 2 L by nasal cannula. He uses 4 L, when he is on his CPAP device. He denies any shortness of breath, cough, wheezing, chest tightness, or phlegm production. Current labs include a sodium 134, potassium 4.9, chlorides 97, CO2 36, BUN 12, creatinine 0.81. Glucose is 152. Calcium is 7.6. Magnesium of 2.5. Albumin is 3. Objective - Vital Signs Vital signs: Vital Signs Temp 98.1 F 10/31/24 11:23 Pulse 80 10/31/24 12:16 Resp 17 10/31/24 11:23 BP 109/69 10/31/24 11:23 Pulse Ox 96 10/31/24 11:50 FiO2 Intake & Output 10/30/24 10/31/24 10/31/24 18:59 06:59 18:59 Intake Total 480 270 360 Output Total 900 0 300 Balance -420 270 60 Weight 163.7 kg 163.7 kg Intake: Oral 480 270 360 Output: Urine 900 0 300 Stool 0 0 Other: Voiding Method Toilet Toilet Toilet # Voids 1 - Exam No acute distress, oriented 3. Currently on 2 L. HEENT examination is grossly unremarkable. Mucous membranes are moist. No oral lesions. Neck supple. Full range of motion. No adenopathy thyromegaly or neck vein distention. Cardiovascular examination reveals regular rhythm rate. S1-S2 normal. No S3 or S4. No discernible murmur noted. Lungs reveal clear breath sounds. Breath sounds are equal bilaterally. No adventitious lung sounds including wheezes rhonchi or crackles. Abdomen soft bowel sounds are heard. No masses or tenderness. Extremities are intact. No cyanosis or clubbing. Lower extremity edema is noted. Skin reveals a large deep wound in the perianal area. Neurologic examination is brief but nonfocal. - Labs CBC & Chem 7: 10/30/24 10:33 10/31/24 08:37 Labs: Abnormal Lab Results - Last 24 Hours (Table) 10/30/24 10/30/24 10/31/24 Range/Units 16:49 20:10 05:49 Sodium (137-145) mmol/L Chloride (98-107) mmol/L Carbon Dioxide (22-30) mmol/L Glucose (74-99) mg/dL POC Glucose (mg/dL) 154 H 177 H 139 H (70-110) mg/dL Calcium (8.4-10.2) mg/dL Magnesium (1.6-2.3) mg/dL AST (17-59) U/L Alkaline Phosphatase (38-126) U/L Total Protein (6.3-8.2) g/dL Albumin (3.5-5.0) g/dL 10/31/24 10/31/24 Range/Units 08:37 11:43 Sodium 134 L (137-145) mmol/L Chloride 97 L (98-107) mmol/L Carbon Dioxide 36 H (22-30) mmol/L Glucose 138 H (74-99) mg/dL POC Glucose (mg/dL) 152 H (70-110) mg/dL Calcium 7.6 L (8.4-10.2) mg/dL Magnesium 2.5 H (1.6-2.3) mg/dL AST 78 H (17-59) U/L Alkaline Phosphatase 214 H (38-126) U/L Total Protein 6.2 L (6.3-8.2) g/dL Albumin 3.0 L (3.5-5.0) g/dL Assessment and Plan Assessment: Fever, of unclear cause, improved, and responding to the antibiotics. Shortness of breath, multifactorial, resolved. Buttock infection, secondary to E. coli, Staph aureus, Enterococcus faecalis, and Prevotella species. Stage IV pulmonary adenocarcinoma. Chemotherapy-induced anemia. Morbid obesity, with a BMI of 46.6 kg/m. Obstructive sleep apnea syndrome, maintained on BiPAP. History of hypertension. History of hyperlipidemia. History of the type 2 diabetes mellitus. History of peripheral neuropathy. Hypothyroidism. SIADH induced hyponatremia. 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 Plan: Plan dated October 30, 2024. The patient is seen today in room 360. The patient is currently on nasal O2 at 4 L. Saturations are 98%. The patient is getting saline at 10 cc an hour. Antibiotics include Augmentin, and ciprofloxacin. Labs, x-rays, and all medications are reviewed. The patient's not having any respiratory difficulty or distress. We will continue to follow make recommendations along the way. Prognosis is guarded. Plan dated October 31, 2024. The patient appears to be doing relatively well. The patient continues on appropriate antibiotics as per infectious diseases. The patient is on 2 L nasal cannula. He is sitting in a chair next to his hospital bed. We will continue to follow the patient, make recommendations along the way. Prognosis is guarded. Labs, x-rays, and all medications are reviewed. Time with Patient: Less than 30
[2024-10-31] MEDS: PIPERACILLIN-TAZOBACTAM 3.375 GM in SODIUM CHLORIDE 0.9% 100 ML IVPB SCH (16:13)
[2024-10-31 16:22] LABS: Glucose,Whole Blood 172 mg/dL (70-110)
[2024-10-31 20:03] LABS: Glucose,Whole Blood 199 mg/dL (70-110)
[2024-11-01 06:23] LABS: Glucose,Whole Blood 140 mg/dL (70-110)
--- NOTE | 2024-11-01 09:32 | P.PN ---
Subjective Progress Note Date: 10/30/24 Principal diagnosis: Reason for follow-up is fever Patient is a 59-year-old male with a past medical history significant for diabetes mellitus hypertension hyperlipidemia reflux sleep apnea, patient also have metastatic adenocarcinoma of the lung on chemotherapy presenting to the hospital from oncology office concerning for weakness anemia and fever with initial workup negative. On today's evaluation that is 10/30/2024, patient did have improvement in his fever pattern with a low-grade fever of 100.7 F this morning patient overall feeling better he is breathing comfortably currently on 2 L cannula oxygen denies any chest pain or cough no nausea vomiting abdominal pain or diarrhea Patient did have creatinine 0.95 no CBC was done today Objective - Vital Signs Vital signs: Vital Signs Temp 100.7 F H 10/30/24 04:00 Pulse 84 10/30/24 08:20 Resp 16 10/30/24 08:00 BP 93/62 10/30/24 08:00 Pulse Ox 98 10/30/24 08:00 FiO2 Intake & Output 10/29/24 10/30/24 10/30/24 18:59 06:59 18:59 Intake Total 836 480 240 Output Total 300 200 Balance 536 280 240 Weight 163.3 kg Intake: Intake, IV Titration 300 Amount Ampicillin-Sulbactam 3 gm 100 In Sodium Chloride 0.9% 100 ml @ 200 mls/hr IVPB Q6HR MICHELLE Rx#:[id number] Fluconazole in NaCl,Iso- 200 Osm 400 mg In Saline 1 200ml.bag @ 100 mls/hr IVPB DAILY MICHELLE Rx#: [id number] Oral 536 480 240 Output: Urine 300 200 Stool 0 0 Other: Voiding Method Toilet Toilet - Exam GENERAL DESCRIPTION: Middle-age male up in the chair in no distress RESPIRATORY SYSTEM: Unlabored breathing , decreased breath sounds at bases HEART: S1 S2 regular rate and rhythm , ABDOMEN: Soft , no tenderness patient did have a wound to the right perirectal area but no purulent drainage no significant redness was noticed EXTREMITIES: No edema feet - Labs CBC & Chem 7: 10/30/24 10:33 10/31/24 08:37 Labs: Abnormal Lab Results - Last 24 Hours (Table) 10/27/24 10/29/24 10/29/24 Range/Units 16:08 10:01 12:08 Sodium 132 L (137-145) mmol/L Chloride 93 L (98-107) mmol/L Carbon Dioxide 31 H (22-30) mmol/L Glucose 173 H (74-99) mg/dL POC Glucose (mg/dL) 202 H 189 H (70-110) mg/dL Calcium 7.8 L (8.4-10.2) mg/dL 10/29/24 10/29/24 10/30/24 Range/Units 17:01 19:51 06:10 Sodium (137-145) mmol/L Chloride (98-107) mmol/L Carbon Dioxide (22-30) mmol/L Glucose (74-99) mg/dL POC Glucose (mg/dL) 176 H 209 H 119 H (70-110) mg/dL Calcium (8.4-10.2) mg/dL Assessment and Plan (1) Fever Current Visit: Yes Status: Acute Priority: High Code(s): R50.9 - FEVER, UNSPECIFIED SNOMED Code(s): 794724707 Plan: 1patient presented to the hospital with low hemoglobin patient to have a history of metastatic lung cancer and is currently getting chemotherapy last chemo has been about a week ago before presentation to the hospital, patient is not neutropenic, initial workup so far negative with a question of possibly related to the port patient did have a negative lower extremity Doppler and blood cultures are so far negative 2 repeat COVID-19 and influenza PCR came back negative, CT abdominal pelvis with oral contrast only did not show any acute abnormality, patient did have a mildly elevated procalcitonin concern for possible pneumonia 3-patient CT was reviewed with radiologist Dr. Tran and there is no evidence of any abscess, patient subsequently did have a CT of the pelvis with contrast did not show any evidence of any abscess, local culture growing multiple pathogen including anaerobes Prevotella E. coli Enterococcus and MSSA 4patient did have improvement in the fever pattern CT of the face did not show any osteonecrosis or osteomyelitis of the jaw, I will switch his antibiotics to oral Augmentin and Cipro and the patient did have no further fever agreeable to go home on the stool biotics on discharge at the bedside question answered Dictation was produced using [email or web address] dictation software. please excuse any grammatical, word or spelling errors. Time with Patient: Less than 30
--- NOTE | 2024-11-01 09:34 | P.PN ---
Subjective Progress Note Date: 10/31/24 Principal diagnosis: Reason for follow-up is fever Patient is a 59-year-old male with a past medical history significant for diabetes mellitus hypertension hyperlipidemia reflux sleep apnea, patient also have metastatic adenocarcinoma of the lung on chemotherapy presenting to the hospital from oncology office concerning for weakness anemia and fever with initial workup negative. On today's evaluation that is 10/31/2024, Patient did spike a fever of 101 F last evening and this morning patient denies having any worsening shortness of breath no chest pain occasional cough no nausea vomiting no abdominal pain and no diarrhea. Patient white count 7.3 creatinine 0.81 Objective - Vital Signs Vital signs: Vital Signs Temp 98.4 F 10/31/24 09:03 Pulse 83 10/31/24 09:03 Resp 17 10/31/24 09:03 BP 109/69 10/31/24 09:03 Pulse Ox 93 L 10/31/24 09:03 FiO2 Intake & Output 10/30/24 10/31/24 10/31/24 18:59 06:59 18:59 Intake Total 480 270 180 Output Total 900 0 300 Balance -420 270 -120 Weight 163.7 kg 163.7 kg Intake: Oral 480 270 180 Output: Urine 900 0 300 Stool 0 0 Other: Voiding Method Toilet Toilet Toilet # Voids 1 - Exam GENERAL DESCRIPTION: Middle-age male up in the chair in no distress RESPIRATORY SYSTEM: Unlabored breathing , decreased breath sounds at bases HEART: S1 S2 regular rate and rhythm , ABDOMEN: Soft , no tenderness patient did have a wound to the right perirectal area but no purulent drainage no significant redness was noticed EXTREMITIES: No edema feet - Labs CBC & Chem 7: 10/30/24 10:33 10/31/24 08:37 Labs: Abnormal Lab Results - Last 24 Hours (Table) 10/30/24 10/30/24 10/30/24 Range/Units 10:33 11:26 16:49 RBC 2.97 L (4.30-5.90) m/uL Hgb 8.6 L (13.0-17.5) gm/dL Hct 27.5 L (39.0-53.0) % RDW 20.2 H (11.5-15.5) % Metamyelocytes # (Man) 0.22 H (0) k/uL Myelocytes # (Manual) 0.15 H (0) k/uL Nucleated RBCs 3 H (0-0) /100 WBC Sodium (137-145) mmol/L Chloride (98-107) mmol/L Carbon Dioxide (22-30) mmol/L Glucose (74-99) mg/dL POC Glucose (mg/dL) 140 H 154 H (70-110) mg/dL Calcium (8.4-10.2) mg/dL Magnesium (1.6-2.3) mg/dL AST (17-59) U/L Alkaline Phosphatase (38-126) U/L Total Protein (6.3-8.2) g/dL Albumin (3.5-5.0) g/dL 10/30/24 10/31/24 10/31/24 Range/Units 20:10 05:49 08:37 RBC (4.30-5.90) m/uL Hgb (13.0-17.5) gm/dL Hct (39.0-53.0) % RDW (11.5-15.5) % Metamyelocytes # (Man) (0) k/uL Myelocytes # (Manual) (0) k/uL Nucleated RBCs (0-0) /100 WBC Sodium 134 L (137-145) mmol/L Chloride 97 L (98-107) mmol/L Carbon Dioxide 36 H (22-30) mmol/L Glucose 138 H (74-99) mg/dL POC Glucose (mg/dL) 177 H 139 H (70-110) mg/dL Calcium 7.6 L (8.4-10.2) mg/dL Magnesium 2.5 H (1.6-2.3) mg/dL AST 78 H (17-59) U/L Alkaline Phosphatase 214 H (38-126) U/L Total Protein 6.2 L (6.3-8.2) g/dL Albumin 3.0 L (3.5-5.0) g/dL Assessment and Plan (1) Fever Current Visit: Yes Status: Acute Priority: High Code(s): R50.9 - FEVER, UNSPECIFIED SNOMED Code(s): 473375184 (2) Sepsis Current Visit: Yes Status: Acute Code(s): A41.9 - SEPSIS, UNSPECIFIED ORGANISM SNOMED Code(s): 13737971 (3) Perianal abscess Current Visit: Yes Status: Acute Code(s): K61.0 - ANAL ABSCESS SNOMED Code(s): 50952001 Plan: 1patient presented to the hospital with low hemoglobin patient to have a histo ry of metastatic lung cancer and is currently getting chemotherapy last chemo has been about a week ago before presentation to the hospital, patient is not neutropenic, initial workup so far negative with a question of possibly related to the port patient did have a negative lower extremity Doppler and blood cultures are so far negative 2 repeat COVID-19 and influenza PCR came back negative, CT abdominal pelvis with oral contrast only did not show any acute abnormality, patient did have a mildly elevated procalcitonin concern for possible pneumonia 3-patient CT was reviewed with radiologist Dr. Tran and there is no evidence of any abscess, patient subsequently did have a CT of the pelvis with contrast did not show any evidence of any abscess, local culture growing multiple pathogen including anaerobes Prevotella E. coli Enterococcus and MSSA 4patient did have improvement in the fever pattern CT of the face did not show any osteonecrosis or osteomyelitis of the jaw, patient did have recurrence of fever once he was switched to oral antibiotics I will put him back on IV Zosyn and if the patient fever subsided we will recommend a short course of IV Zosyn on discharge at the bedside question answered Dictation was produced using [employer] dictation software. please excuse any grammatical, word or spelling errors. Time with Patient: Less than 30
[2024-11-01 11:32] LABS: Glucose,Whole Blood 180 mg/dL (70-110)
--- NOTE | 2024-11-01 12:21 | P.PN ---
Subjective patient is seen for follow-up for hyponatremia. Currently being diuresed. Serum sodium was 134 yesterday. No significant complaints. Objective - Vital Signs Vital signs: Vital Signs Temp 98.4 F 11/01/24 11:54 Pulse 79 11/01/24 12:14 Resp 18 11/01/24 11:55 BP 107/68 11/01/24 08:00 Pulse Ox 93 L 11/01/24 08:00 FiO2 Intake & Output 10/31/24 11/01/24 11/01/24 18:59 06:59 18:59 Intake Total 360 480 Output Total 300 0 0 Balance 60 480 0 Weight 163.7 kg 163.7 kg Intake: Oral 360 480 Output: Urine 300 Stool 0 0 Other: Voiding Method Toilet Toilet # Voids 1 - Exam on examination patient is comfortable, awake, alert oriented 3. No acute distress Examination of lower extremities shows edema 1+ bilaterally [employer] exam grossly intact - Labs CBC & Chem 7: 10/30/24 10:33 10/31/24 08:37 Labs: Abnormal Lab Results - Last 24 Hours (Table) 10/31/24 10/31/24 11/01/24 Range/Units 16:21 20:01 06:21 POC Glucose (mg/dL) 172 H 199 H 140 H (70-110) mg/dL 11/01/24 Range/Units 11:30 POC Glucose (mg/dL) 180 H (70-110) mg/dL Assessment and Plan Assessment: 1. Hyponatremia. Hypervolemic and currently being diuresed. Patient was also on NSAIDs, now discontinued. Sodium level 134 yesterday. TSH normal. Urine sodium 38 and urine osmolality 546. 2. Chemo induced anemia status post blood transfusions this admission. 3. Metastatic lung adenocarcinoma. Oncology following. 4. Benign hypertension. Blood pressure on the lower side. 5. Chronic diastolic CHF with severe pulmonary hypertension. 6. Volume overload. 7. Perirectal wound on antibiotics. Infectious disease following. 8. Hypermagnesemia secondary to magnesium supplementation. Plan: continue with oral Lasix. May need to increase dose. Repeat labs today.
--- NOTE | 2024-11-01 13:32 | P.PN ---
Subjective Progress Note Date: 11/01/24 Principal diagnosis: Anemia. This is a 59-year-old male patient with metastatic pulmonary adenocarcinoma, who has been receiving systemic chemotherapy and the patient was not Gemzar and his last treatment was on 10/12/2024. The patient was tolerating the systemic chemotherapy reasonably well. He is morbidly obese and has history of obstructive sleep apnea along with diabetes mellitus and hyperlipidemia. He is currently in the hospital as the patient was initially sent over from oncologist office because of a low hemoglobin of 5.9. The patient was also febrile. He was given a total of 2 U PRBC During this current hospitalization the patient's hemoglobin is currently up to 8.3. Nevertheless, he continues to have episodes of fever. Currently afebrile. Tmax over the past 24 hours was 102.3. No clear source of infection. The patient remains on a combination of cefepime and vancomycin. Note that his white cell count is not elevated. His white cell count is at 4. He has no DVTs in his lower extremities. CAT scan of the abdomen and pelvis was done and shows a chronic small right-sided pleural effusion. There is bony metastases throughout and there was no significant lymphadenopathy. Blood cultures have been negative. The patient has a Mediport that looks to be quite clean. No altered mentation. No skin rashes. No wounds or ulcers. As such, the source of the fever is not clear. ID is on the case. He is also experiencing some shortness of breath with mobility. Nevertheless, he is on room air oxygen. No cough sputum production chest tightness or wheezing. In terms of his lung cancer, the patient was diagnosed having pulm adenocarcinoma back in 2021. He has been followed up by Dr. Cat. He initially presented with 3 cm RLL lung mass,he had a PET scan on 06/16/2022 which revealed suspicious uptake in in central right lung lesion,measured 2.1 x 2.2 cm,he initially had navigational bronchoscopy which was not diagnostic,he ws referred to DR Hernandez at [facility],he had repeat CT scan of chest on 07/07/2022 which revealed 3 cm lesion in superior segment of RLL and several other small nodules in right lung which are new compared to prior CT scan done at [facility] in 06/2016. On 07/24/2022,he underwent RLL resection and biopsies of mediastinal nodes,pathology revealed adenocarcinoma spreading through alveolar spaces and invading lymphovascular channels (BERENICE),multifocal,right level 8,level 7,4R nodes were positive. Brain MRI on 08/08/2022 was negative. Caris did not reveal any targetable mutation. On 08/18/2022,PET scan revealed uptake in right hilar region,there was uptake in left second rib,had an MRI which revealed subtle area in rib without enhancement. On 08/26/2022,he started carbo/alimta with radiation,completed 4 cycles of chemo on 10/29/2022. Due to disease progression, patient has been on multiple treatment regimens. He started imfinzi on 12/25/2022. Taxotere/cyramza/zometa were held in December 2023, as patient developed ONJ. He started gemzar on 05/10/2024, most recently completing cycle 8 on 10/12/24, Patient was evaluated today on 10/23/2024, patient seems to be doing better today, continues to have low-grade fever his Tmax last night was 99.5. Hemodynamically stable on 2 L nasal cannula O2 sat is 98% patient seems to have less and less shortness of breath.WBC count is 5.2 hemoglobin is 8 sodium is 127 potassium 4.9 BUN is 19 creatinine 1.14 blood cultures and urine cultures remain negative so far. Seen today on 10/24/2024, patient is doing well, feeling better, yesterday's CT of the chest showed evidence of bilateral pleural effusions and the patient received 1 dose of Lasix yesterday and he received DuoNeb updraft treatment for his acute onset of shortness of breath, patient felt much better shortly after. Today is down to 125 his BUN is 18 creatinine 1.13, patient is now being seen by nephrology on consultation. I believe his hyponatremia is most likely secondary to SIADH considering his underlying malignancy/bronchogenic carcinoma Reevaluate today on 10/25/2024, patient is doing a bit better today however continues to have intermittent episodes of fevers, in spite of antibiotics patient continues to have febrile episodes. Patient had a Tmax of 102.6 yesterday, today's temp is 100.3 blood pressure 102/59 he is on 2 L nasal cannula with O2 saturation ranging between 91 up to 97% sodium is low at 126 CBC today is pending. Patient screening for viral infection was negative including influenza A influenza B RSV and COVID patient also had negative urinary Le gionella antigen Patient was seen today on 10/26/2024, continues to have intermittent spiking of temperature, febrile, and I have a feeling that the patient may have an infected enterocutaneous fistula which was examined today, and I am recommending surgical evaluation for his fistula. Patient seems to have a deep open wound in the buttock area, this could very well be an enterocutaneous fistula.Pulmonary costa is feeling better breathing easier WBC count is 6.9 hemoglobin is 8.11 sodium 129 potassium 5.1 BUN is 14 creatinine 1.11 Seen today on 10/27/2024, patient continues to have low-grade fever, he had a Tmax of 99 last night, remains on antibiotics empirically, CT of the pelvis failed to show abscess or enterocutaneous fistula. Patient is feeling better today, breathing easier. CT of the chest and chest x-ray showed mostly atelectasis, strongly doubt pneumonia. Patient was seen today on 10/28/2024, his fever seems to be responding finally to antibiotics, patient has some positive cultures from his perianal wound, but no evidence of abscess. Pulmonary costa is doing well, no cough no wheezing no shortness of breathBasic metabolic profile is relatively normal. Overall the p atient seems to be doing better Patient was evaluated today on 10/29/2024, doing fairly well, relatively asymptomatic, does not seem to be in any distress, he did have a low temp last night he had a Tmax of 100.3, remains on 4 L nasal cannula, he has no active pulmonary symptoms no cough no wheezing no shortness of breath. Remains on daptomycin and Unasyn, the plan is to eventually transition the patient to oral antibiotics as per infectious disease. Pulmonary costa I believe the patient is doing quite wellLabs today showed relatively normal electrolytes and normal renal profile. Progress note dated October 30, 2024. 59-year-old male seen today in room 360. The patient is resting comfortably in bed. He is on 4 L of oxygen, with saturations of 98%. He is getting saline at 10 cc an hour. The patient denies any respiratory difficulty, or distress. He denies any cough, wheezing, or phlegm production. Current laboratory data includes a white count 7.3, hemoglobin 8.6, hematocrit 27.5, and normal platelet count. Glucose is 140. Ulcers of the buttock area, show multiple bacteria. The patient is currently on Augmentin, and ciprofloxacin, as per infectious diseases. Progress note dated October 31, 2024. 59-year-old male seen today in room 360. He is sitting in a chair next to his hospital bed. He appears in no acute distress. He continues on O2 2 L by nasal cannula. He uses 4 L, when he is on his CPAP device. He denies any shortness of breath, cough, wheezing, chest tightness, or phlegm production. Current labs include a sodium 134, potassium 4.9, chlorides 97, CO2 36, BUN 12, creatinine 0.81. Glucose is 152. Calcium is 7.6. Magnesium of 2.5. Albumin is 3. Progress note dated November 01, 2024. 59-year-old male seen today in room 360. The patient is currently on 2 L nasal cannula. He continues on IV Zosyn. The patient is not receiving any IV fluids. He is sitting in a chair next to his hospital bed. From the pulmonary standpoint he is doing well. He denies any shortness of breath. Labs today only include a glucose of 135. Objective - Vital Signs Vital signs: Vital Signs Temp 98.4 F 11/01/24 11:54 Pulse 80 11/01/24 12:23 Resp 18 11/01/24 11:55 BP 107/68 11/01/24 08:00 Pulse Ox 93 L 11/01/24 08:00 FiO2 Intake & Output 10/31/24 11/01/24 11/01/24 18:59 06:59 18:59 Intake Total 360 480 118 Output Total 300 0 0 Balance 60 480 118 Weight 163.7 kg 163.7 kg Intake: Oral 360 480 118 Output: Urine 300 Stool 0 0 Other: Voiding Method Toilet Toilet # Voids 1 - Exam No acute distress, oriented 3. Currently on 2 L. HEENT examination is grossly unremarkable. Mucous membranes are moist. No oral lesions. Neck supple. Full range of motion. No adenopathy thyromegaly or neck vein distention. Cardiovascular examination reveals regular rhythm rate. S1-S2 normal. No S3 or S4. No discernible murmur noted. Lungs reveal clear breath sounds. Breath sounds are equal bilaterally. No adventitious lung sounds including wheezes rhonchi or crackles. Abdomen soft bowel sounds are heard. No masses or tenderness. Extremities are intact. No cyanosis or clubbing. Lower extremity edema is noted. Skin reveals a large deep wound in the perianal area. Neurologic examination is brief but nonfocal. - Labs CBC & Chem 7: 10/30/24 10:33 11/01/24 11:35 Labs: Abnormal Lab Results - Last 24 Hours (Table) 10/31/24 10/31/24 11/01/24 Range/Units 16:21 20:01 06:21 Sodium (137-145) mmol/L POC Glucose (mg/dL) 172 H 199 H 140 H (70-110) mg/dL 11/01/24 11/01/24 Range/Units 11:30 11:35 Sodium 135 L (137-145) mmol/L POC Glucose (mg/dL) 180 H (70-110) mg/dL Assessment and Plan Assessment: Fever, of unclear cause, improved, and responding to the antibiotics. Shortness of breath, multifactorial, resolved. Buttock infection, secondary to E. coli, Staph aureus, Enterococcus faecalis, and Prevotella species. Stage IV pulmonary adenocarcinoma. Chemotherapy-induced anemia. Morbid obesity, with a BMI of 46.6 kg/m. Obstructive sleep apnea syndrome, maintained on BiPAP. History of hypertension. History of hyperlipidemia. History of the type 2 diabetes mellitus. History of peripheral neuropathy. Hypothyroidism. SIADH induced hyponatremia. 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 Plan: Plan dated October 30, 2024. The patient is seen today in room 360. The patient is currently on nasal O2 at 4 L. Saturations are 98%. The patient is getting saline at 10 cc an hour. Antibiotics include Augmentin, and ciprofloxacin. Labs, x-rays, and all medications are reviewed. The patient's not having any respiratory difficulty or distress. We will continue to follow make recommendations along the way. Prognosis is guarded. Plan dated October 31, 2024. The patient appears to be doing relatively well. The patient continues on appropriate antibiotics as per infectious diseases. The patient is on 2 L nasal cannula. He is sitting in a chair next to his hospital bed. We will continue to follow the patient, make recommendations along the way. Prognosis is guarded. Labs, x-rays, and all medications are reviewed. Plan dated November 01, 2024. The patient is seen today in room 360. He is sitting in the chair next to his hospital bed. He is on 2 L. No IV fluids. He continues on Zosyn. Labs, x- rays, and all medications are reviewed. From the pulmonary standpoint he is doing well. He denies any shortness of breath or difficulty breathing. He is awake and alert. He seems to be doing well. At nighttime when he uses CPAP, he does use 4 L of oxygen along with the CPAP device. Time with Patient: Less than 30
--- NOTE | 2024-11-01 13:55 | P.PN ---
Subjective Progress Note Date: 11/01/24 Ganga Smart, is a 59-year-old male patient of Dr. Garsia who presented to the ER after his oncologist discovered his hemoglobin low at 5.9. Patient has a history of metastatic lung cancer and has been receiving chemotherapy last cycle 1 week ago. Patient reports he's been on chemotherapy for approximately 2 years.patient has past medical history of diabetes, GERD, hyperlipidemia, hypertension, sleep apnea, thyroid disorder. Patient denies any nicotine use history.lab work completed showing hemoglobin 5.6. White blood cell 4.0. Sodium 129, creatinine 1.2, bun 19, lactic acid 2.8patient also noted to have a low-grade temp 100.5. Patient denies any recent sick contacts denies cough or shortness of breath. Patient denies nausea vomiting or diarrhea. Patient denies any burning with urination. At this time patient will be admitted oncology and infectious disease service is consulted. 2 units of PRBCs have been ordered. COVID-19 in influenza negative. Blood and urine and sputum cultures ordered. At this time patient is resting comfortably in bed. Patient denies any chest pain or shortness of breath. Patient denies nausea vomiting or diarrhea. Patient denies any urinary burning or frequency On 10/20/2024 patient is alert and oriented x 3. Patient was continuing to have fevers throughout the night. Patient was started on vancomycin and Maxipime per infectious disease. Patient received 2 units of PRBCs repeat hemoglobin 8.5. Patient denies chest pain or shortness of breath. Patient denies nausea vomiting or diarrhea. Patient denies any urinary burning or frequency On 10/21/2024 patient is alert and oriented x 3. Patient having some increased back discomfort. Patient still having elevated temps slightly improved. Patient remains on IV antibiotic. Hemoglobin remained stable at 8.3. Patient denies chest pain or shortness of breath. Patient denies nausea vomiting or diarrhea. Patient denies any urinary burning or frequency On 10/22/2024 patient was seen and examined on the telemetry floor, he is alert and oriented x 3 in no apparent distress, he is still having elevated temperature up to 102.3, CT scan of the chest revealed bilateral pleural effusio n, pulmonary consultation was added and patient was seen by Dr. Menezes, because of elevated temperature is still not entirely clear, repeat blood cultures and sputum culture and echocardiogram was ordered, patient is followed by infectious disease and is maintained on IV antibiotics. Will continue to follow closely On 10/23/2024 patient is alert and oriented x 3. Patient continued to having e levated temps 2D echo and CT chest with contrast has been ordered. Infectious disease, pulmonary and oncology services are all following patient denies chest pain. Patient does report some shortness of breath. Patient denies nausea vomiting or diarrhea. Patient denies any urinary burning or frequency on 10/24/2024 patient is alert and oriented x 3. Patient still having elevated temps. CT of chest has been completed. awaiting 2 decho. at this time patient is still complaining of some shortnes of breath. Denies chest pain. denies nausea vomiting or diarrhea. Denies any urinary burning or frequency. oncology, infectious disease, and pulmonary services following. remains on Iv zosyn 10/25. Patient seen and examined. States he feels very lethargic and weak. 10/26. Patient seen and examined. Blood work done showed sodium 129, potassium 5.1, CO2 30, anion gap 5, BUN 14, creatinine 1.11. Patient fever overnight of 102. 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 Patient seen and examined.complaining of shortness of breath. Currently on 4 L of oxygen, ordered chest x-ray encourage patient to use I-S 10/20. Patient seen and examined. Continues to be on 3 L of oxygen. States breathing is improved a lot compared to yesterday 10/29. Patient seen and examined. CT face done showed noticing fluid collection or abscess, no evidence of osseous erosion. Tmax of 100.3 10/30. Patient seen and examined. Doing well. Had low-grade fever of 100.7 br eathing is improved. Swelling of lower extremities also improving 10/31. Patient seen and examined. Patient had a fever of 101.7. States he feels otherwise better. 11/01/2024. Patient seen and examined. Patient low-grade fever 100.3 overnight. Otherwise patient is doing much better. Currently on IV Zosyn, ID recommend 1 more day of monitoring. Swelling of lower legs has improved REVIEW OF SYSTEMS: CONSTITUTIONAL: As mentioned above CARDIOVASCULAR: No chest pain, no palpitations, no syncope. PULMONARY: As mentioned above GASTROINTESTINAL: No diarrhea, no nausea, no vomiting, no abdominal pain. NEUROLOGICAL: No headaches, no weakness, PHYSICAL EXAMINATION: GENERAL: The patient is alert and oriented x3, ill looking HEENT: Pupils are round and equally reacting to light. EOMI. No scleral icterus. No conjunctival pallor. Normocephalic, atraumatic. No pharyngeal erythema. No thyromegaly. CARDIOVASCULAR: S1 and S2 present. No murmurs, rubs, or gallops. PULMONARY: Diminished breath sounds at the bases bilaterally, bilateral crackles audible, no wheezing or crackles. ABDOMEN: Soft, nontender, nondistended, normoactive bowel sounds. No palpable organomegaly. MUSCULOSKELETAL: No joint swelling or deformity. EXTREMITIES 1+ pitting edema of lower extremities bilaterally NEUROLOGICAL: Gross neurological examination did not reveal any focal deficits. SKIN: No rashes. Assessment and plan Anemia likely secondary to chemotherapy History of metastatic lung cancer patient follows with oncology services last chemotherapy one week ago Right perineal wound, Fever of unknown origin Hyponatremia, correcting with IV fluid History of diabetes mellitus History of hyperlipidemia History of essential hypertension History of hypothyroidism History of sleep apnea Monitor vital signs Monitor CBC Monitor CMP Follow-up on blood cultures Follow-up on wound cultures Aggressive bronchopulmonary hygiene encourage use of I-S Maintain fluid restriction. Avoid NSAIDs. I's and O's, daily weights, Lasix Continue IV Zosyn Nephrology following ID following oncology following Surgery consulted for enterocutaneous fistula, do not think there is any evidence of enterocutaneous fistula Labs and medication were reviewed.. Continue same treatment. Continue with symptomatic treatment. Resume home medication. Monitor labs and vitals. DVT and GI prophylaxis. Further recommendations as per clinical course of the patient Dictation was produced using [employer] dictation software. please excuse any grammatical, word or spelling errors. Objective - Vital Signs Vital signs: Vital Signs Temp 98.4 F 11/01/24 11:54 Pulse 80 11/01/24 12:23 Resp 18 11/01/24 11:55 BP 107/68 11/01/24 08:00 Pulse Ox 93 L 11/01/24 08:00 FiO2 Intake & Output 10/31/24 11/01/24 11/01/24 18:59 06:59 18:59 Intake Total 360 480 118 Output Total 300 0 0 Balance 60 480 118 Weight 163.7 kg 163.7 kg Intake: Oral 360 480 118 Output: Urine 300 Stool 0 0 Other: Voiding Method Toilet Toilet # Voids 1 - Labs CBC & Chem 7: 10/30/24 10:33 11/01/24 11:35 Labs: Abnormal Lab Results - Last 24 Hours (Table) 10/31/24 10/31/24 11/01/24 Range/Units 16:21 20:01 06:21 Sodium (137-145) mmol/L POC Glucose (mg/dL) 172 H 199 H 140 H (70-110) mg/dL 11/01/24 11/01/24 Range/Units 11:30 11:35 Sodium 135 L (137-145) mmol/L POC Glucose (mg/dL) 180 H (70-110) mg/dL
[2024-11-01 15:08] LABS: Anisocytosis Slight; HGB 8.5 gm/dL (13.0-17.5); Hypochromasia Marked; MCH 29.3 pg (25.0-35.0); MCHC 31.4 g/dL (31.0-37.0); MCV 93.2 fL (80.0-100.0); Macrocytosis Slight; Mean Platelet Volume 8.2; Platelet Count 164 k/uL (150-450); Poikilocytosis Moderate; RDW 19.7 % (11.5-15.5); WBC 4.8 k/uL (3.8-10.6)
[2024-11-01 15:18] LABS: ALT 41 U/L (4-49); AST 64 U/L (17-59); African American GFR (CKD) >90 (>60 ml/min/1.73 sqM); Albumin 3.2 g/dL (3.5-5.0); Alkaline Phosphatase 215 U/L (38-126); Anion Gap 5 mmol/L; Blood Urea Nitrogen 10 mg/dL (9-20); Calcium 7.8 mg/dL (8.4-10.2); Carbon Dioxide 32 mmol/L (22-30); Chloride 96 mmol/L (98-107); Glucose 151 mg/dL (74-99); Non-African American GFR(CKD) >90 (>60 ml/min/1.73 sqM); Potassium 4.5 mmol/L (3.5-5.1); Sodium 133 mmol/L (137-145); Total Bilirubin 0.9 mg/dL (0.2-1.3); Total Protein 6.7 g/dL (6.3-8.2)
--- NOTE | 2024-11-01 15:33 | P.PN ---
Subjective Progress Note Date: 11/01/24 Principal diagnosis: Reason for follow-up is fever Patient is a 59-year-old male with a past medical history significant for diabetes mellitus hypertension hyperlipidemia reflux sleep apnea, patient also have metastatic adenocarcinoma of the lung on chemotherapy presenting to the hospital from oncology office concerning for weakness anemia and fever with initial workup negative. On today's evaluation that is 11/01/2024,the patient did have improvement in his fever pattern he did have 1 low-grade fever 100.3 at 3 AM patient has been afebrile since then overall feeling better breathing comfortable 2 L current oxygen denies any chest pain or any worsening cough no abdominal pain and no diarrhea. Patient white count is 4.8 creatinine 0.78 Objective - Vital Signs Vital signs: Vital Signs Temp 98.4 F 11/01/24 11:54 Pulse 80 11/01/24 12:23 Resp 18 11/01/24 11:55 BP 107/68 11/01/24 08:00 Pulse Ox 93 L 11/01/24 08:00 FiO2 Intake & Output 10/31/24 11/01/24 11/01/24 18:59 06:59 18:59 Intake Total 360 480 118 Output Total 300 0 0 Balance 60 480 118 Weight 163.7 kg 163.7 kg Intake: Oral 360 480 118 Output: Urine 300 Stool 0 0 Other: Voiding Method Toilet Toilet # Voids 1 - Exam GENERAL DESCRIPTION: Middle-age male up in the chair in no distress RESPIRATORY SYSTEM: Unlabored breathing , decreased breath sounds at bases HEART: S1 S2 regular rate and rhythm , ABDOMEN: Soft , no tenderness patient did have a wound to the right perirectal area but no purulent drainage no significant redness was noticed EXTREMITIES: No edema feet - Labs CBC & Chem 7: 11/01/24 14:40 11/01/24 14:40 Labs: Abnormal Lab Results - Last 24 Hours (Table) 10/31/24 10/31/24 11/01/24 Range/Units 16:21 20:01 06:21 RBC (4.30-5.90) m/uL Hgb (13.0-17.5) gm/dL Hct (39.0-53.0) % RDW (11.5-15.5) % Sodium (137-145) mmol/L Chloride (98-107) mmol/L Carbon Dioxide (22-30) mmol/L Glucose (74-99) mg/dL POC Glucose (mg/dL) 172 H 199 H 140 H (70-110) mg/dL Calcium (8.4-10.2) mg/dL AST (17-59) U/L Alkaline Phosphatase (38-126) U/L Albumin (3.5-5.0) g/dL 11/01/24 11/01/24 11/01/24 Range/Units 11:30 11:35 14:40 RBC 2.90 L (4.30-5.90) m/uL Hgb 8.5 L (13.0-17.5) gm/dL Hct 27.0 L (39.0-53.0) % RDW 19.7 H (11.5-15.5) % Sodium 135 L (137-145) mmol/L Chloride (98-107) mmol/L Carbon Dioxide (22-30) mmol/L Glucose (74-99) mg/dL POC Glucose (mg/dL) 180 H (70-110) mg/dL Calcium (8.4-10.2) mg/dL AST (17-59) U/L Alkaline Phosphatase (38-126) U/L Albumin (3.5-5.0) g/dL 11/01/24 Range/Units 14:40 RBC (4.30-5.90) m/uL Hgb (13.0-17.5) gm/dL Hct (39.0-53.0) % RDW (11.5-15.5) % Sodium 133 L (137-145) mmol/L Chloride 96 L (98-107) mmol/L Carbon Dioxide 32 H (22-30) mmol/L Glucose 151 H (74-99) mg/dL POC Glucose (mg/dL) (70-110) mg/dL Calcium 7.8 L (8.4-10.2) mg/dL AST 64 H (17-59) U/L Alkaline Phosphatase 215 H (38-126) U/L Albumin 3.2 L (3.5-5.0) g/dL Assessment and Plan (1) Fever Current Visit: Yes Status: Acute Priority: High Code(s): R50.9 - FEVER, UNSPECIFIED SNOMED Code(s): 765010018 (2) Sepsis Current Visit: Yes Status: Acute Code(s): A41.9 - SEPSIS, UNSPECIFIED ORGANISM SNOMED Code(s): 68946944 (3) Perianal abscess Current Visit: Yes Status: Acute Code(s): K61.0 - ANAL ABSCESS SNOMED Code(s): 17645587 Plan: 1patient presented to the hospital with low hemoglobin patient to have a history of metastatic lung cancer and is currently getting chemotherapy last chemo has been about a week ago before presentation to the hospital, patient is not neutropenic, initial workup so far negative with a question of possibly related to the port patient did have a negative lower extremity Doppler and blood cultures are so far negative 2 repeat COVID-19 and influenza PCR came back negative, CT abdominal pelvis with oral contrast only did not show any acute abnormality, patient did have a mildly elevated procalcitonin concern for possible pneumonia 3-patient CT was reviewed with radiologist Dr. Tran and there is no evidence of any abscess, patient subsequently did have a CT of the pelvis with contrast did not show any evidence of any abscess, local culture growing multiple pathogen including anaerobes Prevotella E. coli Enterococcus and MSSA 4patient did have improvement in the fever pattern CT of the face did not show any osteonecrosis or osteomyelitis of the jaw, 5-patient did have improvement in his fever pattern once he was switched back to Zosyn will be continued we did ask for a WBC scan to be tomorrow if the patient remains to be afebrile WBC scan normal we will consider a 10-day course of Zosyn on discharge Dictation was produced using [employer] dictation software. please excuse any grammatical, word or spelling errors. Time with Patient: Less than 30
[2024-11-01 15:41] LABS: Band Neutrophils % 1 %; Lymphocytes # (M) 1.44 k/uL (1.0-4.8); Metamyelocytes # (M) 0.14 k/uL (0); Metamyelocytes % 3 %; Monocytes # (M) 0.58 k/uL (0-1.0); Myelocytes % 2 %; Neutrophils % (M) 52 %; Nucleated Red Blood Cells 0 /100 WBC (0-0); Total Cells Counted 200
[2024-11-01 15:42] LABS: Stomatocytes Present
--- NOTE | 2024-11-01 15:58 | P.CRDCN ---
History of Present Illness Consult date: 11/01/24 History of present illness: HISTORY OF PRESENTING ILLNESS: Patient is a 59-year-old with past medical history of hypertension, morbid obesity, obstructive sleep apnea and non-small cell lung cancer. He got admitted to the hospital because he was found anemic with hemoglobin of 5.9. During hospital stay he has been getting worked up for fever of unknown origin. His blood cultures from 10/24/2024 showed some gram-negative bacteria which infectious diseases following. Dr Darby patient Cardiology was consulted today because there was some evidence of atrial fi brillation noticed. EKG from 11/01/2024, 4:30 AM shows atrial fibrillation. EKG from admission shows sinus rhythm. Cardiac Labs: Hemoglobin 8.5, platelets 164, BUN 10, creatinine 0.7, Admission testing: Echocardiogram from August 2024 shows EF of 55% with no major valvular or structural abnormality, no regional wall motion abnormality was appreciated. Moderate pulmonary hypertension REVIEW OF SYSTEMS: 14 point review of system is negative except what is mentioned above in HPI. PHYSICAL EXAMINATION: Neck: Brisk carotid upstroke, no jugular venous distention. Lungs: Clear to auscultation. Heart: Regular rate and rhythm, S1-S2, , no murmur or rub. Abdomen: Soft nontender, positive bowel sounds. Extremities: No edema, intact distal pulses. Neuro: Alert, oritented, no focal deficits. Detailed neuro exam was not performed. ASSESSMENT: # Paroxysmal atrial fibrillation. Currently in sinus rhythm. A-fib noticed on 11/01/2024, 4:30 AM to 5:15 AM # Acute on chronic anemia status post blood transfusion # Fever of unknown origin with blood culture showing gram-negative bacteremia # Moderate pulmonary hypertension # Essential hypertension, controlled # Type 2 diabetes # Morbid obesity with BRII, compliant to CPAP PLAN: # Continue to monitor telemetry # Considering patient's anemia and low [id number] score of 2 I would not start him on anticoagulation. I will keep him on aspirin 81 mg. # He is on Farxiga 10 mg, Coreg 25 mg twice daily. Will continue these medications # Further recommendations to follow # Obtain NT-proBNP, TSH levels Alexandru Concepcion MD, FACC, RPVI Thank you for allowing [facility] to participate in this patient's care. Feel free to reach out in case of any followup questions. Past Medical History Past Medical History: Cancer, Diabetes Mellitus, GERD/Reflux, Hyperlipidemia, Hypertension, Sleep Apnea/CPAP/BIPAP, Thyroid Disorder Additional Past Medical History / Comment(s): C PAP MACHINE , RECTAL BLEEDING. neuropathy History of Any Multi-Drug Resistant Organisms: None Reported Past Surgical History: No Surgical Hx Reported Additional Past Surgical History / Comment(s): colonoscopy 2014, THYROIDECTOMY Past Anesthesia/Blood Transfusion Reactions: No Reported Reaction Past Psychological History: No Psychological Hx Reported Smoking Status: Never smoker - Past Family History Father Family Medical History: Cancer Medications and Allergies Home Medications Medication Instructions Recorded Confirmed Type Gabapentin 600 mg PO QID 01/04/15 10/19/24 History Losartan Potassium [Cozaar] 100 mg PO DAILY 01/04/15 10/19/24 History Omeprazole 40 mg PO DAILY 01/04/15 10/19/24 History metFORMIN HCL [Glucophage] 1,000 mg PO BID 01/04/15 10/19/24 History Ascorbic Acid [Vitamin C] 1,000 mg PO DAILY 04/04/21 10/19/24 History Cyanocobalamin (Vitamin B-12) 1,000 mcg PO DAILY 04/04/21 10/19/24 History [Vitamin B-12] Empagliflozin [Jardiance] 25 mg PO DAILY 04/04/21 10/19/24 History Ergocalciferol [Vitamin D2 (1250 1,250 mcg PO CONTI 04/04/21 10/19/24 History Mcg = 09576 Iu)] Fenofibrate,Micronized 200 mg PO DAILY 04/04/21 10/19/24 History [Fenofibrate] Latanoprost/Pf [Latanoprost 0.005% 1 drop BOTH EYES HS 04/04/21 10/19/24 History Eye Drop] Levothyroxine Sodium [Synthroid] 200 mcg PO DAILY 04/04/21 10/19/24 History Olmesartan Medoxomil [Benicar] 40 mg PO DAILY 04/04/21 10/19/24 History [place]-3 Fatty Acids/Fish Oil [Fish 1 cap PO DAILY 04/04/21 10/19/24 History Oil 1,000 mg Softgel] Rosuvastatin [Crestor] 20 mg PO DAILY 04/04/21 10/19/24 History Ubidecarenone [Co Q-10] 200 mg PO DAILY 04/04/21 10/19/24 History Zinc 50 mg PO DAILY 04/04/21 10/19/24 History carvediloL [Coreg] 25 mg PO BID 04/04/21 10/19/24 History Aspirin EC [Ecotrin Low Dose] 81 mg PO DIRECTED 10/19/24 10/19/24 History Cholecalciferol [Vitamin D3 (25 25 mcg PO DAILY 10/19/24 10/19/24 History Mcg = 1000 Iu)] Cyclobenzaprine [Flexeril] 10 mg PO Q8H PRN 10/19/24 10/19/24 History EPINEPHrine (Auto Inject) [Epipen] 0.3 mg IM ONCE PRN 10/19/24 10/19/24 History Folic Acid 1 mg PO DAILY 10/19/24 10/19/24 History Ibuprofen [Motrin] 800 mg PO Q8H PRN 10/19/24 10/19/24 History Levothyroxine Sodium [Synthroid] 50 mcg PO DAILY 10/19/24 10/19/24 History Magnesium Oxide [Magnesium] 500 mg PO DAILY 10/19/24 10/19/24 History Ondansetron Odt [Zofran Odt] 4 mg PO Q4H PRN 10/19/24 10/19/24 History Spironolactone [Aldactone] 25 mg PO DAILY 10/19/24 10/19/24 History oxyCODONE HCL [Oxycodone HCl] 10 mg PO Q4H 10/19/24 10/19/24 History Allergies Allergy/AdvReac Type Severity Reaction Status Date / Time peas Allergy Anaphylaxis Verified 10/19/24 13:51 Physical Exam Vitals: Vital Signs Temp Pulse Pulse Resp BP Pulse Ox 11/01/24 12:23 80 11/01/24 12:14 79 11/01/24 11:55 87 18 11/01/24 11:54 98.4 F 11/01/24 08:00 98.1 F 87 18 107/68 93 L 11/01/24 03:36 100.3 F H 76 17 103/64 97 11/01/24 01:50 88 17 10/31/24 23:50 99.4 F 88 17 118/65 95 10/31/24 21:56 95 10/31/24 21:39 90 10/31/24 20:00 99.2 F 93 17 127/75 93 L 10/31/24 16:10 98.4 F 80 76 17 94/58 97 10/31/24 16:00 80 Intake and Output 11/01/24 11/01/24 11/01/24 06:59 14:59 22:59 Intake Total 118 Output Total 0 0 Balance 0 118 Intake: Oral 118 Output: Stool 0 0 Other: Voiding Method Toilet # Voids 1 Weight 163.7 kg Results 11/01/24 14:40 11/01/24 14:40 Cardiac Enzymes 11/01/24 Range/Units 14:40 AST 64 H (17-59) U/L CBC 11/01/24 Range/Units 14:40 WBC 4.8 (3.8-10.6) k/uL RBC 2.90 L (4.30-5.90) m/uL Hgb 8.5 L (13.0-17.5) gm/dL Hct 27.0 L (39.0-53.0) % Plt Count 164 (150-450) k/uL Comprehensive Metabolic Panel 11/01/24 11/01/24 Range/Units 11:35 14:40 Sodium 135 L 133 L (137-145) mmol/L Potassium 4.5 (3.5-5.1) mmol/L Chloride 96 L (98-107) mmol/L Carbon Dioxide 32 H (22-30) mmol/L BUN 10 (9-20) mg/dL Creatinine 0.78 (0.66-1.25) mg/dL Glucose 151 H (74-99) mg/dL Calcium 7.8 L (8.4-10.2) mg/dL AST 64 H (17-59) U/L ALT 41 (4-49) U/L Alkaline Phosphatase 215 H (38-126) U/L Total Protein 6.7 (6.3-8.2) g/dL Albumin 3.2 L (3.5-5.0) g/dL Current Medications Generic Name Dose Route Start Last Admin Trade Name Freq PRN Reason Stop Dose Admin Acetaminophen 650 mg 10/19/24 14:24 11/01/24 03:41 Acetaminophen Tab 325 Mg Tab PO 650 mg Q6HR PRN Administration Mild Pain or Fever > 100.5 Albuterol/Ipratropium 3 ml 10/23/24 20:00 11/01/24 12:14 Ipratropium-Albuterol 3 Ml Neb INHALATION 3 ml RT-QID MICHELLE Administration Albuterol/Ipratropium 3 ml 10/23/24 16:37 Ipratropium-Albuterol 3 Ml Neb INHALATION RT-QID PRN Shortness Of Breath Or Wheezing Ascorbic Acid 1,000 mg 10/20/24 09:00 11/01/24 08:22 Ascorbic Acid 500 Mg Tab PO 1,000 mg DAILY MICHELLE Administration Carvedilol 25 mg 10/19/24 17:30 11/01/24 06:26 Carvedilol 12.5 Mg Tab PO 25 mg BID-W/MEALS MICHELLE Administration Cholecalciferol 25 mcg 10/20/24 09:00 11/01/24 08:23 Cholecalciferol 25 Mcg (1000 Iu) Tablet PO 25 mcg DAILY MICHELLE Administration Cyanocobalamin 1,000 mcg 10/20/24 09:00 11/01/24 08:22 Cyanocobalamin 500 Mcg Tab PO 1,000 mcg DAILY MICHELLE Administration Cyclobenzaprine HCl 10 mg 10/19/24 14:34 10/31/24 23:56 Cyclobenzaprine 10 Mg Tab PO 10 mg Q8H PRN Administration Muscle Spasm Dapagliflozin 10 mg 10/20/24 09:00 11/01/24 08:22 Dapagliflozin Propanediol 10 Mg Tablet PO 10 mg DAILY MICHELLE Administration Dextrose/Water 25 ml 10/19/24 14:36 Dextrose 50% Syringe 50 Ml IVP PER PROTOCOL PRN Hypoglycemia Protocol Dextrose/Water 50 ml 10/19/24 14:36 Dextrose 50% Syringe 50 Ml IVP PER PROTOCOL PRN Hypoglycemia Protocol Enoxaparin Sodium 40 mg 10/22/24 09:00 11/01/24 08:21 Enoxaparin 40 Mg/0.4 Ml Syringe SQ 40 mg DAILY MICHELLE Administration Folic Acid 1 mg 10/20/24 09:00 11/01/24 08:22 Folic Acid 1 Mg Tab PO 1 mg DAILY MICHELLE Administration Furosemide 40 mg 10/31/24 09:00 11/01/24 08:22 Furosemide 40 Mg Tab PO 40 mg DAILY MICHELLE Administration Gabapentin 600 mg 10/19/24 18:00 11/01/24 11:48 Gabapentin 300 Mg Cap PO 600 mg QID MICHELLE Administration Hydromorphone HCl 0.5 mg 10/21/24 10:13 10/29/24 21:07 Hydromorphone 0.5 Mg/0.5 Ml Syringe IVP 0.5 mg Q3HR PRN Administration Pain Piperacillin Sod/Tazobactam 100 mls @ 25 mls/hr 10/31/24 16:00 11/01/24 08:20 Sod 3.375 gm/ Sodium Chloride IVPB 25 mls/hr Q8HR MICHELLE Administration Protocol Insulin Aspart 0 unit 10/19/24 17:30 11/01/24 11:48 Insulin Aspart (Novolog) 100 Unit/Ml Vial SQ 2 unit ACHS MICHELLE Administration Protocol Latanoprost 1 drops 10/19/24 21:00 10/31/24 21:07 Latanoprost 0.005% Ophth Drops 2.5 Ml Btl BOTH EYES 1 drops HS MICHELLE Administration Levothyroxine Sodium 50 mcg 10/20/24 06:30 11/01/24 06:26 Levothyroxine 50 Mcg Tab PO 50 mcg 0630 MICHELLE Administration Levothyroxine Sodium 200 mcg 10/20/24 06:30 11/01/24 06:26 Levothyroxine 100 Mcg Tab PO 200 mcg 0630 MICHELLE Administration Melatonin 6 mg 10/22/24 21:00 10/31/24 21:05 Melatonin 3 Mg Tablet PO 6 mg HS MICHELLE Administration Naloxone HCl 0.2 mg 10/19/24 14:24 Naloxone 0.4 Mg/Ml 1 Ml Vial IV Q2M PRN Opioid Reversal Oxycodone HCl 10 mg 10/19/24 16:00 11/01/24 11:48 Oxycodone Hcl 5 Mg Tab PO 10 mg Q4H MICHELLE Administration Pantoprazole Sodium 40 mg 10/20/24 07:30 11/01/24 06:27 Pantoprazole 40 Mg Tablet PO 40 mg [id number] MICHELLE Administration Zinc Sulfate 220 mg 10/20/24 09:00 11/01/24 08:22 Zinc Sulfate 220 Mg Cap PO 220 mg DAILY MICHELLE Administration Intake and Output 11/01/24 11/01/24 11/01/24 06:59 14:59 22:59 Intake Total 118 Output Total 0 0 Balance 0 118 Intake: Oral 118 Output: Stool 0 0 Other: Voiding Method Toilet # Voids 1 Weight 163.7 kg 11/01/24 14:40 11/01/24 14:40
[2024-11-01 16:06] LABS: Glucose,Whole Blood 140 mg/dL (70-110)
[2024-11-01] MEDS: ASPIRIN 81 MG PO SCH (16:42)
[2024-11-01 17:07] LABS: NT-Pro-B-Type Natriuretic Pept 335 pg/mL
[2024-11-01 19:57] LABS: Glucose,Whole Blood 185 mg/dL (70-110)
[2024-11-02 06:02] LABS: Glucose,Whole Blood 143 mg/dL (70-110)
[2024-11-02 07:04] LABS: ALT 38 U/L (4-49); AST 55 U/L (17-59); African American GFR (CKD) >90 (>60 ml/min/1.73 sqM); Alkaline Phosphatase 219 U/L (38-126); Anion Gap 2 mmol/L; Blood Urea Nitrogen 8 mg/dL (9-20); Calcium 7.8 mg/dL (8.4-10.2); Carbon Dioxide 32 mmol/L (22-30); Chloride 100 mmol/L (98-107); Glucose 129 mg/dL (74-99); Non-African American GFR(CKD) >90 (>60 ml/min/1.73 sqM); Potassium 4.4 mmol/L (3.5-5.1); Sodium 134 mmol/L (137-145); Total Bilirubin 0.8 mg/dL (0.2-1.3); Total Protein 6.5 g/dL (6.3-8.2)
[2024-11-02 07:51] LABS: Anisocytosis Slight; HCT 27.5 % (39.0-53.0); HGB 8.5 gm/dL (13.0-17.5); Hypochromasia Marked; MCH 28.9 pg (25.0-35.0); MCV 93.2 fL (80.0-100.0); Macrocytosis Slight; Mean Platelet Volume 7.8; Platelet Count 162 k/uL (150-450); Poikilocytosis Moderate; RBC 2.95 m/uL (4.30-5.90); RDW 19.6 % (11.5-15.5)
[2024-11-02 09:43] LABS: Nucleated Red Blood Cells 0 /100 WBC (0-0)
[2024-11-02 09:47] LABS: Band Neutrophils % 1 %; Lymphocytes # (M) 2.05 k/uL (1.0-4.8); Metamyelocytes # (M) 0.05 k/uL (0); Metamyelocytes % 1 %; Myelocytes # (M) 0.05 k/uL (0); Myelocytes % 1 %; Neutrophils % (M) 51 %; Total Cells Counted 200
[2024-11-02 09:50] LABS: Polychromasia Present; Stomatocytes Present
--- NOTE | 2024-11-02 10:43 | P.PN ---
Subjective Progress Note Date: 11/02/24 Ganga Smart, is a 59-year-old male patient of Dr. Garsia who presented to the ER after his oncologist discovered his hemoglobin low at 5.9. Patient has a history of metastatic lung cancer and has been receiving chemotherapy last cycle 1 week ago. Patient reports he's been on chemotherapy for approximately 2 years.patient has past medical history of diabetes, GERD, hyperlipidemia, hypertension, sleep apnea, thyroid disorder. Patient denies any nicotine use history.lab work completed showing hemoglobin 5.6. White blood cell 4.0. Sodium 129, creatinine 1.2, bun 19, lactic acid 2.8patient also noted to have a low-grade temp 100.5. Patient denies any recent sick contacts denies cough or shortness of breath. Patient denies nausea vomiting or diarrhea. Patient denies any burning with urination. At this time patient will be admitted oncology and infectious disease service is consulted. 2 units of PRBCs have been ordered. COVID-19 in influenza negative. Blood and urine and sputum cultures ordered. At this time patient is resting comfortably in bed. Patient denies any chest pain or shortness of breath. Patient denies nausea vomiting or diarrhea. Patient denies any urinary burning or frequency On 10/20/2024 patient is alert and oriented x 3. Patient was continuing to have fevers throughout the night. Patient was started on vancomycin and Maxipime per infectious disease. Patient received 2 units of PRBCs repeat hemoglobin 8.5. Patient denies chest pain or shortness of breath. Patient denies nausea vomiting or diarrhea. Patient denies any urinary burning or frequency On 10/21/2024 patient is alert and oriented x 3. Patient having some increased back discomfort. Patient still having elevated temps slightly improved. Patient remains on IV antibiotic. Hemoglobin remained stable at 8.3. Patient denies chest pain or shortness of breath. Patient denies nausea vomiting or diarrhea. Patient denies any urinary burning or frequency On 10/22/2024 patient was seen and examined on the telemetry floor, he is alert and oriented x 3 in no apparent distress, he is still having elevated temperature up to 102.3, CT scan of the chest revealed bilateral pleural effusio n, pulmonary consultation was added and patient was seen by Dr. Menezes, because of elevated temperature is still not entirely clear, repeat blood cultures and sputum culture and echocardiogram was ordered, patient is followed by infectious disease and is maintained on IV antibiotics. Will continue to follow closely On 10/23/2024 patient is alert and oriented x 3. Patient continued to having e levated temps 2D echo and CT chest with contrast has been ordered. Infectious disease, pulmonary and oncology services are all following patient denies chest pain. Patient does report some shortness of breath. Patient denies nausea vomiting or diarrhea. Patient denies any urinary burning or frequency on 10/24/2024 patient is alert and oriented x 3. Patient still having elevated temps. CT of chest has been completed. awaiting 2 decho. at this time patient is still complaining of some shortnes of breath. Denies chest pain. denies nausea vomiting or diarrhea. Denies any urinary burning or frequency. oncology, infectious disease, and pulmonary services following. remains on Iv zosyn Dr. Puente's group will be covering from 10/25/2024 to 11/02/2024 On 11/02/2024 patient is alert and oriented x 3. Patient remains on IV Zosyn. Patient was also evaluated by cardiology services for new onset A-fib but not a candidate for anticoagulation due to thrombocytopenia. WBC scan has been ordered per infectious disease services. Patient has been afebrile for 24 hours. Per infectious disease patient may require IV antibiotics upon discharge. Patient denies chest pain or shortness of breath. Patient denies nausea vomiting or diarrhea. Patient denies any urinary burning or frequency. Current vital signs temp 98.5, heart rate 78, respiratory rate 16, blood pressure 119/70 with a pulse ox of 95% on 2 L Objective - Vital Signs Vital signs: Vital Signs Temp 98.5 F 11/02/24 08:00 Pulse 78 11/02/24 08:00 Resp 16 11/02/24 08:00 BP 119/70 11/02/24 08:00 Pulse Ox 95 11/02/24 08:00 FiO2 Intake & Output 11/01/24 11/02/24 11/02/24 18:59 06:59 18:59 Intake Total 118 240 Output Total 0 260 Balance 118 -20 Weight 168 kg Intake: Oral 118 240 Output: Urine 260 Stool 0 0 Other: Voiding Method Toilet Urinal # Voids 1 - Exam In general patient is alert and oriented in no apparent distress Head normocephalic and atraumatic Neck supple no JVD no goiter Lungs clear to auscultation bilaterally no wheezing or crackles Heart regular rate and rhythm S1-S2, no rub or gallop Abdomen is soft nontender nondistended positive bowel sounds no hepatosplenomegaly Extremities 2+ edema bilaterally Neuro no gross focal deficit - Labs CBC & Chem 7: 11/02/24 05:53 11/02/24 05:53 Labs: Abnormal Lab Results - Last 24 Hours (Table) 11/01/24 11/01/24 11/01/24 Range/Units 11:30 11:35 14:40 RBC 2.90 L (4.30-5.90) m/uL Hgb 8.5 L (13.0-17.5) gm/dL Hct 27.0 L (39.0-53.0) % RDW 19.7 H (11.5-15.5) % Metamyelocytes # (Man) 0.14 H (0) k/uL Myelocytes # (Manual) 0.10 H (0) k/uL Sodium 135 L (137-145) mmol/L Chloride (98-107) mmol/L Carbon Dioxide (22-30) mmol/L BUN (9-20) mg/dL Glucose (74-99) mg/dL POC Glucose (mg/dL) 180 H (70-110) mg/dL Calcium (8.4-10.2) mg/dL AST (17-59) U/L Alkaline Phosphatase (38-126) U/L Albumin (3.5-5.0) g/dL 11/01/24 11/01/24 11/01/24 Range/Units 14:40 16:05 19:56 RBC (4.30-5.90) m/uL Hgb (13.0-17.5) gm/dL Hct (39.0-53.0) % RDW (11.5-15.5) % Metamyelocytes # (Man) (0) k/uL Myelocytes # (Manual) (0) k/uL Sodium 133 L (137-145) mmol/L Chloride 96 L (98-107) mmol/L Carbon Dioxide 32 H (22-30) mmol/L BUN (9-20) mg/dL Glucose 151 H (74-99) mg/dL POC Glucose (mg/dL) 140 H 185 H (70-110) mg/dL Calcium 7.8 L (8.4-10.2) mg/dL AST 64 H (17-59) U/L Alkaline Phosphatase 215 H (38-126) U/L Albumin 3.2 L (3.5-5.0) g/dL 11/02/24 11/02/24 11/02/24 Range/Units 05:53 05:53 06:01 RBC 2.95 L (4.30-5.90) m/uL Hgb 8.5 L (13.0-17.5) gm/dL Hct 27.5 L (39.0-53.0) % RDW 19.6 H (11.5-15.5) % Metamyelocytes # (Man) 0.05 H (0) k/uL Myelocytes # (Manual) 0.05 H (0) k/uL Sodium 134 L (137-145) mmol/L Chloride (98-107) mmol/L Carbon Dioxide 32 H (22-30) mmol/L BUN 8 L (9-20) mg/dL Glucose 129 H (74-99) mg/dL POC Glucose (mg/dL) 143 H (70-110) mg/dL Calcium 7.8 L (8.4-10.2) mg/dL AST (17-59) U/L Alkaline Phosphatase 219 H (38-126) U/L Albumin 3.0 L (3.5-5.0) g/dL Assessment and Plan Assessment: 1. Anemia likely secondary to chemotherapy 2. History of metastatic lung cancer patient follows with oncology services last chemotherapy one week ago 3. Febrile. Temp 100.3. 4. Hyponatremia, correcting with IV fluid 5. History of diabetes mellitus 6. History of hyperlipidemia 7. History of essential hypertension 8. History of hypothyroidism 9. History of sleep apnea 10. Paroxysmal atrial fibrillation. Patient not a candidate for anticoagulation at this time due to anemia and thrombocytopenia secondary to chemotherapy. Recommend to continue aspirin DVT prophylaxis SCDs secondary to anemia. GI prophylaxis Protonix Oncology and infectious disease service is consulted 2 units of PRBCs have been ordered Blood urine and sputum cultures ordered WBC scan has been ordered for 11-02-2024 Patient started on IV antibiotics
[2024-11-02 11:22] LABS: Glucose,Whole Blood 164 mg/dL (70-110)
--- NOTE | 2024-11-02 11:50 | P.PN ---
Subjective patient is seen for follow-up for hyponatremia. Currently being diuresed. Serum sodium was 134 today. No significant complaints. Objective - Vital Signs Vital signs: Vital Signs Temp 98.5 F 11/02/24 08:00 Pulse 78 11/02/24 08:00 Resp 16 11/02/24 08:00 BP 119/70 11/02/24 08:00 Pulse Ox 95 11/02/24 08:00 FiO2 Intake & Output 11/01/24 11/02/24 11/02/24 18:59 06:59 18:59 Intake Total 118 240 Output Total 0 260 475 Balance 118 -20 -475 Weight 168 kg Intake: Oral 118 240 Output: Urine 260 475 Stool 0 0 Other: Voiding Method Toilet Toilet Urinal Urinal # Voids 1 2 - Exam on examination patient is comfortable, awake, alert oriented 3. No acute distress Examination of the heart S1 and S2 Examination of the lungs bilateral breath sounds are heard Abdomen is soft obese nontender Examination of lower extremities shows edema 1+ bilaterally [employer] exam grossly intact - Labs CBC & Chem 7: 11/02/24 05:53 11/02/24 05:53 Labs: Abnormal Lab Results - Last 24 Hours (Table) 11/01/24 11/01/24 11/01/24 Range/Units 11:35 14:40 14:40 RBC 2.90 L (4.30-5.90) m/uL Hgb 8.5 L (13.0-17.5) gm/dL Hct 27.0 L (39.0-53.0) % RDW 19.7 H (11.5-15.5) % Metamyelocytes # (Man) 0.14 H (0) k/uL Myelocytes # (Manual) 0.10 H (0) k/uL Sodium 135 L 133 L (137-145) mmol/L Chloride 96 L (98-107) mmol/L Carbon Dioxide 32 H (22-30) mmol/L BUN (9-20) mg/dL Glucose 151 H (74-99) mg/dL POC Glucose (mg/dL) (70-110) mg/dL Calcium 7.8 L (8.4-10.2) mg/dL AST 64 H (17-59) U/L Alkaline Phosphatase 215 H (38-126) U/L Albumin 3.2 L (3.5-5.0) g/dL 11/01/24 11/01/24 11/02/24 Range/Units 16:05 19:56 05:53 RBC (4.30-5.90) m/uL Hgb (13.0-17.5) gm/dL Hct (39.0-53.0) % RDW (11.5-15.5) % Metamyelocytes # (Man) (0) k/uL Myelocytes # (Manual) (0) k/uL Sodium 134 L (137-145) mmol/L Chloride (98-107) mmol/L Carbon Dioxide 32 H (22-30) mmol/L BUN 8 L (9-20) mg/dL Glucose 129 H (74-99) mg/dL POC Glucose (mg/dL) 140 H 185 H (70-110) mg/dL Calcium 7.8 L (8.4-10.2) mg/dL AST (17-59) U/L Alkaline Phosphatase 219 H (38-126) U/L Albumin 3.0 L (3.5-5.0) g/dL 11/02/24 11/02/24 11/02/24 Range/Units 05:53 06:01 11:20 RBC 2.95 L (4.30-5.90) m/uL Hgb 8.5 L (13.0-17.5) gm/dL Hct 27.5 L (39.0-53.0) % RDW 19.6 H (11.5-15.5) % Metamyelocytes # (Man) 0.05 H (0) k/uL Myelocytes # (Manual) 0.05 H (0) k/uL Sodium (137-145) mmol/L Chloride (98-107) mmol/L Carbon Dioxide (22-30) mmol/L BUN (9-20) mg/dL Glucose (74-99) mg/dL POC Glucose (mg/dL) 143 H 164 H (70-110) mg/dL Calcium (8.4-10.2) mg/dL AST (17-59) U/L Alkaline Phosphatase (38-126) U/L Albumin (3.5-5.0) g/dL Assessment and Plan Assessment: 1. Hyponatremia. Hypervolemic and currently being diuresed. Patient was also on NSAIDs, now discontinued. Sodium level 134 . TSH normal. Urine sodium 38 and urine osmolality 546. 2. Chemo induced anemia status post blood transfusions this admission. 3. Metastatic lung adenocarcinoma. Oncology following. 4. Benign hypertension. Blood pressure on the lower side. 5. Chronic diastolic CHF with severe pulmonary hypertension. 6. Volume overload. 7. Perirectal wound on antibiotics. Infectious disease following. 8. Hypermagnesemia secondary to magnesium supplementation. Plan: continue with oral Lasix. Increase dose to twice daily Repeat labs in a.m.
--- NOTE | 2024-11-02 13:14 | P.PN ---
Subjective Progress Note Date: 11/02/24 Principal diagnosis: Anemia. This is a 59-year-old male patient with metastatic pulmonary adenocarcinoma, who has been receiving systemic chemotherapy and the patient was not Gemzar and his last treatment was on 10/12/2024. The patient was tolerating the systemic chemotherapy reasonably well. He is morbidly obese and has history of obstructive sleep apnea along with diabetes mellitus and hyperlipidemia. He is currently in the hospital as the patient was initially sent over from oncologist office because of a low hemoglobin of 5.9. The patient was also febrile. He was given a total of 2 U PRBC During this current hospitalization the patient's hemoglobin is currently up to 8.3. Nevertheless, he continues to have episodes of fever. Currently afebrile. Tmax over the past 24 hours was 102.3. No clear source of infection. The patient remains on a combination of cefepime and vancomycin. Note that his white cell count is not elevated. His white cell count is at 4. He has no DVTs in his lower extremities. CAT scan of the abdomen and pelvis was done and shows a chronic small right-sided pleural effusion. There is bony metastases throughout and there was no significant lymphadenopathy. Blood cultures have been negative. The patient has a Mediport that looks to be quite clean. No altered mentation. No skin rashes. No wounds or ulcers. As such, the source of the fever is not clear. ID is on the case. He is also experiencing some shortness of breath with mobility. Nevertheless, he is on room air oxygen. No cough sputum production chest tightness or wheezing. In terms of his lung cancer, the patient was diagnosed having pulm adenocarcinoma back in 2021. He has been followed up by Dr. Cat. He initially presented with 3 cm RLL lung mass,he had a PET scan on 06/16/2022 which revealed suspicious uptake in in central right lung lesion,measured 2.1 x 2.2 cm,he initially had navigational bronchoscopy which was not diagnostic,he ws referred to DR Hernandez at [facility],he had repeat CT scan of chest on 07/07/2022 which revealed 3 cm lesion in superior segment of RLL and several other small nodules in right lung which are new compared to prior CT scan done at [facility] in 06/2016. On 07/24/2022,he underwent RLL resection and biopsies of mediastinal nodes,pathology revealed adenocarcinoma spreading through alveolar spaces and invading lymphovascular channels (BERENICE),multifocal,right level 8,level 7,4R nodes were positive. Brain MRI on 08/08/2022 was negative. Caris did not reveal any targetable mutation. On 08/18/2022,PET scan revealed uptake in right hilar region,there was uptake in left second rib,had an MRI which revealed subtle area in rib without enhancement. On 08/26/2022,he started carbo/alimta with radiation,completed 4 cycles of chemo on 10/29/2022. Due to disease progression, patient has been on multiple treatment regimens. He started imfinzi on 12/25/2022. Taxotere/cyramza/zometa were held in December 2023, as patient developed ONJ. He started gemzar on 05/10/2024, most recently completing cycle 8 on 10/12/24, Patient was evaluated today on 10/23/2024, patient seems to be doing better today, continues to have low-grade fever his Tmax last night was 99.5. Hemodynamically stable on 2 L nasal cannula O2 sat is 98% patient seems to have less and less shortness of breath.WBC count is 5.2 hemoglobin is 8 sodium is 127 potassium 4.9 BUN is 19 creatinine 1.14 blood cultures and urine cultures remain negative so far. Seen today on 10/24/2024, patient is doing well, feeling better, yesterday's CT of the chest showed evidence of bilateral pleural effusions and the patient received 1 dose of Lasix yesterday and he received DuoNeb updraft treatment for his acute onset of shortness of breath, patient felt much better shortly after. Today is down to 125 his BUN is 18 creatinine 1.13, patient is now being seen by nephrology on consultation. I believe his hyponatremia is most likely secondary to SIADH considering his underlying malignancy/bronchogenic carcinoma Reevaluate today on 10/25/2024, patient is doing a bit better today however continues to have intermittent episodes of fevers, in spite of antibiotics patient continues to have febrile episodes. Patient had a Tmax of 102.6 yesterday, today's temp is 100.3 blood pressure 102/59 he is on 2 L nasal cannula with O2 saturation ranging between 91 up to 97% sodium is low at 126 CBC today is pending. Patient screening for viral infection was negative including influenza A influenza B RSV and COVID patient also had negative urinary Le gionella antigen Patient was seen today on 10/26/2024, continues to have intermittent spiking of temperature, febrile, and I have a feeling that the patient may have an infected enterocutaneous fistula which was examined today, and I am recommending surgical evaluation for his fistula. Patient seems to have a deep open wound in the buttock area, this could very well be an enterocutaneous fistula.Pulmonary costa is feeling better breathing easier WBC count is 6.9 hemoglobin is 8.11 sodium 129 potassium 5.1 BUN is 14 creatinine 1.11 Seen today on 10/27/2024, patient continues to have low-grade fever, he had a Tmax of 99 last night, remains on antibiotics empirically, CT of the pelvis failed to show abscess or enterocutaneous fistula. Patient is feeling better today, breathing easier. CT of the chest and chest x-ray showed mostly atelectasis, strongly doubt pneumonia. Patient was seen today on 10/28/2024, his fever seems to be responding finally to antibiotics, patient has some positive cultures from his perianal wound, but no evidence of abscess. Pulmonary costa is doing well, no cough no wheezing no shortness of breathBasic metabolic profile is relatively normal. Overall the p atient seems to be doing better Patient was evaluated today on 10/29/2024, doing fairly well, relatively asymptomatic, does not seem to be in any distress, he did have a low temp last night he had a Tmax of 100.3, remains on 4 L nasal cannula, he has no active pulmonary symptoms no cough no wheezing no shortness of breath. Remains on daptomycin and Unasyn, the plan is to eventually transition the patient to oral antibiotics as per infectious disease. Pulmonary costa I believe the patient is doing quite wellLabs today showed relatively normal electrolytes and normal renal profile. Progress note dated October 30, 2024. 59-year-old male seen today in room 360. The patient is resting comfortably in bed. He is on 4 L of oxygen, with saturations of 98%. He is getting saline at 10 cc an hour. The patient denies any respiratory difficulty, or distress. He denies any cough, wheezing, or phlegm production. Current laboratory data includes a white count 7.3, hemoglobin 8.6, hematocrit 27.5, and normal platelet count. Glucose is 140. Ulcers of the buttock area, show multiple bacteria. The patient is currently on Augmentin, and ciprofloxacin, as per infectious diseases. Progress note dated October 31, 2024. 59-year-old male seen today in room 360. He is sitting in a chair next to his hospital bed. He appears in no acute distress. He continues on O2 2 L by nasal cannula. He uses 4 L, when he is on his CPAP device. He denies any shortness of breath, cough, wheezing, chest tightness, or phlegm production. Current labs include a sodium 134, potassium 4.9, chlorides 97, CO2 36, BUN 12, creatinine 0.81. Glucose is 152. Calcium is 7.6. Magnesium of 2.5. Albumin is 3. Progress note dated November 01, 2024. 59-year-old male seen today in room 360. The patient is currently on 2 L nasal cannula. He continues on IV Zosyn. The patient is not receiving any IV fluids. He is sitting in a chair next to his hospital bed. From the pulmonary standpoint he is doing well. He denies any shortness of breath. Labs today only include a glucose of 135. Progress note dated November 02, 2024. 59-year-old male seen today in room 360. He sitting in his chair, next to the hospital bed. The patient continues on oxygen, by nasal cannula 2 L. From the pulmonary standpoint, the patient is doing well. He denies any shortness of breath, cough, wheezing, chest tightness, or phlegm production. The patient does continue on Zosyn. Saturations are 95%. White count 5, hemoglobin 8.5, hematocrit 27.5, platelet count 162,000. Sodium 134, potassium 4.4, chlorides 100, CO2 32, BUN was 8 and creatinine was 0.8. Glucose 164. Albumin is 3. Culture data from October 24, has been reviewed. Objective - Vital Signs Vital signs: Vital Signs Temp 98.5 F 11/02/24 08:00 Pulse 82 11/02/24 12:35 Resp 16 11/02/24 12:00 BP 138/67 11/02/24 12:00 Pulse Ox 96 11/02/24 12:00 FiO2 Intake & Output 11/01/24 11/02/2411/02/25 18:59 06:59 18:59 Intake Total 118 240 Output Total 0 260 475 Balance 118 -20 -475 Weight 168 kg Intake: Oral 118 240 Output: Urine 260 475 Stool 0 0 Other: Voiding Method Toilet Toilet Urinal Urinal # Voids 1 2 - Exam No acute distress, oriented 3. Currently on 2 L. HEENT examination is grossly unremarkable. Mucous membranes are moist. No oral lesions. Neck supple. Full range of motion. No adenopathy thyromegaly or neck vein distention. Cardiovascular examination reveals regular rhythm rate. S1-S2 normal. No S3 or S4. No discernible murmur noted. Lungs reveal clear breath sounds. Breath sounds are equal bilaterally. No adventitious lung sounds including wheezes rhonchi or crackles. Abdomen soft bowel sounds are heard. No masses or tenderness. Extremities are intact. No cyanosis or clubbing. Lower extremity edema is no kemal. Skin reveals a large deep wound in the perianal area. Neurologic examination is brief but nonfocal. - Labs CBC & Chem 7: 11/02/24 05:53 11/02/24 05:53 Labs: Abnormal Lab Results - Last 24 Hours (Table) 11/01/24 11/01/24 11/01/24 Range/Units 14:40 14:40 16:05 RBC 2.90 L (4.30-5.90) m/uL Hgb 8.5 L (13.0-17.5) gm/dL Hct 27.0 L (39.0-53.0) % RDW 19.7 H (11.5-15.5) % Metamyelocytes # (Man) 0.14 H (0) k/uL Myelocytes # (Manual) 0.10 H (0) k/uL Sodium 133 L (137-145) mmol/L Chloride 96 L (98-107) mmol/L Carbon Dioxide 32 H (22-30) mmol/L BUN (9-20) mg/dL Glucose 151 H (74-99) mg/dL POC Glucose (mg/dL) 140 H (70-110) mg/dL Calcium 7.8 L (8.4-10.2) mg/dL AST 64 H (17-59) U/L Alkaline Phosphatase 215 H (38-126) U/L Albumin 3.2 L (3.5-5.0) g/dL 11/01/24 11/02/24 11/02/24 Range/Units 19:56 05:53 05:53 RBC 2.95 L (4.30-5.90) m/uL Hgb 8.5 L (13.0-17.5) gm/dL Hct 27.5 L (39.0-53.0) % RDW 19.6 H (11.5-15.5) % Metamyelocytes # (Man) 0.05 H (0) k/uL Myelocytes # (Manual) 0.05 H (0) k/uL Sodium 134 L (137-145) mmol/L Chloride (98-107) mmol/L Carbon Dioxide 32 H (22-30) mmol/L BUN 8 L (9-20) mg/dL Glucose 129 H (74-99) mg/dL POC Glucose (mg/dL) 185 H (70-110) mg/dL Calcium 7.8 L (8.4-10.2) mg/dL AST (17-59) U/L Alkaline Phosphatase 219 H (38-126) U/L Albumin 3.0 L (3.5-5.0) g/dL 11/02/24 11/02/24 Range/Units 06:01 11:20 RBC (4.30-5.90) m/uL Hgb (13.0-17.5) gm/dL Hct (39.0-53.0) % RDW (11.5-15.5) % Metamyelocytes # (Man) (0) k/uL Myelocytes # (Manual) (0) k/uL Sodium (137-145) mmol/L Chloride (98-107) mmol/L Carbon Dioxide (22-30) mmol/L BUN (9-20) mg/dL Glucose (74-99) mg/dL POC Glucose (mg/dL) 143 H 164 H (70-110) mg/dL Calcium (8.4-10.2) mg/dL AST (17-59) U/L Alkaline Phosphatase (38-126) U/L Albumin (3.5-5.0) g/dL Assessment and Plan Assessment: Fever, of unclear cause, improved, and responding to the antibiotics. Shortness of breath, multifactorial, resolved. Buttock infection, secondary to E. coli, Staph aureus, Enterococcus faecalis, and Prevotella species. Stage IV pulmonary adenocarcinoma. Chemotherapy-induced anemia. Morbid obesity, with a BMI of 46.6 kg/m. Obstructive sleep apnea syndrome, maintained on BiPAP. History of hypertension. History of hyperlipidemia. History of the type 2 diabetes mellitus. History of peripheral neuropathy. Hypothyroidism. SIADH induced hyponatremia. 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 Plan: Plan dated October 30, 2024. The patient is seen today in room 360. The patient is currently on nasal O2 at 4 L. Saturations are 98%. The patient is getting saline at 10 cc an hour. Antibiotics include Augmentin, and ciprofloxacin. Labs, x-rays, and all medications are reviewed. The patient's not having any respiratory difficulty or distress. We will continue to follow make recommendations along the way. Prognosis is guarded. Plan dated October 31, 2024. The patient appears to be doing relatively well. The patient continues on appropriate antibiotics as per infectious diseases. The patient is on 2 L nasal cannula. He is sitting in a chair next to his hospital bed. We will continue to follow the patient, make recommendations along the way. Prognosis is guarded. Labs, x-rays, and all medications are reviewed. Plan dated November 01, 2024. The patient is seen today in room 360. He is sitting in the chair next to his hospital bed. He is on 2 L. No IV fluids. He continues on Zosyn. Labs, x- rays, and all medications are reviewed. From the pulmonary standpoint he is doing well. He denies any shortness of breath or difficulty breathing. He is awake and alert. He seems to be doing well. At nighttime when he uses CPAP, he does use 4 L of oxygen along with the CPAP device. Plan dated November 02, 2024. The patient is seen today in room 360. He continues to do well. He is on nasal O2 at 2 L. No respiratory distress or difficulty. The patient denies any cough, or phlegm production. He also denies any chest pain or pressure. Labs, x-rays, medications are reviewed. His 2 L saturation is 95%. He uses 4 L when he does his CPAP at nighttime. The patient continues on Zosyn. We will continue to follow make recommendations. Prognosis is guarded. Time with Patient: Less than 30
--- NOTE | 2024-11-02 13:27 | P.PN ---
Subjective Progress Note Date: 11/02/24 HISTORY OF PRESENTING ILLNESS: Patient is a 59-year-old with past medical history of hypertension, morbid obesity, obstructive sleep apnea and non-small cell lung cancer. He got admitted to the hospital because he was found anemic with hemoglobin of 5.9. During hospital stay he has been getting worked up for fever of unknown origin. His blood cultures from 10/24/2024 showed some gram-negative bacteria which infectious diseases following. Dr Darby patient Cardiology was consulted today because there was some evidence of atrial fibrillation noticed. EKG from 11/01/2024, 4:30 AM shows atrial fibrillation. EKG from admission shows sinus rhythm. Cardiac Labs: Hemoglobin 8.5, platelets 164, BUN 10, creatinine 0.7, Admission testing: Echocardiogram from August 2024 shows EF of 55% with no major valvular or structural abnormality, no regional wall motion abnormality was appreciated. Moderate pulmonary hypertension 11/02/24 Patient is seen and examined. Telemetry is currently sinus rhythm but patient was atrial fibrillation during the night. He did have episode of atrial fibrillation and repeat EKG will be obtained. Patient states he did not feel the atrial fibrillation. No shortness of breath, no chest pain no palpitations. Blood pressure 119/70, heart rate 78, pulse ox 95% on 2 L nasal cannula. Repeat blood work reveals hemoglobin 8.5, BUN 8 and creatinine 0.8, sodium 134 and potassium 4.4. proBNP 335. TSH 3.66. PHYSICAL EXAMINATION: Neck: Brisk carotid upstroke, no jugular venous distention. Lungs: Clear to auscultation. Heart: Regular rate and rhythm, S1-S2, , no murmur or rub. Abdomen: Soft nontender, positive bowel sounds. Extremities: No edema, intact distal pulses. Neuro: Alert, oritented, no focal deficits. Detailed neuro exam was not performed. ASSESSMENT: # Paroxysmal atrial fibrillation. Currently in sinus rhythm. # Acute on chronic anemia status post blood transfusion # Fever of unknown origin with blood culture showing no growth # Moderate pulmonary hypertension # Essential hypertension, controlled # Type 2 diabetes # Morbid obesity with BRII, compliant to CPAP PLAN: # Continue to monitor telemetry # Considering patient's anemia and low [id number] score of 2 I would not start him on anticoagulation. I will keep him on aspirin 81 mg. # He is on Farxiga 10 mg, Coreg 25 mg twice daily. Will continue these medications # Further recommendations to follow Nurse practitioner note has been reviewed, I agree with documented findings and plan of care. Patient was seen and examined. Objective - Vital Signs Vital signs: Vital Signs Temp 98.5 F 11/02/24 08:00 Pulse 82 11/02/24 12:35 Resp 16 11/02/24 12:00 BP 138/67 11/02/24 12:00 Pulse Ox 96 11/02/24 12:00 FiO2 Intake & Output 11/01/24 11/02/24 11/02/24 18:59 06:59 18:59 Intake Total 118 240 222 Output Total 0 260 475 Balance 118 -20 -253 Weight 168 kg Intake: Oral 118 240 222 Output: Urine 260 475 Stool 0 0 Other: Voiding Method Toilet Toilet Urinal Urinal # Voids 1 2 - Labs CBC & Chem 7: 11/02/24 05:53 11/02/24 05:53 Labs: Abnormal Lab Results - Last 24 Hours (Table) 11/01/24 11/01/24 11/01/24 Range/Units 14:40 14:40 16:05 RBC 2.90 L (4.30-5.90) m/uL Hgb 8.5 L (13.0-17.5) gm/dL Hct 27.0 L (39.0-53.0) % RDW 19.7 H (11.5-15.5) % Metamyelocytes # (Man) 0.14 H (0) k/uL Myelocytes # (Manual) 0.10 H (0) k/uL Sodium 133 L (137-145) mmol/L Chloride 96 L (98-107) mmol/L Carbon Dioxide 32 H (22-30) mmol/L BUN (9-20) mg/dL Glucose 151 H (74-99) mg/dL POC Glucose (mg/dL) 140 H (70-110) mg/dL Calcium 7.8 L (8.4-10.2) mg/dL AST 64 H (17-59) U/L Alkaline Phosphatase 215 H (38-126) U/L Albumin 3.2 L (3.5-5.0) g/dL 11/01/24 11/02/24 11/02/24 Range/Units 19:56 05:53 05:53 RBC 2.95 L (4.30-5.90) m/uL Hgb 8.5 L (13.0-17.5) gm/dL Hct 27.5 L (39.0-53.0) % RDW 19.6 H (11.5-15.5) % Metamyelocytes # (Man) 0.05 H (0) k/uL Myelocytes # (Manual) 0.05 H (0) k/uL Sodium 134 L (137-145) mmol/L Chloride (98-107) mmol/L Carbon Dioxide 32 H (22-30) mmol/L BUN 8 L (9-20) mg/dL Glucose 129 H (74-99) mg/dL POC Glucose (mg/dL) 185 H (70-110) mg/dL Calcium 7.8 L (8.4-10.2) mg/dL AST (17-59) U/L Alkaline Phosphatase 219 H (38-126) U/L Albumin 3.0 L (3.5-5.0) g/dL 11/02/24 11/02/24 Range/Units 06:01 11:20 RBC (4.30-5.90) m/uL Hgb (13.0-17.5) gm/dL Hct (39.0-53.0) % RDW (11.5-15.5) % Metamyelocytes # (Man) (0) k/uL Myelocytes # (Manual) (0) k/uL Sodium (137-145) mmol/L Chloride (98-107) mmol/L Carbon Dioxide (22-30) mmol/L BUN (9-20) mg/dL Glucose (74-99) mg/dL POC Glucose (mg/dL) 143 H 164 H (70-110) mg/dL Calcium (8.4-10.2) mg/dL AST (17-59) U/L Alkaline Phosphatase (38-126) U/L Albumin (3.5-5.0) g/dL
--- NOTE | 2024-11-02 16:21 | NM ---
EXAMINATION TYPE: NM WBC whole body DATE OF EXAM: 11/02/2024 COMPARISON: 10/28/2024 CLINICAL INDICATION: Male, 59 years old with history of Fever ? source of infection; TECHNIQUE: Following administration of 11.9 mCi Tc99m Ceretec. Images obtained 4 hours post injecti on. FINDINGS: Normal physiological tracer activity is noted in the liver and spleen and in the bone marrow of the a xial and appendicular skeleton. IMPRESSION: Normal white blood cell scan. No evidence for abnormal tracer activity. [facility], , 11/02/2024 4:18 PM
[2024-11-02 16:30] LABS: Glucose,Whole Blood 131 mg/dL (70-110)
--- NOTE | 2024-11-02 18:15 | P.PN ---
Subjective Progress Note Date: 11/02/24 No acute events. Reports he is feeling good today. He has been afebrile x 24 hours. NM WBC scan scheduled for today. Hopefully if pt remains afebrile, he can be discharged in the next 24-48 hours. Hgb stable, 8.5, WBC 5.0, ANC 2.6 Objective - Vital Signs Vital signs: Vital Signs Temp 98.5 F 11/02/24 08:00 Pulse 78 11/02/24 08:00 Resp 16 11/02/24 08:00 BP 119/70 11/02/24 08:00 Pulse Ox 95 11/02/24 08:00 FiO2 Intake & Output 11/01/24 11/02/24 11/02/24 18:59 06:59 18:59 Intake Total 118 240 Output Total 0 260 475 Balance 118 -20 -475 Weight 168 kg Intake: Oral 118 240 Output: Urine 260 475 Stool 0 0 Other: Voiding Method Toilet Toilet Urinal Urinal # Voids 1 2 - Constitutional General appearance: Present: no acute distress, obese - EENT Eyes: Present: anicteric sclerae, EOMI ENT: Present: hearing grossly normal - Respiratory Details: breathing is even and unlabored - Cardiovascular Details: skin warm and dry - Integumentary Integumentary: Absent: cyanotic, jaundiced - Psychiatric Psychiatric: Present: A&O x's 3 - Labs CBC & Chem 7: 11/02/24 05:53 11/02/24 05:53 Labs: Abnormal Lab Results - Last 24 Hours (Table) 11/01/24 11/01/24 11/01/24 Range/Units 11:35 14:40 14:40 RBC 2.90 L (4.30-5.90) m/uL Hgb 8.5 L (13.0-17.5) gm/dL Hct 27.0 L (39.0-53.0) % RDW 19.7 H (11.5-15.5) % Metamyelocytes # (Man) 0.14 H (0) k/uL Myelocytes # (Manual) 0.10 H (0) k/uL Sodium 135 L 133 L (137-145) mmol/L Chloride 96 L (98-107) mmol/L Carbon Dioxide 32 H (22-30) mmol/L BUN (9-20) mg/dL Glucose 151 H (74-99) mg/dL POC Glucose (mg/dL) (70-110) mg/dL Calcium 7.8 L (8.4-10.2) mg/dL AST 64 H (17-59) U/L Alkaline Phosphatase 215 H (38-126) U/L Albumin 3.2 L (3.5-5.0) g/dL 11/01/24 11/01/24 11/02/24 Range/Units 16:05 19:56 05:53 RBC (4.30-5.90) m/uL Hgb (13.0-17.5) gm/dL Hct (39.0-53.0) % RDW (11.5-15.5) % Metamyelocytes # (Man) (0) k/uL Myelocytes # (Manual) (0) k/uL Sodium 134 L (137-145) mmol/L Chloride (98-107) mmol/L Carbon Dioxide 32 H (22-30) mmol/L BUN 8 L (9-20) mg/dL Glucose 129 H (74-99) mg/dL POC Glucose (mg/dL) 140 H 185 H (70-110) mg/dL Calcium 7.8 L (8.4-10.2) mg/dL AST (17-59) U/L Alkaline Phosphatase 219 H (38-126) U/L Albumin 3.0 L (3.5-5.0) g/dL 11/02/24 11/02/24 11/02/24 Range/Units 05:53 06:01 11:20 RBC 2.95 L (4.30-5.90) m/uL Hgb 8.5 L (13.0-17.5) gm/dL Hct 27.5 L (39.0-53.0) % RDW 19.6 H (11.5-15.5) % Metamyelocytes # (Man) 0.05 H (0) k/uL Myelocytes # (Manual) 0.05 H (0) k/uL Sodium (137-145) mmol/L Chloride (98-107) mmol/L Carbon Dioxide (22-30) mmol/L BUN (9-20) mg/dL Glucose (74-99) mg/dL POC Glucose (mg/dL) 143 H 164 H (70-110) mg/dL Calcium (8.4-10.2) mg/dL AST (17-59) U/L Alkaline Phosphatase (38-126) U/L Albumin (3.5-5.0) g/dL Assessment and Plan (1) Anemia Current Visit: Yes Status: Acute Priority: Medium Code(s): D64.9 - ANEMIA, UNSPECIFIED SNOMED Code(s): 815943120 (2) Fever Current Visit: Yes Status: Acute Priority: High Code(s): R50.9 - FEVER, UNSPECIFIED SNOMED Code(s): 909630347 (3) Lung cancer Current Visit: Yes Status: Chronic Priority: Medium Code(s): C34.90 - MALIGNANT NEOPLASM OF UNSP PART OF UNSP BRONCHUS OR LUNG SNOMED Code(s): 275261725 Plan: Fever Patient presented to clinic on 10/19 for f/u s/p chemo, and was reporting persisting fatigue and increasing shortness of breath and dizziness over the last 1 week, and significant weakness and could only walk short distances without having to sit down. Temperature was noted at 100.7. Denied URI sx, urinary symptoms, n/v/d, and abdominal pain. Of note, patient had CTA chest at [facility] on 10/05 which was negative for PE -Blood cultures, Urine culture and viral panel negative -CT pelvis showing no significant abnormality, no evidence of perianal abscess or pelvic adenopathy -Due to history of ONJ, and persisting fever and right jaw discomfort, facial CT was obtained. Scan showed no evidence of organizing fluid collection or abscess, and no osseous erosion. -Wound cultures from buttocks positive for multiple organisms. Continues on IV abx, per ID -NM WBC scan scheduled for today -Afebrile x 24 hours -ID and pulm following. Chemo induced anemia, thrombocytopenia -Iron studies most consistent with anemia of inflammation, hemolysis work up neg. -Cytopenias 2/2 to chemo, prolonged/exacerbated by marrow fatigue in a heavily treated pt. -Hgb stable at 8.5. Thrombocytopenia resolved -Continue to monitor CBC. -Transfuse for hgb less than 7 or if symptomatic. Metastatic lung adenocarcinoma -Oncology history as dictated in consult -Gemzar initiated 05/10/2024, last cycle, number 8, given on 10/12/24. Overall patient has been tolerating treatment well. -Fever can be a side effect of gemzar but would anticipate that side effect would have abated by now. Treatment modifications not anticipated at this time but, final plans will be discussed once acute condition is treated adequately -Clinic f/u scheduled on 11/03/24 Plan is to discharge pt home on IV abx. Hopefully if pt temperature remains s table, pt can be discharged within the next 24-48 hours. He is cleared for discharge from hem/onc standpoint once cleared by admitting team and other consulted medical specialities Referral to wound care clinic has been placed
[2024-11-02 20:03] LABS: Glucose,Whole Blood 169 mg/dL (70-110)
[2024-11-02] MEDS: FUROSEMIDE 40 MG TAB PO SCH (21:29)
[2024-11-03 06:12] LABS: Glucose,Whole Blood 208 mg/dL (70-110)
[2024-11-03 06:49] LABS: ALT 33 U/L (4-49); AST 47 U/L (17-59); African American GFR (CKD) >90 (>60 ml/min/1.73 sqM); Albumin 2.9 g/dL (3.5-5.0); Alkaline Phosphatase 204 U/L (38-126); Anion Gap 5 mmol/L; Blood Urea Nitrogen 9 mg/dL (9-20); Calcium 8.1 mg/dL (8.4-10.2); Carbon Dioxide 30 mmol/L (22-30); Chloride 99 mmol/L (98-107); Glucose 131 mg/dL (74-99); Non-African American GFR(CKD) >90 (>60 ml/min/1.73 sqM); Potassium 4.2 mmol/L (3.5-5.1); Sodium 134 mmol/L (137-145); Total Bilirubin 0.9 mg/dL (0.2-1.3); Total Protein 6.2 g/dL (6.3-8.2)
[2024-11-03 06:50] LABS: Anisocytosis Moderate; HCT 25.1 % (39.0-53.0); HGB 7.9 gm/dL (13.0-17.5); Hypochromasia Marked; MCH 28.9 pg (25.0-35.0); MCHC 31.3 g/dL (31.0-37.0); MCV 92.3 fL (80.0-100.0); Macrocytosis Slight; Mean Platelet Volume 8.2; Platelet Count 164 k/uL (150-450); Poikilocytosis Moderate; RBC 2.72 m/uL (4.30-5.90); RDW 20.3 % (11.5-15.5)
--- NOTE | 2024-11-03 08:52 | P.PN ---
Subjective Progress Note Date: 11/02/24 Principal diagnosis: Reason for follow-up is fever Patient is a 59-year-old male with a past medical history significant for diabetes mellitus hypertension hyperlipidemia reflux sleep apnea, patient also have metastatic adenocarcinoma of the lung on chemotherapy presenting to the hospital from oncology office concerning for weakness anemia and fever with initial workup negative. On today's evaluation that is 11/02/2024,the patient has been afebrile for more than 24 hours now patient is currently breathing comfortably requiring 2 L nasal oxygen patient denies having any chest pain shortness with or cough no nausea vomiting no abdominal pain or diarrhea. Patient white count is 5.0, creatinine 0.80 blood culture have been negative WBC scan pending Objective - Vital Signs Vital signs: Vital Signs Temp 98.5 F 11/02/24 08:00 Pulse 78 11/02/24 08:00 Resp 16 11/02/24 08:00 BP 119/70 11/02/24 08:00 Pulse Ox 95 11/02/24 08:00 FiO2 Intake & Output 11/01/24 11/02/24 11/02/24 18:59 06:59 18:59 Intake Total 118 240 Output Total 0 260 475 Balance 118 -20 -475 Weight 168 kg Intake: Oral 118 240 Output: Urine 260 475 Stool 0 0 Other: Voiding Method Toilet Toilet Urinal Urinal # Voids 1 2 - Exam GENERAL DESCRIPTION: Middle-age male up in the chair in no distress RESPIRATORY SYSTEM: Unlabored breathing , decreased breath sounds at bases HEART: S1 S2 regular rate and rhythm , ABDOMEN: Soft , no tenderness patient did have a wound to the right perirectal area but no purulent drainage no significant redness was noticed EXTREMITIES: No edema feet - Labs CBC & Chem 7: 11/03/24 05:39 11/03/24 05:39 Labs: Abnormal Lab Results - Last 24 Hours (Table) 11/01/24 11/01/24 11/01/24 Range/Units 11:35 14:40 14:40 RBC 2.90 L (4.30-5.90) m/uL Hgb 8.5 L (13.0-17.5) gm/dL Hct 27.0 L (39.0-53.0) % RDW 19.7 H (11.5-15.5) % Metamyelocytes # (Man) 0.14 H (0) k/uL Myelocytes # (Manual) 0.10 H (0) k/uL Sodium 135 L 133 L (137-145) mmol/L Chloride 96 L (98-107) mmol/L Carbon Dioxide 32 H (22-30) mmol/L BUN (9-20) mg/dL Glucose 151 H (74-99) mg/dL POC Glucose (mg/dL) (70-110) mg/dL Calcium 7.8 L (8.4-10.2) mg/dL AST 64 H (17-59) U/L Alkaline Phosphatase 215 H (38-126) U/L Albumin 3.2 L (3.5-5.0) g/dL 11/01/24 11/01/24 11/02/24 Range/Units 16:05 19:56 05:53 RBC (4.30-5.90) m/uL Hgb (13.0-17.5) gm/dL Hct (39.0-53.0) % RDW (11.5-15.5) % Metamyelocytes # (Man) (0) k/uL Myelocytes # (Manual) (0) k/uL Sodium 134 L (137-145) mmol/L Chloride (98-107) mmol/L Carbon Dioxide 32 H (22-30) mmol/L BUN 8 L (9-20) mg/dL Glucose 129 H (74-99) mg/dL POC Glucose (mg/dL) 140 H 185 H (70-110) mg/dL Calcium 7.8 L (8.4-10.2) mg/dL AST (17-59) U/L Alkaline Phosphatase 219 H (38-126) U/L Albumin 3.0 L (3.5-5.0) g/dL 11/02/24 11/02/24 11/02/24 Range/Units 05:53 06:01 11:20 RBC 2.95 L (4.30-5.90) m/uL Hgb 8.5 L (13.0-17.5) gm/dL Hct 27.5 L (39.0-53.0) % RDW 19.6 H (11.5-15.5) % Metamyelocytes # (Man) 0.05 H (0) k/uL Myelocytes # (Manual) 0.05 H (0) k/uL Sodium (137-145) mmol/L Chloride (98-107) mmol/L Carbon Dioxide (22-30) mmol/L BUN (9-20) mg/dL Glucose (74-99) mg/dL POC Glucose (mg/dL) 143 H 164 H (70-110) mg/dL Calcium (8.4-10.2) mg/dL AST (17-59) U/L Alkaline Phosphatase (38-126) U/L Albumin (3.5-5.0) g/dL Assessment and Plan (1) Fever Current Visit: Yes Status: Acute Priority: High Code(s): R50.9 - FEVER, UNSPECIFIED SNOMED Code(s): 886772516 (2) Sepsis Current Visit: Yes Status: Acute Code(s): A41.9 - SEPSIS, UNSPECIFIED ORGANISM SNOMED Code(s): 15074056 (3) Perianal abscess Current Visit: Yes Status: Acute Code(s): K61.0 - ANAL ABSCESS SNOMED Code(s): 88533186 Plan: 1patient presented to the hospital with low hemoglobin patient to have a history of metastatic lung cancer and is currently getting chemotherapy last chemo has been about a week ago before presentation to the hospital, patient is not neutropenic, initial workup so far negative with a question of possibly related to the port patient did have a negative lower extremity Doppler and blood cultures are so far negative 2 repeat COVID-19 and influenza PCR came back negative, CT abdominal pelvis with oral contrast only did not show any acute abnormality, patient did have a mildly elevated procalcitonin concern for possible pneumonia 3-patient CT was reviewed with radiologist Dr. Tran and there is no evidence of any abscess, patient subsequently did have a CT of the pelvis with contrast did not show any evidence of any abscess, local culture growing multiple pathogen including anaerobes Prevotella E. coli Enterococcus and MSSA 4patient did have improvement in the fever pattern CT of the face did not show any osteonecrosis or osteomyelitis of the jaw, 5-patient did have resolution of his fever on Zosyn waiting for WBC scan the patient remains to be afebrile we will consider 10-day course of Zosyn on disch arge discussed with the [facility] for admitting team Dictation was produced using [employer] dictation software. please excuse any grammatical, word or spelling errors. Time with Patient: Less than 30
[2024-11-03] MEDS: AMIODARONE 360 MG in DEXTROSE 5% IN WATER 200 ML IV ONE (08:56)
[2024-11-03] MEDS: DEXTROSE 5% IN WATER 100 ML with AMIODARONE 300 MG IV ONE (08:56)
[2024-11-03] MEDS: AMIODARONE 450 MG in DEXTROSE 5% IN WATER 250 ML IV SCH (08:56)
[2024-11-03 10:21] LABS: Band Neutrophils % 3 %; Basophils # (M) 0.04 k/uL (0-0.2); Eosinophils # (M) 0.08 k/uL (0-0.7); Lymphocytes # (M) 1.08 k/uL (1.0-4.8); Metamyelocytes # (M) 0.12 k/uL (0); Metamyelocytes % 3 %; Myelocytes # (M) 0.08 k/uL (0); Myelocytes % 2 %; Neutrophils % (M) 54 %; Nucleated Red Blood Cells 1 /100 WBC (0-0); Total Cells Counted 200
[2024-11-03] MEDS: AMIODARONE 200 MG TAB PO SCH (10:23)
[2024-11-03 10:27] LABS: Polychromasia Present
--- NOTE | 2024-11-03 10:39 | P.PN ---
Subjective Progress Note Date: 11/03/24 HISTORY OF PRESENTING ILLNESS: Patient is a 59-year-old with past medical history of hypertension, morbid obesity, obstructive sleep apnea and non-small cell lung cancer. He got admitted to the hospital because he was found anemic with hemoglobin of 5.9. During hospital stay he has been getting worked up for fever of unknown origin. His blood cultures from 10/24/2024 showed some gram-negative bacteria which infectious diseases following. Dr Darby patient Cardiology was consulted today because there was some evidence of atrial fibrillation noticed. EKG from 11/01/2024, 4:30 AM shows atrial fibrillation. EKG from admission shows sinus rhythm. Cardiac Labs: Hemoglobin 8.5, platelets 164, BUN 10, creatinine 0.7, Admission testing: Echocardiogram from August 2024 shows EF of 55% with no major valvular or structural abnormality, no regional wall motion abnormality was appreciated. Moderate pulmonary hypertension 11/02/24 Patient is seen and examined. Telemetry is currently sinus rhythm but patient was atrial fibrillation during the night. He did have episode of atrial fibrillation and repeat EKG will be obtained. Patient states he did not feel the atrial fibrillation. No shortness of breath, no chest pain no palpitations. Blood pressure 119/70, heart rate 78, pulse ox 95% on 2 L nasal cannula. Repeat blood work reveals hemoglobin 8.5, BUN 8 and creatinine 0.8, sodium 134 and potassium 4.4. proBNP 335. TSH 3.66. 11/03/24 Patient seen and examined. He is in a sinus rhythm. He did have an episode of atrial fibrillation last evening that was brief and by the time amiodarone was ordered, he had already converted. Amiodarone drip was not started. Patient denies being aware of atrial fibrillation at the time. He denies having any shortness of breath no chest pain and no palpitations. Blood pressure 135/75, heart rate in the 80s and 90s, pulse ox 89% on room air. Repeat blood work reveals hemoglobin 7.9, BUN 9 creatinine 0.82. PHYSICAL EXAMINATION: Lungs: Clear to auscultation. Heart: Regular rate and rhythm, S1-S2, , no murmur or rub. Abdomen: Soft nontender, positive bowel sounds. Extremities: No edema, intact distal pulses. Neuro: Alert, oritented, no focal deficits. Detailed neuro exam was not performed. ASSESSMENT: # Paroxysmal atrial fibrillation. Currently in sinus rhythm. # Acute on chronic anemia status post blood transfusion # Fever of unknown origin with blood culture showing no growth # Moderate pulmonary hypertension # Essential hypertension, controlled # Type 2 diabetes # Morbid obesity with BRII, compliant to CPAP PLAN: # Continue to monitor telemetry # Considering patient's anemia and low [id number] score of 2 I would not start him on anticoagulation. I will keep him on aspirin 81 mg. # He is on Farxiga 10 mg, Coreg 25 mg twice daily. Will continue these medications # Start patient on amiodarone 400 mg twice daily x 1 week, 400 mg daily for 1 week, 200 mg twice daily for 1 week followed by 200 mg daily thereafter. Patient is cleared for discharge from cardiology and may follow-up in the office with Dr. Darby in 1 week. Nurse practitioner note has been reviewed, I agree with documented findings and plan of care. Patient was seen and examined. Objective - Vital Signs Vital signs: Vital Signs Temp 98.8 F 11/03/24 04:20 Pulse 96 11/03/24 08:36 Resp 18 11/03/24 04:20 BP 135/75 11/03/24 04:20 Pulse Ox 89 L 11/03/24 04:20 FiO2 Intake & Output 11/02/24 11/03/24 11/03/24 18:59 06:59 18:59 Intake Total 222 240 240 Output Total 475 750 Balance -253 -510 240 Weight 161.1 kg Intake: Oral 222 240 240 Output: Urine 475 750 Other: Voiding Method Toilet Toilet Urinal Urinal # Voids 2 2 - Labs CBC & Chem 7: 11/03/24 05:39 11/03/24 05:39 Labs: Abnormal Lab Results - Last 24 Hours (Table) 11/02/24 11/02/24 11/02/24 Range/Units 05:53 11:20 16:29 RBC (4.30-5.90) m/uL Hgb (13.0-17.5) gm/dL Hct (39.0-53.0) % RDW (11.5-15.5) % Metamyelocytes # (Man) 0.05 H (0) k/uL Myelocytes # (Manual) 0.05 H (0) k/uL Sodium (137-145) mmol/L Glucose (74-99) mg/dL POC Glucose (mg/dL) 164 H 131 H (70-110) mg/dL Calcium (8.4-10.2) mg/dL Alkaline Phosphatase (38-126) U/L Total Protein (6.3-8.2) g/dL Albumin (3.5-5.0) g/dL 11/02/24 11/03/24 11/03/24 Range/Units 20:02 05:39 05:39 RBC 2.72 L (4.30-5.90) m/uL Hgb 7.9 L (13.0-17.5) gm/dL Hct 25.1 L (39.0-53.0) % RDW 20.3 H (11.5-15.5) % Metamyelocytes # (Man) (0) k/uL Myelocytes # (Manual) (0) k/uL Sodium 134 L (137-145) mmol/L Glucose 131 H (74-99) mg/dL POC Glucose (mg/dL) 169 H (70-110) mg/dL Calcium 8.1 L (8.4-10.2) mg/dL Alkaline Phosphatase 204 H (38-126) U/L Total Protein 6.2 L (6.3-8.2) g/dL Albumin 2.9 L (3.5-5.0) g/dL 11/03/24 Range/Units 06:10 RBC (4.30-5.90) m/uL Hgb (13.0-17.5) gm/dL Hct (39.0-53.0) % RDW (11.5-15.5) % Metamyelocytes # (Man) (0) k/uL Myelocytes # (Manual) (0) k/uL Sodium (137-145) mmol/L Glucose (74-99) mg/dL POC Glucose (mg/dL) 208 H (70-110) mg/dL Calcium (8.4-10.2) mg/dL Alkaline Phosphatase (38-126) U/L Total Protein (6.3-8.2) g/dL Albumin (3.5-5.0) g/dL
[2024-11-03 11:32] LABS: Glucose,Whole Blood 151 mg/dL (70-110)
[2024-11-03 11:35] VITALS: RESP 16
--- NOTE | 2024-11-03 14:12 | P.PN ---
Subjective Progress Note Date: 11/03/24 Principal diagnosis: Anemia. This is a 59-year-old male patient with metastatic pulmonary adenocarcinoma, who has been receiving systemic chemotherapy and the patient was not Gemzar and his last treatment was on 10/12/2024. The patient was tolerating the systemic chemotherapy reasonably well. He is morbidly obese and has history of obstructive sleep apnea along with diabetes mellitus and hyperlipidemia. He is currently in the hospital as the patient was initially sent over from oncologist office because of a low hemoglobin of 5.9. The patient was also febrile. He was given a total of 2 U PRBC During this current hospitalization the patient's hemoglobin is currently up to 8.3. Nevertheless, he continues to have episodes of fever. Currently afebrile. Tmax over the past 24 hours was 102.3. No clear source of infection. The patient remains on a combination of cefepime and vancomycin. Note that his white cell count is not elevated. His white cell count is at 4. He has no DVTs in his lower extremities. CAT scan of the abdomen and pelvis was done and shows a chronic small right-sided pleural effusion. There is bony metastases throughout and there was no significant lymphadenopathy. Blood cultures have been negative. The patient has a Mediport that looks to be quite clean. No altered mentation. No skin rashes. No wounds or ulcers. As such, the source of the fever is not clear. ID is on the case. He is also experiencing some shortness of breath with mobility. Nevertheless, he is on room air oxygen. No cough sputum production chest tightness or wheezing. In terms of his lung cancer, the patient was diagnosed having pulm adenocarcinoma back in 2021. He has been followed up by Dr. Cat. He initially presented with 3 cm RLL lung mass,he had a PET scan on 06/16/2022 which revealed suspicious uptake in in central right lung lesion,measured 2.1 x 2.2 cm,he initially had navigational bronchoscopy which was not diagnostic,he ws referred to DR Hernandez at [facility],he had repeat CT scan of chest on 07/07/2022 which revealed 3 cm lesion in superior segment of RLL and several other small nodules in right lung which are new compared to prior CT scan done at [facility] in 06/2016. On 07/24/2022,he underwent RLL resection and biopsies of mediastinal nodes,pathology revealed adenocarcinoma spreading through alveolar spaces and invading lymphovascular channels (BERENICE),multifocal,right level 8,level 7,4R nodes were positive. Brain MRI on 08/08/2022 was negative. Caris did not reveal any targetable mutation. On 08/18/2022,PET scan revealed uptake in right hilar region,there was uptake in left second rib,had an MRI which revealed subtle area in rib without enhancement. On 08/26/2022,he started carbo/alimta with radiation,completed 4 cycles of chemo on 10/29/2022. Due to disease progression, patient has been on multiple treatment regimens. He started imfinzi on 12/25/2022. Taxotere/cyramza/zometa were held in December 2023, as patient developed ONJ. He started gemzar on 05/10/2024, most recently completing cycle 8 on 10/12/24, Patient was evaluated today on 10/23/2024, patient seems to be doing better today, continues to have low-grade fever his Tmax last night was 99.5. Hemodynamically stable on 2 L nasal cannula O2 sat is 98% patient seems to have less and less shortness of breath.WBC count is 5.2 hemoglobin is 8 sodium is 127 potassium 4.9 BUN is 19 creatinine 1.14 blood cultures and urine cultures remain negative so far. Seen today on 10/24/2024, patient is doing well, feeling better, yesterday's CT of the chest showed evidence of bilateral pleural effusions and the patient received 1 dose of Lasix yesterday and he received DuoNeb updraft treatment for his acute onset of shortness of breath, patient felt much better shortly after. Today is down to 125 his BUN is 18 creatinine 1.13, patient is now being seen by nephrology on consultation. I believe his hyponatremia is most likely secondary to SIADH considering his underlying malignancy/bronchogenic carcinoma Reevaluate today on 10/25/2024, patient is doing a bit better today however continues to have intermittent episodes of fevers, in spite of antibiotics patient continues to have febrile episodes. Patient had a Tmax of 102.6 yesterday, today's temp is 100.3 blood pressure 102/59 he is on 2 L nasal cannula with O2 saturation ranging between 91 up to 97% sodium is low at 126 CBC today is pending. Patient screening for viral infection was negative including influenza A influenza B RSV and COVID patient also had negative urinary Le gionella antigen Patient was seen today on 10/26/2024, continues to have intermittent spiking of temperature, febrile, and I have a feeling that the patient may have an infected enterocutaneous fistula which was examined today, and I am recommending surgical evaluation for his fistula. Patient seems to have a deep open wound in the buttock area, this could very well be an enterocutaneous fistula.Pulmonary costa is feeling better breathing easier WBC count is 6.9 hemoglobin is 8.11 sodium 129 potassium 5.1 BUN is 14 creatinine 1.11 Seen today on 10/27/2024, patient continues to have low-grade fever, he had a Tmax of 99 last night, remains on antibiotics empirically, CT of the pelvis failed to show abscess or enterocutaneous fistula. Patient is feeling better today, breathing easier. CT of the chest and chest x-ray showed mostly atelectasis, strongly doubt pneumonia. Patient was seen today on 10/28/2024, his fever seems to be responding finally to antibiotics, patient has some positive cultures from his perianal wound, but no evidence of abscess. Pulmonary costa is doing well, no cough no wheezing no shortness of breathBasic metabolic profile is relatively normal. Overall the p atient seems to be doing better Patient was evaluated today on 10/29/2024, doing fairly well, relatively asymptomatic, does not seem to be in any distress, he did have a low temp last night he had a Tmax of 100.3, remains on 4 L nasal cannula, he has no active pulmonary symptoms no cough no wheezing no shortness of breath. Remains on daptomycin and Unasyn, the plan is to eventually transition the patient to oral antibiotics as per infectious disease. Pulmonary costa I believe the patient is doing quite wellLabs today showed relatively normal electrolytes and normal renal profile. Progress note dated October 30, 2024. 59-year-old male seen today in room 360. The patient is resting comfortably in bed. He is on 4 L of oxygen, with saturations of 98%. He is getting saline at 10 cc an hour. The patient denies any respiratory difficulty, or distress. He denies any cough, wheezing, or phlegm production. Current laboratory data includes a white count 7.3, hemoglobin 8.6, hematocrit 27.5, and normal platelet count. Glucose is 140. Ulcers of the buttock area, show multiple bacteria. The patient is currently on Augmentin, and ciprofloxacin, as per infectious diseases. Progress note dated October 31, 2024. 59-year-old male seen today in room 360. He is sitting in a chair next to his hospital bed. He appears in no acute distress. He continues on O2 2 L by nasal cannula. He uses 4 L, when he is on his CPAP device. He denies any shortness of breath, cough, wheezing, chest tightness, or phlegm production. Current labs include a sodium 134, potassium 4.9, chlorides 97, CO2 36, BUN 12, creatinine 0.81. Glucose is 152. Calcium is 7.6. Magnesium of 2.5. Albumin is 3. Progress note dated November 01, 2024. 59-year-old male seen today in room 360. The patient is currently on 2 L nasal cannula. He continues on IV Zosyn. The patient is not receiving any IV fluids. He is sitting in a chair next to his hospital bed. From the pulmonary standpoint he is doing well. He denies any shortness of breath. Labs today only include a glucose of 135. Progress note dated November 02, 2024. 59-year-old male seen today in room 360. He sitting in his chair, next to the hospital bed. The patient continues on oxygen, by nasal cannula 2 L. From the pulmonary standpoint, the patient is doing well. He denies any shortness of breath, cough, wheezing, chest tightness, or phlegm production. The patient does continue on Zosyn. Saturations are 95%. White count 5, hemoglobin 8.5, hematocrit 27.5, platelet count 162,000. Sodium 134, potassium 4.4, chlorides 100, CO2 32, BUN was 8 and creatinine was 0.8. Glucose 164. Albumin is 3. Culture data from October 24, has been reviewed. Progress note dated November 03, 2024. 59-year-old male seen today in room 360. He continues on 2 L of oxygen. He also continues on Zosyn. Clinically, from the pulmonary standpoint he is doing well. He denies any shortness of breath, cough, wheezing, chest tightness, or phlegm production. White count 4, hemoglobin 7.9, hematocrit 25.1, platelet count 164,000. Sodium 134, potassium 4.2, chloride 99, CO2 30, BUN 9, creatinine 0.82. Glucose 151. Albumin 2.9. The patient had a white blood cell study, which apparently was normal. Objective - Vital Signs Vital signs: Vital Signs Temp 98.1 F 11/03/24 13:42 Pulse 74 11/03/24 13:42 Resp 16 11/03/24 13:42 BP 136/68 11/03/24 13:42 Pulse Ox 96 11/03/24 13:42 FiO2 Intake & Output 11/02/24 11/03/24 11/03/24 18:59 06:59 18:59 Intake Total 222 240 462 Output Total 475 750 425 Balance -253 -510 37 Weight 161.1 kg Intake: Oral 222 240 462 Output: Urine 475 750 425 Other: Voiding Method Toilet Toilet Urinal Urinal # Voids 2 2 - Exam No acute distress, oriented 3. Currently on 2 L. HEENT examination is grossly unremarkable. Mucous membranes are moist. No oral lesions. Neck supple. Full range of motion. No adenopathy thyromegaly or neck vein distention. Cardiovascular examination reveals regular rhythm rate. S1-S2 normal. No S3 or S4. No discernible murmur noted. Lungs reveal clear breath sounds. Breath sounds are equal bilaterally. No adventitious lung sounds including wheezes rhonchi or crackles. Abdomen soft bowel sounds are heard. No masses or tenderness. Extremities are intact. No cyanosis or clubbing. Lower extremity edema is noted. Skin reveals a large deep wound in the perianal area. Neurologic examination is brief but nonfocal. - Labs CBC & Chem 7: 11/03/24 05:39 11/03/24 05:39 Labs: Abnormal Lab Results - Last 24 Hours (Table) 11/02/24 11/02/24 11/03/24 Range/Units 16:29 20:02 05:39 RBC 2.72 L (4.30-5.90) m/uL Hgb 7.9 L (13.0-17.5) gm/dL Hct 25.1 L (39.0-53.0) % RDW 20.3 H (11.5-15.5) % Metamyelocytes # (Man) 0.12 H (0) k/uL Myelocytes # (Manual) 0.08 H (0) k/uL Nucleated RBCs 1 H (0-0) /100 WBC Sodium (137-145) mmol/L Glucose (74-99) mg/dL POC Glucose (mg/dL) 131 H 169 H (70-110) mg/dL Calcium (8.4-10.2) mg/dL Alkaline Phosphatase (38-126) U/L Total Protein (6.3-8.2) g/dL Albumin (3.5-5.0) g/dL 11/03/24 11/03/24 11/03/24 Range/Units 05:39 06:10 11:31 RBC (4.30-5.90) m/uL Hgb (13.0-17.5) gm/dL Hct (39.0-53.0) % RDW (11.5-15.5) % Metamyelocytes # (Man) (0) k/uL Myelocytes # (Manual) (0) k/uL Nucleated RBCs (0-0) /100 WBC Sodium 134 L (137-145) mmol/L Glucose 131 H (74-99) mg/dL POC Glucose (mg/dL) 208 H 151 H (70-110) mg/dL Calcium 8.1 L (8.4-10.2) mg/dL Alkaline Phosphatase 204 H (38-126) U/L Total Protein 6.2 L (6.3-8.2) g/dL Albumin 2.9 L (3.5-5.0) g/dL Assessment and Plan Assessment: Fever, of unclear cause, improved, and responding to the antibiotics. Shortness of breath, multifactorial, resolved. Buttock infection, secondary to E. coli, Staph aureus, Enterococcus faecalis, and Prevotella species. Stage IV pulmonary adenocarcinoma. Chemotherapy-induced anemia. Morbid obesity, with a BMI of 46.6 kg/m. Obstructive sleep apnea syndrome, maintained on BiPAP. History of hypertension. History of hyperlipidemia. History of the type 2 diabetes mellitus. History of peripheral neuropathy. Hypothyroidism. SIADH induced hyponatremia. 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 Plan: Plan dated October 30, 2024. The patient is seen today in room 360. The patient is currently on nasal O2 at 4 L. Saturations are 98%. The patient is getting saline at 10 cc an hour. Antibiotics include Augmentin, and ciprofloxacin. Labs, x-rays, and all medications are reviewed. The patient's not having any respiratory difficulty or distress. We will continue to follow make recommendations along the way. Prognosis is guarded. Plan dated October 31, 2024. The patient appears to be doing relatively well. The patient continues on appropriate antibiotics as per infectious diseases. The patient is on 2 L nasal cannula. He is sitting in a chair next to his hospital bed. We will continue to follow the patient, make recommendations along the way. Prognosis is guarded. Labs, x-rays, and all medications are reviewed. Plan dated November 01, 2024. The patient is seen today in room 360. He is sitting in the chair next to his hospital bed. He is on 2 L. No IV fluids. He continues on Zosyn. Labs, x- rays, and all medications are reviewed. From the pulmonary standpoint he is doing well. He denies any shortness of breath or difficulty breathing. He is a wake and alert. He seems to be doing well. At nighttime when he uses CPAP, he does use 4 L of oxygen along with the CPAP device. Plan dated November 02, 2024. The patient is seen today in room 360. He continues to do well. He is on nasal O2 at 2 L. No respiratory distress or difficulty. The patient denies any cough, or phlegm production. He also denies any chest pain or pressure. Labs, x-rays, medications are reviewed. His 2 L saturation is 95%. He uses 4 L when he does his CPAP at nighttime. The patient continues on Zosyn. We will continue to follow make recommendations. Prognosis is guarded. Plan dated November 03, 2024. The patient is seen today in room 360. He continues on oxygen, at 2 L. He does use CPAP at nighttime, with 4 L of oxygen. The patient had a tagged white blood cell study, which was reported as normal. Labs, x-rays, and all medications are reviewed. The patient's overall prognosis remains guarded. He does continue on Zosyn for his infection. We will continue to follow make recommendations along the way. Prognosis is guarded. Time with Patient: Less than 30
--- NOTE | 2024-11-03 14:51 | P.PN ---
Subjective Progress Note Date: 11/03/24 Principal diagnosis: Reason for follow-up is fever Patient is a 59-year-old male with a past medical history significant for diabetes mellitus hypertension hyperlipidemia reflux sleep apnea, patient also have metastatic adenocarcinoma of the lung on chemotherapy presenting to the hospital from oncology office concerning for weakness anemia and fever with initial workup negative. On today's evaluation that is 11/03/2024,the patient has been afebrile for more than 48 hours now patient is currently breathing comfortable 2 L current oxygen denies any chest pain shortness of breath or cough no nausea vomiting no abdominal pain no diarrhea feeling better. Patient white count is 4.0, creatinine 0.82 WBC scan came back negative Objective - Vital Signs Vital signs: Vital Signs Temp 98.8 F 11/03/24 04:20 Pulse 96 11/03/24 08:36 Resp 18 11/03/24 04:20 BP 135/75 11/03/24 04:20 Pulse Ox 89 L 11/03/24 04:20 FiO2 Intake & Output 11/02/24 11/03/24 11/03/24 18:59 06:59 18:59 Intake Total 222 240 240 Output Total 475 750 Balance -253 -510 240 Weight 161.1 kg Intake: Oral 222 240 240 Output: Urine 475 750 Other: Voiding Method Toilet Toilet Urinal Urinal # Voids 2 2 - Labs CBC & Chem 7: 11/03/24 05:39 11/03/24 05:39 Labs: Abnormal Lab Results - Last 24 Hours (Table) 11/02/24 11/02/24 11/02/24 Range/Units 05:53 11:20 16:29 RBC (4.30-5.90) m/uL Hgb (13.0-17.5) gm/dL Hct (39.0-53.0) % RDW (11.5-15.5) % Metamyelocytes # (Man) 0.05 H (0) k/uL Myelocytes # (Manual) 0.05 H (0) k/uL Sodium (137-145) mmol/L Glucose (74-99) mg/dL POC Glucose (mg/dL) 164 H 131 H (70-110) mg/dL Calcium (8.4-10.2) mg/dL Alkaline Phosphatase (38-126) U/L Total Protein (6.3-8.2) g/dL Albumin (3.5-5.0) g/dL 11/02/24 11/03/24 11/03/24 Range/Units 20:02 05:39 05:39 RBC 2.72 L (4.30-5.90) m/uL Hgb 7.9 L (13.0-17.5) gm/dL Hct 25.1 L (39.0-53.0) % RDW 20.3 H (11.5-15.5) % Metamyelocytes # (Man) (0) k/uL Myelocytes # (Manual) (0) k/uL Sodium 134 L (137-145) mmol/L Glucose 131 H (74-99) mg/dL POC Glucose (mg/dL) 169 H (70-110) mg/dL Calcium 8.1 L (8.4-10.2) mg/dL Alkaline Phosphatase 204 H (38-126) U/L Total Protein 6.2 L (6.3-8.2) g/dL Albumin 2.9 L (3.5-5.0) g/dL 11/03/24 Range/Units 06:10 RBC (4.30-5.90) m/uL Hgb (13.0-17.5) gm/dL Hct (39.0-53.0) % RDW (11.5-15.5) % Metamyelocytes # (Man) (0) k/uL Myelocytes # (Manual) (0) k/uL Sodium (137-145) mmol/L Glucose (74-99) mg/dL POC Glucose (mg/dL) 208 H (70-110) mg/dL Calcium (8.4-10.2) mg/dL Alkaline Phosphatase (38-126) U/L Total Protein (6.3-8.2) g/dL Albumin (3.5-5.0) g/dL Assessment and Plan (1) Fever Current Visit: Yes Status: Acute Priority: High Code(s): R50.9 - FEVER, UNSPECIFIED SNOMED Code(s): 521819801 (2) Sepsis Current Visit: Yes Status: Acute Code(s): A41.9 - SEPSIS, UNSPECIFIED ORGANISM SNOMED Code(s): 92739218 (3) Perianal abscess Current Visit: Yes Status: Acute Code(s): K61.0 - ANAL ABSCESS SNOMED Code (s): 80853793 Plan: 1patient presented to the hospital with low hemoglobin patient to have a history of metastatic lung cancer and is currently getting chemotherapy last chemo has been about a week ago before presentation to the hospital, patient is not neutropenic, initial workup so far negative with a question of possibly related to the port patient did have a negative lower extremity Doppler and blood cultures are so far negative 2 repeat COVID-19 and influenza PCR came back negative, CT abdominal pelvis with oral contrast only did not show any acute abnormality, patient did have a mildly elevated procalcitonin concern for possible pneumonia 3-patient CT was reviewed with radiologist Dr. Tran and there is no evidence of any abscess, patient subsequently did have a CT of the pelvis with contrast did not show any evidence of any abscess, local culture growing multiple pathogen including anaerobes Prevotella E. coli Enterococcus and MSSA 4patient did have improvement in the fever pattern CT of the face did not show any osteonecrosis or osteomyelitis of the jaw, 5-patient did have resolution of his fever on Zosyn WBC scan has been negative plan is for 10-day course of Zosyn on discharge discussed with the [facility] for admitting team working on discharge Dictation was produced using [employer] dictation software. please excuse any gramma tical, word or spelling errors. Time with Patient: Less than 30
--- NOTE | 2024-11-03 16:08 | P.PN ---
Subjective patient is seen for follow-up for hyponatremia. Currently being diuresed. Maintained on oral Lasix which was increased to twice a day yesterday. Serum sodium is 134 today. No significant complaints. Objective - Vital Signs Vital signs: Vital Signs Temp 98.1 F 11/03/24 13:42 Pulse 74 11/03/24 13:42 Resp 16 11/03/24 13:42 BP 136/68 11/03/24 13:42 Pulse Ox 96 11/03/24 13:42 FiO2 Intake & Output 11/02/24 11/03/24 11/03/24 18:59 06:59 18:59 Intake Total 222 240 462 Output Total 475 750 425 Balance -253 -510 37 Weight 161.1 kg Intake: Oral 222 240 462 Output: Urine 475 750 425 Other: Voiding Method Toilet Toilet Urinal Urinal # Voids 2 2 - Exam on examination patient is comfortable, awake, alert oriented 3. No acute distress Examination of the heart S1 and S2 Examination of the lungs bilateral breath sounds are heard Abdomen is soft obese nontender Examination of lower extremities shows edema 1+ bilaterally [employer]ENDANT exam grossly intact - Labs CBC & Chem 7: 11/03/24 05:39 11/03/24 05:39 Labs: Abnormal Lab Results - Last 24 Hours (Table) 11/02/24 11/02/24 11/03/24 Range/Units 16:29 20:02 05:39 RBC 2.72 L (4.30-5.90) m/uL Hgb 7.9 L (13.0-17.5) gm/dL Hct 25.1 L (39.0-53.0) % RDW 20.3 H (11.5-15.5) % Metamyelocytes # (Man) 0.12 H (0) k/uL Myelocytes # (Manual) 0.08 H (0) k/uL Nucleated RBCs 1 H (0-0) /100 WBC Sodium (137-145) mmol/L Glucose (74-99) mg/dL POC Glucose (mg/dL) 131 H 169 H (70-110) mg/dL Calcium (8.4-10.2) mg/dL Alkaline Phosphatase (38-126) U/L Total Protein (6.3-8.2) g/dL Albumin (3.5-5.0) g/dL 11/03/24 11/03/24 11/03/24 Range/Units 05:39 06:10 11:31 RBC (4.30-5.90) m/uL Hgb (13.0-17.5) gm/dL Hct (39.0-53.0) % RDW (11.5-15.5) % Metamyelocytes # (Man) (0) k/uL Myelocytes # (Manual) (0) k/uL Nucleated RBCs (0-0) /100 WBC Sodium 134 L (137-145) mmol/L Glucose 131 H (74-99) mg/dL POC Glucose (mg/dL) 208 H 151 H (70-110) mg/dL Calcium 8.1 L (8.4-10.2) mg/dL Alkaline Phosphatase 204 H (38-126) U/L Total Protein 6.2 L (6.3-8.2) g/dL Albumin 2.9 L (3.5-5.0) g/dL Assessment and Plan Assessment: 1. Hyponatremia. Hypervolemic and currently being diuresed. Patient was also on NSAIDs, now discontinued. Sodium level 134 . TSH normal. Urine sodium 38 and urine osmolality 546. 2. Chemo induced anemia status post blood transfusions this admission. 3. Metastatic lung adenocarcinoma. Oncology following. 4. Benign hypertension. Blood pressure on the lower side. 5. Chronic diastolic CHF with severe pulmonary hypertension. 6. Volume overload. 7. Perirectal wound on antibiotics. Infectious disease following. 8. Hypermagnesemia secondary to magnesium supplementation. Plan: continue with Lasix twice a day. Decrease Coreg as blood pressure remains on the lower side. Repeat labs in a.m.
[2024-11-03 16:48] VITALS: BP 132/73; PULSE 71; TEMP 97.8
[2024-11-03] MEDS: carvediloL 12.5 MG TAB PO SCH (17:04)
--- NOTE | 2024-11-03 18:52 | CDI ---
Documentation Clarification Form Date: 11/03/2024 06:36:07 PM From: Keely Spangler RN, CCDS Phone: [phone] Admit Date: 10/19/2024 02:26:00 PM Patient Name: Ganga Smart Visit Number: [id number] Discharge Date: ATTENTION: The Clinical Documentation Specialists (CDI) and [facility] Coding Staff appreciate your assistance in clarifying documentation. Please respond to the clarification below the line at the bottom and electronically sign. The CDI & [facility] Coding staff will review the response and follow-up if needed. Please note: Queries are made part of the Legal Health Record. If you have any questions, please contact the author of this message via ITS. Doctor. Ok Francois The patient has documentation of sepsis present on admission, etiology perirectal/right buttock wound. Based on this information and the findings below, is there an additional diagnosis that is clinically appropriate for this patient? History/Risk Factors: Cancer, Diabetes Mellitus, GERD/Reflux, Hyperlipidemia, Hypertension, Thyroid Disorder Sleep Apnea/CPAP/BIPAP, Clinical Indicators: 59-year-old male with history of stage IV lung cancer present with weakness anemia, fever. Last chemo one week ago. WBC 4.0, 3.4, 4.0 Lactic acid: 1.6 C-reactive protein 3.9 10/19 Procalcitonin 0.42, (10/22) 0.68, 10/19 Blood cultures: Negative to date 10/19 Vital signs: 122/67 90 20 100.3, 112/66 94 17 102.4 ID response to additional diagnosis: Sepsis, present on admission, Etiology perirectal/right buttock wound; Wound culture Preliminary Enterococcus faecalis Treatment: Zosyn 3.375 GM IVPB Q 8 HRS Is there an additional diagnosis that is clinically appropriate for this patient? [ ] Sepsis, present on admission. Etiology perirectal/right buttock wound; Wound culture Preliminary Enterococcus faecalis [ ] No additional diagnosis/not clinically significant [ ] Other, please specify [ ] Unable to determine SIRS Criteria: 2 or more of the following may indicate SIRS Temperature < 96.8F (36C) or > 101.0F (38.3C) Heart Rate > 90 bpm Respiratory Rate > 20 breaths/min or PaCO2 < 32 mmHg White Blood Cell Count > 12,000 or < 4,000 cells/mm3 or > 10% bands (Template Last Reviewed: November 2022) MTDD
== END 2024-11-03 18:15 | disposition home health service (06) | DRG 811 ==
LOC: EC 11:07 → 3SCARD 14:26
PROVIDERS: ADMIT Internal Medicine; ATTEND Internal Medicine
PROC: 30233N1 Transfusion of Nonautologous Red Blood Cells into Peripheral Vein, Percutaneous Approach (ICD-10-PCS; principal; 2024-10-19)
DX: D64.81 Anemia due to antineoplastic chemotherapy (principal); A41.81 Sepsis due to Enterococcus; S22.069A Unspecified fracture of T7-T8 vertebra, initial encounter for closed fracture; E22.2 Syndrome of inappropriate secretion of antidiuretic hormone; K61.0 Anal abscess; C79.51 Secondary malignant neoplasm of bone; C34.31 Malignant neoplasm of lower lobe, right bronchus or lung; I50.32 Chronic diastolic (congestive) heart failure; Z68.42 Body mass index [BMI] 45.0-49.9, adult; B37.89 Other sites of candidiasis; I27.22 Pulmonary hypertension due to left heart disease; E83.41 Hypermagnesemia; I11.0 Hypertensive heart disease with heart failure; E66.01 Morbid (severe) obesity due to excess calories; M45.4 Ankylosing spondylitis of thoracic region; E89.0 Postprocedural hypothyroidism; E11.42 Type 2 diabetes mellitus with diabetic polyneuropathy; I48.0 Paroxysmal atrial fibrillation; E78.5 Hyperlipidemia, unspecified; B96.20 Unspecified Escherichia coli [E. coli] as the cause of diseases classified elsewhere; B95.61 Methicillin susceptible Staphylococcus aureus infection as the cause of diseases classified elsewhere; T45.1X5A Adverse effect of antineoplastic and immunosuppressive drugs, initial encounter; G47.33 Obstructive sleep apnea (adult) (pediatric); S31.819A Unspecified open wound of right buttock, initial encounter; Z79.891 Long term (current) use of opiate analgesic; R15.9 Full incontinence of feces; B96.89 Other specified bacterial agents as the cause of diseases classified elsewhere; Z79.890 Hormone replacement therapy; Z79.84 Long term (current) use of oral hypoglycemic drugs; Z79.899 Other long term (current) drug therapy; Z79.82 Long term (current) use of aspirin; Z92.3 Personal history of irradiation
CPT/HCPCS: 36410; 36415; 36430; 70488; 71045; 71046; 71260; 72193; 74176; 76937; 78306; 80048; 80053; 81003; 82728; 83010; 83036; 83540; 83550; 83605; 83615; 83735; 83880; 83930; 83935; 84145; 84295; 84300; 84443; 84484; 85025; 85045; 86140; 86850; 86900; 86901; 86920; 87040; 87070; 87075; 87077; 87086; 87186; 87205; 87449; 87636; 93306; 93970; 94640; 94760; 96361; 96365; 96366; 99285

== ENCOUNTER → 2024-11-30 | Outpatient (CLI) | payer BC ==
--- NOTE | 2024-12-02 12:07 | PE ---
EXAMINATION TYPE: PET CT fusion skull to thigh DATE OF EXAM: 11/30/2024 CLINICAL INDICATION:Male, 59 years old with history of C34.31 Lung ca; TECHNIQUE: Following the intravenous administration of 11.45 mCi of F-18 FDG, whole body images are performed from the skull base to the Mid thigh. Images are reviewed on the computer in the coronal, axial, and sagittal planes. Reconstructed rotating images are created on independent workstation an d reviewed on the computer. A non-contrast CT is performed in conjunction with the PET scan. Glucos e level 158 mg/dL CT DLP: 1202 mGycm, Automated exposure control for dose reduction was used. COMPARISON: CT None, PET/CT 07/27/2024, MRI: None FINDINGS: Mediastinal SUV mean is 2.1. Hepatic parenchyma SUV mean is 2.8. SKULL BASE AND NECK: No suspicious radiotracer activity. CHEST, MEDIASTINUM, AND HILAR REGION: Left upper lateral nodule Max SUV 5.6 that definitively appreciated on prior measuring 13 mm ABDOMEN AND PELVIS: No suspicious radiotracer activity. No abnormal uptake within the liver. Heterogenous uptake throughout the liver at background levels. MUSCULOSKELETAL STRUCTURES: Focus of uptake within the medial aspect of the left first rib max SUV 5.7, previously 6.3 sclerotic lesion in this region. Increased in size now measuring 13 mm previously poorly visualized without FDG activity. Other scattered areas of abnormal uptake throughout the osseous structures with increasing sclerotic areas, small sample of examples include: * spinous process of L2 max SUV 12.7, previously 10.3, 9.6 * vertebral body of L5 max SUV 9.3, previously 10.4 , 7.5. * Right iliac bone max SUV 8.7, previously 8.3 7.5. * Right femoral head max SUV 6.6, previously 7.1 previously 6.5 * Left rib 7 Max SUV 9.4, previously 8.0. * Left rib 5 Max SUV 6.4, previously 6.2. * Left clinoid max SUV 5.[address]: Trace bilateral pleural effusion. The heart is mildly enlarged for size. Mild centrilobular emphysema changes. Right chest wall [id number] with tip terminating in the superior vena cava. IMPRESSION: Progression of disease with new left upper lobe pulmonary nodule and mildly increased FDG activity of scattered osseous lesions. [facility], , 12/02/2024 12:05 PM
== END | disposition home or self-care (01) ==
LOC: RADPETMAIN 07:08
PROVIDERS: ATTEND Internal Medicine Hematology & Oncology
DX: C34.31 Malignant neoplasm of lower lobe, right bronchus or lung (principal); R91.1 Solitary pulmonary nodule; J98.4 Other disorders of lung; J90 Pleural effusion, not elsewhere classified
CPT/HCPCS: 78815; A9552

== ENCOUNTER → 2025-01-04 | Outpatient (CLI) | payer BC ==
--- NOTE | 2025-01-04 13:55 | MR ---
EXAMINATION TYPE: MR brain wo/w con DATE OF EXAM: 01/04/2025 12:54 PM COMPARISON: 06/09/2023. CLINICAL INDICATION: Male, 59 years old with history of C34.31 lung ca; PHH, Lung Ca, f/u TECHNIQUE: Multi planar, multi sequence imaging was performed through the brain including: T1, T2, In version recovery, susceptibility weighted imaging and gradient echo imaging and Diffusion weighted im aging. The patient was then given intravenous contrast and multi planar, T1 fat-saturation images wer e obtained. IV Contrast: 14 mL Gadobutrol FINDINGS: There is a tiny focus of enhancement series 704 image 16 and series 702 image 46 measuring 2 mm. No additional abnormal postcontrast enhancement definitively visualized. The johnston-white junctions, ventricular system, basal cisterns appear unremarkable. Diffusion-weighted imaging shows no evidence of restricted diffusion to suggest acute/subacute infarct. Intracranial ar terial flow voids are maintained. Midline structures show no abnormality. . The susceptibility weight ed images do not reveal any evidence for micro-hemorrhage. The bone marrow signal is within normal li mits. Paranasal sinuses and mastoid air cells: Moderate scattered paranasal sinus disease. Retention cyst i n left maxillary sinus measuring up to 33 mm. Visualized orbits: Orbital contents are intact. IMPRESSION: Tiny focus of enhancement in the left parietal/temporal lobe not seen on prior concerning for metasta tic disease. [facility], , 01/04/2025 1:52 PM
== END | disposition home or self-care (01) ==
LOC: RADMRIMAIN 11:46
PROVIDERS: ATTEND Radiology Radiation Oncology
DX: C79.51 Secondary malignant neoplasm of bone (principal); C34.31 Malignant neoplasm of lower lobe, right bronchus or lung
CPT/HCPCS: 70553; J1642; A9585

== ENCOUNTER 2025-02-09 08:38 | Inpatient (IN) | payer BC ==
--- NOTE | 2025-02-09 09:24 | ED ---
SOB HPI - General Chief Complaint: Shortness of Breath Stated Complaint: SOB Time Seen by Provider: 02/09/25 09:04 Source: patient, RN notes reviewed Mode of arrival: wheelchair Limitations: no limitations - History of Present Illness Initial Comments: This is a 59-year-old male who presents to the emergency department for shortness of breath. Patient reports increasing shortness of breath over the last couple of days. Pain is particularly worse with exertion and any kind of movement. States that he feels like he is gasping for air, especially when he goes to lay down. Denies any coughing or congestion. Also denies any chest pain or swelling in his extremities. He has a history of metastatic lung cancer but is not currently undergoing any treatment. He does have oxygen he can wear at home, which he states he always wears at night. However, over the last couple of days he has had to wear it during the day as well. MD Complaint: shortness of breath - Related Data Home Medications Medication Instructions Recorded Confirmed Gabapentin 600 mg PO QID 01/04/15 02/09/25 Omeprazole 40 mg PO DAILY PRN 01/04/15 02/09/25 metFORMIN HCL [Glucophage] 1,000 mg PO BID 01/04/15 02/09/25 Ascorbic Acid [Vitamin C] 1,000 mg PO DAILY 04/04/21 02/09/25 Cyanocobalamin (Vitamin B-12) 1,000 mcg PO DAILY 04/04/21 02/09/25 [Vitamin B-12] Empagliflozin [Jardiance] 25 mg PO DAILY 04/04/21 02/09/25 Ergocalciferol [Vitamin D2 (1250 1,250 mcg PO Q30D 04/04/21 02/09/25 Mcg = 25936 Iu)] Latanoprost/Pf [Latanoprost 0.005% 1 drop BOTH EYES HS 04/04/21 02/09/25 Eye Drop] Levothyroxine Sodium [Synthroid] 200 mcg PO AC-BRKFST 04/04/21 02/09/25 [place]-3 Fatty Acids/Fish Oil [Fish 1 cap PO DAILY 04/04/21 02/09/25 Oil 1,000 mg Softgel] Rosuvastatin [Crestor] 20 mg PO DAILY 04/04/21 02/09/25 Ubidecarenone [Co Q-10] 200 mg PO DAILY 04/04/21 02/09/25 Zinc 50 mg PO DAILY 04/04/21 02/09/25 carvediloL [Coreg] 25 mg PO BID 04/04/21 02/09/25 Cholecalciferol [Vitamin D3 (25 25 mcg PO DAILY 10/19/24 02/09/25 Mcg = 1000 Iu)] Cyclobenzaprine [Flexeril] 10 mg PO Q8H PRN 10/19/24 02/09/25 EPINEPHrine (Auto Inject) [Epipen] 0.3 mg IM ONCE PRN 10/19/24 02/09/25 Folic Acid 1 mg PO DAILY 10/19/24 02/09/25 Levothyroxine Sodium [Synthroid] 50 mcg PO AC-BRKFST 10/19/24 02/09/25 Magnesium Oxide [Magnesium] 500 mg PO DAILY 10/19/24 02/09/25 Ondansetron Odt [Zofran ODT] 4 mg PO Q4H PRN 10/19/24 02/09/25 oxyCODONE HCL [oxyCODONE HCL (IR)] 20 mg PO Q4H 10/19/24 02/09/25 Amiodarone [Cordarone] 100 mg PO DAILY 02/09/25 02/09/25 Furosemide [Lasix] 40 mg PO BID@0800,1400 02/09/25 02/09/25 Previous Rx's Medication Instructions Recorded Apixaban [Eliquis] 5 mg PO BID #60 tab 11/03/24 Allergies Allergy/AdvReac Type Severity Reaction Status Date / Time peas Allergy Anaphylaxis Verified 02/09/25 10:25 Review of Systems ROS Statement: Those systems with pertinent positive or pertinent negative responses have been documented in the HPI. ROS Other: All systems not noted in ROS Statement are negative. Past Medical History Past Medical History: Cancer, Diabetes Mellitus, GERD/Reflux, Hyperlipidemia, Hypertension, Sleep Apnea/CPAP/BIPAP, Thyroid Disorder Additional Past Medical History / Comment(s): C PAP MACHINE , RECTAL BLEEDING. neuropathy History of Any Multi-Drug Resistant Organisms: None Reported Past Surgical History: No Surgical Hx Reported Additional Past Surgical History / Comment(s): colonoscopy 2014, THYROIDECTOMY Past Anesthesia/Blood Transfusion Reactions: No Reported Reaction Past Psychological History: No Psychological Hx Reported Smoking Status: Never smoker - Past Family History Father Family Medical History: Cancer General Exam Limitations: no limitations General appearance: alert, in no apparent distress Head exam: Present: atraumatic, normocephalic, normal inspection Respiratory exam: Present: decreased breath sounds, prolonged expiratory Cardiovascular Exam: Present: regular rate, normal rhythm Neurological exam: Present: alert, oriented X3, CN II-XII intact Psychiatric exam: Present: normal affect, normal mood Skin exam: Present: warm, dry, intact, normal color. Absent: rash Course Vital Signs 02/09/25 02/09/25 02/09/25 08:53 09:20 09:22 Temperature 98.8 F Pulse Rate 65 Respiratory 17 Rate Blood Pressure 136/81 O2 Sat by Pulse 93 L 88 L 95 Oximetry 02/09/25 02/09/25 02/09/25 09:47 10:38 13:19 Temperature 98.1 F Pulse Rate 64 66 60 Respiratory 20 16 20 Rate Blood Pressure 148/62 134/61 130/58 O2 Sat by Pulse 97 98 96 Oximetry Medical Decision Making - Medical Decision Making This is a 59-year-old male who presents to the emergency department for shortness of breath. Was pt. sent in by a medical professional or institution? @ -No Did you speak to anyone other than the patient for history? @ -No Did you review nursing and triage notes? @ -Yes, and I agree, it is accurate with regards to the patient's symptoms. Were old charts reviewed? @ -No Differential Diagnosis? @ -Differential Dyspnea: Coronary syndrome, arrhythmia, tamponade, asthma, COPD, pulmonary embolism, p neumonia, pneumothorax, pulmonary effusion, anaphylaxis, diabetic ketoacidosis, flailed chest, pulmonary contusion, diaphragmatic rupture, anemia, neuromuscular, this is not meant to be an all-inclusive list. EKG interpreted by me (3pts min.)? @ -EKG interpreted by me demonstrating the following: Supraventricular rhythm. Ventricular rate 63 bpm, QRS duration 83 ms, QTc 425 ms. X-rays interpreted by me (1pt min.)? @ -Chest x-ray obtained. My interpretation identifies bilateral pleural effusions. CT interpreted by me (1pt min.)? @ -CTA of the chest obtained. My interpretation identifies no evidence of a pulmonary embolus. U/S interpreted by me (1pt. min.)? @ -Not obtained What testing was considered but not performed? (CT, X-rays, U/S, labs)? Why? @ -None What meds were considered but not given? Why? @ -None Did you discuss the management of the patient with other professionals? @ -Yes, Dr. Francois, who accepts the patient for admission Did you reconcile home meds? @ -No Was smoking cessation discussed for >3mins.? @ -No Was critical care preformed (if so, how long)? @ -No Were there social determinants of health that impacted care today? How? (Homelessness, low income, unemployed, alcoholism, drug addiction, transportation, low edu. Level, literacy, decrease access to med. care, halfway, rehab)? @ -No Was there de-escalation of care discussed even if they declined? (Discuss DNR or withdrawal of care, Hospice)? @ -No What co-morbidities impacted this encounter? (DM, HTN, Smoking, COPD, CAD, Cancer, CVA, Hep., AIDS, mental health diagnosis, sleep apnea, morbid obesity)? @ -Lung cancer, DM Was patient admitted / discharged? @ -Admitted. Lab work demonstrates a mildly elevated D-dimer of 0.65 and is otherwise unremarkable. COVID, influenza, and RSV testing negative. Chest x- ray obtained demonstrating bilateral pleural effusions. CTA of the chest obtained as well. No evidence of a pulmonary embolus was identified. He has a moderate to large right and small to moderate left pleural effusion, similar to the x-ray findings. Of note, the CTA mentions a new T8 vertebral body fracture. Patient states that this is old and he is aware of it. Diffuse metastasis is also noted on the CTA. Symptoms likely related to the large pleural effusions. Suspect that these are malignant effusions. Given his discomfort with associated hypoxia, patient was admitted to medicine with pulmonary consult to see if a thoracentesis can be done. Hem/onc consulted as well due to the lung cancer. Case discussed with ED attending Dr. Jack. Undiagnosed new problem with uncertain prognosis? @ -None Drug Therapy requiring intensive monitoring for toxicity (Heparin, Nitro, In sulin, Cardizem)? @ -None Were any procedures done? @ -None Diagnosis/symptom? @ -Bilateral pleural effusions, hypoxia Acute, or Chronic, or Acute on Chronic? @ -Acute Uncomplicated (without systemic symptoms) or Complicated (systemic symptoms)? @ -Complicated Side effects of treatment? @ -None Exacerbation, Progression, or Severe Exacerbation] @ -Not applicable Poses a threat to life or bodily function? @ -Yes, can lead to further respiratory compromise - Lab Data Result diagrams: 02/09/25 09:22 02/09/25 09:22 Lab Results 02/09/25 02/09/25 02/09/25 Range/Units 09:22 09:22 09:22 WBC 4.85 (4.50-10.00) 10*3/uL RBC 3.78 L (4.40-5.60) 10*6/uL Hgb 10.9 L (13.0-17.0) g/dL Hct 33.6 L (39.6-50.0) % MCV 88.9 (80.0-97.0) fL MCH 28.8 (27.0-32.0) pg MCHC 32.4 (32.0-37.0) g/dL Plt Count 159 (140-440) 10*3/uL MPV 9.5 (9.5-12.2) fL Immature Gran % (Auto) 3.3 % Neutrophils % 72.6 % Lymphocytes % 14.2 % Monocytes % 6.4 % Eosinophils % 2.7 % Basophils % 0.8 % Immature Gran # 0.16 H (0.00-0.04) 10*3/uL Neutrophils # 3.52 (1.80-7.70) 10*3/uL Lymphocytes # 0.69 L (0.90-5.00) 10*3/uL Monocytes # 0.31 (0.20-1.00) 10*3/uL Eosinophils # 0.13 (0.04-0.35) 10*3/uL Basophils # 0.04 (0.00-0.10) 10*3/uL PT 11.4 (10.0-12.5) sec INR 1.0 (<1.2) APTT 24.1 (22.0-30.0) sec D-Dimer 0.65 H (<0.60) mg/L FEU Sodium 138 (137-145) mmol/L Potassium 3.6 (3.5-5.1) mmol/L Chloride 99 (98-107) mmol/L Carbon Dioxide 32 H (22-30) mmol/L Anion Gap 7 mmol/L BUN 7 L (9-20) mg/dL Creatinine 0.51 L (0.66-1.25) mg/dL Est GFR (CKD-EPI)AfAm >90 (>60 ml/min/1.73 sqM) Est GFR (CKD-EPI)NonAf >90 (>60 ml/min/1.73 sqM) Glucose 131 H (74-99) mg/dL Plasma Lactic Acid David (0.7-2.0) mmol/L Calcium 8.8 (8.4-10.2) mg/dL Magnesium 2.0 (1.6-2.3) mg/dL Total Bilirubin 0.7 (0.2-1.3) mg/dL AST 22 (17-59) U/L ALT 13 (4-49) U/L Alkaline Phosphatase 317 H (38-126) U/L Troponin I (0.000-0.034) ng/mL NT-Pro-B Natriuret Pep 257 pg/mL Total Protein 6.9 (6.3-8.2) g/dL Albumin 4.1 (3.5-5.0) g/dL Influenza Type A (PCR) (Not Detectd) Influenza Type B (PCR) (Not Detectd) RSV (PCR) (Not Detectd) SARS-CoV-2 (PCR) (Not Detectd) 02/09/25 02/09/25 02/09/25 Range/Units 09:22 09:22 09:22 WBC (4.50-10.00) 10*3/uL RBC (4.40-5.60) 10*6/uL Hgb (13.0-17.0) g/dL Hct (39.6-50.0) % MCV (80.0-97.0) fL MCH (27.0-32.0) pg MCHC (32.0-37.0) g/dL Plt Count (140-440) 10*3/uL MPV (9.5-12.2) fL Immature Gran % (Auto) % Neutrophils % % Lymphocytes % % Monocytes % % Eosinophils % % Basophils % % Immature Gran # (0.00-0.04) 10*3/uL Neutrophils # (1.80-7.70) 10*3/uL Lymphocytes # (0.90-5.00) 10*3/uL Monocytes # (0.20-1.00) 10*3/uL Eosinophils # (0.04-0.35) 10*3/uL Basophils # (0.00-0.10) 10*3/uL PT (10.0-12.5) sec INR (<1.2) APTT (22.0-30.0) sec D-Dimer (<0.60) mg/L FEU Sodium (137-145) mmol/L Potassium (3.5-5.1) mmol/L Chloride (98-107) mmol/L Carbon Dioxide (22-30) mmol/L Anion Gap mmol/L BUN (9-20) mg/dL Creatinine (0.66-1.25) mg/dL Est GFR (CKD-EPI)AfAm (>60 ml/min/1.73 sqM) Est GFR (CKD-EPI)NonAf (>60 ml/min/1.73 sqM) Glucose (74-99) mg/dL Plasma Lactic Acid David 1.5 (0.7-2.0) mmol/L Calcium (8.4-10.2) mg/dL Magnesium (1.6-2.3) mg/dL Total Bilirubin (0.2-1.3) mg/dL AST (17-59) U/L ALT (4-49) U/L Alkaline Phosphatase (38-126) U/L Troponin I <0.012 (0.000-0.034) ng/mL NT-Pro-B Natriuret Pep pg/mL Total Protein (6.3-8.2) g/dL Albumin (3.5-5.0) g/dL Influenza Type A (PCR) Not Detected (Not Detectd) Influenza Type B (PCR) Not Detected (Not Detectd) RSV (PCR) Not Detected (Not Detectd) SARS-CoV-2 (PCR) Not Detected (Not Detectd) - Radiology Data Radiology results: report reviewed, image reviewed Disposition Clinical Impression: Bilateral pleural effusion, Lung cancer, Hypoxia Disposition: ADMITTED IP TO THIS HOSP
[2025-02-09 09:42] LABS: Basophils # (A) 0.04 10*3/uL (0.00-0.10); Basophils % (A) 0.8 %; Eosinophils # (A) 0.13 10*3/uL (0.04-0.35); Eosinophils % (A) 2.7 %; HCT 33.6 % (39.6-50.0); HGB 10.9 g/dL (13.0-17.0); Lymphocytes # (A) 0.69 10*3/uL (0.90-5.00); Lymphocytes % (A) 14.2 %; MCH 28.8 pg (27.0-32.0); MCHC 32.4 g/dL (32.0-37.0); MCV 88.9 fL (80.0-97.0); Mean Platelet Volume 9.5 fL (9.5-12.2); Monocytes # (A) 0.31 10*3/uL (0.20-1.00); Monocytes % (A) 6.4 %; Neutrophils # (A) 3.52 10*3/uL (1.80-7.70); Neutrophils % (A) 72.6 %; Platelet Count 159 10*3/uL (140-440); RBC 3.78 10*6/uL (4.40-5.60); RDW 17.2 % (11.5-14.5); WBC 4.85 10*3/uL (4.50-10.00)
[2025-02-09 09:56] LABS: Partial Thromboplastin Time 24.1 sec (22.0-30.0); Prothrombin Time 11.4 sec (10.0-12.5)
[2025-02-09 09:59] LABS: ALT 13 U/L (4-49); AST 22 U/L (17-59); African American GFR (CKD) >90 (>60 ml/min/1.73 sqM); Albumin 4.1 g/dL (3.5-5.0); Alkaline Phosphatase 317 U/L (38-126); Anion Gap 7 mmol/L; Blood Urea Nitrogen 7 mg/dL (9-20); Calcium 8.8 mg/dL (8.4-10.2); Carbon Dioxide 32 mmol/L (22-30); Chloride 99 mmol/L (98-107); Glucose 131 mg/dL (74-99); Non-African American GFR(CKD) >90 (>60 ml/min/1.73 sqM); Potassium 3.6 mmol/L (3.5-5.1); Sodium 138 mmol/L (137-145); Total Bilirubin 0.7 mg/dL (0.2-1.3); Total Protein 6.9 g/dL (6.3-8.2)
[2025-02-09 10:06] LABS: NT-Pro-B-Type Natriuretic Pept 257 pg/mL
--- NOTE | 2025-02-09 10:06 | XR ---
EXAMINATION TYPE: XR chest 2V DATE OF EXAM: 02/09/2025 9:35 AM COMPARISON: 10/27/2024 CLINICAL INDICATION: Male, 59 years old with history of difficulty breathing, TECHNIQUE: XR chest 2V view(s) obtained. FINDINGS: The heart size is normal. The pulmonary vasculature is normal. Small left pleural effusion. Subpulmonic effusion present on the right. Port is present on the right tip in the superior vena cava region. IMPRESSION: 1. Bilateral pleural effusions right larger than left [facility], , 02/09/2025 10:03 AM
[2025-02-09 10:15] LABS: Influenza A Not Detected (Not Detectd); Influenza B Not Detected (Not Detectd); RSV Not Detected (Not Detectd)
[2025-02-09] MEDS: FUROSEMIDE 10 MG/ML 4 ML VIAL IV STA (10:36)
--- NOTE | 2025-02-09 11:03 | CT ---
EXAMINATION TYPE: CT chest angio for PE DATE OF EXAM: 02/09/2025 10:38 AM COMPARISON: 11/30/2024. 03/14/2024 and other exams dating back to 2023. CLINICAL INDICATION: Male, 59 years old with history of KALA, elevated d-dimer; KALA, elevated d-dimer TECHNIQUE/CONTRAST: CTA scan of the thorax is performed with IV Contrast, patient injected with 100 ml mL of Isovue 370, MIP images are created and reviewed these are created on a separate workstation.. CT DLP: 1139.8 mGycm, Automated exposure control for dose reduction was used. FINDINGS: Lungs/Pleura: No focal consolidation. Moderate to large right and small moderate left pleural effusio n. Few scattered pulmonary nodules, largest in the left upper lobe measuring 10 mm Airway: Large airways are patent. Heart: Size within normal limits. No significant coronary artery calcifications. Vasculature: There is no evidence for a filling defect within the pulmonary vasculature to suggest [place] pulmonary embolism. The pulmonary artery is of normal size. Chest wall [id number]-[id number] present. Mediastinum: No gross evidence of adenopathy. Musculoskeletal: Diffuse sclerotic bone metastases noted. T8 vertebral body fracture with gas. Soft Tissues/lymph nodes: Unremarkable. Lower neck: No significant findings. Upper Abdomen: Indeterminate left adrenal 2 mm nodule. IMPRESSION: 1. No evidence of pulmonary embolism. 2. New T8 vertebral body fracture with possible gas within the vertebral body itself. Consider furthe r evaluation with MRI. 3. Moderate to large right and small moderate left pleural effusion. 4. Diffuse osseous metastatic disease throughout the exam with scattered pulmonary nodules likely rep resenting additional sites of metastatic disease. 5. Left adrenal 10 mm nodule and change from 11/30/2024. Etiology possible metastatic disease versus b enign adenoma given stability back to at least 03/14/2024 [facility], , 02/09/2025 11:01 AM
[2025-02-09] MEDS ORDERED: NALOXONE 0.4 MG/ML 1 ML VIAL IV PRN (11:53)
[2025-02-09] MEDS ORDERED: ACETAMINOPHEN TAB 325 MG TAB PO PRN (11:53)
[2025-02-09] MEDS ORDERED: ONDANSETRON 4 MG/2 ML VIAL IVP PRN (11:53)
[2025-02-09] MEDS ORDERED: MORPHINE SULFATE 4 MG/ML SYRINGE IV PRN (11:53)
[2025-02-09] MEDS: HYDROcodone/APAP 5-325MG 1 EACH TAB PO PRN (15:42)
--- NOTE | 2025-02-09 15:55 | US ---
EXAMINATION TYPE: US chest DATE OF EXAM: 02/09/2025 COMPARISON: NONE CLINICAL INDICATION: Male, 59 years old with history of Markings for thoracentesis by pulmonary staff ; plueral effusion, large habitus TECHNIQUE: Grayscale imaging of the chest. Targeted ultrasound of the posterior lower bilateral FINDINGS: EXAM MEASUREMENTS: Right Pleural Effusion pocket size: 15.3 cm Right skin surface to fluid distance: 0.5 cm Left Pleural Effusion pocket size: 8.1 cm Left skin surface to fluid distance: 1.6 cm Right side marked for possible thoracentesis outside the dept. Left side marked for possible thoracentesis outside the dept. Pulmonologists are able to review the images in the patient?s EMR. IMPRESSIONS: Large bilateral pleural effusions [facility], , 02/09/2025 3:52 PM
--- NOTE | 2025-02-09 16:04 | P.CNPUL ---
History of Present Illness Consult date: 02/09/25 Requesting physician: Ok Francois Reason for consult: dyspnea, pleural effusion, abnormal CXR/CT Chief complaint: Shortness of breath History of present illness: This is a pleasant 59-year-old male patient with a known history of apnea maintained on CPAP, morbid obesity, hypertension, hyperlipidemia, diabetes mellitus, type II, peripheral neuropathy, hypothyroidism and metastatic pulmonary adenocarcinoma. He had previously received chemo and radiation. He is currently off treatment. A recent MRI did show some brain metastasis but small 2 mm lesion. He presented here to the emergency room this morning with complaints of increasing shortness of breath and orthopnea. He feels like he is gasping for air when he lays down. No fever or chills. No cough or congestion. No hemoptysis. No lower extremity edema. He does have home oxygen that he was wearing mostly at night but now during the day with the shortness of breath. Chest x-ray shows bilateral pleural effusions right greater than left. CT angiogram ruled out pulmonary embolism. There is a new T8 vertebral body fracture. Moderate to large right and small to moderate left pleural effusions. Diffuse osseous metastatic disease with scattered pulmonary nodules. Left adrenal 10 mm nodule. White count 4.8. Hemoglobin 10.9. Platelets 159. Sodium 138. Potassium 3.6. Bicarb 32. BUN 7. Creatinine 0.51. Glucose 131. Troponin negative. proBNP 257. D-dimer 0.65. Viral screen negative. He is seen today in consultation on the regular medical floor. He is currently sitting up in a chair at the bedside. Maintaining O2 saturations in the 90s on 2 L/min per nasal cannula. He is afebrile. Hemodynamically stable. Ultrasound of the chest is pending. Review of Systems REVIEW OF SYSTEMS: CONSTITUTIONAL: Denies any recent significant weight loss or weight gain. EYES: Denies change in vision. EARS, NOSE, MOUTH, THROAT: Denies headaches, denies sore throat. CARDIOVASCULAR: Denies chest pain, palpitations or syncopal episodes. RESPIRATORY: Positive for shortness of breath, no cough, congestion or hemoptysis. GASTROINTESTINAL: Denies change in appetite, denies abdominal pain GENITOURINARY: Denies hematuria, denies infections. MUSKULOSKELETAL: Denies pain, denies swelling. INTEGUMENTARY: Denies rash, denies eczema. NEUROLOGICAL: Denies recent memory loss, no recent seizure activity. PSYCHIATRIC: Denies anxiety, denies depression. HEMATOLOGIC/LYMPHATIC: Denies anemia, denies enlarged lymph nodes. Past Medical History Past Medical History: Cancer, Diabetes Mellitus, GERD/Reflux, Hyperlipidemia, Hypertension, Sleep Apnea/CPAP/BIPAP, Thyroid Disorder Additional Past Medical History / Comment(s): C PAP MACHINE , RECTAL BLEEDING. neuropathy History of Any Multi-Drug Resistant Organisms: None Reported Past Surgical History: No Surgical Hx Reported Additional Past Surgical History / Comment(s): colonoscopy 2014, THYROIDECTOMY Past Anesthesia/Blood Transfusion Reactions: No Reported Reaction Past Psychological History: No Psychological Hx Reported Smoking Status: Never smoker Past Alcohol Use History: Rare Past Drug Use History: None Reported - Past Family History Father Family Medical History: Cancer Medications and Allergies Home Medications Medication Instructions Recorded Confirmed Type Gabapentin 600 mg PO QID 01/04/15 02/09/25 History Omeprazole 40 mg PO DAILY PRN 01/04/15 02/09/25 History metFORMIN HCL [Glucophage] 1,000 mg PO BID 01/04/15 02/09/25 History Ascorbic Acid [Vitamin C] 1,000 mg PO DAILY 04/04/21 02/09/25 History Cyanocobalamin (Vitamin B-12) 1,000 mcg PO DAILY 04/04/21 02/09/25 History [Vitamin B-12] Empagliflozin [Jardiance] 25 mg PO DAILY 04/04/21 02/09/25 History Ergocalciferol [Vitamin D2 (1250 1,250 mcg PO Q30D 04/04/21 02/09/25 History Mcg = 36900 Iu)] Latanoprost/Pf [Latanoprost 0.005% 1 drop BOTH EYES HS 04/04/21 02/09/25 History Eye Drop] Levothyroxine Sodium [Synthroid] 200 mcg PO AC-BRKFST 04/04/21 02/09/25 History [place]-3 Fatty Acids/Fish Oil [Fish 1 cap PO DAILY 04/04/21 02/09/25 History Oil 1,000 mg Softgel] Rosuvastatin [Crestor] 20 mg PO DAILY 04/04/21 02/09/25 History Ubidecarenone [Co Q-10] 200 mg PO DAILY 04/04/21 02/09/25 History Zinc 50 mg PO DAILY 04/04/21 02/09/25 History carvediloL [Coreg] 25 mg PO BID 04/04/21 02/09/25 History Cholecalciferol [Vitamin D3 (25 25 mcg PO DAILY 10/19/24 02/09/25 History Mcg = 1000 Iu)] Cyclobenzaprine [Flexeril] 10 mg PO Q8H PRN 10/19/24 02/09/25 History EPINEPHrine (Auto Inject) [Epipen] 0.3 mg IM ONCE PRN 10/19/24 02/09/25 History Folic Acid 1 mg PO DAILY 10/19/24 02/09/25 History Levothyroxine Sodium [Synthroid] 50 mcg PO AC-BRKFST 10/19/24 02/09/25 History Magnesium Oxide [Magnesium] 500 mg PO DAILY 10/19/24 02/09/25 History Ondansetron Odt [Zofran ODT] 4 mg PO Q4H PRN 10/19/24 02/09/25 History oxyCODONE HCL [oxyCODONE HCL (IR)] 20 mg PO Q4H 10/19/24 02/09/25 History Apixaban [Eliquis] 5 mg PO BID #60 tab 11/03/24 02/09/25 Rx Amiodarone [Cordarone] 100 mg PO DAILY 02/09/25 02/09/25 History Furosemide [Lasix] 40 mg PO BID@0800,1400 02/09/25 02/09/25 History Allergies Allergy/AdvReac Type Severity Reaction Status Date / Time peas Allergy Anaphylaxis Verified 02/09/25 10:25 Physical Exam Vitals: Vital Signs Temp Pulse Pulse Resp BP BP Pulse Ox 02/09/25 13:49 98.1 F 65 16 122/72 96 02/09/25 13:19 98.1 F 60 20 130/58 96 02/09/25 10:38 66 16 134/61 98 02/09/25 09:47 64 20 148/62 97 02/09/25 09:22 95 02/09/25 09:20 88 L 02/09/25 08:53 98.8 F 65 17 136/81 93 L Intake and Output 02/09/25 02/09/25 02/09/25 06:59 14:59 22:59 Other: Weight 143.789 kg GENERAL EXAM: Alert, pleasant, obese 59-year-old male, on 2 L nasal cannula, comfortable in no apparent distress. HEAD: Normocephalic. EYES: Normal reaction of pupils, equal size. NOSE: Clear with pink turbinates. THROAT: No erythema or exudates. NECK: No masses, no JVD. CHEST: No chest wall deformity. LUNGS: Equal air entry with crackles in the bilateral bases right greater than left, diminished. CVS: S1 and S2 normal with no audible murmur, regular rhythm. ABDOMEN: No hepatosplenomegaly, normal bowel sounds, no guarding or rigidity. SPINE: No scoliosis or deformity SKIN: No rashes CENTRAL NERVOUS SYSTEM: No focal deficits, tone is normal in all 4 extremities. EXTREMITIES: There is no peripheral edema. No clubbing, no cyanosis. Peripheral pulses are intact. Results - Laboratory Findings CBC and BMP: 02/09/25 09:22 02/09/25 09:22 PT/INR, D-dimer PT 11.4 sec (10.0-12.5) 02/09/25 09:22 INR 1.0 (<1.2) 02/09/25 09:22 D-Dimer 0.65 mg/L FEU (<0.60) H 02/09/25 09:22 Abnormal lab findings: Abnormal Labs 02/09/25 02/09/25 02/09/25 09:22 09:22 09:22 RBC 3.78 L Hgb 10.9 L Hct 33.6 L Immature Gran # 0.16 H Lymphocytes # 0.69 L D-Dimer 0.65 H Carbon Dioxide 32 H BUN 7 L Creatinine 0.51 L Glucose 131 H Alkaline Phosphatase 317 H - Diagnostic Findings Chest x-ray: image reviewed CT scan - chest: image reviewed Assessment and Plan Assessment: Acute on chronic hypoxic respiratory failure secondary to bilateral pleural effusions right greater than left History of stage IV pulmonary adenocarcinoma with osseous metastasis and new small 2 mm brain lesion. Currently off chemotherapy Morbid obesity with a BMI of 40 kg/m Obstructive sleep apnea maintained on BiPAP Hypertension Hyperlipidemia Diabetes mellitus, type II Peripheral neuropathy Hypothyroidism History of hyponatremia secondary to SIADH Plan: The patient was seen and evaluated Imaging, labs and medications reviewed Obtain an ultrasound of the chest If significant fluid will plan for thoracentesis Hold the Eliquis Resume his other home medications Titrate the FiO2 as tolerated Plan of care was discussed with the patient and his who verbalized understanding and are in agreement We will continue to follow and make further recommendations based on his clinical status I have personally seen and examined the patient, performed the documentation and the assessment and plan as written. Number of minutes spent on the visit: 20 Dictation was produced using [employer] dictation software. Please excuse any grammatical, word or spelling errors. Time with Patient: Greater than 30
[2025-02-09] MEDS ORDERED: ONDANSETRON ODT 4 MG TAB PO PRN (16:45)
[2025-02-09] MEDS ORDERED: CYCLOBENZAPRINE 10 MG TAB PO PRN (16:45)
[2025-02-09] MEDS ORDERED: PANTOPRAZOLE 40 MG TABLET PO PRN (16:45)
[2025-02-09] MEDS: GABAPENTIN 300 MG CAP PO SCH (17:46)
[2025-02-09] MEDS: carvediloL 12.5 MG TAB PO SCH (17:46)
[2025-02-09 21:02] LABS: Glucose,Whole Blood 177 mg/dL (70-110)
[2025-02-09] MEDS: APIXABAN 5 MG TAB PO SCH (21:48)
[2025-02-09] MEDS: metFORMIN 500 MG TAB PO SCH (21:48)
[2025-02-09] MEDS: INSULIN LISPRO (HumaLOG) 100 UNIT/ML 10 mL VL SQ SCH (21:49)
[2025-02-09] MEDS: LATANOPROST 0.005% OPHTH DROPS 2.5 ML BTL BOTH EYES SCH (21:53)
[2025-02-10 06:51] LABS: Glucose,Whole Blood 138 mg/dL (70-110)
--- NOTE | 2025-02-10 08:22 | XR ---
EXAMINATION TYPE: XR chest 1V portable DATE OF EXAM: 02/10/2025 8:17 AM COMPARISON: 02/09/2025 CLINICAL INDICATION: Male, 59 years old with history of Post right thoracentesis, TECHNIQUE: XR chest 1V portable view(s) obtained. FINDINGS: The heart size is normal. The pulmonary vasculature is normal. Small left pleural fluid is present. Subpulmonic effusion on the right appears diminished. No pneumot horax is evident IMPRESSION: 1. No pneumothorax postthoracentesis. Follow-up can be performed as clinically indicated. 2. Diminished pleural effusions [facility], , 02/10/2025 8:20 AM
[2025-02-10] MEDS: FUROSEMIDE 40 MG TAB PO SCH (08:55)
[2025-02-10] MEDS: LEVOTHYROXINE 50 MCG TAB PO SCH (08:55)
[2025-02-10] MEDS: LEVOTHYROXINE 100 MCG TAB PO SCH (08:55)
[2025-02-10] MEDS: ATORVASTATIN 40 MG TAB PO SCH (08:57)
[2025-02-10] MEDS: DAPAGLIFLOZIN PROPANEDIOL 10 MG TABLET PO SCH (08:57)
[2025-02-10] MEDS: CHOLECALCIFEROL 25 MCG (1000 IU) TABLET PO SCH (08:57)
[2025-02-10] MEDS: CYANOCOBALAMIN 500 MCG TAB PO SCH (08:57)
[2025-02-10] MEDS: AMIODARONE 100 MG TAB PO SCH (08:57)
[2025-02-10] MEDS: ASCORBIC ACID 500 MG TAB PO SCH (08:57)
[2025-02-10] MEDS: FOLIC ACID 1 MG TAB PO SCH (08:58)
[2025-02-10] MEDS: MAGNESIUM OXIDE 400 MG TAB PO SCH (08:58)
[2025-02-10] MEDS: PANTOPRAZOLE 40 MG/10 ML VIAL IV SCH (08:59)
[2025-02-10] MEDS: ZINC SULFATE 220 MG CAP PO SCH (09:00)
[2025-02-10] MEDS ORDERED: NON FORMULARY DRUG (Omega-3 Fatty Acids/Fish Oil [Fish Oil 1,000 Mg Softgel] 1 EACH Capsul PO SCH (09:00)
[2025-02-10] MEDS ORDERED: NON FORMULARY DRUG (Ubidecarenone [Co Q-10] 100 MG Capsule) PO SCH (09:00)
[2025-02-10 11:13] LABS: Glucose,Whole Blood 148 mg/dL (70-110)
--- NOTE | 2025-02-10 11:23 | OP ---
OPERATIVE REPORT DATE OF SERVICE : PROCEDURE PERFORMED: Right-sided thoracentesis. PREOPERATIVE DIAGNOSIS: Pleural effusion. POSTOPERATIVE DIAGNOSIS: Pleural effusion. ANESTHESIA USED: 2 mL of 1% lidocaine. DESCRIPTION OF PROCEDURE: Fluid was localized via ultrasound guidance, and a marking was placed at the level of the 8th intercostal space and tip of the scapula. The patient was placed in the sitting upright position, the area below the right scapula was prepared in a sterile fashion. Drapes were applied. At the same site, the area was locally anesthetized, then a 26-gauge needle was inserted into the pleural space. Fluid was localized. A small tiny incision was made, and a standard thoracentesis catheter and needle used, advanced into the pleural space and as soon as the fluid was obtained, the catheter was advanced over the needle into the pleural space. Freely flowing fluid was removed, roughly 1300 cc of dark yellow fluid was removed from the right pleural space. Procedure was well tolerated, chest x-ray postoperatively showed significant improvement, and no complications. MMODL / IJN: [id number] /
[2025-02-10 12:06] LABS: Glucose,Whole Blood 136 mg/dL (70-110)
--- NOTE | 2025-02-10 12:20 | P.PN ---
Subjective Progress Note Date: 02/10/25 This is a pleasant 59-year-old male patient with a known history of apnea maintained on CPAP, morbid obesity, hypertension, hyperlipidemia, diabetes mellitus, type II, peripheral neuropathy, hypothyroidism and metastatic pulmonary adenocarcinoma. He had previously received chemo and radiation. He is currently off treatment. A recent MRI did show some brain metastasis but small 2 mm lesion. He presented here to the emergency room this morning with complaints of increasing shortness of breath and orthopnea. He feels like he is gasping for air when he lays down. No fever or chills. No cough or congestion. No hemoptysis. No lower extremity edema. He does have home oxygen that he was wearing mostly at night but now during the day with the shortness of breath. Chest x-ray shows bilateral pleural effusions right greater than left. CT angiogram ruled out pulmonary embolism. There is a new T8 vertebral body fracture. Moderate to large right and small to moderate left pleural effusions. Diffuse osseous metastatic disease with scattered pulmonary nodules. Left adrenal 10 mm nodule. White count 4.8. Hemoglobin 10.9. Platelets 159. Sodium 138. Potassium 3.6. Bicarb 32. BUN 7. Creatinine 0.51. Glucose 131. Troponin negative. proBNP 257. D-dimer 0.65. Viral screen negative. He is seen today in consultation on the regular medical floor. He is currently sitting up in a chair at the bedside. Maintaining O2 saturations in the 90s on 2 L/min per nasal cannula. He is afebrile. Hemodynamically stable. Ultrasound of the chest is pending. The patient is seen today February 10, 2025 in follow-up on the regular medical floor. He is currently resting in bed. Awake and alert in no acute distress. Did wear his home CPAP throughout the night. He is currently on 2 L/min per nasal cannula. Afebrile. Hemodynamically stable. Ultrasound of the chest revealed a right sided pleural effusion measuring 15.3 cm. Left pleural effusion at 8 cm. His Eliquis was placed on hold last evening and this morning. He did undergo a right sided thoracentesis with 1.3 L of cloudy yellow fluid removed. Fluid analysis, culture and cytology are pending. Chest diminished pleural effusions. No plans for left-sided thoracentesis. Eliquis will be resumed. Glucose 136. Continued on oral diuretics. Objective - Vital Signs Vital signs: Vital Signs Temp 98.2 F 02/10/25 07:00 Pulse 64 02/10/25 07:00 Resp 18 02/10/25 07:00 BP 149/75 02/10/25 07:00 Pulse Ox 95 02/10/25 07:00 FiO2 Intake & Output 02/09/25 02/10/25 02/10/25 18:59 06:59 18:59 Intake Total 200 Balance 200 Weight 143.789 kg Intake: Oral 200 Other: Voiding Method Toilet # Voids 3 2 # Bowel Movements 1 - Exam GENERAL EXAM: Alert, obese 59-year-old male, sitting up in bed, on 2 L nasal cannula, in no apparent distress. HEAD: Normocephalic. EYES: Normal reaction of pupils, equal size. NOSE: Clear with pink turbinates. THROAT: No erythema or exudates. NECK: No masses, no JVD. CHEST: No chest wall deformity. LUNGS: Equal air entry with crackles in the bilateral bases, diminished. CVS: S1 and S2 normal with no audible murmur, regular rhythm. ABDOMEN: No hepatosplenomegaly, normal bowel sounds, no guarding or rigidity. SPINE: No scoliosis or deformity SKIN: No rashes CENTRAL NERVOUS SYSTEM: No focal deficits, tone is normal in all 4 extremities. EXTREMITIES: There is no peripheral edema. No clubbing, no cyanosis. Periphe ral pulses are intact. - Labs CBC & Chem 7: 02/09/25 09:22 02/09/25 09:22 Labs: Abnormal Lab Results - Last 24 Hours (Table) 02/09/25 02/10/25 02/10/25 Range/Units 21:01 06:49 11:12 POC Glucose (mg/dL) 177 H 138 H 148 H (70-110) mg/dL 02/10/25 Range/Units 12:04 POC Glucose (mg/dL) 136 H (70-110) mg/dL Assessment and Plan Assessment: Acute on chronic hypoxic respiratory failure secondary to bilateral pleural effusions right greater than left Bilateral pleural effusions, status post right sided thoracentesis today February 10, 2025 with 1.3 L removed. Fluid analysis, cultures and cytology pending History of stage IV pulmonary adenocarcinoma with osseous metastasis and new small 2 mm brain lesion. Currently off chemotherapy Morbid obesity with a BMI of 40 kg/m Obstructive sleep apnea maintained on BiPAP Hypertension Hyperlipidemia Diabetes mellitus, type II Peripheral neuropathy Hypothyroidism History of hyponatremia secondary to SIADH Plan: The patient was seen and evaluated Imaging, labs and medications reviewed Status post right sided thoracentesis 1.3 L cloudy yellow fluid removed Fluid analysis, cultures and cytology pending Follow-up chest x-ray shows improvement, no pneumothorax Resume the patient's Eliquis No plans for left-sided thoracentesis The patient shortness of breath has improved Patient could be discharged home from the pulmonary standpoint I have personally seen and examined the patient, performed the documentation and the assessment and plan as written. Number of minutes spent on the visit: 20 Dictation was produced using [employer] dictation software. Please excuse any grammatical, word or spelling errors.
--- NOTE | 2025-02-10 13:19 | P.HPIM ---
History of Present Illness H&P Date: 02/09/25 Ganga Smart, is a 59-year-old male who presented to [facility] emergency room with a chief complaint of worsening shortness of breath, patient has a known history of metastatic pulmonary adenocarcinoma, he received chemotherapy and radiation therapy in the past. He was evaluated in the emergency room vital examination on presentation revealed a temperature of 98.8 pulse 65 respiration 17 blood pressure 136/81 pulse ox 93% on room air Laboratory data revealed a white blood count of 4.85 hemoglobin 10.9 platelet count 159 D-dimer 0.65 BUN 7 creatinine 0.51 COVID-19 PCR, influenza A and B PCR, and RSV PCR were all negative. Testing in the emergency room revealed chest x-ray done in the emergency room revealed bilateral pleural effusions right larger than left. CT angiogram of the chest revealed no evidence of pulmonary embolism, new T8 vertebral body fracture, with possible gas within the vertebral body. Patient was admitted to medical floor for further evaluation and treatment Past medical history is significant for history of adenocarcinoma of the lungs with metastatic disease, history of hypertension, history of hyperlipidemia, history of diabetes mellitus type 2, history of peripheral neuropathy, history of obstructive sleep apnea, history of hypothyroidism Past Medical History Past Medical History: Cancer, Diabetes Mellitus, GERD/Reflux, Hyperlipidemia, Hypertension, Sleep Apnea/CPAP/BIPAP, Thyroid Disorder Additional Past Medical History / Comment(s): C PAP MACHINE , RECTAL BLEEDING. neuropathy History of Any Multi-Drug Resistant Organisms: None Reported Past Surgical History: No Surgical Hx Reported Additional Past Surgical History / Comment(s): colonoscopy 2014, THYROIDECTOMY Past Anesthesia/Blood Transfusion Reactions: No Reported Reaction Past Psychological History: No Psychological Hx Reported Smoking Status: Never smoker Past Alcohol Use History: Rare Past Drug Use History: None Reported - Past Family History Father Family Medical History: Cancer Medications and Allergies Home Medications Medication Instructions Recorded Confirmed Type Gabapentin 600 mg PO QID 01/04/15 02/09/25 History Omeprazole 40 mg PO DAILY PRN 01/04/15 02/09/25 History metFORMIN HCL [Glucophage] 1,000 mg PO BID 01/04/15 02/09/25 History Ascorbic Acid [Vitamin C] 1,000 mg PO DAILY 04/04/21 02/09/25 History Cyanocobalamin (Vitamin B-12) 1,000 mcg PO DAILY 04/04/21 02/09/25 History [Vitamin B-12] Empagliflozin [Jardiance] 25 mg PO DAILY 04/04/21 02/09/25 History Ergocalciferol [Vitamin D2 (1250 1,250 mcg PO Q30D 04/04/21 02/09/25 History Mcg = 94054 Iu)] Latanoprost/Pf [Latanoprost 0.005% 1 drop BOTH EYES HS 04/04/21 02/09/25 History Eye Drop] Levothyroxine Sodium [Synthroid] 200 mcg PO AC-BRKFST 04/04/21 02/09/25 History [place]-3 Fatty Acids/Fish Oil [Fish 1 cap PO DAILY 04/04/21 02/09/25 History Oil 1,000 mg Softgel] Rosuvastatin [Crestor] 20 mg PO DAILY 04/04/21 02/09/25 History Ubidecarenone [Co Q-10] 200 mg PO DAILY 04/04/21 02/09/25 History Zinc 50 mg PO DAILY 04/04/21 02/09/25 History carvediloL [Coreg] 25 mg PO BID 04/04/21 02/09/25 History Cholecalciferol [Vitamin D3 (25 25 mcg PO DAILY 10/19/24 02/09/25 History Mcg = 1000 Iu)] Cyclobenzaprine [Flexeril] 10 mg PO Q8H PRN 10/19/24 02/09/25 History EPINEPHrine (Auto Inject) [Epipen] 0.3 mg IM ONCE PRN 10/19/24 02/09/25 History Folic Acid 1 mg PO DAILY 10/19/24 02/09/25 History Levothyroxine Sodium [Synthroid] 50 mcg PO AC-BRKFST 10/19/24 02/09/25 History Magnesium Oxide [Magnesium] 500 mg PO DAILY 10/19/24 02/09/25 History Ondansetron Odt [Zofran ODT] 4 mg PO Q4H PRN 10/19/24 02/09/25 History oxyCODONE HCL [oxyCODONE HCL (IR)] 20 mg PO Q4H 10/19/24 02/09/25 History Apixaban [Eliquis] 5 mg PO BID #60 tab 11/03/24 02/09/25 Rx Amiodarone [Cordarone] 100 mg PO DAILY 02/09/25 02/09/25 History Furosemide [Lasix] 40 mg PO BID@0800,1400 02/09/25 02/09/25 History Allergies Allergy/AdvReac Type Severity Reaction Status Date / Time peas Allergy Anaphylaxis Verified 02/09/25 10:25 Physical Exam Vitals: Vital Signs Temp Pulse Pulse Resp BP BP Pulse Ox 02/09/25 13:49 98.1 F 65 16 122/72 96 02/09/25 13:19 98.1 F 60 20 130/58 96 02/09/25 10:38 66 16 134/61 98 02/09/25 09:47 64 20 148/62 97 02/09/25 09:22 95 02/09/25 09:20 88 L 02/09/25 08:53 98.8 F 65 17 136/81 93 L Intake and Output 02/09/25 02/09/25 02/09/25 06:59 14:59 22:59 Other: Weight 143.789 kg In general patient is alert and oriented x 3 in no distress HEENT head normocephalic and atraumatic Neck is supple no JVD no goiter no lymphadenopathy no carotid bruit Chest examination reveals scattered crackles bilaterally, with decreased respiratory sounds in bases Cardiac exam reveals regular heart sounds S1 and S2 no gallops no murmurs Abdomen is soft nontender no organomegaly with normal bowel sounds Extremity exam reveals no edema no cyanosis or clubbing Neurological examination reveals no gross focal deficits Results CBC & Chem 7: 02/09/25 09:22 02/09/25 09:22 Labs: Abnormal Lab Results - Last 24 Hours (Table) 02/09/25 02/09/25 02/09/25 Range/Units 09:22 09:22 09:22 RBC 3.78 L (4.40-5.60) 10*6/uL Hgb 10.9 L (13.0-17.0) g/dL Hct 33.6 L (39.6-50.0) % Immature Gran # 0.16 H (0.00-0.04) 10*3/uL Lymphocytes # 0.69 L (0.90-5.00) 10*3/uL D-Dimer 0.65 H (<0.60) mg/L FEU Carbon Dioxide 32 H (22-30) mmol/L BUN 7 L (9-20) mg/dL Creatinine 0.51 L (0.66-1.25) mg/dL Glucose 131 H (74-99) mg/dL Alkaline Phosphatase 317 H (38-126) U/L Thrombosis Risk Factor Assmnt - Choose All That Apply Any of the Below Risk Factors Present?: No Other Risk Factors: No Other congenital or acquired thrombophilia - If yes, enter type in comment: No Thrombosis Risk Factor Assessment Level: Very Low Risk Assessment and Plan Plan: Worsening shortness of breath related to acute hypoxic respiratory failure, related to bilateral pleural effusion Underlying history of pulmonary adenocarcinoma with metastatic disease to the bones and brain Underlying history of obstructive sleep apnea Underlying history of hypertension Underlying history of hyperlipidemia Underlying history of hypothyroidism Underlying history of diabetes mellitus type 2 Underlying history of peripheral neuropathy At this time patient was seen and examined Home medications reviewed and reordered Pulmonary consultation was requested for possible thoracentesis Will follow closely
--- NOTE | 2025-02-10 13:21 | P.PN ---
Subjective Progress Note Date: 02/10/25 Ganga Smart, is a 59-year-old male who presented to [facility] emergency room with a chief complaint of worsening shortness of breath, patient has a known history of metastatic pulmonary adenocarcinoma, he received chemotherapy and radiation therapy in the past. He was evaluated in the emergency room vital examination on presentation revealed a temperature of 98.8 pulse 65 respiration 17 blood pressure 136/81 pulse ox 93% on room air Laboratory data revealed a white blood count of 4.85 hemoglobin 10.9 platelet count 159 D-dimer 0.65 BUN 7 creatinine 0.51 COVID-19 PCR, influenza A and B PCR, and RSV PCR were all negative. Testing in the emergency room revealed chest x-ray done in the emergency room revealed bilateral pleural effusions right larger than left. CT angiogram of the chest revealed no evidence of pulmonary embolism, new T8 vertebral body fracture, with possible gas within the vertebral body. Patient was admitted to medical floor for further evaluation and treatment Past medical history is significant for history of adenocarcinoma of the lungs with metastatic disease, history of hypertension, history of hyperlipidemia, history of diabetes mellitus type 2, history of peripheral neuropathy, history of obstructive sleep apnea, history of hypothyroidism On 02/10/2025 patient was seen and examined on the medical floor he is alert and oriented x 3 in no apparent distress he underwent thoracentesis with Dr. Jacobs 1.3 L were removed and patient felt significant improvement in his respiratory status, he is complaining of occasional back pain, he had a T8 vertebral fracture, he has a brace at home that he has been wearing on and off since October, otherwise he denies any complaints there is no fever or chills no headache or dizziness no chest pain he has occasional cough no nausea or vomiting no abdominal pain no diarrhea no urinary symptoms. Objective - Vital Signs Vital signs: Vital Signs Temp 98.2 F 02/10/25 07:00 Pulse 64 02/10/25 07:00 Resp 18 02/10/25 07:00 BP 149/75 02/10/25 07:00 Pulse Ox 95 02/10/25 07:00 FiO2 Intake & Output 02/09/25 02/10/25 02/10/25 18:59 06:59 18:59 Intake Total 200 Balance 200 Weight 143.789 kg Intake: Oral 200 Other: Voiding Method Toilet Toilet # Voids 3 2 # Bowel Movements 1 - Exam In general patient is alert and oriented x 3 in no distress HEENT head normocephalic and atraumatic Neck is supple no JVD no goiter no lymphadenopathy no carotid bruit Chest examination reveals scattered crackles bilaterally, with decreased resp iratory sounds in bases Cardiac exam reveals regular heart sounds S1 and S2 no gallops no murmurs Abdomen is soft nontender no organomegaly with normal bowel sounds Extremity exam reveals no edema no cyanosis or clubbing Neurological examination reveals no gross focal deficits - Labs CBC & Chem 7: 02/09/25 09:22 02/09/25 09:22 Labs: Abnormal Lab Results - Last 24 Hours (Table) 02/09/25 02/10/25 02/10/25 Range/Units 21:01 06:49 11:12 POC Glucose (mg/dL) 177 H 138 H 148 H (70-110) mg/dL 02/10/25 Range/Units 12:04 POC Glucose (mg/dL) 136 H (70-110) mg/dL Assessment and Plan Plan: Worsening shortness of breath related to acute hypoxic respiratory failure, related to bilateral pleural effusion Underlying history of pulmonary adenocarcinoma with metastatic disease to the bones and brain Underlying history of obstructive sleep apnea Underlying history of hypertension Underlying history of hyperlipidemia Underlying history of hypothyroidism Underlying history of diabetes mellitus type 2 Underlying history of peripheral neuropathy At this time patient was seen and examined Home medications reviewed and reordered Pulmonary consultation was requested for possible thoracentesis Will follow closely
[2025-02-10 17:08] LABS: Glucose,Whole Blood 167 mg/dL (70-110)
--- NOTE | 2025-02-10 18:59 | P.CONS ---
History of Present Illness - Reason for Consult Consult date: 02/10/25 lung cancer Requesting physician: Gabrielle Moya - Chief Complaint SOB - History of Present Illness Patient is a 59 year old male with a significant history of metastatic lung adenocarcinoma, who follows with Dr. Cat. He initially presented with 3 cm RLL lung mass,he had a PET scan on 06/16/2022 which revealed suspicious uptake in in central right lung lesion,measured 2.1 x 2.2 cm,he initially had navigational bronchoscopy which was not diagnostic,he ws referred to DR Hernandez at [facility],he had repeat CT scan of chest on 07/07/2022 which revealed 3 cm lesion in superior segment of RLL and several other small nodules in right lung which are new compared to prior CT scan done at [facility] in 06/2016. On 07/24/2022,he underwent RLL resection and biopsies of mediastinal nodes,pathology revealed adenocarcinoma spreading through alveolar spaces and i nvading lymphovascular channels (BERENICE),multifocal,right level 8,level 7,4R nodes were positive. Brain MRI on 08/08/2022 was negative. Caris did not reveal any targetable mutation. On 08/18/2022,PET scan revealed uptake in right hilar region,there was uptake in left second rib,had an MRI which revealed subtle area in rib without enhancement. On 08/26/2022,he started carbo/alimta with radiation,completed 4 cycles of chemo on 10/29/2022. Due to disease progression, patient has been on multiple treatment regimens. He started gemzar on 05/10/2024, and completed cycle 8 on 10/12/2024. He was admitted to [facility] for about 2 weeks,with fever,extensive work up which was negative, and was discharged on 11/03/2024. On 11/30/2024, repeat PET showed almost stable osseous mets with overall stable disease. He has a compression fracture at T8, may consider kyphoplasty if not improving. It was decided since there was no significant progression, may hold off chemo until radiation completed. He has since completed palliative radiation to right hip and sacrum which helped his pain significantly. Brain MRI on 01/04/25 showed tiny 2mm focal enhancement in the left parietal/temporal lobe. This was thought to be nonspecific and too small to consider RT at this time. Plan was to repeat brain MRI, scheduled for 02/26. Repeat PET scheduled for 02/22 and f/u with Dr. Cat on 02/28 to discuss results and treatment plan. Patient had called clinic reporting not feeling well and complaining of shortness of breath. Patient was scheduled for lab encounter to check CBC to check for anemia. Hemoglobin noted at 10.4. Due to persisting shortness of breath, patient was referred to the ER for further evaluation. Upon admit chest x-ray showed bilateral pleural effusions, right larger than the left. CTA chest was negative for PE. T8 vertebral body fracture with possible gas within the vertebral body. Moderate to large right and small to moderate left pleural effusion. Diffuse osseous metastatic disease throughout the exam with scattered pulmonary nodules. Left adrenal 10 mm nodule which is stable compared to prior exam on 11/30/2024. Pulmonology was consulted and ultrasound of chest was ordered showing large bilateral pleural effusions. Patient underwent right- sided thoracentesis with 1.3 L removed, fluid analysis and cytology was ordered. At today's visit patient is reporting significant improvement in shortness of breath s/p thoracentesis. Labs reviewed, WBC 4.8, hemoglobin 10.9, platelets 159,000. Creatinine 0.51, GFR greater than 90. Troponin negative. BNP 257. Review of Systems 10 point ROS is negative except as stated in the HPI Past Medical History Past Medical History: Cancer, Diabetes Mellitus, GERD/Reflux, Hyperlipidemia, Hypertension, Sleep Apnea/CPAP/BIPAP, Thyroid Disorder Additional Past Medical History / Comment(s): C PAP MACHINE , RECTAL BLEEDING. neuropathy History of Any Multi-Drug Resistant Organisms: None Reported Past Surgical History: No Surgical Hx Reported Additional Past Surgical History / Comment(s): colonoscopy 2014, THYROIDECTOMY Past Anesthesia/Blood Transfusion Reactions: No Reported Reaction Past Psychological History: No Psychological Hx Reported Smoking Status: Never smoker - Past Family History Father Family Medical History: Cancer Medications and Allergies Home Medications Medication Instructions Recorded Confirmed Type Gabapentin 600 mg PO QID 01/04/15 02/09/25 History Omeprazole 40 mg PO DAILY PRN 01/04/15 02/09/25 History metFORMIN HCL [Glucophage] 1,000 mg PO BID 01/04/15 02/09/25 History Ascorbic Acid [Vitamin C] 1,000 mg PO DAILY 04/04/21 02/09/25 History Cyanocobalamin (Vitamin B-12) 1,000 mcg PO DAILY 04/04/21 02/09/25 History [Vitamin B-12] Empagliflozin [Jardiance] 25 mg PO DAILY 04/04/21 02/09/25 History Ergocalciferol [Vitamin D2 (1250 1,250 mcg PO Q30D 04/04/21 02/09/25 History Mcg = 47583 Iu)] Latanoprost/Pf [Latanoprost 0.005% 1 drop BOTH EYES HS 04/04/21 02/09/25 History Eye Drop] Levothyroxine Sodium [Synthroid] 200 mcg PO AC-BRKFST 04/04/21 02/09/25 History [place]-3 Fatty Acids/Fish Oil [Fish 1 cap PO DAILY 04/04/21 02/09/25 History Oil 1,000 mg Softgel] Rosuvastatin [Crestor] 20 mg PO DAILY 04/04/21 02/09/25 History Ubidecarenone [Co Q-10] 200 mg PO DAILY 04/04/21 02/09/25 History Zinc 50 mg PO DAILY 04/04/21 02/09/25 History carvediloL [Coreg] 25 mg PO BID 04/04/21 02/09/25 History Cholecalciferol [Vitamin D3 (25 25 mcg PO DAILY 10/19/24 02/09/25 History Mcg = 1000 Iu)] Cyclobenzaprine [Flexeril] 10 mg PO Q8H PRN 10/19/24 02/09/25 History EPINEPHrine (Auto Inject) [Epipen] 0.3 mg IM ONCE PRN 10/19/24 02/09/25 History Folic Acid 1 mg PO DAILY 10/19/24 02/09/25 History Levothyroxine Sodium [Synthroid] 50 mcg PO AC-BRKFST 10/19/24 02/09/25 History Magnesium Oxide [Magnesium] 500 mg PO DAILY 10/19/24 02/09/25 History Ondansetron Odt [Zofran ODT] 4 mg PO Q4H PRN 10/19/24 02/09/25 History oxyCODONE HCL [oxyCODONE HCL (IR)] 20 mg PO Q4H 10/19/24 02/09/25 History Apixaban [Eliquis] 5 mg PO BID #60 tab 11/03/24 02/09/25 Rx Amiodarone [Cordarone] 100 mg PO DAILY 02/09/25 02/09/25 History Furosemide [Lasix] 40 mg PO BID@0800,1400 02/09/25 02/09/25 History Allergies Allergy/AdvReac Type Severity Reaction Status Date / Time peas Allergy Anaphylaxis Verified 02/09/25 10:25 Physical Exam Vitals: Vital Signs Temp Pulse Pulse Resp BP BP Pulse Ox 02/10/25 07:00 98.2 F 64 18 149/75 95 02/10/25 00:59 97.4 F L 70 18 133/70 93 L 02/09/25 18:56 98.4 F 67 17 143/75 95 02/09/25 13:49 98.1 F 65 16 122/72 96 02/09/25 13:19 98.1 F 60 20 130/58 96 Intake and Output 02/09/25 02/10/25 02/10/25 22:59 06:59 14:59 Intake Total 200 Balance 200 Intake: Oral 200 Other: Voiding Method Toilet # Voids 3 2 # Bowel Movements 1 - Constitutional General appearance: no acute distress, obese - EENT Eyes: anicteric sclerae, EOMI ENT: hearing grossly normal - Respiratory breathing is even and unlabored - Cardiovascular well perfused - Integumentary Integumentary: no cyanotic, no jaundiced - Neurologic Neurologic: CNII-XII intact - Musculoskeletal Musculoskeletal: strength equal bilaterally - Psychiatric Psychiatric: A&O x's 3 Results CBC & Chem 7: 02/09/25 09:22 02/09/25 09:22 Labs: Abnormal Lab Results - Last 24 Hours (Table) 02/09/25 02/10/25 02/10/25 Range/Units 21:01 06:49 11:12 POC Glucose (mg/dL) 177 H 138 H 148 H (70-110) mg/dL 02/10/25 Range/Units 12:04 POC Glucose (mg/dL) 136 H (70-110) mg/dL Chest x-ray: report reviewed CT scan - chest: report reviewed Assessment and Plan (1) Bilateral pleural effusion Current Visit: Yes Status: Acute Priority: High Code(s): J90 - PLEURAL EFFUSION, NOT ELSEWHERE CLASSIFIED SNOMED Code(s): 481263120 (2) Lung cancer Current Visit: Yes Status: Chronic Priority: High Code(s): C34.90 - MALIGNANT NEOPLASM OF UNSP PART OF UNSP BRONCHUS OR LUNG SNOMED Code(s): 174991056 Plan: SOB, Bilateral pleural effusions: Patient had called clinic reporting not feeling well and complaining of shortness of breath. Patient was scheduled for lab encounter for CBC to check for anemia. Hemoglobin was 10.4 in clinic on 02/09. Due to complaints of persisting shortness of breath, patient was referred to the ER for further evaluation. -Upon admit chest x-ray showed bilateral pleural effusions, right larger than the left. CTA chest was negative for PE. T8 vertebral body fracture with possible gas within the vertebral body. Moderate to large right and small to moderate left pleural effusion. Diffuse osseous metastatic disease throughout the exam with scattered pulmonary nodules. Left adrenal 10 mm nodule which is stable compared to prior exam on 11/30/2024. -Pulmonology was consulted and ultrasound of chest was obtained showing large bilateral pleural effusions. -Underwent right-sided thoracentesis with 1.3 L removed, fluid analysis and cytology was ordered. No plan for left sided thoracentesiss -Reporting significant improvement in breathing s/p thoracentesis Metastatic lung adenocarcinoma -Oncology history as dictated in consult -Gemzar initiated 05/10/2024, last cycle, number 8, given on 10/12/24. -He was then admitted to [facility] for about 2 weeks,with fever,extensive work up which was negative, and was discharged on 11/03/2024. On 11/30/2024, repeat PET showing overall stable disease. He has a compression fracture at T8, may consider kyphoplasty if not improving. It was decided since there was no significant progression, may hold off chemo until radiation completed. He has since completed palliative radiation to right hip and sacrum which helped his pain significantly. -Brain MRI on 01/04/25 showed tiny 2mm focal enhancement in the left parietal/temporal lobe. This was thought to be nonspecific and too small to consider RT. Plan was to repeat brain MRI, scheduled for 02/26. Repeat PET scheduled for 02/22 and f/u with Dr. Cat on 02/28 to discuss results and treatment options
[2025-02-10 20:22] LABS: Glucose,Whole Blood 169 mg/dL (70-110)
[2025-02-11 07:12] LABS: Glucose,Whole Blood 136 mg/dL (70-110)
[2025-02-11 07:30] LABS: Appearance,BF Clear (Clear)
[2025-02-11 08:11] VITALS: BP 131/73; PULSE 66; RESP 20; TEMP 98.1
--- NOTE | 2025-02-11 08:22 | P.DS ---
Providers Date of admission: 02/09/25 11:40 Expected date of discharge: 02/11/25 Attending physician: Ok Francois Consults: 02/09/25 11:53 Consult Physician Urgent Consulting Provider: Vivi Montenegro Consult Reason/Comments: Bilateral pleural effusions, lung cancer patient Do you want consulting provider notified?: Yes Consult Physician Urgent Consulting Provider: Sen Gonzalez Consult Reason/Comments: Lung cancer patient Do you want consulting provider notified?: Yes Primary care physician: Jennyfer Garsia Hospital Course: Discharge diagnosis Worsening shortness of breath related to acute hypoxic respiratory failure, related to bilateral pleural effusion status postthoracentesis Underlying history of pulmonary adenocarcinoma with metastatic disease to the bones and brain Underlying history of obstructive sleep apnea Underlying history of hypertension Underlying history of hyperlipidemia Underlying history of hypothyroidism Underlying history of diabetes mellitus type 2 Underlying history of peripheral neuropathy Hospital course Ganga Smart, is a 59-year-old male who presented to [facility] emergency room with a chief complaint of worsening shortness of breath, patient has a known history of metastatic pulmonary adenocarcinoma, he received chemotherapy and radiation therapy in the past. He was evaluated in the emergency room vital examination on presentation revealed a temperature of 98.8 pulse 65 respiration 17 blood pressure 136/81 pulse ox 93% on room air Laboratory data revealed a white blood count of 4.85 hemoglobin 10.9 platelet count 159 D-dimer 0.65 BUN 7 creatinine 0.51 COVID-19 PCR, influenza A and B PCR, and RSV PCR were all negative. Testing in the emergency room revealed chest x-ray done in the emergency room revealed bilateral pleural effusions right larger than left. CT angiogram of the chest revealed no evidence of pulmonary embolism, new T8 vertebral body fracture, with possible gas within the vertebral body. Patient was admitted to medical floor for further evaluation and treatment Past medical history is significant for history of adenocarcinoma of the lungs with metastatic disease, history of hypertension, history of hyperlipidemia, history of diabetes mellitus type 2, history of peripheral neuropathy, history of obstructive sleep apnea, history of hypothyroidism On 02/10/2025 patient was seen and examined on the medical floor he is alert and oriented x 3 in no apparent distress he underwent thoracentesis with Dr. Jacobs 1.3 L were removed and patient felt significant improvement in his respiratory status, he is complaining of occasional back pain, he had a T8 vertebral fracture, he has a brace at home that he has been wearing on and off since October, otherwise he denies any complaints there is no fever or chills no headache or dizziness no chest pain he has occasional cough no nausea or vomiting no abdominal pain no diarrhea no urinary symptoms. On 02/11/2025 patient is alert and oriented x 3. Patient reports significant improvement in breathing since thoracentesis awaiting pulmonary clearance but patient should be able to be DC'd home. Patient has follow-up appointments for PET scan and follow-up with oncology services outpatient. Patient denies chest pain or shortness of breath. Patient denies nausea vomiting or diarrhea. Patient denies any urinary burning or frequency Patient Condition at Discharge: Stable Plan - Discharge Summary Discharge Rx Participant: Yes New Discharge Prescriptions: Continue metFORMIN HCL [Glucophage] 1,000 mg PO BID Omeprazole 40 mg PO DAILY PRN PRN Reason: Heartburn Gabapentin 600 mg PO QID carvediloL [Coreg] 25 mg PO BID Zinc 50 mg PO DAILY [place]-3 Fatty Acids/Fish Oil [Fish Oil 1,000 mg Softgel] 1 cap PO DAILY Folic Acid 1 mg PO DAILY Ondansetron Odt [Zofran ODT] 4 mg PO Q4H PRN PRN Reason: Nausea And Vomiting Cholecalciferol [Vitamin D3 (25 Mcg = 1000 Iu)] 25 mcg PO DAILY Levothyroxine Sodium [Synthroid] 50 mcg PO AC-BRKFST Apixaban [Eliquis] 5 mg PO BID #60 tab Furosemide [Lasix] 40 mg PO BID@0800,1400 Ergocalciferol [Vitamin D2 (1250 Mcg = 62317 Iu)] 1,250 mcg PO Q30D Levothyroxine Sodium [Synthroid] 200 mcg PO AC-BRKFST Empagliflozin [Jardiance] 25 mg PO DAILY Rosuvastatin [Crestor] 20 mg PO DAILY Ascorbic Acid [Vitamin C] 1,000 mg PO DAILY Ubidecarenone [Co Q-10] 200 mg PO DAILY Cyanocobalamin (Vitamin B-12) [Vitamin B-12] 1,000 mcg PO DAILY Latanoprost/Pf [Latanoprost 0.005% Eye Drop] 1 drop BOTH EYES HS oxyCODONE HCL [oxyCODONE HCL (IR)] 20 mg PO Q4H Magnesium Oxide [Magnesium] 500 mg PO DAILY EPINEPHrine (Auto Inject) [Epipen] 0.3 mg IM ONCE PRN PRN Reason: Anaphylaxis Cyclobenzaprine [Flexeril] 10 mg PO Q8H PRN PRN Reason: Muscle Spasm Amiodarone [Cordarone] 100 mg PO DAILY Discharge Medication List Gabapentin 600 mg PO QID 01/04/15 [History] Omeprazole 40 mg PO DAILY PRN 01/04/15 [History] metFORMIN HCL [Glucophage] 1,000 mg PO BID 01/04/15 [History] Ascorbic Acid [Vitamin C] 1,000 mg PO DAILY 04/04/21 [History] Cyanocobalamin (Vitamin B-12) [Vitamin B-12] 1,000 mcg PO DAILY 04/04/21 [History] Empagliflozin [Jardiance] 25 mg PO DAILY 04/04/21 [History] Ergocalciferol [Vitamin D2 (1250 Mcg = 58747 Iu)] 1,250 mcg PO Q30D 04/04/21 [History] Latanoprost/Pf [Latanoprost 0.005% Eye Drop] 1 drop BOTH EYES HS 04/04/21 [History] Levothyroxine Sodium [Synthroid] 200 mcg PO AC-BRKFST 04/04/21 [History] [place]-3 Fatty Acids/Fish Oil [Fish Oil 1,000 mg Softgel] 1 cap PO DAILY 04/04/21 [History] Rosuvastatin [Crestor] 20 mg PO DAILY 04/04/21 [History] Ubidecarenone [Co Q-10] 200 mg PO DAILY 04/04/21 [History] Zinc 50 mg PO DAILY 04/04/21 [History] carvediloL [Coreg] 25 mg PO BID 04/04/21 [History] Cholecalciferol [Vitamin D3 (25 Mcg = 1000 Iu)] 25 mcg PO DAILY 10/19/24 [History] Cyclobenzaprine [Flexeril] 10 mg PO Q8H PRN 10/19/24 [History] EPINEPHrine (Auto Inject) [Epipen] 0.3 mg IM ONCE PRN 10/19/24 [History] Folic Acid 1 mg PO DAILY 10/19/24 [History] Levothyroxine Sodium [Synthroid] 50 mcg PO AC-BRKFST 10/19/24 [History] Magnesium Oxide [Magnesium] 500 mg PO DAILY 10/19/24 [History] Ondansetron Odt [Zofran ODT] 4 mg PO Q4H PRN 10/19/24 [History] oxyCODONE HCL [oxyCODONE HCL (IR)] 20 mg PO Q4H 10/19/24 [History] Apixaban [Eliquis] 5 mg PO BID #60 tab 11/03/24 [Rx] Amiodarone [Cordarone] 100 mg PO DAILY 02/09/25 [History] Furosemide [Lasix] 40 mg PO BID@0800,1400 02/09/25 [History] Follow up Appointment(s)/Referral(s): Jennyfer Garsia MD [Primary Care Provider] - 1-2 days Activity/Diet/Wound Care/Special Instructions: follow up with oncology services Discharge Disposition: HOME SELF-CARE
[2025-02-11 08:49] LABS: Glucose, BF Source Thoracentesis Fluid; Glucose, Body Fluid 134 mg/dL; LDH, Body Fluid Source Thoracentesis Fluid; T. Protein, Body Fluid Source Thoracentesis Fluid; Total Protein, Body Fluid >3600 mg/dL
--- NOTE | 2025-02-11 11:14 | P.PN ---
Subjective Progress Note Date: 02/11/25 This is a pleasant 59-year-old male patient with a known history of apnea maintained on CPAP, morbid obesity, hypertension, hyperlipidemia, diabetes mellitus, type II, peripheral neuropathy, hypothyroidism and metastatic pulmonary adenocarcinoma. He had previously received chemo and radiation. He is currently off treatment. A recent MRI did show some brain metastasis but small 2 mm lesion. He presented here to the emergency room this morning with complaints of increasing shortness of breath and orthopnea. He feels like he is gasping for air when he lays down. No fever or chills. No cough or congestion. No hemoptysis. No lower extremity edema. He does have home oxygen that he was wearing mostly at night but now during the day with the shortness of breath. Chest x-ray shows bilateral pleural effusions right greater than left. CT angiogram ruled out pulmonary embolism. There is a new T8 vertebral body fracture. Moderate to large right and small to moderate left pleural effusions. Diffuse osseous metastatic disease with scattered pulmonary nodules. Left adrenal 10 mm nodule. White count 4.8. Hemoglobin 10.9. Platelets 159. Sodium 138. Potassium 3.6. Bicarb 32. BUN 7. Creatinine 0.51. Glucose 131. Troponin negative. proBNP 257. D-dimer 0.65. Viral screen negative. He is seen today in consultation on the regular medical floor. He is currently sitting up in a chair at the bedside. Maintaining O2 saturations in the 90s on 2 L/min per nasal cannula. He is afebrile. Hemodynamically stable. Ultrasound of the chest is pending. The patient is seen today February 10, 2025 in follow-up on the regular medical floor. He is currently resting in bed. Awake and alert in no acute distress. Did wear his home CPAP throughout the night. He is currently on 2 L/min per nasal cannula. Afebrile. Hemodynamically stable. Ultrasound of the chest revealed a right sided pleural effusion measuring 15.3 cm. Left pleural effusion at 8 cm. His Eliquis was placed on hold last evening and this morning. He did undergo a right sided thoracentesis with 1.3 L of cloudy yellow fluid removed. Fluid analysis, culture and cytology are pending. Chest diminished pleural effusions. No plans for left-sided thoracentesis. Eliquis will be resumed. Glucose 136. Continued on oral diuretics. The patient is seen today February 11, 2025 in follow-up on the regular medical fl oor. He is currently sitting up at the bedside. Awake and alert in no acute distress. Denies any worsening shortness of breath, cough or congestion. He is maintaining good O2 saturations in the 90s on room air. He has been afebrile. Hemodynamically stable. Pleural fluid analysis was exudate with a total protein of greater than 3.6, LDH 193. Cultures and cytology pending. Glucose 136. He is anticoagulated with Eliquis. Remains on oral diuretics. Objective - Vital Signs Vital signs: Vital Signs Temp 98.1 F 02/11/25 07:26 Pulse 66 02/11/25 07:26 Resp 20 02/11/25 07:26 BP 131/73 02/11/25 07:26 Pulse Ox 95 02/11/25 07:26 FiO2 Intake & Output 02/10/25 02/11/25 02/11/25 18:59 06:59 18:59 Other: Voiding Method Toilet Toilet Toilet # Voids 2 1 - Exam GENERAL EXAM: Alert, obese, pleasant 59-year-old male, on room air oxygen, in no apparent distress. HEAD: Normocephalic. EYES: Normal reaction of pupils, equal size. NOSE: Clear with pink turbinates. THROAT: No erythema or exudates. NECK: No masses, no JVD. CHEST: No chest wall deformity. LUNGS: Equal air entry with crackles in the bilateral bases, diminished. CVS: S1 and S2 normal with no audible murmur, regular rhythm. ABDOMEN: No hepatosplenomegaly, normal bowel sounds, no guarding or rigidity. SPINE: No scoliosis or deformity SKIN: No rashes CENTRAL NERVOUS SYSTEM: No focal deficits, tone is normal in all 4 extremities. EXTREMITIES: There is no peripheral edema. No clubbing, no cyanosis. Peripheral pulses are intact. - Labs CBC & Chem 7: 02/09/25 09:22 02/09/25 09:22 Labs: Abnormal Lab Results - Last 24 Hours (Table) 02/10/25 02/10/25 02/10/25 Range/Units 11:12 12:04 17:05 POC Glucose (mg/dL) 148 H 136 H 167 H (70-110) mg/dL 02/10/25 02/11/25 Range/Units 20:20 07:09 POC Glucose (mg/dL) 169 H 136 H (70-110) mg/dL Assessment and Plan Assessment: Acute on chronic hypoxic respiratory failure secondary to bilateral pleural effusions right greater than left Bilateral pleural effusions, status post right sided thoracentesis February 10, 2025 with 1.3 L removed. Fluid analysis exudate, cultures and cytology pending History of stage IV pulmonary adenocarcinoma with osseous metastasis and new small 2 mm brain lesion. Currently off chemotherapy Morbid obesity with a BMI of 40 kg/m Obstructive sleep apnea maintained on BiPAP Hypertension Hyperlipidemia Diabetes mellitus, type II Peripheral neuropathy Hypothyroidism History of hyponatremia secondary to SIADH Plan: The patient was seen and evaluated Labs and medications reviewed Status post right sided thoracentesis Fluid analysis shows exudate, cultures and cytology pending Resumed Eliquis Stable and on room air oxygen Cleared for discharge I have personally seen and examined the patient, performed the documentation and the assessment and plan as written. Number of minutes spent on the visit: 10 Dictation was produced using [employer] dictation software. Please excuse any grammatical, word or spelling errors.
[2025-03-04] MEDS ORDERED: ERGOCALCIFEROL 1,250 MCG (50,000 IU) CAPSULE PO SCH (09:00)
== END 2025-02-11 09:58 | disposition home or self-care (01) | DRG 180 ==
LOC: EC 08:38 → 5NMEDONC 11:40
PROVIDERS: ADMIT Internal Medicine; ATTEND Internal Medicine
PROC: 0W993ZZ Drainage of Right Pleural Cavity, Percutaneous Approach (ICD-10-PCS; principal; 2025-02-10)
DX: C34.31 Malignant neoplasm of lower lobe, right bronchus or lung (principal); J96.21 Acute and chronic respiratory failure with hypoxia; C79.31 Secondary malignant neoplasm of brain; C79.51 Secondary malignant neoplasm of bone; J91.0 Malignant pleural effusion; M48.54XA Collapsed vertebra, not elsewhere classified, thoracic region, initial encounter for fracture; E11.42 Type 2 diabetes mellitus with diabetic polyneuropathy; E66.01 Morbid (severe) obesity due to excess calories; I10 Essential (primary) hypertension; E89.0 Postprocedural hypothyroidism; Z68.41 Body mass index [BMI] 40.0-44.9, adult; G47.33 Obstructive sleep apnea (adult) (pediatric); E78.5 Hyperlipidemia, unspecified; Z79.84 Long term (current) use of oral hypoglycemic drugs; Z79.890 Hormone replacement therapy; Z91.018 Allergy to other foods; Z79.01 Long term (current) use of anticoagulants; Z79.899 Other long term (current) drug therapy; Z92.21 Personal history of antineoplastic chemotherapy; Z92.3 Personal history of irradiation
CPT/HCPCS: 36415; 71045; 71046; 71275; 76604; 80053; 82945; 83605; 83615; 83735; 83880; 84157; 84484; 85025; 85379; 85610; 85730; 87070; 87102; 87116; 87205; 87206; 87636; 88108; 88305; 88341; 88342; 89050; 93005; 96374; 99285

== ENCOUNTER → 2025-02-22 | Outpatient (CLI) | payer BC ==
--- NOTE | 2025-02-25 09:15 | PE ---
EXAMINATION TYPE: PET CT fusion skull to thigh DATE OF EXAM: 02/22/2025 CLINICAL INDICATION:Male, 59 years old with history of C34.31 Lung ca; TECHNIQUE: Following the intravenous administration of 11.05 mCi of F-18 FDG, whole body images are performed from the skull vertex to the midthigh. Images are reviewed on the computer in the coronal , axial, and sagittal planes. Reconstructed rotating images are created on independent workstation a nd reviewed on the computer. A non-contrast CT is performed in conjunction with the PET scan. Gluco se level 149 mg/dL CT DLP: 1000 419.97 mGycm, Automated exposure control for dose reduction was used. COMPARISON: CT 02/09/2025, 10/27/2024, 10/23/2024, 10/21/2024 03/14/2024, 11/30/2022, 08/12/2018, 2015, PET/CT 11/30/2024, 04/20/2024, MRI: 01/04/2025, 04/29/2024, 06/09/2023, FINDINGS: Mediastinal SUV mean is 1.9. Hepatic parenchyma SUV mean is 2.4. SKULL BASE AND NECK: No suspicious radiotracer activity. CHEST, MEDIASTINUM, AND HILAR REGION: Moderate to large right pleural effusion. Small to moderate size left pleural effusion. Near complete atelectasis of the right lower lobe partial atelectasis of the right middle lobe. There is focal FDG activity within the atelectatic right lower lobe with a maximum SUV of 8.5. Pulmonary vascular conge stion. Postsurgical changes with suture material identified within the region of the right lower lobe . Peripheral left upper lobe stable 8 mm pulmonary nodule. No suspicious FDG activity. May be below t he sensitivity of PET/CT. ABDOMEN AND PELVIS: Enlarged 2.1 cm left inguinal lymph node with FDG activity demonstrating a maximum SUV of 10.6. Previ ously 2.6. Focal region of FDG uptake within the posterior right prostate with a maximum SUV of 9.4. Previously 5.6. FDG physiologic activity throughout the bowel. MUSCULOSKELETAL STRUCTURES: Redemonstration of innumerable scattered sclerotic osseous lesions. These have increased from prior P ET/CT. These involve the bilateral clavicles, the entire spine, bilateral proximal humerus. Bilateral scapul a. Bilateral ribs, sacrum, sternum, bilateral proximal femurs, and bilateral pelvic bones. Examples include a right iliac bone lesion measures grossly 3.9 cm with a maximum SUV of 9.3, previou sly 8.1. Right proximal humerus 1.7 cm lesion with a maximum SUV of 5.1, previously 3.5. L1 vertebral body lesion with a maximum SUV of 7.5, previously 5.0. OTHER CT: Partial visualization of inferior left maxillary sinus mucous retention cyst. Right IJ Medi port catheter distal tip terminating in the mid SVC. Cardiomegaly. Small aortic valvular calcificatio ns. Mild coronary arterial calcifications. Right-sided gynecomastia. Small fat filled umbilical benito ia. Mild atherosclerotic calcification of the aorta and its branches. IMPRESSION: 1. Progression of disease with increasing diffuse FDG avid osseous metastasis. 2. Enlarged left inguinal lymph node which is FDG avid. This is concerning for possible metastasis. 3. Focal FDG activity within the right lower lobe atelectatic lung which could represent an infectio us/inflammatory process versus recurrence. 4. Focal region of FDG activity within the posterior right prostate gland. Raises concern for possib le prostate cancer. Correlate with PSA values. 5. Stable left upper lobe 8 mm pulmonary nodule without FDG activity. May be below the sensitivity o f PET/CT. 6. Moderate to large right and small to moderate size left pleural effusions. [facility], , 02/25/2025 9:12 AM
== END | disposition home or self-care (01) ==
LOC: RADPETMAIN 06:59
PROVIDERS: ATTEND Internal Medicine Pulmonary Disease
DX: C34.31 Malignant neoplasm of lower lobe, right bronchus or lung (principal); C79.51 Secondary malignant neoplasm of bone; R59.0 Localized enlarged lymph nodes; R91.1 Solitary pulmonary nodule; J90 Pleural effusion, not elsewhere classified
CPT/HCPCS: 78815; A9552

== ENCOUNTER → 2025-02-26 | Outpatient (CLI) | payer BC ==
--- NOTE | 2025-02-26 11:19 | MR ---
EXAMINATION TYPE: MR brain wo/w con DATE OF EXAM: 02/26/2025 10:26 AM COMPARISON: None. CLINICAL INDICATION: Male, 59 years old with history of C34.31 MALIGNANT NEOPLASM OF LOWER LOBE, RIGH T BRO, F/U cancer, Abnormal MRI TECHNIQUE: Multi planar multi sequence imaging of the brain. CONTRAST: Patient received 14 mL intravenous Gadobutrol gadolinium contrast. Pre and post contrast e nhanced images are obtained. FINDINGS: The ventricles, basal cisterns and sulci overlying the cerebral convexities are mildly enlarged. There is evidence of mild periventricular white matter ischemic demyelination. Remote deep white matter insults are also noted. No acute edema is seen on diffusion weighted imaging. There is no evidence for midline shift or mass effect. Acute intracranial hemorrhage or extra-axial collection is not evident. No enhancing lesions are seen. The paranasal sinuses and mastoid air cells are well-aerated. IMPRESSION: Age-related atrophic and chronic small vessel ischemic change. No acute intracranial process at this time. No enhancing lesions are seen. [facility], , 02/26/2025 11:17 AM
== END | disposition home or self-care (01) ==
LOC: RADMRIMAIN 08:30
PROVIDERS: ATTEND Radiology Radiation Oncology
DX: C34.31 Malignant neoplasm of lower lobe, right bronchus or lung (principal); C79.51 Secondary malignant neoplasm of bone; E11.9 Type 2 diabetes mellitus without complications; I10 Essential (primary) hypertension; G31.1 Senile degeneration of brain, not elsewhere classified; I67.82 Cerebral ischemia
CPT/HCPCS: 36415; 70553; J1642; A9585

== ENCOUNTER 2025-03-28 10:23 | Inpatient (IN) | payer BC ==
--- NOTE | 2025-03-28 10:36 | ED ---
General Adult HPI - General Chief complaint: Recheck/Abnormal Lab/Rx Stated complaint: abn labs Time Seen by Provider: 03/28/25 10:29 Source: patient, family, RN notes reviewed Mode of arrival: wheelchair Limitations: no limitations - History of Present Illness Initial comments: Patient is a 59-year-old male present to the emergency department with concern for anemia. Patient has metastatic lung cancer to the bone. Patient has been more fatigued for the past week. Routine blood work today showed hemoglobin of 6 and platelet count of 21. Patient normally does have his lung drained today at home as he does have a catheter device present. Patient states dyspnea is not that bad for him. Patient denies any bleeding or black tarry stools. - Related Data Home Medications Medication Instructions Recorded Confirmed Gabapentin 600 mg PO QID 01/04/15 03/28/25 Omeprazole 40 mg PO DAILY PRN 01/04/15 03/28/25 metFORMIN HCL [Glucophage] 1,000 mg PO BID 01/04/15 03/28/25 Ascorbic Acid [Vitamin C] 1,000 mg PO DAILY 04/04/21 03/28/25 Cyanocobalamin (Vitamin B-12) 1,000 mcg PO DAILY 04/04/21 03/28/25 [Vitamin B-12] Empagliflozin [Jardiance] 25 mg PO DAILY 04/04/21 03/28/25 Ergocalciferol [Vitamin D2 (1250 1,250 mcg PO Q30D 04/04/21 03/28/25 Mcg = 34664 Iu)] Latanoprost/Pf [Latanoprost 0.005% 1 drop BOTH EYES HS 04/04/21 03/28/25 Eye Drop] Levothyroxine Sodium [Synthroid] 200 mcg PO AC-BRKFST 04/04/21 03/28/25 Wever-3 Fatty Acids/Fish Oil [Fish 1 cap PO DAILY 04/04/21 03/28/25 Oil 1,000 mg Softgel] Rosuvastatin [Crestor] 20 mg PO DAILY 04/04/21 03/28/25 Ubidecarenone [Co Q-10] 200 mg PO DAILY 04/04/21 03/28/25 Zinc 50 mg PO DAILY 04/04/21 03/28/25 carvediloL [Coreg] 25 mg PO BID 04/04/21 03/28/25 Cholecalciferol [Vitamin D3 (25 25 mcg PO DAILY 10/19/24 03/28/25 Mcg = 1000 Iu)] Cyclobenzaprine [Flexeril] 10 mg PO Q8H PRN 10/19/24 03/28/25 EPINEPHrine (Auto Inject) [Epipen] 0.3 mg IM ONCE PRN 10/19/24 03/28/25 Folic Acid 1 mg PO DAILY 10/19/24 03/28/25 Levothyroxine Sodium [Synthroid] 50 mcg PO AC-BRKFST 10/19/24 03/28/25 Ondansetron Odt [Zofran ODT] 4 mg PO Q4H PRN 10/19/24 03/28/25 oxyCODONE HCL [oxyCODONE HCL (IR)] 20 mg PO Q4H 10/19/24 03/28/25 Amiodarone [Cordarone] 100 mg PO DAILY 02/09/25 03/28/25 Furosemide [Lasix] 40 mg PO BID@0900,1500 02/09/25 03/28/25 Magnesium Citrate 250mg 250 mg PO DAILY 03/28/25 03/28/25 Nystatin 100,000Unit/gm Cream 1 applic TOPICAL BID PRN 03/28/25 03/28/25 [Mycostatin Cream] fentaNYL 25MCG/HR PATCH [Duragesic 1 patch TRANSDERM Q72H 03/28/25 03/28/25 25MCG/HR] Previous Rx's Medication Instructions Recorded Apixaban [Eliquis] 5 mg PO BID #60 tab 11/03/24 Allergies Allergy/AdvReac Type Severity Reaction Status Date / Time peas Allergy Anaphylaxis Verified 03/28/25 11:55 Review of Systems ROS Statement: Those systems with pertinent positive or pertinent negative responses have been documented in the HPI. ROS Other: All systems not noted in ROS Statement are negative. Constitutional: Denies: fever Eyes: Denies: eye pain ENT: Denies: ear pain Respiratory: Reports: as per HPI. Denies: cough Cardiovascular: Denies: chest pain Endocrine: Reports: fatigue Gastrointestinal: Denies: abdominal pain, hematemesis, melena, hematochezia Past Medical History Past Medical History: Cancer, Diabetes Mellitus, GERD/Reflux, Hyperlipidemia, Hypertension, Sleep Apnea/CPAP/BIPAP, Thyroid Disorder Additional Past Medical History / Comment(s): C PAP MACHINE , RECTAL BLEEDING. neuropathy History of Any Multi-Drug Resistant Organisms: None Reported Past Surgical History: No Surgical Hx Reported Additional Past Surgical History / Comment(s): colonoscopy 2015, THYROIDECTOMY Past Anesthesia/Blood Transfusion Reactions: No Reported Reaction Past Psychological History: No Psychological Hx Reported Smoking Status: Never smoker Past Alcohol Use History: None Reported Past Drug Use History: None Reported - Past Family History Father Family Medical History: Cancer General Exam Limitations: no limitations General appearance: alert, in no apparent distress Head exam: Present: normocephalic Eye exam: Present: other (Pale conjunctiva) Neck exam: Present: normal inspection Respiratory exam: Present: normal lung sounds bilaterally Cardiovascular Exam: Present: regular rate, normal rhythm GI/Abdominal exam: Present: soft. Absent: tenderness Extremities exam: Present: normal inspection Neurological exam: Present: alert Psychiatric exam: Present: normal affect, normal mood Skin exam: Present: pallor Course Vital Signs 03/28/25 03/28/25 10:24 12:00 Temperature 98.9 F Pulse Rate 87 81 Respiratory 18 20 Rate Blood Pressure 125/71 123/55 O2 Sat by Pulse 98 100 Oximetry Medical Decision Making - Medical Decision Making Was pt. sent in by a medical professional or institution (, PA, INTERNAL COMMUNICATIONS MANAGER, urgent care, hospital, or fpc...) When possible be specific @ -Patient sent by oncology Did you speak to anyone other than the patient for history (EMS, parent, family, police, friend...)? What history was obtained from this source @ - is present helps provide history including blood level of 6.03 Did you review nursing and triage notes (agree or disagree)? Why? @ -I reviewed and agree with nursing and triage notes Were old charts reviewed (outside hosp., previous admission, EMS record, old EKG, old radiological studies, urgent care reports/EKG's, fpc records)? Report findings @ -No old charts were reviewed Differential Diagnosis (chest pain, altered mental status, abdominal pain women, abdominal pain men, vaginal bleeding, weakness, fever, dyspnea, syncope, headache, dizziness, GI bleed, back pain, seizure, CVA, palpatations, mental health, musculoskeletal)? @ -Differential Weakness: Hypoglycemia, shock, sepsis, hyponatremia, anemia, infection, ND, ETOH, adverse medicine reaction, overdose, stroke, this is not meant to be an all-inclusive list. EKG interpreted by me (3pts min.). @ -As above X-rays interpreted by me (1pt min.). @ -Chest x-ray shows small left effusion CT interpreted by me (1pt min.). @ -None done U/S interpreted by me (1pt. min.). @ -None done What testing was considered but not performed or refused? (CT, X-rays, U/S, labs)? Why? @ -None What meds were considered but not given or refused? Why? @ -None Did you discuss the management of the patient with other professionals (professionals i.e. , PA, INTERNAL COMMUNICATIONS MANAGER, lab, RT, psych nurse, social work administrator, lawyer probate, teacher, ambulance officer, classification case manager)? Give summary @ -Case discussed with Ivan with oncology who recommends transfusion 2 units irradiated blood. Case also discussed with Dr. Francois who will admit covering Dr. Roach Was smoking cessation discussed for >3mins.? @ -No Was critical care preformed (if so, how long)? @ -No Were there social determinants of health that impacted care today? How? (Homelessness, low income, unemployed, alcoholism, drug addiction, transportation, low edu. Level, literacy, decrease access to med. care, correction, rehab)? @ -No Was there de-escalation of care discussed even if they declined (Discuss DNR or withdrawal of care, Hospice)? DNR status @ -No What co-morbidities impacted this encounter? (DM, HTN, Smoking, COPD, CAD, Cancer, CVA, ARF, Chemo, Hep., AIDS, mental health diagnosis, sleep apnea, morbid obesity)? @ -History of metastatic lung cancer on treatment Was patient admitted / discharged? Hospital course, mention meds given and route, prescriptions, significant lab abnormalities, going to OR and other pertinent info. @ -Patient presents with anemia and fatigue. Hemoglobin 6.3. Patient to be admitted with irradiated blood. Admission orders written. Patient and family updated on results and plan. Undiagnosed new problem with uncertain prognosis? @ -No Drug Therapy requiring intensive monitoring for toxicity (Heparin, Nitro, Insulin, Cardizem)? @ -No Were any procedures done? @ -No Diagnosis/symptom? @ -Anemia Acute, or Chronic, or Acute on Chronic? @ -Acute Uncomplicated (without systemic symptoms) or Complicated (systemic symptoms)? @ -Complicated with associated thrombocytopenia Side effects of treatment? @ -No Exacerbation, Progression, or Severe Exacerbation? @ -No Poses a threat to life or bodily function? How? (Chest pain, USA, ND, pneumonia, PE, COPD, DKA, ARF, appy, cholecystitis, CVA, Diverticulitis, Homicidal, Suicidal, threat to staff... and all critical care pts) @ -Threat to hematological function - Lab Data Result diagrams: 03/28/25 11:00 03/28/25 11:00 Lab Results 03/28/25 03/28/25 03/28/25 Range/Units 10:50 11:00 11:00 WBC 15.54 H (4.50-10.00) 10*3/uL RBC 2.18 L (4.40-5.60) 10*6/uL Hgb 6.3 L* D (13.0-17.0) g/dL Hct 19.3 L* (39.6-50.0) % MCV 88.5 (80.0-97.0) fL MCH 28.9 (27.0-32.0) pg MCHC 32.6 (32.0-37.0) g/dL Plt Count 32 L D (140-440) 10*3/uL MPV 10.7 (9.5-12.2) fL Immature Gran % (Auto) 12.0 % Neutrophils % (Manual) 82 % Lymphocytes % (Manual) 7 % Monocytes % (Manual) 6 % Eosinophils % (Manual) 1 % Metamyelocytes % 4 % Myelocytes % 2 % Immature Gran # 1.87 H (0.00-0.04) 10*3/uL Neutrophils # (Manual) 12.74 H (1.3-7.7) k/uL Lymphocytes # (Manual) 1.09 (1.0-4.8) k/uL Monocytes # (Manual) 0.93 (0-1.0) k/uL Eosinophils # (Manual) 0.16 (0-0.7) k/uL Metamyelocytes # (Man) 0.62 H (0) k/uL Myelocytes # (Manual) 0.31 H (0) k/uL Nucleated RBCs 2 H (0-0) /100 WBC Manual Slide Review Performed Poikilocytosis (manual Present Anisocytosis (manual) Present PT 11.7 (10.0-12.5) sec INR 1.1 (<1.2) APTT 33.6 H (22.0-30.0) sec Sodium (137-145) mmol/L Potassium (3.5-5.1) mmol/L Chloride (98-107) mmol/L Carbon Dioxide (22-30) mmol/L Anion Gap mmol/L BUN (9-20) mg/dL Creatinine (0.66-1.25) mg/dL Est GFR (CKD-EPI)AfAm (>60 ml/min/1.73 sqM) Est GFR (CKD-EPI)NonAf (>60 ml/min/1.73 sqM) Glucose (74-99) mg/dL Calcium (8.4-10.2) mg/dL Magnesium (1.6-2.3) mg/dL Total Bilirubin (0.2-1.3) mg/dL AST (17-59) U/L ALT (4-49) U/L Alkaline Phosphatase (38-126) U/L Total Protein (6.3-8.2) g/dL Albumin (3.5-5.0) g/dL Blood Type O Positive Blood Type Recheck O Pos Bld Type Recheck Status No Spec Expiration Date 03/31/2025 - 234903/28/25 Range/Units 11:00 WBC (4.50-10.00) 10*3/uL RBC (4.40-5.60) 10*6/uL Hgb (13.0-17.0) g/dL Hct (39.6-50.0) % MCV (80.0-97.0) fL MCH (27.0-32.0) pg MCHC (32.0-37.0) g/dL Plt Count (140-440) 10*3/uL MPV (9.5-12.2) fL Immature Gran % (Auto) % Neutrophils % (Manual) % Lymphocytes % (Manual) % Monocytes % (Manual) % Eosinophils % (Manual) % Metamyelocytes % % Myelocytes % % Immature Gran # (0.00-0.04) 10*3/uL Neutrophils # (Manual) (1.3-7.7) k/uL Lymphocytes # (Manual) (1.0-4.8) k/uL Monocytes # (Manual) (0-1.0) k/uL Eosinophils # (Manual) (0-0.7) k/uL Metamyelocytes # (Man) (0) k/uL Myelocytes # (Manual) (0) k/uL Nucleated RBCs (0-0) /100 WBC Manual Slide Review Poikilocytosis (manual Anisocytosis (manual) PT (10.0-12.5) sec INR (<1.2) APTT (22.0-30.0) sec Sodium 136 L (137-145) mmol/L Potassium 4.3 (3.5-5.1) mmol/L Chloride 98 (98-107) mmol/L Carbon Dioxide 28 (22-30) mmol/L Anion Gap 10 mmol/L BUN 14 (9-20) mg/dL Creatinine 0.55 L (0.66-1.25) mg/dL Est GFR (CKD-EPI)AfAm >90 (>60 ml/min/1.73 sqM) Est GFR (CKD-EPI)NonAf >90 (>60 ml/min/1.73 sqM) Glucose 138 H (74-99) mg/dL Calcium 8.9 (8.4-10.2) mg/dL Magnesium 1.9 (1.6-2.3) mg/dL Total Bilirubin 0.6 (0.2-1.3) mg/dL AST 24 (17-59) U/L ALT 17 (4-49) U/L Alkaline Phosphatase 343 H (38-126) U/L Total Protein 6.9 (6.3-8.2) g/dL Albumin 3.9 (3.5-5.0) g/dL Blood Type Blood Type Recheck Bld Type Recheck Status Spec Expiration Date Disposition Clinical Impression: Anemia Disposition: ADMITTED IP TO THIS [facility] Is patient prescribed a controlled substance at d/c from ED?: No Referrals: Jennyfer Garsia MD [Primary Care Provider] - 1-2 days Time of Disposition: 12:27
[2025-03-28 11:18] LABS: MCH 28.9 pg (27.0-32.0); MCHC 32.6 g/dL (32.0-37.0); MCV 88.5 fL (80.0-97.0); Mean Platelet Volume 10.7 fL (9.5-12.2); RBC 2.18 10*6/uL (4.40-5.60); RDW 20.1 % (11.5-14.5); WBC 15.54 10*3/uL (4.50-10.00)
[2025-03-28 11:23] LABS: ALT 17 U/L (4-49); AST 24 U/L (17-59); African American GFR (CKD) >90 (>60 ml/min/1.73 sqM); Albumin 3.9 g/dL (3.5-5.0); Alkaline Phosphatase 343 U/L (38-126); Anion Gap 10 mmol/L; Blood Urea Nitrogen 14 mg/dL (9-20); Calcium 8.9 mg/dL (8.4-10.2); Carbon Dioxide 28 mmol/L (22-30); Chloride 98 mmol/L (98-107); Glucose 138 mg/dL (74-99); Magnesium 1.9 mg/dL (1.6-2.3); Non-African American GFR(CKD) >90 (>60 ml/min/1.73 sqM); Potassium 4.3 mmol/L (3.5-5.1); Sodium 136 mmol/L (137-145); Total Bilirubin 0.6 mg/dL (0.2-1.3); Total Protein 6.9 g/dL (6.3-8.2)
[2025-03-28 11:26] LABS: INR 1.1 (<1.2); Partial Thromboplastin Time 33.6 sec (22.0-30.0); Prothrombin Time 11.7 sec (10.0-12.5)
--- NOTE | 2025-03-28 11:31 | XR ---
EXAMINATION TYPE: XR chest 2V DATE OF EXAM: 03/28/2025 11:09 AM COMPARISON: 02/10/2025 CLINICAL INDICATION: Male, 59 years old with history of Weakness: Shortness of breath TECHNIQUE: XR chest 2V views of the chest are obtained. FINDINGS: Scattered senescent parenchymal changes noted. Hyperinflation compatible with COPD. Pulmonary venous congestion with small effusions and borderline cardiomegaly suggests volume overload . Correlate clinically. Mediastinal structures are stable and grossly unremarkable. No evidence for hilar prominence. Degenerative changes dorsal spine. Bony metastases identified. IMPRESSION: 1. Pulmonary venous congestion with small effusions and borderline cardiomegaly suggests volume overl oad. Correlate clinically. [facility], , 03/28/2025 11:29 AM
[2025-03-28 11:33] LABS: HGB 6.3 g/dL (13.0-17.0)
[2025-03-28 11:34] LABS: HCT 19.3 % (39.6-50.0)
[2025-03-28 11:56] LABS: Eosinophils # (M) 0.16 k/uL (0-0.7); Lymphocytes # (M) 1.09 k/uL (1.0-4.8); Metamyelocytes # (M) 0.62 k/uL (0); Metamyelocytes % 4 %; Monocytes # (M) 0.93 k/uL (0-1.0); Myelocytes # (M) 0.31 k/uL (0); Myelocytes % 2 %; Neutrophils # (M) 12.74 k/uL (1.3-7.7); Neutrophils % (M) 82 %; Nucleated Red Blood Cells 2 /100 WBC (0-0); Total Cells Counted 200
[2025-03-28 11:57] LABS: Anisocytosis (M) Present; Poikilocytosis (M) Present
[2025-03-28 11:58] LABS: Platelet Count 32 10*3/uL (140-440)
[2025-03-28] MEDS ORDERED: NALOXONE 0.4 MG/ML 1 ML VIAL IV PRN (12:28)
[2025-03-28] MEDS ORDERED: ACETAMINOPHEN TAB 325 MG TAB PO PRN (12:28)
[2025-03-28] MEDS ORDERED: CYCLOBENZAPRINE 10 MG TAB PO PRN (12:30)
[2025-03-28] MEDS ORDERED: ONDANSETRON ODT 4 MG TAB PO PRN (12:30)
[2025-03-28] MEDS ORDERED: PANTOPRAZOLE 40 MG TABLET PO PRN (12:30)
[2025-03-28] MEDS: GABAPENTIN 300 MG CAP PO SCH (14:12)
[2025-03-28] MEDS: FUROSEMIDE 40 MG TAB PO SCH (14:34)
[2025-03-28] MEDS: metFORMIN 500 MG TAB PO SCH (17:21)
[2025-03-28] MEDS: carvediloL 12.5 MG TAB PO SCH (17:22)
[2025-03-28 18:30] LABS: Basophils # (A) 0.02 10*3/uL (0.00-0.10); Basophils % (A) 0.1 %; Eosinophils # (A) 0.02 10*3/uL (0.04-0.35); Eosinophils % (A) 0.1 %; HCT 21.3 % (39.6-50.0); HGB 7.2 g/dL (13.0-17.0); Lymphocytes # (A) 0.83 10*3/uL (0.90-5.00); MCH 29.4 pg (27.0-32.0); MCHC 33.8 g/dL (32.0-37.0); MCV 86.9 fL (80.0-97.0); Mean Platelet Volume 10.7 fL (9.5-12.2); Monocytes # (A) 1.01 10*3/uL (0.20-1.00); Monocytes % (A) 7.4 %; Neutrophils # (A) 10.02 10*3/uL (1.80-7.70); Neutrophils % (A) 73.1 %; RBC 2.45 10*6/uL (4.40-5.60); RDW 19.2 % (11.5-14.5); WBC 13.73 10*3/uL (4.50-10.00)
[2025-03-28 19:29] LABS: Platelet Count 30 10*3/uL (140-440)
[2025-03-28] MEDS: LATANOPROST 0.005% OPHTH DROPS 2.5 ML BTL BOTH EYES SCH (23:01)
[2025-03-29] MEDS: FOLIC ACID 1 MG TAB PO SCH (08:13)
[2025-03-29] MEDS: MAGNESIUM OXIDE 400 MG TAB PO SCH (08:13)
[2025-03-29] MEDS: CHOLECALCIFEROL 25 MCG (1000 IU) TABLET PO SCH (08:13)
[2025-03-29] MEDS: LEVOTHYROXINE 100 MCG TAB PO SCH (08:13)
[2025-03-29] MEDS: ATORVASTATIN 40 MG TAB PO SCH (08:14)
[2025-03-29] MEDS: ASCORBIC ACID 500 MG TAB PO SCH (08:14)
[2025-03-29] MEDS: ZINC SULFATE 220 MG CAP PO SCH (08:14)
[2025-03-29] MEDS: LEVOTHYROXINE 50 MCG TAB PO SCH (08:14)
[2025-03-29] MEDS: CYANOCOBALAMIN 500 MCG TAB PO SCH (08:14)
[2025-03-29 08:43] LABS: ALT 14 U/L (10-49); AST 21 U/L (14-35); Albumin 3.6 g/dL (3.8-4.9); Albumin/Globulin Ratio 1.57 Ratio (1.60-3.17); Alkaline Phosphatase 328 U/L (41-126); BUN/Creat Ratio 19.86 Ratio (12.00-20.00); Blood Urea Nitrogen 13.9 mg/dL (9.0-27.0); Calcium 8.5 mg/dL (8.7-10.3); Carbon Dioxide 27.4 mmol/L (21.6-31.8); Chloride 98 mmol/L (96-109); Globulin 2.3 g/dL (1.6-3.3); Glucose 121 mg/dL (70-110); Potassium 4.1 mmol/L (3.5-5.5); Sodium 136 mmol/L (135-145); Total Bilirubin 0.4 mg/dL (0.3-1.2); Total Protein 5.9 g/dL (6.2-8.2)
[2025-03-29] MEDS ORDERED: NON FORMULARY DRUG (Omega-3 Fatty Acids/Fish Oil [Fish Oil 1,000 Mg Softgel] 1 EACH Capsul PO SCH (09:00)
[2025-03-29] MEDS ORDERED: NON FORMULARY DRUG (Ubidecarenone [Co Q-10] 100 MG Capsule) PO SCH (09:00)
[2025-03-29 09:31] LABS: Basophils # (M) 0 X 10*3/uL (0.00-0.10); Eosinophils # (M) 0 X 10*3/uL (0.04-0.35); HCT 20.2 % (39.6-50.0); HGB 6.4 g/dL (13.0-17.0); Immature Platelet Fraction 6.4 % (1.1-6.1); Lymphocytes # (M) 0.58 X 10*3/uL (0.90-5.00); MCH 28.4 pg (27.0-32.0); MCHC 31.7 g/dL (32.0-37.0); MCV 89.8 FL (80.0-97.0); Mean Platelet Volume 12.1 FL (9.5-12.2); Monocytes # (M) 0.43 X 10*3/uL (0.20-1.00); Myelocytes % 2 % (0-0); NRBC Per 100 WBC 0.22 X 10*3/uL (0.00-0.01); Neutrophils # (M) 13.11 X 10*3/uL (1.80-7.70); Neutrophils % (M) 91 %; Platelet Count 26 X 10*3/uL (140-440); RBC 2.25 X 10*6/uL (4.40-5.60); RDW 20.8 % (11.5-14.5); Toxic Granulation 2+ (None Seen); WBC 14.41 X 10*3/uL (4.50-10.00)
[2025-03-29] MEDS: DAPAGLIFLOZIN PROPANEDIOL 10 MG TABLET PO SCH (09:42)
[2025-03-29] MEDS: AMIODARONE 100 MG TAB PO SCH (09:57)
--- NOTE | 2025-03-29 13:41 | P.HPIM ---
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 He was evaluated in the emergency room vital examination on presentation revealed a temperature of 98.9 pulse 87 respiration 18 blood pressure 125/71 pulse ox 98% on 3 L nasal cannula Laboratory data revealed a white blood count of 15.54 hemoglobin 6.3 platelet count 32 BUN 14 creatinine 0.55 Testing in the emergency room revealed chest x-ray revealed pulmonary venous congestion with small effusions and borderline cardiomegaly, Patient was admitted to medical floor for further evaluation and treatment Past Medical History Past Medical History: Cancer, Diabetes Mellitus, GERD/Reflux, Hyperlipidemia, Hypertension, Sleep Apnea/CPAP/BIPAP, Thyroid Disorder Additional Past Medical History / Comment(s): C PAP MACHINE , RECTAL BLEEDING. n europathy History of Any Multi-Drug Resistant Organisms: None Reported Past Surgical History: No Surgical Hx Reported Additional Past Surgical History / Comment(s): colonoscopy 2014, THYROIDECTOMY Past Anesthesia/Blood Transfusion Reactions: No Reported Reaction Past Psychological History: No Psychological Hx Reported Smoking Status: Never smoker Past Alcohol Use History: None Reported Past Drug Use History: None Reported - Past Family History Father Family Medical History: Cancer Medications and Allergies Home Medications Medication Instructions Recorded Confirmed Type Gabapentin 600 mg PO QID 01/04/15 03/28/25 History Omeprazole 40 mg PO DAILY PRN 01/04/15 03/28/25 History metFORMIN HCL [Glucophage] 1,000 mg PO BID 01/04/15 03/28/25 History Ascorbic Acid [Vitamin C] 1,000 mg PO DAILY 04/04/21 03/28/25 History Cyanocobalamin (Vitamin B-12) 1,000 mcg PO DAILY 04/04/21 03/28/25 History [Vitamin B-12] Empagliflozin [Jardiance] 25 mg PO DAILY 04/04/21 03/28/25 History Ergocalciferol [Vitamin D2 (1250 1,250 mcg PO Q30D 04/04/21 03/28/25 History Mcg = 29924 Iu)] Latanoprost/Pf [Latanoprost 0.005% 1 drop BOTH EYES HS 04/04/21 03/28/25 History Eye Drop] Levothyroxine Sodium [Synthroid] 200 mcg PO AC-BRKFST 04/04/21 03/28/25 History [place]-3 Fatty Acids/Fish Oil [Fish 1 cap PO DAILY 04/04/21 03/28/25 History Oil 1,000 mg Softgel] Rosuvastatin [Crestor] 20 mg PO DAILY 04/04/21 03/28/25 History Ubidecarenone [Co Q-10] 200 mg PO DAILY 04/04/21 03/28/25 History Zinc 50 mg PO DAILY 04/04/21 03/28/25 History carvediloL [Coreg] 25 mg PO BID 04/04/21 03/28/25 History Cholecalciferol [Vitamin D3 (25 25 mcg PO DAILY 10/19/24 03/28/25 History Mcg = 1000 Iu)] Cyclobenzaprine [Flexeril] 10 mg PO Q8H PRN 10/19/24 03/28/25 History EPINEPHrine (Auto Inject) [Epipen] 0.3 mg IM ONCE PRN 10/19/24 03/28/25 History Folic Acid 1 mg PO DAILY 10/19/24 03/28/25 History Levothyroxine Sodium [Synthroid] 50 mcg PO AC-BRKFST 10/19/24 03/28/25 History Ondansetron Odt [Zofran ODT] 4 mg PO Q4H PRN 10/19/24 03/28/25 History oxyCODONE HCL [oxyCODONE HCL (IR)] 20 mg PO Q4H 10/19/24 03/28/25 History Apixaban [Eliquis] 5 mg PO BID #60 tab 11/03/24 03/28/25 Rx Amiodarone [Cordarone] 100 mg PO DAILY 02/09/25 03/28/25 History Furosemide [Lasix] 40 mg PO BID@0900,1500 02/09/25 03/28/25 History Magnesium Citrate 250mg 250 mg PO DAILY 03/28/25 03/28/25 History Nystatin 100,000Unit/gm Cream 1 applic TOPICAL BID PRN 03/28/25 03/28/25 History [Mycostatin Cream] fentaNYL 25MCG/HR PATCH [Duragesic 1 patch TRANSDERM Q72H 03/28/25 03/28/25 History 25MCG/HR] Allergies Allergy/AdvReac Type Severity Reaction Status Date / Time peas Allergy Anaphylaxis Verified 03/28/25 11:55 Physical Exam Vitals: Vital Signs Temp Pulse Resp BP Pulse Ox 03/28/25 16:00 99.2 F 75 16 128/69 99 03/28/25 15:00 98.9 F 77 18 126/59 99 03/28/25 14:30 98.9 F 78 18 131/64 100 03/28/25 14:00 98.6 F 73 18 126/60 100 03/28/25 13:50 99.2 F 73 16 120/63 98 03/28/25 13:40 99.2 F 75 18 124/63 97 03/28/25 13:21 99.2 F 80 18 120/56 100 03/28/25 13:07 99.3 F 87 18 128/71 100 03/28/25 12:00 81 20 123/55 100 03/28/25 10:24 98.9 F 87 18 125/71 98 Intake and Output 03/28/25 03/28/25 03/28/25 06:59 14:59 22:59 Intake Total 0 310 Balance 0 310 Intake: Blood Product 0 310 Rc Irr As1 Unit 0 310 [id number] Other: Weight 141.521 kg In general patient is alert and oriented x 3 in no distress HEENT head normocephalic and atraumatic Neck is supple no JVD no goiter no lymphadenopathy no carotid bruit Chest examination is clear to auscultation no crackles no wheezing Cardiac exam reveals regular heart sounds S1 and S2 no gallops no murmurs Abdomen is soft nontender no organomegaly with normal bowel sounds Extremity exam reveals no edema no cyanosis or clubbing Neurological examination reveals no gross focal deficits Results CBC & Chem 7: 03/28/25 11:00 03/28/25 11:00 Labs: Abnormal Lab Results - Last 24 Hours (Table) 03/28/25 03/28/25 03/28/25 Range/Units 10:50 11:00 11:00 WBC 15.54 H (4.50-10.00) 10*3/uL RBC 2.18 L (4.40-5.60) 10*6/uL Hgb 6.3 L* D (13.0-17.0) g/dL Hct 19.3 L* (39.6-50.0) % Plt Count 32 L D (140-440) 10*3/uL Immature Gran # 1.87 H (0.00-0.04) 10*3/uL Neutrophils # (Manual) 12.74 H (1.3-7.7) k/uL Metamyelocytes # (Man) 0.62 H (0) k/uL Myelocytes # (Manual) 0.31 H (0) k/uL Nucleated RBCs 2 H (0-0) /100 WBC APTT 33.6 H (22.0-30.0) sec Sodium (137-145) mmol/L Creatinine (0.66-1.25) mg/dL Glucose (74-99) mg/dL Alkaline Phosphatase (38-126) U/L Crossmatch See Detail 03/28/25 Range/Units 11:00 WBC (4.50-10.00) 10*3/uL RBC (4.40-5.60) 10*6/uL Hgb (13.0-17.0) g/dL Hct (39.6-50.0) % Plt Count (140-440) 10*3/uL Immature Gran # (0.00-0.04) 10*3/uL Neutrophils # (Manual) (1.3-7.7) k/uL Metamyelocytes # (Man) (0) k/uL Myelocytes # (Manual) (0) k/uL Nucleated RBCs (0-0) /100 WBC APTT (22.0-30.0) sec Sodium 136 L (137-145) mmol/L Creatinine 0.55 L (0.66-1.25) mg/dL Glucose 138 H (74-99) mg/dL Alkaline Phosphatase 343 H (38-126) U/L Crossmatch Assessment and Plan Plan: Anemia hemoglobin 6.0 as outpatient patient was sent to emergency room by farnaz pollock for further treatment Red blood cell transfusion was ordered in the emergency room Underlying history of 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
--- NOTE | 2025-03-29 13:43 | P.PN ---
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 He was evaluated in the emergency room vital examination on presentation revealed a temperature of 98.9 pulse 87 respiration 18 blood pressure 125/71 pulse ox 98% on 3 L nasal cannula Laboratory data revealed a white blood count of 15.54 hemoglobin 6.3 platelet count 32 BUN 14 creatinine 0.55 Testing in the emergency room revealed chest x-ray revealed pulmonary venous congestion with small effusions and borderline cardiomegaly, Patient was admitted to medical floor for further evaluation and treatment On 03/29/2025 patient is alert and oriented x 3. Hemoglobin today 6.4. 1 more unit of PRBCs has been ordered. Will recheck blood blood work in a.m. Oncology services are following. Patient's home dose of fentanyl patch added for pain control due to metastatic cancer. Current vital signs temp 98.4, heart rate 70, respiratory rate 17, blood pressure 105/56 with pulse ox of 99% on room air. Patient denies chest pain or shortness of breath. Patient denies nausea vomiting or diarrhea. Patient denies any urinary burning or frequency Objective - Vital Signs Vital signs: Vital Signs Temp 99.1 F 03/29/25 12:52 Pulse 80 03/29/25 12:52 Resp 16 03/29/25 12:52 BP 93/57 03/29/25 12:52 Pulse Ox 96 03/29/25 12:52 FiO2 Intake & Output 03/28/25 03/29/25 03/29/25 18:59 06:59 18:59 Intake Total 310 750 550 Balance 310 750 550 Weight 141.521 kg 141.521 kg Intake: Oral 750 240 Blood Product 310 310 Rc Irr As1 Unit 310 [id number] Rc Irr As1 Unit 310 [id number] Other: # Voids 2 - Exam In general patient is alert and oriented x 3 in no distress HEENT head normocephalic and atraumatic Neck is supple no JVD no goiter no lymphadenopathy no carotid bruit Chest examination is clear to auscultation no crackles no wheezing Cardiac exam reveals regular heart sounds S1 and S2 no gallops no murmurs Abdomen is soft nontender no organomegaly with normal bowel sounds Extremity exam reveals no edema no cyanosis or clubbing Neurological examination reveals no gross focal deficits - Labs CBC & Chem 7: 03/29/25 03:12 03/29/25 03:07 Labs: Abnormal Lab Results - Last 24 Hours (Table) 03/28/25 03/28/25 03/29/25 Range/Units 10:50 18:20 03:07 WBC 13.73 H (4.50-10.00) 10*3/uL RBC 2.45 L (4.40-5.60) 10*6/uL Hgb 7.2 L (13.0-17.0) g/dL Hct 21.3 L (39.6-50.0) % MCHC (32.0-37.0) g/dL RDW 19.2 H (11.5-14.5) % Plt Count 30 L (140-440) 10*3/uL Immature Gran # 1.83 H (0.00-0.04) 10*3/uL Neutrophils # 10.02 H (1.80-7.70) 10*3/uL Neutrophils # (Manual) (1.80-7.70) X 10*3/uL Lymphocytes # 0.83 L (0.90-5.00) 10*3/uL Lymphocytes # (Manual) (0.90-5.00) X 10*3/uL Monocytes # 1.01 H (0.20-1.00) 10*3/uL Eosinophils # 0.02 L (0.04-0.35) 10*3/uL Eosinophils # (Manual) (0.04-0.35) X 10*3/uL NRBC/100 WBC Diff (0.00-0.01) X 10*3/uL Toxic Granulation (None Seen) Immature Plt Fraction (1.1-6.1) % Glucose 121 H (70-110) mg/dL Calcium 8.5 L (8.7-10.3) mg/dL Alkaline Phosphatase 328 H (41-126) U/L Total Protein 5.9 L (6.2-8.2) g/dL Albumin 3.6 L (3.8-4.9) g/dL Albumin/Globulin Ratio 1.57 L (1.60-3.17) Ratio Crossmatch See Detail 03/29/25 Range/Units 03:12 WBC 14.41 H (4.50-10.00) 10*3/uL RBC 2.25 L (4.40-5.60) 10*6/uL Hgb 6.4 A* (13.0-17.0) g/dL Hct 20.2 L (39.6-50.0) % MCHC 31.7 L (32.0-37.0) g/dL RDW 20.8 H (11.5-14.5) % Plt Count 26 A* (140-440) 10*3/uL Immature Gran # (0.00-0.04) 10*3/uL Neutrophils # (1.80-7.70) 10*3/uL Neutrophils # (Manual) 13.11 H (1.80-7.70) X 10*3/uL Lymphocytes # (0.90-5.00) 10*3/uL Lymphocytes # (Manual) 0.58 L (0.90-5.00) X 10*3/uL Monocytes # (0.20-1.00) 10*3/uL Eosinophils # (0.04-0.35) 10*3/uL Eosinophils # (Manual) 0 L (0.04-0.35) X 10*3/uL NRBC/100 WBC Diff 0.22 H (0.00-0.01) X 10*3/uL Toxic Granulation 2+ A (None Seen) Immature Plt Fraction 6.4 H (1.1-6.1) % Glucose (70-110) mg/dL Calcium (8.7-10.3) mg/dL Alkaline Phosphatase (41-126) U/L Total Protein (6.2-8.2) g/dL Albumin (3.8-4.9) g/dL Albumin/Globulin Ratio (1.60-3.17) Ratio Crossmatch Assessment and Plan Plan: Anemia hemoglobin 6.0 as outpatient patient was sent to emergency room by oncology for further treatment Red blood cell transfusion was ordered in the em ergency room Underlying history of 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
[2025-03-29 16:36] LABS: Basophils # (A) 0.02 10*3/uL (0.00-0.10); Basophils % (A) 0.1 %; Eosinophils # (A) 0.01 10*3/uL (0.04-0.35); Eosinophils % (A) 0.1 %; HCT 23.1 % (39.6-50.0); HGB 7.7 g/dL (13.0-17.0); Lymphocytes # (A) 0.87 10*3/uL (0.90-5.00); Lymphocytes % (A) 6.4 %; MCH 29.3 pg (27.0-32.0); MCHC 33.3 g/dL (32.0-37.0); MCV 87.8 fL (80.0-97.0); Mean Platelet Volume 10.6 fL (9.5-12.2); Monocytes # (A) 0.92 10*3/uL (0.20-1.00); Monocytes % (A) 6.8 %; Neutrophils # (A) 10.04 10*3/uL (1.80-7.70); Neutrophils % (A) 74.3 %; RBC 2.63 10*6/uL (4.40-5.60); RDW 18.6 % (11.5-14.5); WBC 13.52 10*3/uL (4.50-10.00)
[2025-03-29 17:20] LABS: Polychromasia Present
[2025-03-29 17:21] LABS: Large Platelets Present; Platelet Count 32 10*3/uL (140-440)
--- NOTE | 2025-03-29 21:41 | P.CONS ---
History of Present Illness - Reason for Consult Consult date: 03/29/25 anemia Requesting physician: Domo Pizano - Chief Complaint abdonrmal labs - History of Present Illness Patient is a 59 year old male with a significant history of metastatic lung adenocarcinoma, who follows with Dr. Cat. He initially presented with 3 cm RLL lung mass,he had a PET scan on 06/16/2022 which revealed suspicious uptake in in central right lung lesion,measured 2.1 x 2.2 cm,he initially had navigational bronchoscopy which was not diagnostic,he ws referred to DR Hernandez at [facility],he had repeat CT scan of chest on 07/07/2022 which revealed 3 cm lesion in superior segment of RLL and several other small nodules in right lung which are new compared to prior CT scan done at [facility] in 06/2016.On 07/24/2022,he underwent RLL resection and biopsies of mediastinal nodes,pathology revealed adenocarcinoma spreading through alveolar spaces and invading lymphovascular channels (BERENICE),multifocal,right level 8,level 7,4R nodes were positive. Brain MRI on 08/08/2022 was negative. Caris did not reveal any targetable mutation. On 08/18/2022,PET scan revealed uptake in right hilar region,there was uptake in left second rib,had an MRI which revealed subtle area in rib without enhancement. On 08/26/2022,he started carbo/alimta with radiation,completed 4 cycles of chemo on 10/29/2022. Due to disease progression, patient has been on multiple treatment regimens. He started gemzar on 05/10/2024, and completed cycle 8 on 10/12/2024. He was admitted to [facility] for about 2 weeks,with fever,extensive work up which was negative, and was discharged on 11/03/2024. On 11/30/2024, repeat PET showed almost stable osseous mets with overall stable disease. He has a compression fracture at T8, may consider kyphoplasty if not improving. It was decided since there was no significant progression, may hold off chemo until radiation completed. He has since completed palliative radiation to right hip and sacrum which helped his pain significantly. Brain MRI on 01/04/25 showed tiny 2mm focal enhancement in the left parietal/temporal lobe. This was thought to be nonspecific and too small to consider RT at this time. Patient has since started gemzar/carbopltain receinving cycle 2 day 8 on 03/22/25 with G-CSF. He as see in clinic on 03/28 for CBC recheck and hgb noted at 6.0 and was sent to the ER for blood transfusions. Pt was admitted as there was a delay to receive blood products. Pt reporting he was experiencing SOB and fatigue but reporting improv ement today. Hgb today 7.2 after 1 unit of PRBCs. Review of Systems 10 point ROS is negative except as stated in the HPI Past Medical History Past Medical History: Cancer, Diabetes Mellitus, GERD/Reflux, Hyperlipidemia, Hypertension, Sleep Apnea/CPAP/BIPAP, Thyroid Disorder Additional Past Medical History / Comment(s): C-PAP MACHINE, RECTAL BLEEDING. neuropathy; glaucoma, cataract History of Any Multi-Drug Resistant Organisms: None Reported Past Surgical History: No Surgical Hx Reported Additional Past Surgical History / Comment(s): colonoscopy 2014, THYROIDECTOMY; lung mass removed with biopsy of second mass 07/2022 Past Anesthesia/Blood Transfusion Reactions: No Reported Reaction Additional Past Anesthesia/Blood Transfusion Reaction / Comm: Had fever after transfusion in Oct 2024 Past Psychological History: No Psychological Hx Reported Smoking Status: Never smoker Past Alcohol Use History: None Reported Past Drug Use History: None Reported - Past Family History Father Family Medical History: Cancer Medications and Allergies Home Medications Medication Instructions Recorded Confirmed Type Gabapentin 600 mg PO QID 01/04/15 03/28/25 History Omeprazole 40 mg PO DAILY PRN 01/04/15 03/28/25 History metFORMIN HCL [Glucophage] 1,000 mg PO BID 01/04/15 03/28/25 History Ascorbic Acid [Vitamin C] 1,000 mg PO DAILY 04/04/21 03/28/25 History Cyanocobalamin (Vitamin B-12) 1,000 mcg PO DAILY 04/04/21 03/28/25 History [Vitamin B-12] Empagliflozin [Jardiance] 25 mg PO DAILY 04/04/21 03/28/25 History Ergocalciferol [Vitamin D2 (1250 1,250 mcg PO Q30D 04/04/21 03/28/25 History Mcg = 97419 Iu)] Latanoprost/Pf [Latanoprost 0.005% 1 drop BOTH EYES HS 04/04/21 03/28/25 History Eye Drop] Levothyroxine Sodium [Synthroid] 200 mcg PO AC-BRKFST 04/04/21 03/28/25 History [place]-3 Fatty Acids/Fish Oil [Fish 1 cap PO DAILY 04/04/21 03/28/25 History Oil 1,000 mg Softgel] Rosuvastatin [Crestor] 20 mg PO DAILY 04/04/21 03/28/25 History Ubidecarenone [Co Q-10] 200 mg PO DAILY 04/04/21 03/28/25 History Zinc 50 mg PO DAILY 04/04/21 03/28/25 History carvediloL [Coreg] 25 mg PO BID 04/04/21 03/28/25 History Cholecalciferol [Vitamin D3 (25 25 mcg PO DAILY 10/19/24 03/28/25 History Mcg = 1000 Iu)] Cyclobenzaprine [Flexeril] 10 mg PO Q8H PRN 10/19/24 03/28/25 History EPINEPHrine (Auto Inject) [Epipen] 0.3 mg IM ONCE PRN 10/19/24 03/28/25 History Folic Acid 1 mg PO DAILY 10/19/24 03/28/25 History Levothyroxine Sodium [Synthroid] 50 mcg PO AC-BRKFST 10/19/24 03/28/25 History Ondansetron Odt [Zofran ODT] 4 mg PO Q4H PRN 10/19/24 03/28/25 History oxyCODONE HCL [oxyCODONE HCL (IR)] 20 mg PO Q4H 10/19/24 03/28/25 History Apixaban [Eliquis] 5 mg PO BID #60 tab 11/03/24 03/28/25 Rx Amiodarone [Cordarone] 100 mg PO DAILY 02/09/25 03/28/25 History Furosemide [Lasix] 40 mg PO BID@0900,1500 02/09/25 03/28/25 History Magnesium Citrate 250mg 250 mg PO DAILY 03/28/25 03/28/25 History Nystatin 100,000Unit/gm Cream 1 applic TOPICAL BID PRN 03/28/25 03/28/25 History [Mycostatin Cream] fentaNYL 25MCG/HR PATCH [Duragesic 1 patch TRANSDERM Q72H 03/28/25 03/28/25 History 25MCG/HR] Allergies Allergy/AdvReac Type Severity Reaction Status Date / Time peas Allergy Anaphylaxis Verified 03/28/25 11:55 Physical Exam Vitals: Vital Signs Temp Pulse Pulse Resp BP BP Pulse Ox 03/29/25 12:13 98.4 F 70 15 105/56 99 03/29/25 10:23 98.8 F 81 17 124/76 03/29/25 10:03 98.6 F 79 16 110/70 99 03/29/25 10:02 98.6 F 79 16 110/70 99 03/29/25 07:30 98.2 F 75 16 113/61 97 03/29/25 02:13 76 16 03/29/25 01:14 98.9 F 76 17 104/63 95 03/28/25 20:48 99.2 F 84 17 129/68 99 03/28/25 20:33 98.5 F 75 20 122/67 99 03/28/25 19:30 60 18 118/65 96 03/28/25 18:58 99.5 F 03/28/25 18:00 82 16 117/71 99 03/28/25 16:18 99 F 78 16 116/70 99 03/28/25 16:00 99.2 F 75 16 128/69 99 03/28/25 15:00 98.9 F 77 18 126/59 99 03/28/25 14:30 98.9 F 78 18 131/64 100 03/28/25 14:00 98.6 F 73 18 126/60 100 03/28/25 13:50 99.2 F 73 16 120/63 98 03/28/25 13:40 99.2 F 75 18 124/63 97 03/28/25 13:21 99.2 F 80 18 120/56 100 03/28/25 13:07 99.3 F 87 18 128/71 100 Intake and Output 03/28/25 03/29/25 03/29/25 22:59 06:59 14:59 Intake Total 310 750 240 Balance 310 750 240 Intake: Oral 750 240 Blood Product 310 0 Unit 0 Rc Irr As1 Unit 310 [id number] Other: # Voids 2 Weight 141.521 kg - Constitutional General appearance: no acute distress - EENT Eyes: anicteric sclerae, EOMI ENT: hearing grossly normal - Respiratory Respiratory: bilateral: CTA - Cardiovascular Rhythm: regular - Gastrointestinal General gastrointestinal: soft, no tenderness - Integumentary Integumentary: no cyanotic - Psychiatric Psychiatric: A&O x's 3 Results CBC & Chem 7: 03/29/25 16:22 03/29/25 03:07 Labs: Abnormal Lab Results - Last 24 Hours (Table) 03/28/25 03/28/25 03/29/25 Range/Units 10:50 18:20 03:07 WBC 13.73 H (4.50-10.00) 10*3/uL RBC 2.45 L (4.40-5.60) 10*6/uL Hgb 7.2 L (13.0-17.0) g/dL Hct 21.3 L (39.6-50.0) % MCHC (32.0-37.0) g/dL RDW 19.2 H (11.5-14.5) % Plt Count 30 L (140-440) 10*3/uL Immature Gran # 1.83 H (0.00-0.04) 10*3/uL Neutrophils # 10.02 H (1.80-7.70) 10*3/uL Neutrophils # (Manual) (1.80-7.70) X 10*3/uL Lymphocytes # 0.83 L (0.90-5.00) 10*3/uL Lymphocytes # (Manual) (0.90-5.00) X 10*3/uL Monocytes # 1.01 H (0.20-1.00) 10*3/uL Eosinophils # 0.02 L (0.04-0.35) 10*3/uL Eosinophils # (Manual) (0.04-0.35) X 10*3/uL NRBC/100 WBC Diff (0.00-0.01) X 10*3/uL Toxic Granulation (None Seen) Immature Plt Fraction (1.1-6.1) % Glucose 121 H (70-110) mg/dL Calcium 8.5 L (8.7-10.3) mg/dL Alkaline Phosphatase 328 H (41-126) U/L Total Protein 5.9 L (6.2-8.2) g/dL Albumin 3.6 L (3.8-4.9) g/dL Albumin/Globulin Ratio 1.57 L (1.60-3.17) Ratio Crossmatch See Detail 03/29/25 Range/Units 03:12 WBC 14.41 H (4.50-10.00) 10*3/uL RBC 2.25 L (4.40-5.60) 10*6/uL Hgb 6.4 A* (13.0-17.0) g/dL Hct 20.2 L (39.6-50.0) % MCHC 31.7 L (32.0-37.0) g/dL RDW 20.8 H (11.5-14.5) % Plt Count 26 A* (140-440) 10*3/uL Immature Gran # (0.00-0.04) 10*3/uL Neutrophils # (1.80-7.70) 10*3/uL Neutrophils # (Manual) 13.11 H (1.80-7.70) X 10*3/uL Lymphocytes # (0.90-5.00) 10*3/uL Lymphocytes # (Manual) 0.58 L (0.90-5.00) X 10*3/uL Monocytes # (0.20-1.00) 10*3/uL Eosinophils # (0.04-0.35) 10*3/uL Eosinophils # (Manual) 0 L (0.04-0.35) X 10*3/uL NRBC/100 WBC Diff 0.22 H (0.00-0.01) X 10*3/uL Toxic Granulation 2+ A (None Seen) Immature Plt Fraction 6.4 H (1.1-6.1) % Glucose (70-110) mg/dL Calcium (8.7-10.3) mg/dL Alkaline Phosphatase (41-126) U/L Total Protein (6.2-8.2) g/dL Albumin (3.8-4.9) g/dL Albumin/Globulin Ratio (1.60-3.17) Ratio Crossmatch Assessment and Plan (1) Anemia Current Visit: Yes Status: Acute Priority: Medium Code(s): D64.9 - ANEMIA, UNSPECIFIED SNOMED Code(s): 236301997 (2) Lung cancer Current Visit: Yes Status: Chronic Priority: High Code(s): C34.90 - MALIGNANT NEOPLASM OF UNSP PART OF UNSP BRONCHUS OR LUNG SNOMED Code(s): 732679794 Plan: Chemo induced anemia and thrombocytopenia He was see in clinic on 03/28 for CBC recheck and hgb noted at 6.0 and was sent to the ER for blood transfusions. Pt was admitted as there was a delay to receive blood products. Pt reporting he was experiencing SOB and fatigue but reporting improvement today. -Hgb today 7.2 after 1 unit of PRBCs. 2 unit transfusing. Repeat CBC in the morning -Plt 30,000. Eliquis has been held. No episodes of acute bleeding. No leukopenia noted, WBC 13.7 today. He did receive G-CSF with last cycle of treatment -Continue to monitor CBC Metastatic lung cancer -Oncology hx as dictated in the HPI -S/p gemzar/carboplatin receiving cycle 2 day 8 on 03/22/25 with G-CSF. -Treatment scheduled next week pending count recovery
[2025-03-30 09:35] LABS: HCT 22.8 % (39.6-50.0); HGB 7.1 g/dL (13.0-17.0); Immature Platelet Fraction 6.8 % (1.1-6.1); MCH 28.4 pg (27.0-32.0); MCHC 31.1 g/dL (32.0-37.0); MCV 91.2 FL (80.0-97.0); Mean Platelet Volume 10.5 FL (9.5-12.2); NRBC Per 100 WBC 0.19 X 10*3/uL (0.00-0.01); Platelet Count 29 X 10*3/uL (140-440); RDW 19.9 % (11.5-14.5); WBC 13.08 X 10*3/uL (4.50-10.00)
[2025-03-30 09:36] LABS: Basophils # (M) 0 X 10*3/uL (0.00-0.10); Eosinophils # (M) 0 X 10*3/uL (0.04-0.35); Lymphocytes # (M) 0.65 X 10*3/uL (0.90-5.00); Metamyelocytes % 1 % (0-0); Monocytes # (M) 0.52 X 10*3/uL (0.20-1.00); Myelocytes % 1 % (0-0); Neutrophils # (M) 11.64 X 10*3/uL (1.80-7.70); Neutrophils % (M) 89 %; Toxic Granulation 2+ (None Seen)
--- NOTE | 2025-03-30 12:05 | P.PN ---
Subjective Progress Note Date: 03/30/25 Ganga Smart, is a 59-year-old male who presented to 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 He was evaluated in the emergency room vital examination on presentation revealed a temperature of 98.9 pulse 87 respiration 18 blood pressure 125/71 pulse ox 98% on 3 L nasal cannula Laboratory data revealed a white blood count of 15.54 hemoglobin 6.3 platelet count 32 BUN 14 creatinine 0.55 Testing in the emergency room revealed chest x-ray revealed pulmonary venous congestion with small effusions and borderline cardiomegaly, Patient was admitted to medical floor for further evaluation and treatment On 03/29/2025 patient is alert and oriented x 3. Hemoglobin today 6.4. 1 more unit of PRBCs has been ordered. Will recheck blood blood work in a.m. Oncology services are following. Patient's home dose of fentanyl patch added for pain control due to metastatic cancer. Current vital signs temp 98.4, heart rate 70, respiratory rate 17, blood pressure 105/56 with pulse ox of 99% on room air. Patient denies chest pain or shortness of breath. Patient denies nausea vomiting or diarrhea. Patient denies any urinary burning or frequency On 03/30/2025 patient is alert and oriented x 3. Hemoglobin 7.1 this a.m. concerns about possible infection due to elevated white count and low-grade temp and neutropenic precautions. At this time we will order blood culture urine culture sputum culture consult infectious disease and RSV COVID and flu swabs. Patient denies chest pain or shortness of breath. Patient denies nausea vomiting or diarrhea. Patient denies any urinary burning or frequency Objective - Vital Signs Vital signs: Vital Signs Temp 99.2 F 03/30/25 07:47 Pulse 77 03/30/25 07:47 Resp 16 03/30/25 07:47 BP 121/73 03/30/25 07:47 Pulse Ox 96 03/30/25 07:47 FiO2 Intake & Output 03/29/25 03/30/25 03/30/25 18:59 06:59 18:59 Intake Total 2290 480 Balance 2290 480 Intake: Oral 1979 480 Blood Product 310 Rc Irr As1 Unit 310 [id number] Other: # Voids 5 2 # Bowel Movements 1 - Exam In general patient is alert and oriented x 3 in no distress HEENT head normocephalic and atraumatic Neck is supple no JVD no goiter no lymphadenopathy no carotid bruit Chest examination is clear to auscultation no crackles no wheezing Cardiac exam reveals regular heart sounds S1 and S2 no gallops no murmurs Abdomen is soft nontender no organomegaly with normal bowel sounds Extremity exam reveals no edema no cyanosis or clubbing Neurological examination reveals no gross focal deficits - Labs CBC & Chem 7: 03/30/25 04:01 03/29/25 03:07 Labs: Abnormal Lab Results - Last 24 Hours (Table) 03/28/25 03/29/25 03/30/25 Range/Units 10:50 16:22 04:01 WBC 13.52 H 13.08 H (4.50-10.00) 10*3/uL RBC 2.63 L 2.50 L (4.40-5.60) 10*6/uL Hgb 7.7 L 7.1 L (13.0-17.0) g/dL Hct 23.1 L 22.8 L (39.6-50.0) % MCHC 31.1 L (32.0-37.0) g/dL RDW 18.6 H 19.9 H (11.5-14.5) % Plt Count 32 L 29 A* (140-440) 10*3/uL Immature Gran # 1.66 H (0.00-0.04) 10*3/uL Neutrophils # 10.04 H (1.80-7.70) 10*3/uL Neutrophils # (Manual) 11.64 H (1.80-7.70) X 10*3/uL Lymphocytes # 0.87 L (0.90-5.00) 10*3/uL Lymphocytes # (Manual) 0.65 L (0.90-5.00) X 10*3/uL Eosinophils # 0.01 L (0.04-0.35) 10*3/uL Eosinophils # (Manual) 0 L (0.04-0.35) X 10*3/uL NRBC/100 WBC Diff 0.19 H (0.00-0.01) X 10*3/uL Toxic Granulation 2+ A (None Seen) Immature Plt Fraction 6.8 H (1.1-6.1) % Crossmatch See Detail Assessment and Plan Plan: Anemia hemoglobin 6.0 as outpatient patient was sent to emergency room by oncology for further treatment Red blood cell transfusion was ordered in the emergency room Underlying history of 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 Patient being worked up for infection infectious disease services consulted Status post 2 units of PRBCs Oncology services following Repeat labs in a.m.
--- NOTE | 2025-03-30 12:11 | XR ---
EXAMINATION TYPE: XR chest 2V DATE OF EXAM: 03/30/2025 12:06 PM COMPARISON: None. CLINICAL INDICATION: Male, 59 years old with history of fever, leukocytosis, TECHNIQUE: XR chest 2V view(s) obtained. FINDINGS: The heart size is normal. The pulmonary vasculature is prominent. Small left pleural fluid is present. Some adjacent compressive atelectasis is likely present. Mild d iffuse increased lung markings are present may be some pulmonary edema IMPRESSION: 1. Clinical correlation for volume overload. 2. Left lower lobe infiltrate and small left pleural effusion. Atelectasis and pneumonia could be con sidered [facility], , 03/30/2025 12:08 PM
[2025-03-30 12:48] LABS: Influenza A Not Detected (Not Detectd); Influenza B Not Detected (Not Detectd); RSV Not Detected (Not Detectd)
--- NOTE | 2025-03-30 19:38 | P.PN ---
Subjective Progress Note Date: 03/30/25 No acute events overnight. Pt reporting feeling improved. Hgb today 7.1, plts 29,000. Eliquis has been held Objective - Vital Signs Vital signs: Vital Signs Temp 98.2 F 03/30/25 19:18 Pulse 80 03/30/25 19:18 Resp 16 03/30/25 19:18 BP 112/71 03/30/25 19:18 Pulse Ox 96 03/30/25 19:18 FiO2 Intake & Output 03/30/25 03/30/25 03/31/25 06:59 18:59 06:59 Intake Total 480 Balance 480 Intake: Oral 480 Blood Product 0 Rc Irr As1 Unit 0 [id number] Other: # Voids 2 3 - Constitutional General appearance: Present: no acute distress, obese - EENT Eyes: Present: anicteric sclerae, EOMI ENT: Present: hearing grossly normal - Respiratory Details: breathing is even and unlabored - Cardiovascular Details: skin warm and dry - Gastrointestinal General gastrointestinal: Present: soft. Absent: tenderness - Integumentary Integumentary: Absent: cyanotic, jaundiced - Neurologic Neurologic: Present: CNII-XII intact - Psychiatric Psychiatric: Present: A&O x's 3 - Labs CBC & Chem 7: 03/30/25 04:01 03/29/25 03:07 Labs: Abnormal Lab Results - Last 24 Hours (Table) 03/28/25 03/30/25 Range/Units 10:50 04:01 WBC 13.08 H (4.50-10.00) X 10*3/uL RBC 2.50 L (4.40-5.60) X 10*6/uL Hgb 7.1 L (13.0-17.0) g/dL Hct 22.8 L (39.6-50.0) % MCHC 31.1 L (32.0-37.0) g/dL RDW 19.9 H (11.5-14.5) % Plt Count 29 A* (140-440) X 10*3/uL Neutrophils # (Manual) 11.64 H (1.80-7.70) X 10*3/uL Lymphocytes # (Manual) 0.65 L (0.90-5.00) X 10*3/uL Eosinophils # (Manual) 0 L (0.04-0.35) X 10*3/uL NRBC/100 WBC Diff 0.19 H (0.00-0.01) X 10*3/uL Toxic Granulation 2+ A (None Seen) Immature Plt Fraction 6.8 H (1.1-6.1) % Crossmatch See Detail Assessment and Plan (1) Anemia Current Visit: Yes Status: Acute Priority: Medium Code(s): D64.9 - ANEMIA, UNSPECIFIED SNOMED Code(s): 041758027 (2) Lung cancer Current Visit: Yes Status: Chronic Priority: High Code(s): C34.90 - MALIGNANT NEOPLASM OF UNSP PART OF UNSP BRONCHUS OR LUNG SNOMED Code(s): 027437994 Plan: Chemo induced anemia and thrombocytopenia He was see in clinic on 03/28 for CBC recheck and hgb noted at 6.0 and was sent to the ER for blood transfusions. Pt was admitted as there was a delay to receive blood products. Pt reporting he was experiencing SOB and fatigue but reporting improvement today. -Hgb today 7.1. Additional unit PRBCs ordered. Repeat CBC in the morning -Plt 29,000. Eliquis has been held. No episodes of acute bleeding. No leukopenia noted, WBC 13.0. He did receive G-CSF with last cycle of treatment -Continue to monitor CBC Metastatic lung cancer -Oncology hx as dictated in the HPI -S/p gemzar/carboplatin receiving cycle 2 day 8 on 03/22/25 with G-CSF. -Treatment scheduled next week pending count recovery As long as CBC is stable tomorrow, pt is cleared for discharge tomorrow from oncology standpoint. Pt is scheduled wednesday for CBC recheck Doctor attests: I performed a history and physical examination of this patient, developed impression and plan of care. Discussed with dictator. I agree with dictators note, documented as a scribe.
[2025-03-30 21:40] LABS: Appearance,Urine Clear (Clear); Color,Urine Colorless; Protein,Urine Negative (Negative); Specific Gravity,Urine 1.013 (1.001-1.035)
[2025-03-30 21:41] LABS: Bilirubin,Urine Negative (Negative); Blood,Urine Negative (Negative); Glucose,Urine (UA) 4+ (Negative); Ketones,Urine Negative (Negative); Leukocyte Esterase,Urine Negative (Negative); Nitrite,Urine Negative (Negative); Urobilinogen,Urine <2.0 mg/dL (<2.0)
--- NOTE | 2025-03-30 22:30 | P.CONS ---
History of Present Illness - Reason for Consult Consult date: 03/30/25 Concern for infection, cancer patient Requesting physician: Ok Francois - Chief Complaint Weakness x 1 week - History of Present Illness Patient is a 59-year-old male with a past medical history negative for diabetes mellitus hypertension hyperlipidemia reflux sleep apnea metastatic adenocarcinoma of the lung on chemotherapy and did have right Pleurx catheter placement, presenting to the hospital 2 days ago with concerning for anemia patient has been feeling more fatigued for a week before presentation to the hospital the patient noticed to have low hemoglobin of 6 and a platelet count of 21 on outpatient testing with the patient was advised to go to the hospital patient denies high-grade fever or any chills denies any headache or URI symptoms no chest pain shortness of breath no worsening of no nausea no vomiting no abdominal pain no diarrhea or urinary symptoms on presentation to the hospital patient has been running a low-grade fever of 99.2 degrees for night patient was not tachycardic or hypotensive not hypoxic no need for supplemental oxygen patient did have elevated white count of 14.41 with a left shift kidney function has been normal electrolytes are normal liver enzymes normal influenza RSV COVID testing negative urine has been negative patient did have a chest x- ray pulmonary vascular congestion with small effusion borderline cardiomegaly suggest volume moderate load infectious he was consulted today concerning for infection and need for antibiotic therapy Review of Systems Positive point and negatives has been mentioned in the HPI, complete review of systems was performed and all other systems are negative Past Medical History Past Medical History: Cancer, Diabetes Mellitus, GERD/Reflux, Hyperlipidemia, Hypertension, Sleep Apnea/CPAP/BIPAP, Thyroid Disorder Additional Past Medical History / Comment(s): C-PAP MACHINE, RECTAL BLEEDING. neuropathy; glaucoma, cataract History of Any Multi-Drug Resistant Organisms: None Reported Past Surgical History: No Surgical Hx Reported Additional Past Surgical History / Comment(s): colonoscopy 2014, THYROIDECTOMY; lung mass removed with biopsy of second mass 07/2022 Past Anesthesia/Blood Transfusion Reactions: No Reported Reaction Additional Past Anesthesia/Blood Transfusion Reaction / Comm: Had fever after transfusion in Oct 2024 Past Psychological History: No Psychological Hx Reported Smoking Status: Never smoker Past Alcohol Use History: None Reported Past Drug Use History: None Reported - Past Family History Father Family Medical History: Cancer Medications and Allergies Home Medications Medication Instructions Recorded Confirmed Type Gabapentin 600 mg PO QID 01/04/15 03/28/25 History Omeprazole 40 mg PO DAILY PRN 01/04/15 03/28/25 History metFORMIN HCL [Glucophage] 1,000 mg PO BID 01/04/15 03/28/25 History Ascorbic Acid [Vitamin C] 1,000 mg PO DAILY 04/04/21 03/28/25 History Cyanocobalamin (Vitamin B-12) 1,000 mcg PO DAILY 04/04/21 03/28/25 History [Vitamin B-12] Empagliflozin [Jardiance] 25 mg PO DAILY 04/04/21 03/28/25 History Ergocalciferol [Vitamin D2 (1250 1,250 mcg PO Q30D 04/04/21 03/28/25 History Mcg = 09839 Iu)] Latanoprost/Pf [Latanoprost 0.005% 1 drop BOTH EYES HS 04/04/21 03/28/25 History Eye Drop] Levothyroxine Sodium [Synthroid] 200 mcg PO AC-BRKFST 04/04/21 03/28/25 History [place]-3 Fatty Acids/Fish Oil [Fish 1 cap PO DAILY 04/04/21 03/28/25 History Oil 1,000 mg Softgel] Rosuvastatin [Crestor] 20 mg PO DAILY 04/04/21 03/28/25 History Ubidecarenone [Co Q-10] 200 mg PO DAILY 04/04/21 03/28/25 History Zinc 50 mg PO DAILY 04/04/21 03/28/25 History carvediloL [Coreg] 25 mg PO BID 04/04/21 03/28/25 History Cholecalciferol [Vitamin D3 (25 25 mcg PO DAILY 10/19/24 03/28/25 History Mcg = 1000 Iu)] Cyclobenzaprine [Flexeril] 10 mg PO Q8H PRN 10/19/24 03/28/25 History EPINEPHrine (Auto Inject) [Epipen] 0.3 mg IM ONCE PRN 10/19/24 03/28/25 History Folic Acid 1 mg PO DAILY 10/19/24 03/28/25 History Levothyroxine Sodium [Synthroid] 50 mcg PO AC-BRKFST 10/19/24 03/28/25 History Ondansetron Odt [Zofran ODT] 4 mg PO Q4H PRN 10/19/24 03/28/25 History oxyCODONE HCL [oxyCODONE HCL (IR)] 20 mg PO Q4H 10/19/24 03/28/25 History Apixaban [Eliquis] 5 mg PO BID #60 tab 11/03/24 03/28/25 Rx Amiodarone [Cordarone] 100 mg PO DAILY 02/09/25 03/28/25 History Furosemide [Lasix] 40 mg PO BID@0900,1500 02/09/25 03/28/25 History Magnesium Citrate 250mg 250 mg PO DAILY 03/28/25 03/28/25 History Nystatin 100,000Unit/gm Cream 1 applic TOPICAL BID PRN 03/28/25 03/28/25 History [Mycostatin Cream] fentaNYL 25MCG/HR PATCH [Duragesic 1 patch TRANSDERM Q72H 03/28/25 03/28/25 History 25MCG/HR] Allergies Allergy/AdvReac Type Severity Reaction Status Date / Time peas Allergy Anaphylaxis Verified 03/28/25 11:55 Physical Exam Vitals: Vital Signs Temp Pulse Pulse Resp BP BP Pulse Ox 03/30/25 11:37 98.8 F 76 16 116/69 99 03/30/25 07:47 99.2 F 77 16 121/73 96 03/30/25 00:28 98.9 F 75 17 119/62 96 03/29/25 20:00 16 03/29/25 18:03 80 111/67 03/29/25 17:27 99.1 F 84 16 126/61 90 L 03/29/25 12:52 99.1 F 80 16 93/57 96 03/29/25 12:13 98.4 F 70 15 105/56 99 Intake and Output 03/29/25 03/30/25 03/30/25 22:59 06:59 14:59 Intake Total 1500 480 Balance 1500 480 Intake: Oral 1500 480 Other: # Voids 5 2 # Bowel Movements 1 GENERAL DESCRIPTION: Middle-age male lying in bed, no distress. No tachypnea or accessory muscle of respiration use. HEENT: Shows Pallor , no scleral icterus. Oral mucous membrane is dry. No ph aryngeal erythema or thrush NECK: Trachea central, no thyromegaly. LUNGS: Unlabored breathing. Decreased breath sound at the base HEART: S1, S2, regular rate and rhythm. No loud murmur ABDOMEN: Soft, no tenderness , guarding or rigidity, no organomegaly EXTREMITIES: No edema of feet. SKIN: No rash, no masses palpable. NEUROLOGICAL: The patient is awake, alert, oriented x3, mood and affect normal. Results CBC & Chem 7: 03/30/25 04:01 03/29/25 03:07 Labs: Abnormal Lab Results - Last 24 Hours (Table) 03/28/25 03/29/25 03/30/25 Range/Units 10:50 16:22 04:01 WBC 13.52 H 13.08 H (4.50-10.00) 10*3/uL RBC 2.63 L 2.50 L (4.40-5.60) 10*6/uL Hgb 7.7 L 7.1 L (13.0-17.0) g/dL Hct 23.1 L 22.8 L (39.6-50.0) % MCHC 31.1 L (32.0-37.0) g/dL RDW 18.6 H 19.9 H (11.5-14.5) % Plt Count 32 L 29 A* (140-440) 10*3/uL Immature Gran # 1.66 H (0.00-0.04) 10*3/uL Neutrophils # 10.04 H (1.80-7.70) 10*3/uL Neutrophils # (Manual) 11.64 H (1.80-7.70) X 10*3/uL Lymphocytes # 0.87 L (0.90-5.00) 10*3/uL Lymphocytes # (Manual) 0.65 L (0.90-5.00) X 10*3/uL Eosinophils # 0.01 L (0.04-0.35) 10*3/uL Eosinophils # (Manual) 0 L (0.04-0.35) X 10*3/uL NRBC/100 WBC Diff 0.19 H (0.00-0.01) X 10*3/uL Toxic Granulation 2+ A (None Seen) Immature Plt Fraction 6.8 H (1.1-6.1) % Crossmatch See Detail Assessment and Plan (1) Leukocytosis Current Visit: Yes Status: Acute Code(s): D72.829 - ELEVATED WHITE BLOOD SNEHAL L COUNT, UNSPECIFIED SNOMED Code(s): 056504755 Plan: 1patient with history of metastatic adenocarcinoma of the lung in this patient who did have a recurrent right-sided effusion and did have a Pleurx catheter placement presenting to the hospital with low hemoglobin and thrombocytopenia patient did have elevated white count and with low-grade fever of 99.2 but currently no obvious focus of infection chest x-ray has been reported with effu saima and pulmonary vascular congestion UA has been negative abdomen is soft on current examination no evidence of any cellulitis or joint swelling 2-blood culture has been obtained I will check pleural fluid cell count and culture we will also check a CRP and a procalcitonin level 3-as the patient does not look toxic we will hold on adding empiric antibiotic while waiting for the workup to be completed Question concern answered We will follow on clinical condition and cultures to further adjust medication if needed Thank you for this consultation we will follow the patient along with you Dictation was produced using Xand dictation software. please excuse any grammatical, word or spelling errors. Time with Patient: Greater than 30
[2025-03-31 04:23] LABS: Appearance,BF Cloudy (Clear)
[2025-03-31 10:14] LABS: HCT 24.7 % (39.6-50.0); HGB 7.8 g/dL (13.0-17.0); MCH 29.1 pg (27.0-32.0); MCHC 31.6 g/dL (32.0-37.0); MCV 92.2 FL (80.0-97.0); Mean Platelet Volume 10.8 FL (9.5-12.2); NRBC Per 100 WBC 0.16 X 10*3/uL (0.00-0.01); Platelet Count 33 X 10*3/uL (140-440); RBC 2.68 X 10*6/uL (4.40-5.60); WBC 12.07 X 10*3/uL (4.50-10.00)
[2025-03-31 10:22] LABS: Anisocytosis (M) 2+ (None Seen); Basophils # (M) 0.12 X 10*3/uL (0.00-0.10); Eosinophils # (M) 0.12 X 10*3/uL (0.04-0.35); Lymphocytes # (M) 1.21 X 10*3/uL (0.90-5.00); Metamyelocytes % 3 % (0-0); Monocytes # (M) 0.48 X 10*3/uL (0.20-1.00); Myelocytes % 1 % (0-0); Neutrophils # (M) 9.66 X 10*3/uL (1.80-7.70); Neutrophils % (M) 80 %; Nucleated Red Blood Cells 1 /100 WBCS
--- NOTE | 2025-03-31 11:51 | P.PN ---
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 He was evaluated in the emergency room vital examination on presentation revealed a temperature of 98.9 pulse 87 respiration 18 blood pressure 125/71 pulse ox 98% on 3 L nasal cannula Laboratory data revealed a white blood count of 15.54 hemoglobin 6.3 platelet count 32 BUN 14 creatinine 0.55 Testing in the emergency room revealed chest x-ray revealed pulmonary venous congestion with small effusions and borderline cardiomegaly, Patient was admitted to medical floor for further evaluation and treatment On 03/29/2025 patient is alert and oriented x 3. Hemoglobin today 6.4. 1 more unit of PRBCs has been ordered. Will recheck blood blood work in a.m. Oncology services are following. Patient's home dose of fentanyl patch added for pain control due to metastatic cancer. Current vital signs temp 98.4, heart rate 70, respiratory rate 17, blood pressure 105/56 with pulse ox of 99% on room air. Patient denies chest pain or shortness of breath. Patient denies nausea vomiting or diarrhea. Patient denies any urinary burning or frequency On 03/30/2025 patient is alert and oriented x 3. Hemoglobin 7.1 this a.m. concerns about possible infection due to elevated white count and low-grade temp and neutropenic precautions. At this time we will order blood culture urine culture sputum culture consult infectious disease and RSV COVID and flu swabs. Patient denies chest pain or shortness of breath. Patient denies nausea vomiting or diarrhea. Patient denies any urinary burning or frequency On 03/31/2025 patient was seen and examined on the medical floor is alert and oriented x 3 in no apparent distress, he is complaining of generalized weakness, is having episodes of fever, blood culture urine analysis and chest x-ray were ordered, swab for RSV and influenza were ordered, infectious disease consultation requested. Today white blood count remains slightly elevated at 12.07 procalcitonin level still pending blood culture still pending, awaiting further recommendation from infectious. Objective - Vital Signs Vital signs: Vital Signs Temp 98.0 F 03/31/25 07:10 Pulse 76 03/31/25 08:00 Resp 16 03/31/25 08:00 BP 126/70 03/31/25 07:10 Pulse Ox 96 03/31/25 09:01 FiO2 Intake & Output 03/30/25 03/31/25 03/31/25 18:59 06:59 18:59 Intake Total 480 900 Balance 480 900 Intake: Oral 480 590 Blood Product 0 310 Rc Irr As1 Unit 0 310 [id number] Other: Voiding Method Toilet Toilet Urinal Urinal # Voids 3 2 - Exam In general patient is alert and oriented x 3 in no distress HEENT head normocephalic and atraumatic Neck is supple no JVD no goiter no lymphadenopathy no carotid bruit Chest examination is clear to auscultation no crackles no wheezing Cardiac exam reveals regular heart sounds S1 and S2 no gallops no murmurs Abdomen is soft nontender no organomegaly with normal bowel sounds Extremity exam reveals no edema no cyanosis or clubbing Neurological examination reveals no gross focal deficits - Labs CBC & Chem 7: 03/31/25 04:03 03/29/25 03:07 Labs: Abnormal Lab Results - Last 24 Hours (Table) 03/28/25 03/30/25 03/30/25 Range/Units 10:50 17:56 21:30 WBC (4.50-10.00) X 10*3/uL RBC (4.40-5.60) X 10*6/uL Hgb (13.0-17.0) g/dL Hct (39.6-50.0) % MCHC (32.0-37.0) g/dL RDW (11.5-14.5) % Plt Count (140-440) X 10*3/uL Neutrophils # (Manual) (1.80-7.70) X 10*3/uL Basophils # (Manual) (0.00-0.10) X 10*3/uL NRBC/100 WBC Diff (0.00-0.01) X 10*3/uL Immature Plt Fraction (1.1-6.1) % Anisocytosis (manual) (None Seen) Urine Glucose (UA) 4+ H (Negative) Fluid Appearance Cloudy A (Clear) Crossmatch See Detail 03/31/25 Range/Units 04:03 WBC 12.07 H (4.50-10.00) X 10*3/uL RBC 2.68 L (4.40-5.60) X 10*6/uL Hgb 7.8 L (13.0-17.0) g/dL Hct 24.7 L (39.6-50.0) % MCHC 31.6 L (32.0-37.0) g/dL RDW 20.0 H (11.5-14.5) % Plt Count 33 A* (140-440) X 10*3/uL Neutrophils # (Manual) 9.66 H (1.80-7.70) X 10*3/uL Basophils # (Manual) 0.12 H (0.00-0.10) X 10*3/uL NRBC/100 WBC Diff 0.16 H (0.00-0.01) X 10*3/uL Immature Plt Fraction 7.0 H (1.1-6.1) % Anisocytosis (manual) 2+ A (None Seen) Urine Glucose (UA) (Negative) Fluid Appearance (Clear) Crossmatch Assessment and Plan Plan: Anemia hemoglobin 6.0 as outpatient patient was sent to emergency room by oncology for further treatment Red blood cell transfusion was ordered in the emergency room Underlying history of 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 Patient being worked up for infection infectious disease services consulted Status post 2 units of PRBCs Oncology services following Repeat labs in a.m.
[2025-03-31 12:03] LABS: Glucose,Whole Blood 145 mg/dL (70-110)
--- NOTE | 2025-03-31 16:00 | P.PN ---
Subjective Progress Note Date: 03/31/25 Principal diagnosis: Reason for follow-up is low-grade fever and leukocytosis Patient is a 59-year-old male with a past medical history negative for diabetes mellitus hypertension hyperlipidemia reflux sleep apnea metastatic adenocarcinoma of the lung on chemotherapy and did have right Pleurx catheter placement, presenting to the hospital with concerning for anemia and thrombocytopenia he did have low-grade fever ID consulted concerning for possible infection. On today's evaluation that is 03/31/2025, the patient is afebrile this morning, the patient is on 2 L nasal oxygen and breathing comfortably, the Pt denies having any chest pain or cough, the patient denies having any abdominal pain no vomiting or any diarrhea. Patient white count is down to 12.07 CRP is 2.40 however procalcitonin is 0.24 pleural fluid cloudy but only 451 WBC Objective - Vital Signs Vital signs: Vital Signs Temp 99.4 F 03/31/25 12:30 Pulse 74 03/31/25 12:30 Resp 16 03/31/25 12:30 BP 130/74 03/31/25 12:30 Pulse Ox 96 03/31/25 12:30 FiO2 Intake & Output 03/30/25 03/31/25 03/31/25 18:59 06:59 18:59 Intake Total 480 900 720 Balance 480 900 720 Intake: Oral 480 590 720 Blood Product 0 310 Rc Irr As1 Unit 0 310 [id number] Other: Voiding Method Toilet Toilet Urinal Urinal # Voids 3 2 - Exam GENERAL DESCRIPTION: Middle-age male lying in bed in no distress RESPIRATORY SYSTEM: Unlabored breathing , decreased breath sounds at bases HEART: S1 S2 regular rate and rhythm , ABDOMEN: Soft , no tenderness EXTREMITIES: No edema feet - Labs CBC & Chem 7: 03/31/25 04:03 03/29/25 03:07 Labs: Abnormal Lab Results - Last 24 Hours (Table) 03/28/25 03/30/25 03/30/25 Range/Units 10:50 17:56 21:30 WBC (4.50-10.00) X 10*3/uL RBC (4.40-5.60) X 10*6/uL Hgb (13.0-17.0) g/dL Hct (39.6-50.0) % MCHC (32.0-37.0) g/dL RDW (11.5-14.5) % Plt Count (140-440) X 10*3/uL Neutrophils # (Manual) (1.80-7.70) X 10*3/uL Basophils # (Manual) (0.00-0.10) X 10*3/uL NRBC/100 WBC Diff (0.00-0.01) X 10*3/uL Immature Plt Fraction (1.1-6.1) % Anisocytosis (manual) (None Seen) POC Glucose (mg/dL) (70-110) mg/dL Urine Glucose (UA) 4+ H (Negative) Fluid Appearance Cloudy A (Clear) Crossmatch See Detail 03/31/25 03/31/25 Range/Units 04:03 12:01 WBC 12.07 H (4.50-10.00) X 10*3/uL RBC 2.68 L (4.40-5.60) X 10*6/uL Hgb 7.8 L (13.0-17.0) g/dL Hct 24.7 L (39.6-50.0) % MCHC 31.6 L (32.0-37.0) g/dL RDW 20.0 H (11.5-14.5) % Plt Count 33 A* (140-440) X 10*3/uL Neutrophils # (Manual) 9.66 H (1.80-7.70) X 10*3/uL Basophils # (Manual) 0.12 H (0.00-0.10) X 10*3/uL NRBC/100 WBC Diff 0.16 H (0.00-0.01) X 10*3/uL Immature Plt Fraction 7.0 H (1.1-6.1) % Anisocytosis (manual) 2+ A (None Seen) POC Glucose (mg/dL) 145 H (70-110) mg/dL Urine Glucose (UA) (Negative) Fluid Appearance (Clear) Crossmatch Assessment and Plan (1) Leukocytosis Current Visit: Yes Status: Acute Code(s): D72.829 - ELEVATED WHITE BLOOD CE LL COUNT, UNSPECIFIED SNOMED Code(s): 435017612 Plan: 1patient with history of metastatic adenocarcinoma of the lung in this patient who did have a recurrent right-sided effusion and did have a Pleurx catheter placement presenting to the hospital with low hemoglobin and thrombocytopenia patient did have elevated white count and with low-grade fever of 99.2 but currently no obvious focus of infection chest x-ray has been reported with eff usion and pulmonary vascular congestion UA has been negative abdomen is soft on current examination no evidence of any cellulitis or joint swelling 2-blood culture has been obtained which are currently pending CRP mildly elevated however procalcitonin is normal little fluid white count is only 450 w ith cultures currently pending patient be currently monitor closely off antibiotic therapy at this point Multiple question concern answered Dictation was produced using [employer] software. please excuse any grammatical, word or spelling errors. Time with Patient: Less than 30
[2025-03-31 17:09] LABS: Glucose,Whole Blood 172 mg/dL (70-110)
[2025-03-31 20:17] LABS: Glucose,Whole Blood 160 mg/dL (70-110)
[2025-04-01 07:45] LABS: Glucose,Whole Blood 129 mg/dL (70-110)
[2025-04-01] MEDS: ERGOCALCIFEROL 1,250 MCG (50,000 IU) CAPSULE PO SCH (08:02)
[2025-04-01 08:27] VITALS: BP 122/63; PULSE 71; RESP 17; TEMP 97.9
[2025-04-01 09:48] LABS: HCT 24.2 % (39.6-50.0); HGB 7.6 g/dL (13.0-17.0); MCH 28.9 pg (27.0-32.0); MCHC 31.4 g/dL (32.0-37.0); Mean Platelet Volume 11.1 FL (9.5-12.2); NRBC Per 100 WBC 0.08 X 10*3/uL (0.00-0.01); Platelet Count 42 X 10*3/uL (140-440); RBC 2.63 X 10*6/uL (4.40-5.60); RDW 20.3 % (11.5-14.5); WBC 9.42 X 10*3/uL (4.50-10.00)
[2025-04-01 09:54] LABS: ALT 11 U/L (10-49); AST 18 U/L (14-35); Albumin 3.4 g/dL (3.8-4.9); Albumin/Globulin Ratio 1.36 Ratio (1.60-3.17); Alkaline Phosphatase 309 U/L (41-126); BUN/Creat Ratio 15.17 Ratio (12.00-20.00); Blood Urea Nitrogen 9.1 mg/dL (9.0-27.0); Calcium 8.3 mg/dL (8.7-10.3); Carbon Dioxide 25.6 mmol/L (21.6-31.8); Chloride 99 mmol/L (96-109); Globulin 2.5 g/dL (1.6-3.3); Glucose 137 mg/dL (70-110); Potassium 3.8 mmol/L (3.5-5.5); Sodium 137 mmol/L (135-145); Total Bilirubin 0.4 mg/dL (0.3-1.2); Total Protein 5.9 g/dL (6.2-8.2)
[2025-04-01 09:59] LABS: Anisocytosis (M) 2+ (None Seen); Basophils # (M) 0 X 10*3/uL (0.00-0.10); Eosinophils # (M) 0 X 10*3/uL (0.04-0.35); Lymphocytes # (M) 0.57 X 10*3/uL (0.90-5.00); Metamyelocytes % 2 % (0-0); Monocytes # (M) 0.47 X 10*3/uL (0.20-1.00); Neutrophils % (M) 87 %; Nucleated Red Blood Cells 2 /100 WBCS
--- NOTE | 2025-04-01 10:26 | P.DS ---
Providers Date of admission: 03/28/25 12:28 Expected date of discharge: 04/01/25 Attending physician: Ok Francois Consults: 03/28/25 12:28 Consult Physician Routine Consulting Provider: Cathleen Cat Consult Reason/Comments: anemia Do you want consulting provider notified?: Yes 03/30/25 11:45 Consult Physician Routine Consulting Provider: Edgardo Jauregui Consult Reason/Comments: concerns of infection, cancer Do you want consulting provider notified?: Yes Primary care physician: Jennyfer Garsia [facility] Course: Discharge diagnosis Anemia hemoglobin 6.0 as outpatient patient was sent to emergency room by oncology for further treatment Red blood cell transfusion was ordered in the emergency room Underlying history of 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 He was evaluated in the emergency room vital examination on presentation revealed a temperature of 98.9 pulse 87 respiration 18 blood pressure 125/71 pulse ox 98% on 3 L nasal cannula Laboratory data revealed a white blood count of 15.54 hemoglobin 6.3 platelet count 32 BUN 14 creatinine 0.55 Testing in the emergency room revealed chest x-ray revealed pulmonary venous congestion with small effusions and borderline cardiomegaly, Patient was admitted to medical floor for further evaluation and treatment On 03/29/2025 patient is alert and oriented x 3. Hemoglobin today 6.4. 1 more unit of PRBCs has been ordered. Will recheck blood blood work in a.m. Oncology services are following. Patient's home dose of fentanyl patch added for pain control due to metastatic cancer. Current vital signs temp 98.4, heart rate 70, respiratory rate 17, blood pressure 105/56 with pulse ox of 99% on room air. Patient denies chest pain or shortness of breath. Patient denies nausea vomiting or diarrhea. Patient denies any urinary burning or frequency On 03/30/2025 patient is alert and oriented x 3. Hemoglobin 7.1 this a.m. concerns about possible infection due to elevated white count and low-grade temp and neutropenic precautions. At this time we will order blood culture urine culture sputum culture consult infectious disease and RSV COVID and flu swabs. Patient denies chest pain or shortness of breath. Patient denies nausea vomiting or diarrhea. Patient denies any urinary burning or frequency On 03/31/2025 patient was seen and examined on the medical floor is alert and oriented x 3 in no apparent distress, he is complaining of generalized weakness, is having episodes of fever, blood culture urine analysis and chest x-ray were ordered, swab for RSV and influenza were ordered, infectious disease consultation requested. Today white blood count remains slightly elevated at 12.07 procalcitonin level still pending blood culture still pending, awaiting further recommendation from infectious. On 04/01/2025 patient is alert and oriented x 3. Hemoglobin today 7.6, platelets 42. Patient to follow-up with oncology services for further treatment of metastatic cancer. And monitoring of labs. No signs of infection at this time patient has been afebrile will throughout night. Cultures currently pending negative. Patient denies chest pain or shortness of breath. Patient denies nausea vomiting or diarrhea. Patient denies any urinary burning or frequency Patient Condition at Discharge: Stable Plan - Discharge Summary New Discharge Prescriptions: Continue metFORMIN HCL [Glucophage] 1,000 mg PO BID Omeprazole 40 mg PO DAILY PRN PRN Reason: Heartburn Gabapentin 600 mg PO QID carvediloL [Coreg] 25 mg PO BID Zinc 50 mg PO DAILY Dawson-3 Fatty Acids/Fish Oil [Fish Oil 1,000 mg Softgel] 1 cap PO DAILY Folic Acid 1 mg PO DAILY Ondansetron Odt [Zofran ODT] 4 mg PO Q4H PRN PRN Reason: Nausea And Vomiting Cholecalciferol [Vitamin D3 (25 Mcg = 1000 Iu)] 25 mcg PO DAILY Levothyroxine Sodium [Synthroid] 50 mcg PO AC-BRKFST Apixaban [Eliquis] 5 mg PO BID #60 tab Furosemide [Lasix] 40 mg PO BID@0900,1500 Magnesium Citrate 250mg 250 mg PO DAILY Ergocalciferol [Vitamin D2 (1250 Mcg = 89228 Iu)] 1,250 mcg PO Q30D Levothyroxine Sodium [Synthroid] 200 mcg PO AC-BRKFST Empagliflozin [Jardiance] 25 mg PO DAILY Rosuvastatin [Crestor] 20 mg PO DAILY Ascorbic Acid [Vitamin C] 1,000 mg PO DAILY Ubidecarenone [Co Q-10] 200 mg PO DAILY Cyanocobalamin (Vitamin B-12) [Vitamin B-12] 1,000 mcg PO DAILY Latanoprost/Pf [Latanoprost 0.005% Eye Drop] 1 drop BOTH EYES HS oxyCODONE HCL [oxyCODONE HCL (IR)] 20 mg PO Q4H EPINEPHrine (Auto Inject) [Epipen] 0.3 mg IM ONCE PRN PRN Reason: Anaphylaxis Cyclobenzaprine [Flexeril] 10 mg PO Q8H PRN PRN Reason: Muscle Spasm Amiodarone [Cordarone] 100 mg PO DAILY fentaNYL 25MCG/HR PATCH [Duragesic 25MCG/HR] 1 patch TRANSDERM Q72H Nystatin 100,000Unit/gm Cream [Mycostatin Cream] 1 applic TOPICAL BID PRN PRN Reason: yeast infection Discharge Medication List Gabapentin 600 mg PO QID 01/04/15 [History] Omeprazole 40 mg PO DAILY PRN 01/04/15 [History] metFORMIN HCL [Glucophage] 1,000 mg PO BID 01/04/15 [History] Ascorbic Acid [Vitamin C] 1,000 mg PO DAILY 04/04/21 [History] Cyanocobalamin (Vitamin B-12) [Vitamin B-12] 1,000 mcg PO DAILY 04/04/21 [History] Empagliflozin [Jardiance] 25 mg PO DAILY 04/04/21 [History] Ergocalciferol [Vitamin D2 (1250 Mcg = 95092 Iu)] 1,250 mcg PO Q30D 04/04/21 [History] Latanoprost/Pf [Latanoprost 0.005% Eye Drop] 1 drop BOTH EYES HS 04/04/21 [History] Levothyroxine Sodium [Synthroid] 200 mcg PO AC-BRKFST 04/04/21 [History] Dawson-3 Fatty Acids/Fish Oil [Fish Oil 1,000 mg Softgel] 1 cap PO DAILY 04/04/21 [History] Rosuvastatin [Crestor] 20 mg PO DAILY 04/04/21 [History] Ubidecarenone [Co Q-10] 200 mg PO DAILY 04/04/21 [History] Zinc 50 mg PO DAILY 04/04/21 [History] carvediloL [Coreg] 25 mg PO BID 04/04/21 [History] Cholecalciferol [Vitamin D3 (25 Mcg = 1000 Iu)] 25 mcg PO DAILY 10/19/24 [History] Cyclobenzaprine [Flexeril] 10 mg PO Q8H PRN 10/19/24 [History] EPINEPHrine (Auto Inject) [Epipen] 0.3 mg IM ONCE PRN 10/19/24 [History] Folic Acid 1 mg PO DAILY 10/19/24 [History] Levothyroxine Sodium [Synthroid] 50 mcg PO AC-BRKFST 10/19/24 [History] Ondansetron Odt [Zofran ODT] 4 mg PO Q4H PRN 10/19/24 [History] oxyCODONE HCL [oxyCODONE HCL (IR)] 20 mg PO Q4H 10/19/24 [History] Apixaban [Eliquis] 5 mg PO BID #60 tab 11/03/24 [Rx] Amiodarone [Cordarone] 100 mg PO DAILY 02/09/25 [History] Furosemide [Lasix] 40 mg PO BID@0900,1500 02/09/25 [History] Magnesium Citrate 250mg 250 mg PO DAILY 03/28/25 [History] Nystatin 100,000Unit/gm Cream [Mycostatin Cream] 1 applic TOPICAL BID PRN 03/28/25 [History] fentaNYL 25MCG/HR PATCH [Duragesic 25MCG/HR] 1 patch TRANSDERM Q72H 03/28/25 [History] Follow up Appointment(s)/Referral(s): Jennyfer Garsia MD [Primary Care Provider] - 1-2 days Discharge Disposition: HOME SELF-CARE
--- NOTE | 2025-04-03 07:58 | CDI ---
Documentation Clarification Form Date: 04/03/25 From: Laverne Fitzgerald Admit Date: 03/28/2025 12:28:00 PM Patient Name: Ganga Smart Visit Number: [id number] Discharge Date: 04/01/2025 11:41:00 AM ATTENTION: The Clinical Documentation Specialists (CDI) and [facility] Coding Staff appreciate your assistance in clarifying documentation. Please respond to the clarification below the line at the bottom and electronically sign. The CDI & [facility] Coding staff will review the response and follow-up if needed. Please note: Queries are made part of the Legal Health Record. If you have any questions, please contact the author of this message via ITS. Doctor/Provider: Ok Francois, Patient has a documented BMI of 40.1. Additional clarification is requested. 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, brain and bone, pathological compression fracture, chemo induced anemia and thrombocytopenia Clinical Indicators: Patients weight is 141.521 kg Patients height is 6 foot & 2 inches Calculated BMI is 40.1 Skin care/assessment is pallor, no rash, no masses palpable, warm and dry Diagnostic tests: TP 69, 5.9; Albumin 3.9, 3.6, 3.4; Albumin/Globulin Ratio 1.57, 1.36 Treatments: Regular diet Nutritional Education Dietary Consult- no Bariatric bed- no Need of several nursing staff to lift/turn - no Please clarify if patients BMI indicates an additional diagnosis: [ ] Overweight [ ] Obesity, Class 1 [ ] Obesity, Class 2 [ xxx] Morbid (Extreme) (severe) obesity [ ] No additional diagnosis/not clinically significant [ ] Other, please specify ____ [ ] Unable to determine Reference: NIH Classification for BMI Overweight BMI 2529.9 Obesity (Class 1) BMI 3034.9 Obesity (Class 2) BMI 3539.9 Morbid obesity (Class 3/Extreme/severe) BMI =40 MTDD
== END 2025-04-01 11:41 | disposition home or self-care (01) | DRG 812 ==
LOC: EC 10:23 → OBSVTOIN 12:28 → 5NMEDONC 12:28
PROVIDERS: ADMIT Internal Medicine; ATTEND Internal Medicine
PROC: 30233N1 Transfusion of Nonautologous Red Blood Cells into Peripheral Vein, Percutaneous Approach (ICD-10-PCS; principal; 2025-03-28)
DX: D64.81 Anemia due to antineoplastic chemotherapy (principal); C79.31 Secondary malignant neoplasm of brain; C77.1 Secondary and unspecified malignant neoplasm of intrathoracic lymph nodes; C34.31 Malignant neoplasm of lower lobe, right bronchus or lung; D69.59 Other secondary thrombocytopenia; M84.58XD Pathological fracture in neoplastic disease, other specified site, subsequent encounter for fracture with routine healing; D72.829 Elevated white blood cell count, unspecified; C79.51 Secondary malignant neoplasm of bone; Z68.41 Body mass index [BMI] 40.0-44.9, adult; E11.40 Type 2 diabetes mellitus with diabetic neuropathy, unspecified; I10 Essential (primary) hypertension; E89.0 Postprocedural hypothyroidism; E66.01 Morbid (severe) obesity due to excess calories; E78.5 Hyperlipidemia, unspecified; K21.9 Gastro-esophageal reflux disease without esophagitis; G47.33 Obstructive sleep apnea (adult) (pediatric); T45.1X5A Adverse effect of antineoplastic and immunosuppressive drugs, initial encounter; H40.9 Unspecified glaucoma; Z79.01 Long term (current) use of anticoagulants; Z79.84 Long term (current) use of oral hypoglycemic drugs; Z79.890 Hormone replacement therapy; Z79.891 Long term (current) use of opiate analgesic; Z79.899 Other long term (current) drug therapy; Z92.21 Personal history of antineoplastic chemotherapy; Z92.3 Personal history of irradiation
CPT/HCPCS: 36415; 36430; 71046; 80053; 81003; 83735; 84145; 85025; 85610; 85730; 86140; 86850; 86900; 86901; 86920; 87040; 87070; 87205; 87636; 89050; 94760; 99285

== ENCOUNTER → 2025-05-03 | Outpatient (CLI) | payer BC ==
--- NOTE | 2025-05-05 17:53 | PE ---
EXAMINATION TYPE: PET CT fusion skull to thigh DATE OF EXAM: 05/03/2025 CLINICAL INDICATION:Male, 59 years old with history of C34.31 Lung ca; TECHNIQUE: Following the intravenous administration of 10.44 mCi of F-18 FDG, whole body images are performed from the skull base to the midthigh. Images are reviewed on the computer in the coronal, axial, and sagittal planes. Reconstructed rotating images are created on independent workstation and reviewed on the computer. A non-contrast CT is performed in conjunction with the PET scan. Glucose level 136 mg/dL CT DLP: 1827.4 mGycm, Automated exposure control for dose reduction was used. COMPARISON: CT 02/09/2025, 10/27/2024, 10/23/2024, 10/21/2024 03/14/2024, 11/30/2022, 08/12/2018, 2015, PET/CT 02/22/2025, 11/30/2024, 04/20/2024, MRI: 01/04/2025, 04/29/2024, 06/09/2023, FINDINGS: Mediastinal SUV mean is 2.0 . Hepatic parenchyma SUV mean is 2.3. SKULL BASE AND NECK: Enlarging 2 cm nodule within the inferior left parotid gland without suspicious FDG activity. Demonst rates a maximum SUV of 2.4 which is at background levels. FDG avid subcentimeter left deep parotid lesion with a max SUV of 4.7, previously 5.6. Probable metas tatic lymph node. CHEST, MEDIASTINUM, AND HILAR REGION: Similar moderate to large left pleural effusion. Decreased now small right pleural effusion with pleu ral catheter in place. No pneumothorax. Pulmonary edema identified. Postsurgical changes involving th e right lung with suture material identified. Right hilar soft tissue redemonstrated measuring grossl y 4.3 x 4.1 cm with low level FDG activity. Demonstrates a maximum SUV of 4.7. Previously in 8.5. ABDOMEN AND PELVIS: Enlarging 2.1 cm left inguinal lymph node with FDG activity demonstrating a maximum SUV of 6.0. Previ ously 10.6, 2.6. New FDG avid right inguinal lymph node measuring 1.1 cm with a maximum SUV of 5.5. No suspicious focal FDG activity within the prostate gland on today's exam. FDG physiologic activity throughout the bowel. MUSCULOSKELETAL STRUCTURES: Redemonstration of innumerable diffuse sclerotic osseous lesions. These involve the bilateral clavicles, the entire spine, bilateral proximal humerus, bilateral scapul a, bilateral ribs, sacrum, sternum, bilateral proximal femurs, and bilateral pelvic bones again. Examples include a right iliac bone lesion with a maximum SUV of 5.6, previously 9.3, 8.1. Right proximal humerus lesion with a maximum SUV of 3.4, previously 5.1, 3.5. L1 vertebral body lesion with a maximum SUV of 6.2, previously 7.5, 5.0. L5 vertebral body lesion maximum SUV of 7.5, previously 10.5. Left greater trochanter lesion with a max SUV of 2.4, previously 2.8. OTHER CT: Inferior left maxillary sinus mucous retention cyst redemonstrated. Right IJ Mediport jacqui ter distal tip terminating in the mid SVC. Cardiomegaly. Mild to moderate coronary arterial calcifica tions. Bilateral gynecomastia with right greater than left. Prominent gallbladder. Nonspecific bilat eral perinephric fat stranding. Small fat filled umbilical hernia. Mild atherosclerotic calcification of the aorta and its branches. Circumferential wall thickening of the urinary bladder with some surr ounding fat stranding. Additional scattered fat stranding within the retroperitoneum. IMPRESSION: 1. Overall mixed response to treatment with similar extensive osseous metastasis with decreased FDG activity. Decreased right hilar mass FDG activity. New FDG avid right inguinal lymph node with decrea sed FDG activity within a previously seen enlarged left inguinal lymph node. 2. Enlarging left parotid lesion without suspicious FDG activity. Could represent a salivary gland t umor. Recommend further evaluation ultrasound. 3. Similar moderate to large right with decreased small right pleural effusion with pleural catheter in place. 4. Circumferential wall thickening of the urinary bladder with some surrounding fat stranding. Corre late with urinalysis for cystitis. [facility], , 05/05/2025 5:51 PM
== END | disposition home or self-care (01) ==
LOC: RADPETMAIN 09:29
PROVIDERS: ATTEND Internal Medicine Hematology & Oncology
DX: C34.31 Malignant neoplasm of lower lobe, right bronchus or lung (principal); C79.51 Secondary malignant neoplasm of bone; K11.8 Other diseases of salivary glands; J90 Pleural effusion, not elsewhere classified; N32.89 Other specified disorders of bladder
CPT/HCPCS: 78815; A9552